=== PATIENT | female | born 1935 | race Caucasian/White ===

== ENCOUNTER 2020-04-06 15:37 | Outpatient (CLI) | payer MEDICARE, SELFPAY ==
[2020-04-06 16:00] LABS: Basophils Absolute Auto 0.04 K/mm3 (0.00-0.10); Basophils Percent Auto 0.6 % (0.0-1.0); Eosinophils Absolute Auto 0.29 K/mm3 (0.02-0.50); Eosinophils Percent Auto 4.4 % (1.0-6.0); Hematocrit 38.1 % (35.0-42.0); Hemoglobin 12.7 g/dL (11.7-13.8); Immature Granulocyte Absolute 0.01 K/mm3 (0.00-0.00); Immature Granulocyte Percent A 0.2 % (0.0-0.0); Lymphocytes Absolute Auto 1.73 K/mm3 (1.10-4.50); Lymphocytes Percent Auto 26.5 % (18.0-42.0); Mean Corpuscular HGB Conc 33.3 g/dL (32.0-36.0); Mean Corpuscular Hemoglobin 31.4 pg (27.0-31.0); Mean Corpuscular Volume 94.3 fL (78.0-102.0); Mean Platelet Volume 9.9 fl (9.2-11.8); Monocytes Percent Auto 7.6 % (2.0-11.0); Neutrophils Percent Auto 60.7 % (50.0-70.0); Platelet Count Result 184 K/mm3 (150-420); Red Blood Count 4.04 M/mm3 (4.20-5.40); Red Cell Distribution Width 13.6 % (11.6-14.4); White Blood Count 6.5 K/mm3 (4.8-10.8)
[2020-04-06 16:14] LABS: Hemoglobin A1C 5.5 % (<5.7)
[2020-04-06 17:02] LABS: Alanine Aminotransferase 25 U/L (14-59); Alkaline Phosphatase 100 U/L (46-116); Anion Gap 8 mmol/L (8-16); Aspartate Amino Transferase 23 U/L (15-37); Bilirubin,Total 0.6 mg/dL (0.00-1.00); Blood Urea Nitrogen 22 mg/dL (7-18); Calcium 9.1 mg/dL (8.5-10.1); Carbon Dioxide 27 mmol/L (21-32); Chloride 103 mmol/L (98-108); Estimated Glomerular Filt Rate > 60; Glucose 119 mg/dL (70-99); HDL Direct 82 mg/dL (40-60); LDL Cholesterol Calculated 115 mg/dL (<130); Osmolality Calculated 290 mOsm/kg (285-295); Potassium 4.1 mmol/L (3.5-5.1); Sodium 138 mmol/L (136-145); Total Protein 7.1 g/dL (6.4-8.2); Triglycerides 75 mg/dL (0-150)
[2020-04-06 17:04] LABS: Cholesterol 212 mg/dL (0-200)
== END 2020-04-06 15:38 | disposition home or self-care (01) ==
LOC: CHSLAB 15:44
PROVIDERS: PCP Internal Medicine; Visit Provider Internal Medicine
DX: E11.9 Type 2 diabetes mellitus without complications (principal); I10 Essential (primary) hypertension; E78.5 Hyperlipidemia, unspecified
CPT/HCPCS: 36415; 80053; 80061; 83036; 85025

== ENCOUNTER 2020-04-25 08:55 | Outpatient (RCR) | payer MEDICARE, OTHER, SELFPAY ==
--- NOTE | 2020-04-25 10:02 | PTOPEVAL ---
Thank you for referring Yamilex Dial to [facility].? The patient is scheduled to be seen for therapy? __3__x/week for 12 visits. Please review, sign, date and return this plan of care JOSE R. I agree with and certify that the following plan of care is medically necessary. Referring Physician Date Admitting Provider: Attending Provider: Stephany Elkins, HAND BOX FOLDER-BC Referring Provider: *PT Outpatient Evaluation Start: 04/25/20 09:27 Freq: Status: Active Protocol: Document 04/25/20 09:27 MICHELLE (Rec: 04/25/20 09:59 MICHELLE [id number]) Therapy Assessment Status Assessment Status Assessment Status Evaluation Evaluation Information Problem Diagnosis unsteady gait Onset 04/19/20 Subjective Information Pt. reports that she underwent Query Text:As Reported By Patient/ left hip replacment in Family December 2018. she reports that the hip popped out 5 times following surgery. She reports that she did do brief bout of HH therapy. She reports that she underwent second surgery in July of 2019 to address the dislocation. She reports that every since undergoing hip surgery she has noticed her balance decreasing. She reports that she fell 2 weeks ago at her daughters after getting her foot caught while going over a threshold. She reports that she is currently using a cane. She reports that her goal is to be able to walk long distances without her cane safely. Prior Level of Function Activity Level (Last 3 Months) Occupation retired Hand Dominance Right Activity of Daily Living Ability Independent Indoor/Home Mobility Independent Community Mobility Independent Stairs Ability Independent Functional Cognition (Planning, Shopping Independent , Taking Medications) Cooking Yes Cleaning Yes Laundry Yes Shopping Yes Driving Yes Pain Assessment Timing of Pain Assessment Timing of Pain Assessment Pre-Treatment Pain Scale Pain Scale Used Numeric (1 - 10) Self Report Pain Assessment
--- NOTE | 2020-05-25 07:09 | PTOPEVAL ---
Thank you for referring Yamilex Dial to [facility].? The patient is scheduled to be seen for therapy? __2__x/week for 8 visits. Please review, sign, date and return this plan of care JOSE R. I agree with and certify that the following plan of care is medically necessary. Referring Physician Date Admitting Provider: Attending Provider: Stephany Elkins, SOFTWARE SOLUTIONS ARCHITECT-BC Referring Provider: *PT Outpatient Evaluation Start: 04/25/20 09:27 Freq: Status: Active Protocol: Document 05/23/20 13:05 MICHELLE (Rec: 05/23/20 13:31 MICHELLE [id number]) Therapy Assessment Status Assessment Status Assessment Status Re-evaluation Evaluation Information Problem Diagnosis unsteady gait, bilateral l.e. pain Pain Assessment Pain Scale Pain Scale Used Numeric (1 - 10) Self Report Pain Assessment Generalized Reported Pain Level 6 Greatest Pain Intensity 10 Pain Score Pain Score 6: Self Report Interventions Used Interventions Used By Clinicians Electrical Stimulation, Exercise,Heat Cervical and Lumbar ROM Lumbar ROM Lumbar Flexion Active Knee Query Text:Hands to: Lumbar Extension (0-40) 5 Query Text:Active in Degrees Lumbar Lateral Flexion Right (0-40) 30 Query Text:Active in Degrees Lumbar Lateral Flexion Left (0-40) 30 Query Text:Active in Degrees Lateral Rotation Right (0-45) 25 Query Text:Active in Degrees Lateral Rotation Left (0-45) 25 Query Text:Active in Degrees Lower Extremity Muscle Strength Testing General Lower Extremity Strength Gross Lower Extremity Strength right hip flexion 4+/5 left hip flexion 4/5 right hip abduction 4/5 left hip abduction 4-/5 bilateral knee flexion 5/5 bilateral knee extension 5/5 right ankle dorsiflexion 5/5 left ankle dorsiflexion 4+/5 Posture Posture Standing Position Additional Posture Comments Pt. presents with reduced lumbar lordosis with slight trunk flexion noted in standing. Palpation Assessment Palpation Palpation TTP noted at the area of the lumbar paraspinals and into the gluteal ridge. Balance Assessment Tinetti Balance Assessment Sitting Balance Steady, safe Ability to Arise Able, w/o using arms Attempts to Arise Arises on 1st attempt Immediate Standing Balance Steady w/o support Standing Ba
== END 2020-06-26 10:45 | disposition home or self-care (01) ==
LOC: CHSPT 08:55
PROVIDERS: Visit Provider Nurse Practitioner Family
DX: R26.81 Unsteadiness on feet (principal)
CPT/HCPCS: 97014; 97110; 97112; 97140; 97161; G0283

== ENCOUNTER 2020-05-06 09:27 | Outpatient (CLI) | payer MEDICARE, SELFPAY ==
--- NOTE | ~2020-05-06 | MR_ITS ---
EXAMINATION: MR lumbar spine wo/w con EXAM DATE: 05/06/2020 11:25 INDICATION: Low back pain, lumbar radiculopathy. TECHNIQUE: Multi-sequential, multiplanar MR images of the lumbar spine were obtained without contrast . Sagittal T1, T2, T2 fat saturation images. Axial T2 weighted images. Axial T1 weighted sequence. Patient was then injected with 12 mL Multihance intravenous contrast and reimaged. Postcontrast axi al and sagittal T1-weighted fat saturation sequences were obtained. Comparison is made to prior exami nation from 07/18/2007. FINDINGS: There are laminotomies laminectomies L2-L5. There is 6 mm retrolisthesis L1 on L2 and 7 mm retrolisthesis L2 on L3. There is 10 mm anterolisthesis L4 on L5 and 4 mm retrolisthesis L5 on S1. Th ere is severe disc disease at all lumbar levels and moderate disc disease at lower thoracic levels. T he conus medullaris terminates at the L1 level and has normal signal intensity and morphology. There is moderate lumbar levoscoliosis. Mild to moderate loss of all lumbar vertebral body heights, chronic compressions. No bone marrow savana a to suggest acute compression fracture. There is possible subacute component to the L5 compression. Paraspinal soft tissue is unremarkable. There are no areas of abnormal enhancement on the post contra st images. Level by level evaluation: T11-12: There is a mild diffuse disc bulge. Facet arthropathy: Mild to moderate. Neural foraminal stenosis: Mild bilateral. Central canal stenosis: Mild. T12-L1: There is a mild diffuse disc bulge. Facet arthropathy: Mild. Neural foraminal stenosis: No stenosis. Central canal stenosis: No stenosis. L1-L2: There is a moderate diffuse disc bulge. Facet arthropathy: Moderate. Neural foraminal stenosis: Moderate to severe right, moderate left. Central canal stenosis: Mild to moderate. L2-L3: There is a moderate diffuse disc bulge. Facet arthropathy: Moderate. Neural foraminal stenosis: Moderate to severe bilateral. Central canal stenosis: Mild to moderate, posterior decompression. L3-L4: There is a mild to moderate diffuse disc bulge. Facet arthropathy: Moderate to severe. Neural foraminal stenosis: Moderate to severe bilateral. Central canal stenosis: Moderate. L4-L5: There is a large diffuse disc bulge. Facet arthropathy: Severe. Neural foraminal stenosis: Severe bilateral. Central canal stenosis: Severe. L5-S1: There is a moderate diffuse disc bulge. Facet arthropathy: Moderate. Neural foraminal stenosis: Moderate to severe left, moderate right. Central canal stenosis: Mild to moderate. There is been significant interval progression in disc disease, other degenerative changes compared t o 2007. IMPRESSION: 1. L4-5 grade 2 anterolisthesis, severe central canal and bilateral neural foraminal stenosis. 2. Advanced lumbar spondylosis as detailed above. 3. Moderate levoscoliosis. Reviewed, dictated and finalized at location B. TRIMMER IMPRESSION: 1. L4-5 grade 2 anterolisthesis, severe central canal and bilateral neural for aminal stenosis. 2. Advanced lumbar spondylosis as detailed above. 3. Moderate levoscoliosis.
== END 2020-05-06 09:28 | disposition home or self-care (01) ==
LOC: CHSIMG 09:32
PROVIDERS: PCP Internal Medicine; Visit Provider Nurse Practitioner Family
DX: M54.5 Low back pain (principal); M54.16 Radiculopathy, lumbar region
CPT/HCPCS: 72158; A9577

== ENCOUNTER → 2021-06-30 11:22 | Outpatient (CLI) | payer MEDICARE, SELFPAY ==
--- NOTE | ~2021-06-30 | MR_ITS ---
EXAMINATION: MR lumbar spine wo [facility] EXAM DATE: 06/30/2021 12:19 INDICATION: chronic lbp w/ ana cristina buttock to ankle cramping since 01/2019. TECHNIQUE: Multi-sequential, multiplanar MR images of the lumbar spine were obtained without contrast . Sagittal T1, T2, T2 fat saturation images. Axial T2 weighted images. Comparison is made to prior examination from 05/06/2020. FINDINGS: There are surgical changes from laminotomies and laminectomies L2-L5. There is 7 mm retrol isthesis L1 on L2 and L2 on L3. There is 11 mm anterolisthesis L4 on L5 and 3 mm retrolisthesis L5 on S1. There is severe disc disease at all lumbar levels and moderate disc disease at lower thoracic le vels. The conus medullaris terminates at the L1 level and has normal signal intensity and morphology. There is moderate lumbar levoscoliosis. Mild to moderate loss of all lumbar vertebral body heights, chronic compressions. No bone marrow savana a to suggest acute compression fracture. There is possible subacute component to the L5 compression. Paraspinal soft tissue is unremarkable. There are no areas of abnormal enhancement on the post contra st images. Level by level evaluation: T11-12: There is a mild diffuse disc bulge. Facet arthropathy: Mild to moderate. Neural foraminal stenosis: Mild bilateral. Central canal stenosis: Mild. T12-L1: There is a mild diffuse disc bulge. Facet arthropathy: Mild. Neural foraminal stenosis: No stenosis. Central canal stenosis: No stenosis. L1-L2: There is a moderate diffuse disc bulge. Facet arthropathy: Moderate. Neural foraminal stenosis: Moderate to severe right, moderate left. Central canal stenosis: Mild to moderate. L2-L3: There is a moderate diffuse disc bulge. Facet arthropathy: Moderate. Neural foraminal stenosis: Moderate to severe bilateral. Central canal stenosis: Mild to moderate, posterior decompression. L3-L4: There is a mild to moderate diffuse disc bulge. Facet arthropathy: Moderate to severe. Neural foraminal stenosis: Moderate to severe bilateral. Central canal stenosis: Moderate. L4-L5: There is a large diffuse disc bulge. Facet arthropathy: Severe. Neural foraminal stenosis: Moderate to severe bilateral. Central canal stenosis: Moderate to severe. L5-S1: There is a moderate diffuse disc bulge. Facet arthropathy: Moderate. Neural foraminal stenosis: Moderate to severe left, moderate right. Central canal stenosis: Mild to moderate. Difficult to appreciate substantial interval change in these findings compared to prior study. IMPRESSION: 1. L4-5 grade 2 anterolisthesis, severe central canal and bilateral neural foraminal stenosis. 2. Moderate to severe multilevel neural foraminal stenosis. 3. Moderate levoscoliosis. Reviewed, dictated and finalized at location B. IMPRESSION: 1. L4-5 grade 2 anterolisthesis, severe central canal and bilateral neural for aminal stenosis. 2. Moderate to severe multilevel neural foraminal stenosis. 3. Moderate levoscoliosis.
== END ==
PROVIDERS: PCP Internal Medicine; Visit Provider Nurse Practitioner Adult Health
DX: M54.16 Radiculopathy, lumbar region (principal)
CPT/HCPCS: 72148

== ENCOUNTER → 2021-09-26 16:17 | Outpatient (CLI) | payer MEDICARE, SELFPAY ==
--- NOTE | ~2021-09-26 | XR_ITS ---
EXAM: XR shoulder RT min 2V DATE: 09/26/2021 16:40 HISTORY: Right shoulder pain . COMPARISON: X-ray chest 12/27/2015. FINDINGS: Decreased mineralization. Humeral head remodeling, severe glenohumeral narrowing at superi or humeral head displacement, and surrounding osteophytosis at the glenohumeral joint. Severe AC join t hypertrophy. Multiple loose bodies are likely present within the right shoulder joint. Partially vi sualized stent over the lower mediastinum/GE junction. 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 Reviewed, dictated and finalized at location K.
== END ==
PROVIDERS: PCP Internal Medicine; Visit Provider Nurse Practitioner Family
DX: M25.511 Pain in right shoulder (principal); M19.011 Primary osteoarthritis, right shoulder
CPT/HCPCS: 73030

== ENCOUNTER 2022-01-06 05:52 | Emergency (ER) | payer MEDICARE, SELFPAY ==
[2022-01-06 06:09] VITALS: BP 178/69; PULSE 77; RESP 18; TEMP 36.6; O2SAT 98
--- NOTE | 2022-01-06 06:21 | ED.SKABFB ---
HPI - Skin/Abscess/Foreign Bdy General Chief complaint: Skin/Abscess/Foreign Body Stated complaint: PAIN Source: patient Mode of arrival: ambulatory Limitations: no limitations History of Present Illness HPI narrative: This is an 86-year-old female that presents with some rash on her bilateral arms mid arms that are itchy have urticaria patient is unsure of which she came in contact with but she is not short of breath no fever chills no abdominal pain no nausea or vomiting. MD complaint: rash Onset (ago): hour(s) Location: LUE and RUE Severity: mild Quality: pruritic Related Data Home Medications Medication Instructions Recorded Confirmed meloxicam 15 mg tablet 15 mg PO DAILY 01/06/22 01/06/22 omeprazole 20 mg capsule,delayed 20 mg PO DAILY 01/06/22 01/06/22 release oxybutynin chloride 5 mg tablet 5 mg PO DAILY 01/06/22 01/06/22 pravastatin 10 mg tablet 10 mg PO DAILY 01/06/22 01/06/22 sertraline 50 mg tablet 50 mg PO DAILY 01/06/22 01/06/22 Allergies Allergy/AdvReac Type Severity Reaction Status Date / Time vancomycin Allergy Severe RASH Verified 01/06/22 06:04 doxycycline Allergy Unknown RASH Verified 01/06/22 06:04 hydromorphone Allergy Unknown HALLUCINATI Verified 01/06/22 06:04 ONS acetaminophen [From [place]] Allergy Rash Verified 01/06/22 06:04 atorvastatin Allergy Unknown Verified 01/06/22 06:04 azithromycin Allergy Hives Verified 01/06/22 06:04 duloxetine Allergy Unknown Verified 01/06/22 06:04 hydrocodone [From [place]] Allergy Rash Verified 01/06/22 06:04 Review of Systems Review of Systems: All systems reviewed & are unremarkable except as noted in HPI and below PMFSH Past Medical History Medical History HLD (hyperlipidemia) HLD (hyperlipidemia) Exam Const: General: healthy appearing and no acute distress HENMT: Head: normal to inspection General nose exam: Normal external nose present Face and sinus: normal facial exam Mouth: Yes Normal oral and palatal mucosa present Eyes: Conjunctivae: conjunctivae normal EOM: EOMs intact bilaterally Neck: Neck: normal visual inspection Chest: Chest palpation & inspection: normal inspection of the chest Resp: Effort & Inspection: normal respiratory effort Auscultation: clear to auscultation bilaterally Cardio: Rate: regular rate Rhythm: regular rhythm GI: GI Palp: Yes Soft to palpation Auscultation: normal bowel sounds Back/Spine/Pelvis: Back: no CVA tenderness Skin: General skin exam: normal color Rashes: no rashes Wounds: no wounds Neuro: General: patient oriented x3 and moves all extremities Cranial nerves: Yes Nystagmus not present Extrem: General: normal to inspection Psych: Mental Status: mental status grossly normal Affect: normal affect Course Course Emergency Course: patient received IM 80mg shot patient with some no shortness of breath no nausea vomiting no abdominal pain Vital Signs Vital signs: Vital Signs Temperature 36.6 C 01/06/22 06:09 Pulse Rate 77 01/06/22 06:09 Respiratory Rate 18 01/06/22 06:09 Blood Pressure 178/69 H 01/06/22 06:09 Pulse Oximetry 98 01/06/22 06:09 Oxygen Delivery Room Air 01/06/22 06:09 Temperature 36.6 C 01/06/22 06:09 Pulse Rate 77 01/06/22 06:09 Respiratory Rate 18 01/06/22 06:09 Blood Pressure 178/69 H 01/06/22 06:09 Pulse Oximetry 98 01/06/22 06:09 Oxygen Delivery Room Air 01/06/22 06:09 Critical Care Time Critical Care Time Critical Care Time: No Discharge Plan Discharge Clinical Impression: Contact dermatitis Qualifiers: Contact dermatitis type: unspecified Contact dermatitis trigger: unspecified trigger Qualified Code(s): L25.9 - Unspecified contact dermatitis, unspecified cause Patient Disposition: Home, Self-Care Condition: Stable Instructions: Antibiotic Form, Contact Dermatitis (ED) Additional Instructions: take medicine as prescribed and fol
[2022-01-06] MEDS: methylPREDNISolone ACETATE 40 MG/ML VIAL 80 MG IM (06:29)
== END 2022-01-06 06:33 | disposition home or self-care (01) ==
PROVIDERS: Emergency Provider Emergency Medicine; PCP Internal Medicine
DX: L25.9 Unspecified contact dermatitis, unspecified cause (principal)
CPT/HCPCS: 96372; 99283; J1030

== ENCOUNTER 2022-05-07 09:55 | Outpatient (CLI) | payer MEDICARE, SELFPAY ==
[2022-05-07 10:16] LABS: Basophils Absolute Auto 0.06 K/mm3 (0.00-0.10); Basophils Percent Auto 1.1 % (0.0-1.0); Eosinophils Absolute Auto 0.31 K/mm3 (0.02-0.50); Eosinophils Percent Auto 5.8 % (1.0-6.0); Hematocrit 41.8 % (35.0-42.0); Hemoglobin 13.7 g/dL (11.7-13.8); Immature Granulocyte Absolute 0.02 K/mm3 (0.00-0.00); Immature Granulocyte Percent A 0.4 % (0.0-0.0); Lymphocytes Absolute Auto 1.32 K/mm3 (1.10-4.50); Lymphocytes Percent Auto 24.5 % (18.0-42.0); Mean Corpuscular HGB Conc 32.8 g/dL (32.0-36.0); Mean Corpuscular Hemoglobin 31.5 pg (27.0-31.0); Mean Corpuscular Volume 96.1 fL (78.0-102.0); Monocytes Absolute Auto 0.42 K/mm3 (0.10-0.90); Monocytes Percent Auto 7.8 % (2.0-11.0); Neutrophils Absolute Auto 3.3 K/mm3 (1.7-7.2); Neutrophils Percent Auto 60.4 % (50.0-70.0); Platelet Count Result 170 K/mm3 (150-420); Red Blood Count 4.35 M/mm3 (4.20-5.40); Red Cell Distribution Width 13.3 % (11.6-14.4); White Blood Count 5.4 K/mm3 (4.8-10.8)
[2022-05-07 10:24] LABS: Hemoglobin A1C 5.7 % (<5.7)
[2022-05-07 10:57] LABS: Alanine Aminotransferase 26 U/L (14-59); Albumin Level 3.8 g/dL (3.4-5.0); Alkaline Phosphatase 110 U/L (46-116); Anion Gap 8 mmol/L (8-16); Aspartate Amino Transferase 23 U/L (15-37); Bilirubin,Total 0.8 mg/dL (0.00-1.00); Blood Urea Nitrogen 19 mg/dL (7-18); Calcium 9.1 mg/dL (8.5-10.1); Carbon Dioxide 29 mmol/L (21-32); Chloride 105 mmol/L (98-108); Cholesterol 204 mg/dL (0-200); Estimated Glomerular Filt Rate > 60; Glucose 95 mg/dL (70-99); HDL Direct 73 mg/dL (40-60); LDL Cholesterol Calculated 120 mg/dL (<130); Osmolality Calculated 296 mOsm/kg (285-295); Potassium 4.7 mmol/L (3.5-5.1); Sodium 142 mmol/L (136-145); Total Protein 6.9 g/dL (6.4-8.2); Triglycerides 57 mg/dL (0-150)
[2022-05-07 11:01] LABS: CRP < 0.5 mg/dL (0.0-0.9)
== END 2022-05-07 09:56 | disposition home or self-care (01) ==
PROVIDERS: PCP Internal Medicine; Visit Provider Internal Medicine
DX: I10 Essential (primary) hypertension (principal); E11.9 Type 2 diabetes mellitus without complications; E78.5 Hyperlipidemia, unspecified
CPT/HCPCS: 36415; 80053; 80061; 83036; 85025; 86140

== ENCOUNTER 2022-05-29 02:01 | Day surgery (SDC) | payer MEDICARE, SELFPAY ==
[2022-05-13 14:50] VITALS: BMI 33.3
[2022-05-29 12:00] VITALS: BP 193/77; PULSE 69; RESP 16; TEMP 36.2; O2SAT 99; BMI 33.6
--- NOTE | 2022-05-29 12:33 | P.PNAN_ITS ---
Anes - Initial Pre Proc Eval Procedure: Operation Date: 05/29/22 13:30 Proposed Procedures p Esophagogastroduodenoscopy - Reinaldo Beasley MD Date/Time: 05/29/22 12:33 Surgeon: Reinaldo Beasley MD Pre Op Diagnosis: dysphagia Patient Data Age: 87 Gender: F Height: 1.47 m Weight: 73 kg Last Vital Signs Temp 97.1 F L 05/29/22 12:00 Pulse 69 05/29/22 12:00 Resp 16 05/29/22 12:00 BP 193/77 H 05/29/22 12:00 Pulse Ox 99 05/29/22 12:00 O2 Del Method Room Air 05/29/22 12:00 Allergies Allergy/AdvReac Type Severity Reaction Status Date / Time vancomycin Allergy Severe RASH Verified 05/29/22 12:17 doxycycline Allergy Unknown RASH Verified 05/29/22 12:17 hydromorphone Allergy Unknown HALLUCINATI Verified 05/29/22 12:17 ONS acetaminophen [From [place]] Allergy Rash Verified 05/29/22 12:17 atorvastatin Allergy Unknown Verified 05/29/22 12:17 azithromycin Allergy Hives Verified 05/29/22 12:17 duloxetine Allergy Unknown Verified 05/29/22 12:17 hydrocodone [From [place]] Allergy Rash Verified 05/29/22 12:17 Home Medications Medication Instructions Recorded Confirmed Type meloxicam 15 mg tablet 15 mg PO DAILY 01/06/22 05/29/22 History omeprazole 20 mg capsule,delayed 20 mg PO DAILY 01/06/22 05/29/22 History release oxybutynin chloride 5 mg tablet 5 mg PO DAILY 01/06/22 05/29/22 History pravastatin 10 mg tablet 10 mg PO DAILY 01/06/22 05/29/22 History sertraline 50 mg tablet (Zoloft) 50 mg PO DAILY 01/06/22 05/29/22 History Patient hx anesthesia problems: none Family hx anesthesia problems: none Results Review: All pre-operative results and documents have been reviewed as part of the pre- operative evaluation. [facility] Past Medical History Medical History HLD (hyperlipidemia) HLD (hyperlipidemia) Social History Social History Substance use type: does not use Anes - Eval Final PreProcedure Day of Procedure 05/29/22 12:33 Patient weight: normal Heart: regular rate and rhythm Lungs: clear to auscultation Airway: Mallampati scale class II Neurological: alert and oriented Last oral intake: >/= 8 hours ASA classification: III Emergent: no Anesthetic plan: proceed Anesthesia type and monitoring: general GIVS and standard monitoring Results Review: All pre-operative results and documents have been reviewed as part of the pre- operative evaluation. Informed Consent: The patient's anesthetic plan and its attendant risks and benefits were discussed with the patient/family/POA. Questions were solicited and answers provided to the satisfaction of the patient/family/POA.
[2022-05-29] MEDS: LACTATED RINGERS 1,000 ML 150 ML IV CONT (12:37)
[2022-05-29] MEDS: GENTAMICIN 80MG/SOD CHL 50 ML 80 MG/50 ML BAG 100 MG IVPB (12:39)
[2022-05-29] MEDS: AMPICILLIN 2 GM/NS 100 ML 2 GM/100 ML BAG IVPB (12:58)
--- NOTE | 2022-05-29 13:01 | PM.HPGS ---
History of Present Illness History of Present Illness Consent: Risks, benefits, and alternatives have been discussed and questions answered. Patient agrees to proceed with procedure. Chief complaint: dysphagia Narrative: Yamilex Dial is a 87 year old female with gerd on ppi and dysphagia, she says that had egd in the past and thinks that esophagus stretched out. Review of Systems Constitutional: Constitutional: Denies headache(s) and Denies weakness Eyes: Eyes: Denies blurry vision ENT: Reports Normal hearing present, Denies headache(s) and Denies neck pain Cardiovascular: Cardiovascular: Denies chest pain and Denies dyspnea Respiratory: Respiratory: Denies dyspnea Gastrointestinal: Gastrointestinal: Reports no additional gastrointestinal complaints Genitourinary: Genitourinary: Denies dysuria Musculoskeletal: Musculoskeletal: Denies neck pain Integumentary/Breasts: Skin/Breast: Denies dry skin Neurologic: Reports Normal hearing present, Denies headache(s) and Denies weakness Psychiatric: Psychiatric: Denies anxiety Endocrine: Endocrine: Denies change in body appearance Hematologic/Lymphatic: Hematologic/Lymphatic: Denies easy bleeding Allergic/Immunologic: Allergic/Immunologic: Denies urticaria PMF Past Medical History Medical History (Updated 05/29/22 @ 13:02 by Reinaldo Beasley MD) Dysphagia GERD (gastroesophageal reflux disease) HLD (hyperlipidemia) HLD (hyperlipidemia) Social History Social History Substance use type: does not use Meds Home Medications and Allergies Home Medications Medication Instructions Recorded Confirmed Type meloxicam 15 mg tablet 15 mg PO DAILY 01/06/22 05/29/22 History omeprazole 20 mg capsule,delayed 20 mg PO DAILY 01/06/22 05/29/22 History release oxybutynin chloride 5 mg tablet 5 mg PO DAILY 01/06/22 05/29/22 History pravastatin 10 mg tablet 10 mg PO DAILY 01/06/22 05/29/22 History sertraline 50 mg tablet (Zoloft) 50 mg PO DAILY 01/06/22 05/29/22 History Allergies Allergy/AdvReac Type Severity Reaction Status Date / Time vancomycin Allergy Severe RASH Verified 05/29/22 12:17 doxycycline Allergy Unknown RASH Verified 05/29/22 12:17 hydromorphone Allergy Unknown HALLUCINATI Verified 05/29/22 12:17 ONS acetaminophen [From [place]] Allergy Rash Verified 05/29/22 12:17 atorvastatin Allergy Unknown Verified 05/29/22 12:17 azithromycin Allergy Hives Verified 05/29/22 12:17 duloxetine Allergy Unknown Verified 05/29/22 12:17 hydrocodone [From [place]] Allergy Rash Verified 05/29/22 12:17 Vital Signs Vital Signs - 24 hr 05/29/22 12:00 Temperature 97.1 F L Pulse Rate 69 Respiratory Rate 16 Blood Pressure 193/77 H Pulse Oximetry 99 Oxygen Delivery Room Air Exam Const: General: comfortable and no acute distress HENMT: Face/Nose/Sinus: Normal nares present Eyes: General: appearance normal, both eyes and all related structures Neck: Neck: no JVD Resp: Auscultation: clear to auscultation bilaterally Cardio: Rate: regular rate Rhythm: regular rhythm GI: Inspection: non-distended GI Palp: Yes Soft to palpation Skin: General skin exam: normal color Neuro: General: gait normal Speech: normal speech Extrem: General: normal to inspection Psych: Mental Status: mental status grossly normal Assessment and Plan Assessment and plan (1) GERD (gastroesophageal reflux disease): Code(s): K21.9 - Gastro-esophageal reflux disease without esophagitis Status: Acute Assessment and Plan: egd with bx (2) Dysphagia: Code(s): R13.10 - Dysphagia, unspecified Status: Acute Assessment and Plan: will assess if needs dilatation
[2022-05-29 13:17] VITALS: BP 115/45; PULSE 66; RESP 21; O2SAT 98
[2022-05-29 13:27] VITALS: BP 116/54; PULSE 66; RESP 22; O2SAT 98
[2022-05-29 13:37] VITALS: BP 137/61; PULSE 61; RESP 18; O2SAT 98
== END 2022-05-29 13:41 | disposition home or self-care (01) ==
PROVIDERS: PCP Internal Medicine; Visit Provider Internal Medicine Gastroenterology
PROC: 0DJ08ZZ Inspection of Upper Intestinal Tract, Via Natural or Artificial Opening Endoscopic (ICD-10-PCS; CPT 43235; principal; 2022-05-29 13:30)
DX: K21.9 Gastro-esophageal reflux disease without esophagitis (principal); R13.10 Dysphagia, unspecified; K44.9 Diaphragmatic hernia without obstruction or gangrene; K29.70 Gastritis, unspecified, without bleeding; E78.5 Hyperlipidemia, unspecified
CPT/HCPCS: 43239; 43248; 88305; J0290; J1580; J2704; J7120

== ENCOUNTER 2022-06-21 06:24 | Emergency (ER) | payer MEDICARE, SELFPAY ==
--- NOTE | ~2022-06-21 | XR_ITS ---
Clinical Indication: Dizziness, hypertension PA and lateral views of the chest: Comparison: 12/27/2015 Findings: The lungs are clear, without evidence of focal consolidation or pleural effusion. Cardiome diastinal silhouette is stable, now with aortic valve replacement. Left shoulder arthroplasty noted. Multiple retrolistheses in the lumbar spine are noted. Impression: Clear lungs. Status post interval aortic valve replacement. Reviewed, dictated and finalized at location . Impression: Clear lungs. Status post interval aortic valve replacement.
--- NOTE | ~2022-06-21 | CT_ITS ---
Non-contrast Head CT History: Hypertension, dizziness Technique: Axial non-contrast imaging of the brain was performed. Dose reduction technique was used on this scan by utilizing automated exposure control and iterative reconstruction technique. The dose -length product (DLP) was 605.33 mGy-cm. Findings: There is no evidence of intracranial hemorrhage, mass lesion, or acute infarct. Brain par enchyma appears normal. The ventricles and subarachnoid spaces are normal in size. The calvarium ap pears normal. The visualized paranasal sinuses and mastoid air cells are clear. Impression: No significant abnormality seen. Reviewed, dictated and finalized at location . Impression: No significant abnormality seen.
[2022-06-21 06:25] VITALS: BP 208/72; PULSE 66; PULSE 67; RESP 20; TEMP 36.6; O2SAT 99
--- NOTE | 2022-06-21 06:32 | ECG_ITS ---
Measurements Intervals [place] Rate: 64 P: 43 VA: 176 QRS: 35 QRSD: 90 T: 27 QT: 437 QTc: 454 Interpretive Statements SINUS RHYTHM NORMAL ECG NO PREVIOUS ECG AVAILABLE FOR COMPARISON Electronically Signed On 06-21-2022 6:52:19 CDT by Thomas Casanova D.O.
--- NOTE | 2022-06-21 06:44 | ED.DIZZY ---
HPI - Dizziness General Chief Complaint: Dizziness Stated Complaint: dizziness/vomitng Time Seen by Provider: 06/21/22 06:32 Source: patient and EMS Mode of arrival: ambulatory Limitations: no limitations History of Present Illness HPI Narrative: this is an 87 year female presents with from with a 1 week history of dizziness / vertigo started gradually had improved over the course of a week but this morning had intensified and had noticed that her blood pressure has been elevated she, does not have a history of hypertension and currently in the ER blood pressure was 208/77 with a right-sided headache, with some some nausea no vomiting denies chest pain or shortness of breath no abdominal pain no diarrhea or constipation no flank pain no dysuria no hematuria. Patient has a past medical history of osteoarthritis, depression, GERD and hyperlipidemia. MD elicited complaint: dizziness and lightheadedness Onset (ago): day(s) Timing: gradual onset Severity: severe Description: room spinning Related Data Home Medications Medication Instructions Recorded Confirmed meloxicam 15 mg tablet 15 mg PO DAILY 01/06/22 06/21/22 omeprazole 20 mg capsule,delayed 20 mg PO DAILY 01/06/22 06/21/22 release oxybutynin chloride 5 mg tablet 5 mg PO DAILY 01/06/22 06/21/22 pravastatin 10 mg tablet 10 mg PO DAILY 01/06/22 06/21/22 sertraline 50 mg tablet (Zoloft) 50 mg PO DAILY 01/06/22 06/21/22 Adults Multivitamin See Rx Instructions .Route .COMPLEX 06/21/22 06/21/22 Ocuvite See Rx Instructions .Route .COMPLEX 06/21/22 06/21/22 acetaminophen 500 mg PO Q6-8H PRN Pain 06/21/22 06/21/22 aspirin 81 mg PO DAILY 06/21/22 06/21/22 Allergies Allergy/AdvReac Type Severity Reaction Status Date / Time vancomycin Allergy Severe RASH Verified 06/21/22 06:48 doxycycline Allergy Unknown RASH Verified 06/21/22 06:48 hydromorphone Allergy Unknown HALLUCINATI Verified 06/21/22 06:48 ONS acetaminophen [From [place]] Allergy Rash Verified 06/21/22 06:48 atorvastatin Allergy Unknown Verified 06/21/22 06:48 azithromycin Allergy Hives Verified 06/21/22 06:48 duloxetine Allergy Unknown Verified 06/21/22 06:48 hydrocodone [From [place]] Allergy Rash Verified 06/21/22 06:48 Review of Systems Review of Systems: All systems reviewed & are unremarkable except as noted in HPI and below PMFSH Past Medical History Medical History Dysphagia GERD (gastroesophageal reflux disease) HLD (hyperlipidemia) HLD (hyperlipidemia) Social History Social History Substance use type: does not use Exam Const: General: healthy appearing and no acute distress Nutritional Appearance: well nourished Limitations: no limitations HENMT: Head: normal to inspection Ears: TM's normal bilaterally Face/Nose/Sinus: Normal external nose present Face and sinus: normal facial exam Mouth: Yes Normal oral and palatal mucosa present Eyes: Conjunctivae: conjunctivae normal Pupils: Equal, round and reactive pupils present EOM: EOMs intact bilaterally Direct Ophthalmoscopy: no photophobia Neck: Neck: normal visual inspection Chest: Chest palpation & inspection: normal inspection of the chest Resp: Effort & Inspection: normal respiratory effort Auscultation: clear to auscultation bilaterally Cardio: Rate: regular rate Rhythm: regular rhythm GI: Inspection: distended Auscultation: normal bowel sounds : General: Yes bladder normal to palpation Urinary Catheter: Urinary Catheter: patent and draining Back/Spine/Pelvis: Back: no CVA tenderness Skin: General skin exam: normal color Rashes: no rashes Neuro: General: patient oriented x3, moves all extremities, no meningeal signs, no focal motor deficits and CN's II-XI intact bilaterally Cranial nerves: Yes Nystagmus not present Speech: normal speech Extrem: General: normal to inspection, no clubbing, cyanosis or karen
[2022-06-21] MEDS: ONDANSETRON INJ 4 MG/2 ML VIAL IV PUSH (06:53)
[2022-06-21 06:54] VITALS: PULSE 60
[2022-06-21] MEDS: ENALAPRILAT 2.5 MG/2 ML VIAL 1.25 MG IV PUSH (06:56)
[2022-06-21 06:57] LABS: Basophils Absolute Auto 0.05 K/mm3 (0.00-0.10); Basophils Percent Auto 0.5 % (0.0-1.0); Eosinophils Absolute Auto 0.15 K/mm3 (0.02-0.50); Eosinophils Percent Auto 1.6 % (1.0-6.0); Hematocrit 41.7 % (35.0-42.0); Hemoglobin 13.8 g/dL (11.7-13.8); Immature Granulocyte Absolute 0.05 K/mm3 (0.00-0.00); Immature Granulocyte Percent A 0.5 % (0.0-0.0); Lymphocytes Absolute Auto 0.84 K/mm3 (1.10-4.50); Mean Corpuscular HGB Conc 33.1 g/dL (32.0-36.0); Mean Corpuscular Hemoglobin 31.7 pg (27.0-31.0); Mean Corpuscular Volume 95.6 fL (78.0-102.0); Monocytes Absolute Auto 0.62 K/mm3 (0.10-0.90); Monocytes Percent Auto 6.6 % (2.0-11.0); Neutrophils Absolute Auto 7.7 K/mm3 (1.7-7.2); Neutrophils Percent Auto 81.8 % (50.0-70.0); Platelet Count Result 159 K/mm3 (150-420); Red Blood Count 4.36 M/mm3 (4.20-5.40); Red Cell Distribution Width 13.5 % (11.6-14.4); White Blood Count 9.4 K/mm3 (4.8-10.8)
--- NOTE | 2022-06-21 07:06 | PC.NURSE ---
Pt resting c daughter at bedside, report given to KEYLA Young
[2022-06-21 07:12] LABS: Partial Thromboplastin Time 32.3 SEC (23.90-30.70); Prothrombin Time 11.2 Seconds (9.50-12.10)
[2022-06-21 07:21] LABS: NT Pro B Type Natriuretic Pept 96 pg/mL (0-450)
[2022-06-21 07:21] LABS: Alanine Aminotransferase 29 U/L (14-59); Albumin Level 3.8 g/dL (3.4-5.0); Alkaline Phosphatase 127 U/L (46-116); Anion Gap 8 mmol/L (8-16); Aspartate Amino Transferase 30 U/L (15-37); Bilirubin,Total 0.7 mg/dL (0.00-1.00); Blood Urea Nitrogen 22 mg/dL (7-18); Calcium 9.4 mg/dL (8.5-10.1); Carbon Dioxide 28 mmol/L (21-32); Chloride 103 mmol/L (98-108); Estimated CRCL calculation 47 ml/min; Estimated Glomerular Filt Rate > 60; Glucose 124 mg/dL (70-99); Osmolality Calculated 292 mOsm/kg (285-295); Potassium 3.8 mmol/L (3.5-5.1); Sodium 139 mmol/L (136-145); Total Protein 7.6 g/dL (6.4-8.2)
[2022-06-21 07:22] LABS: Troponin I 36.6 ng/L (0.00-60.4)
[2022-06-21 07:22] LABS: CRP < 0.5 mg/dL (0.0-0.9)
--- NOTE | 2022-06-21 07:23 | ED.GENADULT ---
HPI - General Adult General Chief complaint: Dizziness Stated complaint: dizziness/vomitng Time Seen by Provider: 06/21/22 06:32 Source: patient and EMS Mode of arrival: ambulatory Limitations: no limitations History of Present Illness HPI narrative: I TOOK OVER THE MANAGEMENT OF THIS PATIENT FROM THE PREVIOUS PROVIDER. PLEASE REFER TO THEIR NOTE FOR FURTHER DETAILS. In brief, the patient is an 87-year-old woman with history of GERD, hyperlipidemia, spinal stenosis. She does not take antihypertensive medications. For the past week, the patient has had worsening nausea dizziness and no vertigo associated with a headache tonight amish region of her head, initially the symptoms decreased but have increased again this morning. She still complains of dizziness and vertigo. No vomiting but nausea was present initially which has improved significantly now. Does complain of left buttocks pain from spinal stenosis. No paresthesias except tingling in the left hand from spinal stenosis, chronic, not acute today. No chest pain or discomfort. No dyspnea. No fevers or chills. No URI symptoms. No UTI symptoms. On arrival, the blood pressure was quite elevated, 208/70 with a pulse of 67. She received enalapril IV 1.25 mg. The blood pressure now is 150/55 with a pulse of 67. Workup is in progress. Related Data Home Medications Medication Instructions Recorded Confirmed meloxicam 15 mg tablet 15 mg PO DAILY 01/06/22 06/21/22 omeprazole 20 mg capsule,delayed 20 mg PO DAILY 01/06/22 06/21/22 release oxybutynin chloride 5 mg tablet 5 mg PO DAILY 01/06/22 06/21/22 pravastatin 10 mg tablet 10 mg PO DAILY 01/06/22 06/21/22 sertraline 50 mg tablet (Zoloft) 50 mg PO DAILY 01/06/22 06/21/22 Adults Multivitamin See Rx Instructions .Route .COMPLEX 06/21/22 06/21/22 Ocuvite See Rx Instructions .Route .COMPLEX 06/21/22 06/21/22 acetaminophen 500 mg PO Q6-8H PRN Pain 06/21/22 06/21/22 aspirin 81 mg PO DAILY 06/21/22 06/21/22 Allergies Allergy/AdvReac Type Severity Reaction Status Date / Time vancomycin Allergy Severe RASH Verified 06/21/22 06:48 doxycycline Allergy Unknown RASH Verified 06/21/22 06:48 hydromorphone Allergy Unknown HALLUCINATI Verified 06/21/22 06:48 ONS acetaminophen [From [place]] Allergy Rash Verified 06/21/22 06:48 atorvastatin Allergy Unknown Verified 06/21/22 06:48 azithromycin Allergy Hives Verified 06/21/22 06:48 duloxetine Allergy Unknown Verified 06/21/22 06:48 hydrocodone [From [place]] Allergy Rash Verified 06/21/22 06:48 Review of Systems Review of Systems: All systems reviewed & are unremarkable except as noted in HPI and below Constitutional: Constitutional: Reports as per HPI, Reports no additional constitutional complaints, Denies chills, Denies excessive sweating, Denies fatigue, Denies fever(s), Reports headache(s) and Denies weakness Eyes: Eyes: Reports as per HPI, Reports no additional eye complaints, Denies change in vision and Denies photophobia ENT: Reports system reviewed and no additional complaints, except as documented, Reports as per HPI, Denies dysphagia, Reports vertigo, Reports dizziness, Reports headache(s), Denies lip swelling, Denies nasal congestion, Denies sore throat, Denies throat swelling and Denies tongue swelling Cardiovascular: Cardiovascular: Reports as per HPI, Reports no additional cardiovascular complaints, Denies chest pain, Denies syncope, Denies rapid heart rate and Denies dyspnea Respiratory: Respiratory: Reports as per HPI, Reports no additional respiratory complaints, Denies chest congestion, Denies cough, Denies dyspnea and Denies wheezing Gastrointestinal: Gastrointestinal: Reports as per HPI, Reports no additional gastrointestinal complaints, Denies abdominal pain, Denies constipation, Denies dysphagia, Denies diarrhea, Reports nausea ( Earlier, on arrival, now resolved) and Denies vomiting Genitourinary: Genitourinary: Reports as per HPI, Denies hematuria, Denies
[2022-06-21] MEDS: MECLIZINE HCL 25 MG TABLET 50 MG PO (07:35)
[2022-06-21] MEDS: SODIUM CHLORIDE 0.9% IV 1,000 ML 999 ML IV CONT (07:36)
[2022-06-21] MEDS: ACETAMINOPHEN 325 MG TABLET 975 MG PO (07:39)
[2022-06-21] MEDS: KETOROLAC 30 MG/ML VIAL (*BKC) 15 MG IV PUSH (07:40)
[2022-06-21 09:01] LABS: Appearance Urine Clear (Clear); Bilirubin Urine Negative (Negative); Blood Urine Negative (Negative); Color Urine Light Yellow (Yellow); Glucose Urine UA Negative (Negative); Ketones Urine Negative (Negative); Leukocyte Esterase Ur Trace LEU/UL (Negative); Nitrate Urine Negative (Negative); Protein Urine Negative (Negative); Urobilinogen Urine 0.2 mg/dL (0.2-1.0)
[2022-06-21 09:06] LABS: Add Urine Microscopic? YES; RBC Urine 0-2 /hpf (0-2); Squamous Epithelial Cell Urine Few /hpf (Few); WBC Urine 0-3 /hpf (0-3)
[2022-06-21 09:07] LABS: Bacteria Urine Trace /hpf
[2022-06-21 09:14] VITALS: BP 128/59; BP 136/60; PULSE 68; PULSE 76
[2022-06-21 09:15] VITALS: BP 139/89; PULSE 82
[2022-06-21 09:53] VITALS: PULSE 82; RESP 20; TEMP 36.7; O2SAT 98
== END 2022-06-21 09:45 | disposition home or self-care (01) ==
PROVIDERS: Emergency Medicine; Emergency Provider Emergency Medicine; PCP Internal Medicine
DX: R03.0 Elevated blood-pressure reading, without diagnosis of hypertension (principal); R42 Dizziness and giddiness; E78.5 Hyperlipidemia, unspecified; Z79.1 Long term (current) use of non-steroidal anti-inflammatories (NSAID); Z79.82 Long term (current) use of aspirin; Z79.899 Other long term (current) drug therapy
CPT/HCPCS: 36415; 70450; 71046; 80053; 81001; 83605; 83880; 84484; 85025; 85610; 85730; 86140; 93005; 96361; 96374; 96375; 99284; A9270; J1885; J2405; J7030

== ENCOUNTER 2022-07-13 13:33 | Emergency (ER) | payer MEDICARE, SELFPAY ==
[2022-07-13] VITALS (36 sets, daily range): BP systolic 123–216; BP diastolic 52–91; PULSE 60–79; RESP 12–23; TEMP 36.4–36.8; O2SAT 94–100
--- NOTE | ~2022-07-13 | CT_ITS ---
EXAMINATION: CT brain wo con DATE: 07/13/2022 14:40 INDICATION: Patient fell and struck head today. Dizziness. Increased weakness. TECHNIQUE: Computed tomography (CT) of the head was performed without intravenous contrast. The mA wa s adjusted according to patient size. Iterative reconstruction technique was employed. Exam dose: 60 5.33 mGy-cm total exam DLP. COMPARISON: None FINDINGS: Bilateral vertebral artery calcifications and carotid siphon internal carotid artery calcif ications. There is nonspecific diminished attenuation of cerebral white matter, likely due to chronic small ves kristine ischemic changes of the cerebral white matter. No intracranial mass lesion or hemorrhage or cerebrovascular accident is detected. No midline shift o r mass effect effect. No subdural or epidural hematoma. There is modest posterior mucoperiosteal thickening or fluid of the sphenoid sinuses. The paranasal s inuses and mastoid air cells are otherwise unremarkable. There is evidence of bilateral ocular lens replacements. No fracture or bone destruction of the cranial vault. IMPRESSION: Cerebral atherosclerosis and chronic small vessel ischemic changes of the cerebral white matter No skull fracture or acute intracranial abnormality Reviewed, dictated and finalized at Location [facility]. Reviewed, dictated and finalized at location A.
--- NOTE | 2022-07-13 13:56 | ECG_ITS ---
Measurements Intervals [place] Rate: 66 P: 30 TN: 164 QRS: 10 QRSD: 93 T: 14 QT: 422 QTc: 444 Interpretive Statements SINUS RHYTHM NORMAL ECG COMPARED TO ECG 06/21/2022 06:47:23 NO SIGNIFICANT CHANGES Electronically Signed On 07-13-2022 14:46:24 CDT by Garrison Radford M.D.
[2022-07-13 14:30] LABS: Basophils Absolute Auto 0.05 K/mm3 (0.00-0.10); Basophils Percent Auto 0.8 % (0.0-1.0); Eosinophils Percent Auto 4.9 % (1.0-6.0); Hemoglobin 13.8 g/dL (11.7-13.8); Immature Granulocyte Absolute 0.02 K/mm3 (0.00-0.00); Immature Granulocyte Percent A 0.3 % (0.0-0.0); Lymphocytes Absolute Auto 1.24 K/mm3 (1.10-4.50); Lymphocytes Percent Auto 20.2 % (18.0-42.0); Mean Corpuscular HGB Conc 32.9 g/dL (32.0-36.0); Mean Corpuscular Hemoglobin 31.4 pg (27.0-31.0); Mean Corpuscular Volume 95.7 fL (78.0-102.0); Mean Platelet Volume 9.6 fl (9.2-11.8); Monocytes Absolute Auto 0.38 K/mm3 (0.10-0.90); Monocytes Percent Auto 6.2 % (2.0-11.0); Neutrophils Absolute Auto 4.1 K/mm3 (1.7-7.2); Neutrophils Percent Auto 67.6 % (50.0-70.0); Platelet Count Result 187 K/mm3 (150-420); Red Blood Count 4.39 M/mm3 (4.20-5.40); Red Cell Distribution Width 13.5 % (11.6-14.4); White Blood Count 6.1 K/mm3 (4.8-10.8)
[2022-07-13 14:31] LABS: Appearance Urine Clear (Clear); Bilirubin Urine Negative (Negative); Blood Urine Negative (Negative); Color Urine Light Yellow (Yellow); Glucose Urine UA Negative (Negative); Ketones Urine Negative (Negative); Leukocyte Esterase Ur Negative LEU/UL (Negative); Nitrate Urine Negative (Negative); Protein Urine Negative (Negative); Urobilinogen Urine 0.2 mg/dL (0.2-1.0)
[2022-07-13 14:36] LABS: Add Urine Microscopic? NO
[2022-07-13 14:48] LABS: Alanine Aminotransferase 19 U/L (14-59); Albumin Level 3.7 g/dL (3.4-5.0); Alkaline Phosphatase 118 U/L (46-116); Anion Gap 8 mmol/L (8-16); Aspartate Amino Transferase 29 U/L (15-37); Bilirubin,Total 0.7 mg/dL (0.00-1.00); Blood Urea Nitrogen 20 mg/dL (7-18); Calcium 9.5 mg/dL (8.5-10.1); Carbon Dioxide 29 mmol/L (21-32); Chloride 104 mmol/L (98-108); Estimated Glomerular Filt Rate > 60; Glucose 151 mg/dL (70-99); Lactic Acid Reflex 0.6 mmol/L (0.4-2.0); Osmolality Calculated 297 mOsm/kg (285-295); Sodium 141 mmol/L (136-145); Total Protein 7.5 g/dL (6.4-8.2); Troponin I 40.6 ng/L (0.00-60.4)
[2022-07-13 14:56] LABS: CRP < 0.5 mg/dL (0.0-0.9); Thyroid Stimulating Hormone 3.48 uIU/mL (0.36-3.74)
--- NOTE | 2022-07-13 15:02 | ED.WEAKNESS ---
HPI - Weakness General Chief complaint: Weakness Stated complaint: fall/head injury/weakness Time Seen by Provider: 07/13/22 13:37 Source: patient and family Mode of arrival: ambulatory Limitations: no limitations History of Present Illness HPI Narrative: patient presents after she had a fall earlier today at home, states that she has ongoing weakness and chronic pain and has dizziness and lost her balance fell backwards and hit her head did not lose any consciousness currently there is no blurry vision no nausea vomiting no headache denies any chest pain or shortness of breath no fever chills no diarrhea constipation no abdominal pain no flank pain no dysuria or hematuria. Patient has elevated blood pressure but states that her blood pressure when she visited her primary care doctor's office was within normal range but currently she presents with a blood pressure of 216 systolic. MD Complaint: generalized weakness Onset (ago): hour(s) Duration: intermittent Location: generalized Severity: mild Related Data Home Medications Medication Instructions Recorded Confirmed meloxicam 15 mg tablet 15 mg PO DAILY 01/06/22 07/13/22 omeprazole 20 mg capsule,delayed 20 mg PO DAILY 01/06/22 07/13/22 release oxybutynin chloride 5 mg tablet 5 mg PO DAILY 01/06/22 07/13/22 pravastatin 10 mg tablet 10 mg PO DAILY 01/06/22 07/13/22 sertraline 50 mg tablet (Zoloft) 50 mg PO DAILY 01/06/22 07/13/22 Adults Multivitamin See Rx Instructions .Route .COMPLEX 06/21/22 07/13/22 Ocuvite See Rx Instructions .Route .COMPLEX 06/21/22 07/13/22 acetaminophen 500 mg PO Q6-8H PRN Pain 06/21/22 07/13/22 aspirin 81 mg PO DAILY 06/21/22 07/13/22 Allergies Allergy/AdvReac Type Severity Reaction Status Date / Time vancomycin Allergy Severe RASH Verified 07/13/22 13:47 doxycycline Allergy Unknown RASH Verified 07/13/22 13:47 hydromorphone Allergy Unknown HALLUCINATI Verified 07/13/22 13:47 ONS acetaminophen [From [place]] Allergy Rash Verified 07/13/22 13:47 atorvastatin Allergy Unknown Verified 07/13/22 13:47 azithromycin Allergy Hives Verified 07/13/22 13:47 duloxetine Allergy Unknown Verified 07/13/22 13:47 hydrocodone [From [place]] Allergy Rash Verified 07/13/22 13:47 Review of Systems Review of Systems: All systems reviewed & are unremarkable except as noted in HPI and below PMFSH Past Medical History Medical History Dysphagia GERD (gastroesophageal reflux disease) HLD (hyperlipidemia) HLD (hyperlipidemia) Social History Social History Substance use type: does not use Exam Const: General: healthy appearing, no acute distress and alert Nutritional Appearance: well nourished Orientation/consciousness: patient oriented x3 Limitations: no limitations HENMT: Head: normal to inspection Ears: external ears normal Face and sinus: normal facial exam Mouth: Yes Normal oral and palatal mucosa present Eyes: Conjunctivae: conjunctivae normal Pupils: Equal, round and reactive pupils present EOM: EOMs intact bilaterally Direct Ophthalmoscopy: no photophobia Neck: Neck: normal visual inspection and no lymphadenopathy Chest: Chest palpation & inspection: normal inspection of the chest Resp: Effort & Inspection: normal respiratory effort Auscultation: clear to auscultation bilaterally Cardio: Rate: regular rate Rhythm: regular rhythm GI: GI Palp: Yes Soft to palpation : General: Yes bladder normal to palpation Urinary Catheter: Urinary Catheter: patent and draining Back/Spine/Pelvis: Back: no CVA tenderness Skin: General skin exam: normal color Rashes: no rashes Wounds: no wounds Neuro: General: patient oriented x3 Extrem: General: normal to inspection Psych: Mental Status: mental status grossly normal Affect: normal affect Attitude: cooperative Course Course Emergency Course: Patient had CT scan was re
[2022-07-13] MEDS: ENALAPRILAT 2.5 MG/2 ML VIAL 1.25 MG IV PUSH (15:14)
== END 2022-07-13 17:50 | disposition short-term general hospital (02) ==
PROVIDERS: Emergency Provider Emergency Medicine; PCP Internal Medicine
DX: I10 Essential (primary) hypertension (principal); R42 Dizziness and giddiness; E78.5 Hyperlipidemia, unspecified
CPT/HCPCS: 36415; 70450; 80053; 81003; 83605; 84443; 84484; 85025; 86140; 93005; 96374; 99285

== ENCOUNTER 2022-07-13 19:23 | Inpatient (IN) | payer MEDICARE, SELFPAY ==
--- NOTE | ~2022-07-13 | CT_ITS ---
EXAMINATION: CTA brain carotid DATE: 07/13/2022 21:01 INDICATION: Dizziness. TECHNIQUE: Computed tomographic angiography (CTA) of the head was performed with 100 mL Omnipaque-350 intravenous contrast. CTA of the neck was performed with intravenous contrast. Automated exposure co ntrol and iterative reconstruction technique were employed. The dose-length product was 967.19 mGy-cm . Maximum intensity projection and volume rendered 3D-reconstructions were created by the [employer] t on a separate workstation. COMPARISON: Head CT 07/13/2022, brain MRI 07/14/2022 FINDINGS: HEAD CTA: There is a small old infarct in the left cerebellum. There are scattered areas of low atten uation in the cerebral white matter. There is no intracranial hemorrhage, acute infarction, or abnorm al intracranial mass lesion. The ventricles are normal in size. There are likely changes of ocular le ns replacement surgeries. There is mild mucosal thickening in the paranasal sinuses. The mastoid air cells are normal. Left vertebral artery is dominant. There is no significant stenosis of basilar tressa ry or the posterior cerebral arteries. Left posterior communicating artery is normal. A right posteri or communicating artery is not identified. There is no significant stenosis of the intracranial inter nal carotid arteries or anterior or middle cerebral arteries. Right A1 anterior cerebral artery segme nt is small, a normal variant. There is no aneurysm. NECK CTA: There are no pathologically enlarged lymph nodes. There is no significant stenosis of the v ertebral arteries. There is plaque in the proximal territories. There is 0% stenosis of the proximal right internal carotid artery relative to normal distal artery lumen diameter (NASCET criteria). The re is 29% stenosis of the proximal left internal carotid artery relative to normal distal artery lume n diameter. There is severe cervical spondylosis. IMPRESSION: 1. Small old infarct in left cerebellum. 2. Mild nonspecific cerebral white matter disease, which likely represents chronic small vessel ische ellis disease. 3. No aneurysm or significant intracranial arterial stenosis. 4. 0% stenosis of the proximal right internal carotid artery relative to normal distal artery lumen d iameter (NASCET criteria). 5. 29% stenosis of the proximal left internal carotid artery relative to normal distal artery lumen d iameter. Reviewed, dictated and finalized at location E. IMPRESSION: 1. Small old infarct in left cerebellum. 2. 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 3. No aneurysm or significant intracranial arterial stenosis. 4. 0% stenosis of the proximal right internal carotid artery relative to normal distal artery lumen diameter (NASCET criteria). 5. 29% stenosis of the proximal left internal carotid artery relative to normal distal artery lumen diameter.
--- NOTE | ~2022-07-13 | MR_ITS ---
EXAMINATION: MR brain/brain stem wo con DATE: 07/14/2022 09:05 INDICATION: Dizziness. Left hand tingling. TECHNIQUE: Magnetic resonance imaging (MRI) of the brain and brainstem was performed without intraven ous contrast. COMPARISON: Head CT 07/13/2022 FINDINGS: There are scattered areas of nonspecific increased T2-weighted signal intensity in the cere bral white matter and chyna. There is a small old infarct in left cerebellum. There is no intracranial hemorrhage, acute infarction, or abnormal intracranial mass lesion. The ventricles are normal in siz e. There is mild mucosal thickening in the sphenoid sinus. There are likely changes of ocular lens re placement surgeries. The mastoid air cells are normal. IMPRESSION: 1. Small old infarct in left cerebellum. 2. Moderate nonspecific cerebral white matter disease and pontine disease, which likely represents ch ronic small vessel ischemic disease. Reviewed, dictated and finalized at location E. IMPRESSION: 1. Small old infarct in left cerebellum. 2. Moderate nonspecific cerebral white matter disease and pontine disease, whic h likely represents chronic small vessel ischemic disease.
--- NOTE | ~2022-07-13 | MR_ITS ---
EXAMINATION: MR cervical spine wo con DATE: 07/14/2022 09:05 INDICATION: Left hand tingling. TECHNIQUE: Magnetic resonance imaging (MRI) of the cervical spine was performed without intravenous c ontrast. COMPARISON: None FINDINGS: There is 9 degrees dextrocurvature of cervicothoracic spine. There is 3 mm anterolisthesis of C3 on C4 and C4 on C5 and C7 on T1. There is mild chronic anterior wedging of C6, C7, and T1 verte bral bodies. There is mildly decreased disc height at C3-C4, moderately decreased disc height at C4-C 5, and severely decreased disc height from C5-C6 through T1-T2 with endplate remodeling. There is inc reased T2-weighted signal intensity in the spinal cord at C6-C7 and C7-T1. The following disc levels are specifically discussed: C2-C3: There is a central extrusion. There is mild left uncovertebral joint osteoarthritis. There is severe bilateral facet joint osteoarthritis. There is mild left neural foraminal stenosis. There is n o central canal stenosis. C3-C4: The disc is bulging. There is moderate right and severe left uncovertebral joint osteoarthriti s. There is severe bilateral facet joint osteoarthritis. There is moderate bilateral neural foraminal stenosis. There is mild central canal stenosis. C4-C5: There is a central extrusion. There is severe bilateral uncovertebral joint osteoarthritis. Th ere is severe bilateral facet joint osteoarthritis. There is severe right and moderate left neural fo raminal stenosis. There is mild central canal stenosis. C5-C6: The disc is bulging. There is severe bilateral uncovertebral joint osteoarthritis. There is se melani right and moderate left facet joint osteoarthritis. There is mild right and moderate left neural foraminal stenosis. There is moderate central canal stenosis with ventral and dorsal indentation of the spinal cord. C6-C7: The disc is bulging. There is severe bilateral uncovertebral joint osteoarthritis. There is se melani bilateral facet joint osteoarthritis. There is mild right and moderate left neural foraminal rafita nosis. There is severe central canal stenosis with ventral and dorsal indentation of the spinal cord and increased signal in the cord. C7-T1: The disc is bulging. There is severe bilateral uncovertebral joint osteoarthritis. There is se melani bilateral facet joint osteoarthritis. There is moderate bilateral neural foraminal stenosis. The re is severe central canal stenosis with ventral and dorsal indentation of the spinal cord. There is increased signal in the cord. IMPRESSION: 1. 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 2. Severe cervical spondylosis. Reviewed, dictated and finalized at location E.
[2022-07-13 18:38] VITALS: BMI 33.3
[2022-07-13 18:57] VITALS: BP 190/80; PULSE 76; RESP 16; TEMP 36.3; O2SAT 100
--- NOTE | 2022-07-13 19:06 | ADMGEN ---
This patient, Yamilex Dial, was admitted to [facility] Surg Room 307-01. Patient/family oriented to hospital policies and general routines including ID bracelet, bed and alarms, visiting hours, pain management, procedures, bathroom and other care routines, personal items, smoking policy, room service/diet, and visiting hours. Information on how to activate the Rapid Response Team has been discussed. Patient/Family are encouraged to report perceived risks to care and to ask questions if they do not understand what they are told or what they should do.
--- NOTE | 2022-07-13 19:06 | PC.NURSE ---
Pt arrived as a direct admit from [facility]. Upon initial vitals, pt's BP was 207/70 and 190/80 all other vitals were wnl. Multiple attempts were made to speak with the admitting hospitalist for orders to address pt's blood pressure. The hospitalist did not answer or respond.
--- NOTE | 2022-07-13 19:30 | PM.IMHP ---
H&P: HPI History of Present Illness Date/Time: 07/13/22 19:30 Chief Complaint: Dizziness and elevated blood pressures. Narrative: This is a very pleasant 87-year-old female with hypertension, dyslipidemia, GERD, overactive bladder, and osteoporosis who is being directly admitted to the telemetry floor from the emergency department at [facility] for further evaluation of dizziness and elevated blood pressures. Several weeks ago the patient developed dizziness and was seen in the ED at that time. She was started on meclizine 1 time per day which seemed to help her symptoms. She has not had any issues with dizziness for couple of weeks until this morning. Not long after getting up and going about her day she developed sudden onset of dizziness that she explains as lightheadedness associated with some darkening of the vision but she goes on to say that she was also feeling off balance and like she was staggering. The symptoms are worse with head position changes, specifically when looking down and looking upwards. Occasionally she has paresthesias of the left hand and she is wondering if she has some pinched nerves in her neck. She went back to the emergency department today where her blood pressure was 216/84. It is noted that her blood pressures were elevated last month when she was in the ER with dizziness. She monitors her blood pressures at home and they are always reportedly well within normal limits and she was diagnosed with white coat syndrome. Labs at the outside facility were relatively unremarkable. Brain CT showed cerebral atherosclerosis and chronic small-vessel ischemic changes of the cerebral white matter but no acute findings. Bilateral vertebral artery calcifications and carotid siphon internal carotid artery calcifications were noted. She has been transferred to [place] in this setting for further evaluation, monitoring, and neurology consultation. At the time my evaluation she has no specific complaints and is in good spirits. Review of Systems Review of Systems: Twelve systems were reviewed. No vertigo, auditory visual changes, focal weakness, facial droop, or difficulty speaking or swallowing. No fever, chills, or sweats. No headache or neck ache. No recent cold or flu symptoms. She denies chest pain pleuritic pain. No cough or shortness of breath. No sensations of racing heart or palpitations. No nausea, vomiting, or diarrhea. No history of venous thromboembolism. Except as documented, all other systems were reviewed and are negative. [facility] Past Medical History Medical History (Updated 07/14/22 @ 22:00 by Clarice Dumont APRN) Arthritis Chronic back pain Gastroesophageal reflux disease Hyperlipidemia Osteoporosis Spinal stenosis Surgical History Surgical History (Updated 07/14/22 @ 00:26 by Lori Esquivel PA-C) History of ankle surgery Left ankle reconstruction. History of appendectomy History of bilateral carpal tunnel release History of bilateral hip replacements History of hysterectomy History of lumbar surgery History of prophylactic mastectomy of both breasts History of right knee joint replacement History of transcatheter aortic valve replacement (TAVR) Family History Family History Mother Cervical cancer Social History Social History (Updated 07/14/22 @ 00:18 by Lori Esquivel PA-C) Social History: Surrogate medical decision maker: Analy Fossjose jlraa, daughter. Code status: Full code. Smoking status: Never smoker Alcohol intake: never Substance use: never Substance use type: does not use Lack of Transportation: No Lack of Food: Never True Current Housing: I Have Housing Concerned About Future Housing: No Difficulty Paying Gas/Electric Bills: No Difficulty Paying for Meds: No Currently Unemployed: No Education: High School Diploma/GED Difficulty w/ Childcare or Family Care: No [place]
[2022-07-13 20:30] VITALS: PULSE 66
[2022-07-13] MEDS: amLODIPine BESYLATE 5 MG TABLET PO (20:33)
[2022-07-13 21:56] VITALS: BP 196/53; PULSE 66; RESP 16; TEMP 36.5; O2SAT 99
[2022-07-13 22:44] VITALS: BP 143/56
[2022-07-14] VITALS (10 sets, daily range): BP systolic 120–150; BP diastolic 36–63; PULSE 60–72; RESP 16–20; TEMP 36.2–36.9; O2SAT 95–98
[2022-07-14 01:39] LABS: Anion Gap 3 mmol/L (8-16); Blood Urea Nitrogen 17 mg/dL (7-17); Calcium 8.8 mg/dL (8.4-10.2); Carbon Dioxide 27 mmol/L (22-30); Chloride 106 mmol/L (98-107); Estimated Glomerular Filt Rate > 60; Glucose 108 mg/dL (65-110); Potassium 3.8 mmol/L (3.4-5.0); Sodium 136 mmol/L (137-145)
[2022-07-14 05:16] LABS: Cholesterol 184 mg/dL (0-200); HDL Direct 55 mg/dL; Triglycerides 93 mg/dL (<150)
[2022-07-14 05:26] LABS: LDL Cholesterol Direct 97 mg/dL
--- NOTE | 2022-07-14 07:31 | PM.IMPN ---
Progress Note: A&P Assessment and Plan (1) Dizziness: Code(s): R42 - Dizziness and giddiness Status: Acute Assessment and Plan: Dizziness with position changes, especially with ambulation. CTA head and neck pending. Echo with bubble study pending. Brain MRI with small, old left cerebellar infarct. Neuro consulted and appreciate recommendations. Lipid panel shows LDL 97 and pravastatin increased from 10mg to 40mgs. She does endorse prior myalgias and this should be monitored or consider changing medication. Continue aspirin 81 mg BID. I will defer to Neurology regarding the need to add plavix given old stroke. (2) Elevated blood pressure reading: Code(s): R03.0 - Elevated blood-pressure reading, without diagnosis of hypertension Status: Acute Assessment and Plan: Patient reports having white coat syndrome and states her blood pressures are normal at home. They have been consistently elevated and she likely has underlying hypertension. She was given a dose of amlodipine 5 mg x 1 overnight 07/13 and SBP dropped 170s to 120s after one dose. Avoid precipitous drop in BP (3) Right carotid bruit: Code(s): R09.89 - Other specified symptoms and signs involving the circulatory and respiratory systems Status: Acute Assessment and Plan: CTA of the head and neck is pending. (4) Hyperlipidemia: Code(s): E78.5 - Hyperlipidemia, unspecified Status: Chronic Assessment and Plan: Pravastatin increased. (5) Numbness and tingling in left hand: Code(s): R20.0 - Anesthesia of skin; R20.2 - Paresthesia of skin Status: Acute Assessment and Plan: An intermittent problem for the patient. She believes it may be related to her neck. Cervical spine MRI shows myelomalacia C6-7 and C7-T1 with severe cervical spondylosis that is likely contributing. This is less likely related to infarct noted on MRI. Consider outpatient neurosurgery evaluation. Time Spent With Patient Time: More than 30 minutes assessing patient and answering questions. Time with patient: 25 - 35 minutes Subjective Date/time seen: 07/14/22 07:31 She had an episode of dizziness when ambulating to the bathroom and then again when getting up from the toilet. She has some dizziness when she turns her head to the left while at rest. She also reports some hand numbness to her left hand that is intermittent and worsens with range of motion. This has been ongoing for more than a month and longer than her dizziness. No nausea, emesis, slurred speech, vision changes, or extremity weakness. Review of Systems Review of Systems: All systems reviewed & are unremarkable except as noted in HPI and below Exam Narrative: General: Well-developed female, lying in bed, mildly anxious, no respiratory distress. HEENT: PERRL, EOMI. Sclera anicteric. Oral mucosa moist. Oropharynx clear. No nystagmus. Neck: Supple. Right carotid bruit. Respiratory: Lungs are clear to auscultation bilaterally. Cardiovascular: Regular rate and rhythm with S1-S2. Soft murmur at the upper sternal border. Gastrointestinal: Abdomen is soft, nontender, and nondistended with positive bowel sounds. Skin: Warm and dry. No rash or lesions on limited exam. Extremities: No cyanosis, clubbing, or edema. Radial and pedal pulses intact. Neurological: Alert and oriented x4. Cranial nerves 2-12 are intact. Speech is clear. No facial asymmetry. 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 No pronator drift. Normal [id number] bilaterally. Gait not assessed. left hand paresthesia with shoulder extension. Psychiatric: Pleasant and cooperative with normal mood and affect. Judgment and insight intact. Objective Data Vital Signs Vital Signs: Vital Signs - 24 hr 07/13/22 18:57 07/13/22 20:30 07/13/22 20:30 Temperature 97.4 F L Pulse Rate 76 66 Respiratory Rate 16 Blood Pressure 190/80 H Pulse Oxim
[2022-07-14 07:50] LABS: Free T4 Free Thyroxine Reflex 0.92 ng/dL (0.78-2.19)
[2022-07-14 08:58] LABS: Total Triiodothyronine (T3) 1.24 NG/ML (0.97-1.69)
[2022-07-14] MEDS: OPTI-GEN TAB 1 TABLET PO (09:18)
[2022-07-14] MEDS: PRAVASTATIN SODIUM 20 MG TABLET 40 MG PO (09:18)
[2022-07-14] MEDS: ACETAMINOPHEN 500 MG TABLET PO (09:18)
[2022-07-14] MEDS: SERTRALINE HCL 50 MG TABLET PO (09:18)
[2022-07-14] MEDS: oxyBUTYnin CHLORIDE XL 5 MG TAB.ER.24 PO (09:18)
[2022-07-14] MEDS: MULTIVITAMINS THERAPEUTIC TAB (*BKC) 1 TABLET PO (09:19)
[2022-07-14] MEDS: PANTOPRAZOLE 40 MG TABLET PO (09:19)
[2022-07-14] MEDS: MELOXICAM 7.5 MG TABLET 15 MG PO (09:19)
[2022-07-14] MEDS: ASPIRIN 81 MG CHEWABLE TABLET 324 MG PO (09:22)
[2022-07-15] VITALS (9 sets, daily range): BP systolic 124–174; BP diastolic 39–53; PULSE 59–72; RESP 14–18; TEMP 36.4–37.4; O2SAT 96–99
--- NOTE | 2022-07-15 | ECHO_ITS ---
Patient Info Name: Yamilex Dial Age: 87 years : 1935 Gender: Female Ht: 58 in Wt: 159 lbs BSA: 1.75 m2 HR: 64 bpm BP: 174 / 53 mmHg Technical Quality: Good Exam Date: 07/15/2022 1:07 PM Exam Location: [facility] Patient Status: Inpatient Admit Date: 07/15/2022 Staff Ordering Physician: Clarice Dumont APRN [employer] Marshal: Hue Price RDCS Attending Provider: Nestor Arvizu MD Referring Physician: Julia CASE; Exam Type: CA echo doppler w bubble study Study Info Indications - POSSIBLE STROKE Complete two-dimensional, color flow and Doppler transthoracic echocardiogram is performed with agitated saline. Contrast/Agitated Saline Contrast/Ag. Saline: Agitated Saline Amount: 20.00 ml Administered By: Fitz Craft RDCS Existing IV Access: Yes IV Access Condition: patent with no signs of infiltration Summary 1. Left ventricular chamber dimension is normal. 2. Left ventricular systolic function is normal, estimated at 60-65%. 3. There is mild concentric increased left ventricular wall thickness. 4. The left ventricular diastolic function is grade I diastolic dysfunction. 5. E/e' 14 is mildly elevated. 6. Global longitudinal strain is normal at -18.4%. 7. Left atrial chamber dimension is moderately enlarged. 8. The bioprosthetic aortic valve is not well visualized. 9. There is no bioprosthetic aortic valve stenosis based on valve area and gradients. 10. The mitral valve has mildly calcified annulus. 11. There is trace mitral valve regurgitation. 12. No pulmonary hypertension, estimated pulmonary arterial systolic pressure is 26 mmHg. Left Ventricle E/e' 14 is mildly elevated. Global longitudinal strain is normal at -18.4%. Left ventricular chamber dimension is normal. Left ventricular systolic function is normal, estimated at 60-65%. There is mild concentric increased left ventricular wall thickness. The left ventricular diastolic function is grade I diastolic dysfunction. Right Ventricle Right ventricular systolic function is normal and with normal TAPSE 2.0 cm. Right ventricular chamber dimension is normal. Left Atria Left atrial chamber dimension is moderately enlarged. Right Atria Right atrial chamber dimension is normal. Atrial Septum Agitated saline injection with and without valsalva maneuver opacified right side cardiac chambers without shunt to left side cardiac chambers. Intact interatrial septum visualized by 2D and agitated saline imaging. Aortic Valve There is no bioprosthetic aortic valve stenosis based on valve area and gradients. The bioprosthetic aortic valve is not well visualized. There is no regurgitation of the bioprosthetic aortic valve. Aortic valve is not well seen. Pulmonic Valve There is no pulmonic regurgitation. Mitral Valve The mitral valve has mildly calcified annulus. There is no mitral valve stenosis. There is trace mitral valve regurgitation. Tricuspid Valve There is no tricuspid valve regurgitation. No pulmonary hypertension, estimated pulmonary arterial systolic pressure is 26 mmHg. Pericardium/Pleural There is no pericardial effusion. Inferior Vena Cava Normal inferior vena cava with >50% collapse upon inspiration consistent with normal right atrial pressure, 5 mmHg. Aorta The aortic root size at the sinus of Valsalva is normal. Left Ventricular Outflow Tract
[2022-07-15] MEDS: MELOXICAM 7.5 MG TABLET 15 MG PO (07:58)
[2022-07-15] MEDS: PANTOPRAZOLE 40 MG TABLET PO (07:59)
[2022-07-15] MEDS: MULTIVITAMINS THERAPEUTIC TAB (*BKC) 1 TABLET PO (07:59)
[2022-07-15] MEDS: oxyBUTYnin CHLORIDE XL 5 MG TAB.ER.24 PO (07:59)
[2022-07-15] MEDS: SERTRALINE HCL 50 MG TABLET PO (07:59)
[2022-07-15] MEDS: ASPIRIN 81 MG ENTERIC TABLET PO (07:59)
[2022-07-15] MEDS: OPTI-GEN TAB 1 TABLET PO (07:59)
[2022-07-15] MEDS: PRAVASTATIN SODIUM 20 MG TABLET 40 MG PO (08:00)
--- NOTE | 2022-07-15 11:12 | PM.IMPN ---
Progress Note: A&P Assessment and Plan (1) Dizziness: Code(s): R42 - Dizziness and giddiness Status: Acute Assessment and Plan: Dizziness with position changes, especially with ambulation. CTA head and neck pending. Echo with bubble study pending. Brain MRI with small, old left cerebellar infarct. Neuro consulted and appreciate recommendations. CTA of the head and neck revealing small old infarct in the left cerebellum. This could be contributing to patient's dizziness with location of infarct. Lipid panel shows LDL 97 and pravastatin increased from 10mg to 40mgs. Continue aspirin 81 mg BID. I will defer to Neurology regarding the need to add plavix given old stroke. (2) Elevated blood pressure reading: Code(s): R03.0 - Elevated blood-pressure reading, without diagnosis of hypertension Status: Acute Assessment and Plan: Patient reports having white coat syndrome and states her blood pressures are normal at home. They have been consistently elevated and she likely has underlying hypertension. She was given a dose of amlodipine 5 mg x 1 overnight 07/13 and SBP dropped 170s to 120s after one dose. Avoid precipitous drop in BP (3) Right carotid bruit: Code(s): R09.89 - Other specified symptoms and signs involving the circulatory and respiratory systems Status: Acute Assessment and Plan: CTA of the head and neck revealing small old infarct in the left cerebellum, 0% stenosis of the right ICA and 29% stenosis of the left ICA, no aneurysm or significant intracranial arterial stenosis present. (4) Hyperlipidemia: Code(s): E78.5 - Hyperlipidemia, unspecified Status: Chronic Assessment and Plan: Continue pravastatin. (5) Numbness and tingling in left hand: Code(s): R20.0 - Anesthesia of skin; R20.2 - Paresthesia of skin Status: Acute Assessment and Plan: An intermittent problem for the patient. She believes it may be related to her neck. ? Cervical spine MRI shows myelomalacia C6-7 and C7-T1 with severe cervical spondylosis that is likely contributing. This is less likely related to infarct noted on MRI. Consider outpatient neurosurgery evaluation. Subjective Date/time seen: 07/15/22 11:12 Interval history: Patient reports dizziness with ambulation although this is not constant only sporadic. Patient is unable to detect when the dizziness will begin and states that sometimes it happens even when she is not changing positions. Patient continuing to have some left hand numbness. Patient states that her dizziness/lightheadedness and hand numbness is not new. Patient believes that her hand numbness and a dizziness are contributed to her cervical spine problems. Review of Systems Review of Systems: All systems reviewed & are unremarkable except as noted in HPI and below Exam Narrative: GENERAL: Comfortable, no acute distress HENMT: moist mucous membranes EYES: EOM intact b/l NECK: no lymphadenopathy RESPIRATORY: clear to auscultation CARDIO: RRR GI: soft, nontender, bowel sounds present SKIN: no rashes EXTREMITIES: no edema, redness or tenderness NEURO: upper extremity strength 5/5, no facial droop present Objective Data Vital Signs Vital Signs: Vital Signs - 24 hr 07/14/22 14:00 07/14/22 12:00 07/14/22 16:00 Temperature 97.1 F L Pulse Rate 62 66 72 Respiratory Rate 16 Blood Pressure 143/59 H Pulse Oximetry 98 Oxygen Delivery 07/14/22 20:00 07/14/22 20:00 07/14/22 22:00 Temperature 97.7 F Pulse Rate 63 72 71 Respiratory Rate 16 20 Blood Pressure 150/63 H Pulse Oximetry 98 95 Oxygen Delivery Room Air 07/15/22 00:00 07/15/22 04:00 07/15/22 05:40 Temperature 99.4 F Pulse Rate 65 59 L 64 Respiratory Rate 16 Blood Pressure 174/53 H Pulse Oximetry 96 Oxygen Delivery 07/15/22 08:00 Temperature Pulse Rate 67 Re
[2022-07-16] VITALS (10 sets, daily range): BP systolic 131–177; BP diastolic 43–79; PULSE 64–74; RESP 13–18; TEMP 36.2–36.6; O2SAT 98
[2022-07-16 06:52] LABS: Hematocrit 40.6 % (37.0-47.0); Hemoglobin 13.4 g/dL (12.0-15.0); Mean Corpuscular Hemoglobin 32.1 pg (26-34); Mean Corpuscular Volume 97.1 fl (80-100); Platelet Count Result 160 k/mm3 (150-375); Red Blood Count 4.18 M/mm3 (4.2-5.4); White Blood Count 7.5 K/mm3 (4.5-10.0)
[2022-07-16 07:04] LABS: Anion Gap 3 mmol/L (8-16); Blood Urea Nitrogen 19 mg/dL (7-17); Calcium 8.8 mg/dL (8.4-10.2); Carbon Dioxide 30 mmol/L (22-30); Chloride 106 mmol/L (98-107); Estimated Glomerular Filt Rate > 60; Glucose 103 mg/dL (65-110); Potassium 4.2 mmol/L (3.4-5.0); Sodium 139 mmol/L (137-145)
--- NOTE | 2022-07-16 09:33 | WPDNEURCNPN ---
Assessment and Plan Assessment and plan (1) Dizziness: Code(s): R42 - Dizziness and giddiness Status: Acute (2) History of stroke: Code(s): Z86.73 - Personal history of transient ischemic attack (TIA), and cerebral infarction without residual deficits Status: Acute (3) Hypertension: Code(s): I10 - Essential (primary) hypertension Status: Acute Plan Yamilex Dial is a 87 year old female with a history of hypertension, hyperlipidemia, GERD, osteoporosis who presented due to dizziness in the setting of elevated blood pressures. Likely multifactorial -- due to elevated BP, cerebellar stroke, also maybe component of peripheral vertigo given exacerbation with position change. - Recommend outpatient ENT evaluation Consult date: 07/16/22 Reason for consult: Dizziness HPI: Yamilex Dial is a 87 year old female with a history of hypertension, hyperlipidemia, GERD, osteoporosis who presented due to dizziness in the setting of elevated blood pressures. Patient developed dizziness several weeks ago. She was started on meclizine at that time which seemed to help. However, a few days ago, the dizziness came back. Patient describes symptoms as lightheadedness and darkening of vision, but also feeling overall off balanced. Symptoms are worse with head position changes, especially when looking down and up. She occasionally also has paraesthesias of the left hand. When she presented to [facility] ED her blood pressure was elevated to 216/84. Labs were reportedly unrevealing. Brain CT showed cerebral atherosclerosis and chronic small-vessel ischemic changes of the cerebral white matter but no acute findings. CTA showed 0% stenosis of the proximal R ICA and 29% stenosis of the proximal left ICA. MRI brain showed small old infarct in the left cerebellum. MRI cervical spine showed myelomalacia at C6-C7 and C7-T1. Neurosurgery has been consulted for cervical spine findings. Patient reports very brief episodes of dizziness, described as head spinning. These episodes last 10-15 seconds. She did have some left sided hearing loss the first time she developed dizziness several weeks ago, but now feels that her hearing is normal. She denies any tinnitus. Patient lives at home and is very independent. Review of Systems Constitutional: Constitutional: Reports no additional constitutional complaints Eyes: Eyes: Reports no additional eye complaints ENT: Reports system reviewed and no additional complaints, except as documented Cardiovascular: Cardiovascular: Reports no additional cardiovascular complaints Respiratory: Respiratory: Reports no additional respiratory complaints Gastrointestinal: Gastrointestinal: Reports no additional gastrointestinal complaints Genitourinary: Genitourinary: Reports nocturia Musculoskeletal: Musculoskeletal: Reports arthralgias Integumentary/Breasts: Skin/Breast: Reports dry skin Neurologic: Reports as per HPI Psychiatric: Psychiatric: Reports anxiety PMFSH Past Medical History Medical History Arthritis Chronic back pain Gastroesophageal reflux disease Hyperlipidemia Osteoporosis Spinal stenosis Surgical History Surgical History History of ankle surgery Left ankle reconstruction. History of appendectomy History of bilateral carpal tunnel release History of bilateral hip replacements History of hysterectomy History of lumbar surgery History of prophylactic mastectomy of both breasts History of right knee joint replacement History of transcatheter aortic valve replacement (TAVR) Family History Family History Mother Cervical cancer Social History Social History Social History: Surrogate medical decision maker: Analy Cage, daughter. Code status: Fu
[2022-07-16] MEDS: MELOXICAM 7.5 MG TABLET 15 MG PO (10:06)
[2022-07-16] MEDS: OPTI-GEN TAB 1 TABLET PO (10:06)
[2022-07-16] MEDS: MULTIVITAMINS THERAPEUTIC TAB (*BKC) 1 TABLET PO (10:06)
[2022-07-16] MEDS: PRAVASTATIN SODIUM 20 MG TABLET 40 MG PO (10:06)
[2022-07-16] MEDS: ASPIRIN 81 MG ENTERIC TABLET PO (10:06)
[2022-07-16] MEDS: PANTOPRAZOLE 40 MG TABLET PO (10:06)
[2022-07-16] MEDS: SERTRALINE HCL 50 MG TABLET PO (10:06)
[2022-07-16] MEDS: oxyBUTYnin CHLORIDE XL 5 MG TAB.ER.24 PO (10:07)
--- NOTE | 2022-07-16 15:33 | PM.IMPN ---
Progress Note: A&P Assessment and Plan (1) Dizziness: Code(s): R42 - Dizziness and giddiness Status: Acute Assessment and Plan: Dizziness with position changes, especially with ambulation. CTA head and neck pending. Echo with bubble study pending. Brain MRI with small, old left cerebellar infarct. Neuro consulted and appreciate recommendations. May be a component of BPPV and ENT evaluation outpatient recommended. PRN Meclizine PO. MRI Brain and CTA of the head and neck revealing small old infarct in the left cerebellum. This could be contributing to patient's dizziness with location of infarct. She reports dizziness has been ongoing for 1 month. Right ICA 0% stenosis and Left ICA 29% stenosis. Lipid panel shows LDL 97 and pravastatin increased from 10mg to 40mgs. Continue aspirin 81 mg daily. SBP 130-170s. Low dose norvasc 2.5 mg PO daily added. (2) Hypertension: Code(s): I10 - Essential (primary) hypertension Status: Acute Assessment and Plan: Patient reports having white coat syndrome and states her blood pressures are normal at home. They have been consistently elevated and she likely has underlying hypertension. She was given a dose of amlodipine 5 mg x 1 overnight 07/13 and SBP dropped 170s to 120s after one dose.? Avoid hypotension.? SBP 130-170 and norvasc 2.5 mg PO added.? (3) Cervical spondylosis with myelopathy: Code(s): M47.12 - Other spondylosis with myelopathy, cervical region Status: Acute Assessment and Plan: An intermittent problem for the patient. She believes it may be related to her neck.?? Cervical spine MRI shows myelomalacia C6-7 and C7-T1 with severe cervical spondylosis. Moderate central canal stenosis C5-6, severe central canal stenosis C6-7 and C7-T1 Consult neurosurgery for evaluation given MRI results, hand paresthesia and neck pain.?Appreciate recommendations. (4) Numbness and tingling in left hand: Code(s): R20.0 - Anesthesia of skin; R20.2 - Paresthesia of skin Status: Acute Assessment and Plan: As above. (5) Right carotid bruit: Code(s): R09.89 - Other specified symptoms and signs involving the circulatory and respiratory systems Status: Acute Assessment and Plan: CTA of the head and neck revealing small old infarct in the left cerebellum, 0% stenosis of the right ICA and 29% stenosis of the left ICA, no aneurysm or significant intracranial arterial stenosis present. Continue aspirin and statin therapy. (6) Hyperlipidemia: Code(s): E78.5 - Hyperlipidemia, unspecified Status: Chronic Assessment and Plan: Continue pravastatin, increased to moderate dose as patient reports previous myalgias with statins. Monitor medication tolerance. (7) History of stroke: Code(s): Z86.73 - Personal history of transient ischemic attack (TIA), and cerebral infarction without residual deficits Status: Acute Assessment and Plan: MRI Brain and CTA of the head and neck revealing small old infarct in the left cerebellum. Continue management with aspirin, statin and BP control as above.?PT/OT evaluation completed and outpatient therapy recommended.? Time Spent With Patient Time with patient: 25 - 35 minutes Subjective Date/time seen: 07/16/22 15:33 Patient found sitting up in the chair. She reports a sensation of feeling lightheaded and then dizzy with position changes and occasionally with head turning. She also endorses that she feels like she is spinning/unsteady. She has intermittent neck pain and left hand tingling that is unchanged. She reports lightly hitting the top of her head with a fall prior to admission, but no neck injury or loss of consciousness. Review of Systems Review of Systems: All systems reviewed & are unremarkable except as noted in HPI and below Exam Narrative: General:?Well-developed fem
[2022-07-16] MEDS: MECLIZINE HCL 25 MG TABLET PO (18:11)
[2022-07-16] MEDS: amLODIPine BESYLATE 2.5 MG TABLET PO (18:19)
[2022-07-17] VITALS (7 sets, daily range): BP systolic 143–154; BP diastolic 48–73; PULSE 63–112; RESP 18–20; TEMP 36.2–36.7; O2SAT 96–97
--- NOTE | 2022-07-17 00:45 | ECG_ITS ---
Measurements Intervals [place] Rate: 64 P: 45 NH: 163 QRS: 38 QRSD: 89 T: 29 QT: 422 QTc: 439 Interpretive Statements SINUS RHYTHM NONSPECIFIC T-WAVE ABNORMALITY COMPARED TO ECG 07/13/2022 14:16:48 NO SIGNIFICANT CHANGES Electronically Signed On 07-17-2022 18:01:04 CDT by Colt Larkin M.D.
[2022-07-17] MEDS: OPTI-GEN TAB 1 TABLET PO (08:29)
[2022-07-17] MEDS: amLODIPine BESYLATE 2.5 MG TABLET PO (08:29)
[2022-07-17] MEDS: SERTRALINE HCL 50 MG TABLET PO (08:29)
[2022-07-17] MEDS: MULTIVITAMINS THERAPEUTIC TAB (*BKC) 1 TABLET PO (08:29)
[2022-07-17] MEDS: MELOXICAM 7.5 MG TABLET 15 MG PO (08:29)
[2022-07-17] MEDS: PRAVASTATIN SODIUM 20 MG TABLET 40 MG PO (08:29)
[2022-07-17] MEDS: ASPIRIN 81 MG ENTERIC TABLET PO (08:30)
[2022-07-17] MEDS: oxyBUTYnin CHLORIDE XL 5 MG TAB.ER.24 PO (08:30)
[2022-07-17] MEDS: MECLIZINE HCL 12.5 MG TABLET PO ×2 (08:30→17:09)
[2022-07-17] MEDS: PANTOPRAZOLE 40 MG TABLET PO (08:30)
[2022-07-17] MEDS: polyethylene glycoL 3350 17 GM POWD.PACK PO (11:07)
--- NOTE | 2022-07-17 15:12 | PM.IMPN ---
Progress Note: A&P Assessment and Plan (1) Dizziness: Code(s): R42 - Dizziness and giddiness Status: Acute Assessment and Plan: Dizziness with position changes, especially with ambulation. CTA head and neck pending. Echo with bubble study revealing EF of 60 65%, grade 1 diastolic dysfunction, valvular disease present, no pulmonary htn Brain MRI with small, old left cerebellar infarct. Neuro consulted and appreciate recommendations. May be a component of BPPV and ENT evaluation outpatient recommended. PRN Meclizine PO. MRI Brain and CTA of the head and neck revealing small old infarct in the left cerebellum. This could be contributing to patient's dizziness with location of infarct. She reports dizziness has been ongoing for 1 month. Right ICA 0% stenosis and Left ICA 29% stenosis. Lipid panel shows LDL 97 and pravastatin increased from 10mg to 40mgs. Continue aspirin 81 mg daily. SBP 130-170s. Low dose norvasc 2.5 mg PO daily added. (2) Hypertension: Code(s): I10 - Essential (primary) hypertension Status: Acute Assessment and Plan: Patient reports having white coat syndrome and states her blood pressures are normal at home. They have been consistently elevated and she likely has underlying hypertension. She was given a dose of amlodipine 5 mg x 1 overnight 07/13 and SBP dropped 170s to 120s after one dose.? Avoid hypotension.? SBP 130-170 and norvasc 2.5 mg PO added.? (3) Cervical spondylosis with myelopathy: Code(s): M47.12 - Other spondylosis with myelopathy, cervical region Status: Acute Assessment and Plan: An intermittent problem for the patient. She believes it may be related to her neck.?? Cervical spine MRI shows myelomalacia C6-7 and C7-T1 with severe cervical spondylosis. Moderate central canal stenosis C5-6, severe central canal stenosis C6-7 and C7-T1 Consult neurosurgery for evaluation given MRI results, hand paresthesia and neck pain.?Appreciate recommendations. 07/17/22 awaiting Neurosurgery evaluation (4) Numbness and tingling in left hand: Code(s): R20.0 - Anesthesia of skin; R20.2 - Paresthesia of skin Status: Acute Assessment and Plan: As above. (5) Right carotid bruit: Code(s): R09.89 - Other specified symptoms and signs involving the circulatory and respiratory systems Status: Acute Assessment and Plan: CTA of the head and neck revealing small old infarct in the left cerebellum, 0% stenosis of the right ICA and 29% stenosis of the left ICA, no aneurysm or significant intracranial arterial stenosis present. Continue aspirin and statin therapy. (6) Hyperlipidemia: Code(s): E78.5 - Hyperlipidemia, unspecified Status: Chronic Assessment and Plan: Continue pravastatin, increased to moderate dose as patient reports previous myalgias with statins. Monitor medication tolerance. (7) History of stroke: Code(s): Z86.73 - Personal history of transient ischemic attack (TIA), and cerebral infarction without residual deficits Status: Acute Assessment and Plan: MRI Brain and CTA of the head and neck revealing small old infarct in the left cerebellum. Continue management with aspirin, statin and BP control as above.?PT/OT evaluation completed and outpatient therapy recommended.? Subjective Date/time seen: 07/17/22 15:12 Interval history: Patient doing well today with no new complaints. Patient still having dizziness and using her meclizine for this. patient with intermittent numbness and tingling in the left hand. Patient denies lower extremities, headache, nausea, vomiting, confusion or Dysphasia. patient awaiting Neurosurgery evaluation for myelomalacia. Review of Systems Review of Systems: All systems reviewed & are unremarkable except as noted in HPI and below Exam Narrative: GENERAL: Comfortable, no acute
--- NOTE | 2022-07-17 15:47 | WPDNEUROSGCN ---
Assessment and Plan Assessment and plan (1) Cervical spondylosis with myelopathy: Code(s): M47.12 - Other spondylosis with myelopathy, cervical region Status: Acute Plan Ms. Dial is an 87-year-old female who was found to have multilevel cervical degenerative changes with severe central stenosis at C6-7 and C7-T1. She does describe some symptoms that may be consistent with this including numbness in the left hand, dropping objects, a long history of urinary incontinence, and some worsening balance issues; however, she does not have any objective signs of myelopathy on her exam. I do not think that the cervical stenosis is related to her vertigo. I would not recommend any immediate surgical intervention, but I would like to follow her as an outpatient. I will arrange for follow up in the next few months. In the interim, I would recommend physical therapy and Pain Management for her neck pain. Plan: -No immediate surgical intervention planned -I will arrange for follow up in [facility] Review of Systems Review of Systems: All systems reviewed & are unremarkable except as noted in HPI and below PMFSH Past Medical History Medical History Arthritis Chronic back pain Gastroesophageal reflux disease Hyperlipidemia Osteoporosis Spinal stenosis Surgical History Surgical History History of ankle surgery Left ankle reconstruction. History of appendectomy History of bilateral carpal tunnel release History of bilateral hip replacements History of hysterectomy History of lumbar surgery History of prophylactic mastectomy of both breasts History of right knee joint replacement History of transcatheter aortic valve replacement (TAVR) Family History Family History Mother Cervical cancer Social History Social History Social History: Surrogate medical decision maker: Analy Cage, daughter. Code status: Full code. Smoking status: Never smoker Alcohol intake: never Substance use: never Substance use type: does not use Lack of Transportation: No Lack of Food: Never True Current Housing: I Have Housing Concerned About Future Housing: No Difficulty Paying Gas/Electric Bills: No Difficulty Paying for Meds: No Currently Unemployed: No Education: High School Diploma/GED Difficulty w/ Childcare or Family Care: No Additional living arrangements comments: . Has 2 children. Independent of activities of daily living. Spiritual care concerns: No Meds Home Medications and Allergies Home Medications Medication Instructions Recorded Confirmed Type meloxicam 15 mg tablet 15 mg PO DAILY 01/06/22 07/13/22 History omeprazole 20 mg capsule,delayed 20 mg PO DAILY 01/06/22 07/13/22 History release oxybutynin chloride 5 mg tablet 5 mg PO DAILY 01/06/22 07/13/22 History pravastatin 10 mg tablet 10 mg PO DAILY 01/06/22 07/13/22 History sertraline 50 mg tablet (Zoloft) 50 mg PO DAILY 01/06/22 07/13/22 History Adults Multivitamin 1 tablet PO DAILY 06/21/22 07/13/22 History Ocuvite 1 tablet PO DAILY 06/21/22 07/13/22 History acetaminophen 500 mg PO Q6-8H PRN Pain 06/21/22 07/13/22 History aspirin 81 mg PO DAILY 06/21/22 07/13/22 History Allergies Allergy/AdvReac Type Severity Reaction Status Date / Time vancomycin Allergy Severe RASH Verified 07/13/22 21:14 doxycycline Allergy Unknown RASH Verified 07/13/22 21:14 hydromorphone Allergy Unknown HALLUCINATI Verified 07/13/22 21:14 ONS acetaminophen [From [place]] Allergy Rash Verified 07/13/22 21:14 atorvastatin Allergy Unknown Verified 07/13/22 21:14 azithromycin Allergy Hives Verified 07/13/22 21:14 duloxetine Allergy Unknown Verified 07/13/22 21:14 hydrocodone [From [place]] Allergy Rash Verified 07/13/22 21:14 Vital Signs Vital
--- NOTE | 2022-07-17 16:41 | PM.DS ---
DS: Admitting Diagnosis Discharge Date 07/17/22 Admitting Diagnosis dizziness DS: Discharge Diagnosis Discharge Diagnosis (1) Dizziness: Code(s): R42 - Dizziness and giddiness Status: Acute Assessment and Plan: Dizziness with position changes, especially with ambulation. CTA head and neck pending. Echo with bubble study revealing EF of 60 65%, grade 1 diastolic dysfunction, valvular disease present, no pulmonary htn Brain MRI with small, old left cerebellar infarct. Neuro consulted and appreciate recommendations. May be a component of BPPV and ENT evaluation outpatient recommended. PRN Meclizine PO. MRI Brain and CTA of the head and neck revealing small old infarct in the left cerebellum. This could be contributing to patient's dizziness with location of infarct. She reports dizziness has been ongoing for 1 month. Right ICA 0% stenosis and Left ICA 29% stenosis. Lipid panel shows LDL 97 and pravastatin increased from 10mg to 40mgs. Continue aspirin 81 mg daily. SBP 130-170s. Low dose norvasc 2.5 mg PO daily added. (2) Hypertension: Code(s): I10 - Essential (primary) hypertension Status: Acute Assessment and Plan: Patient reports having white coat syndrome and states her blood pressures are normal at home. They have been consistently elevated and she likely has underlying hypertension. She was given a dose of amlodipine 5 mg x 1 overnight 07/13 and SBP dropped 170s to 120s after one dose.? Avoid hypotension.? SBP 130-170 and norvasc 2.5 mg PO added.? (3) Cervical spondylosis with myelopathy: Code(s): M47.12 - Other spondylosis with myelopathy, cervical region Status: Acute Assessment and Plan: An intermittent problem for the patient. She believes it may be related to her neck.?? Cervical spine MRI shows myelomalacia C6-7 and C7-T1 with severe cervical spondylosis. Moderate central canal stenosis C5-6, severe central canal stenosis C6-7 and C7-T1 Consult neurosurgery for evaluation given MRI results, hand paresthesia and neck pain.?Appreciate recommendations. Neurosurgery evaluated patient and believes that patient has condition is non emergent and can follow-up in the office. (4) Numbness and tingling in left hand: Code(s): R20.0 - Anesthesia of skin; R20.2 - Paresthesia of skin Status: Acute Assessment and Plan: As above. (5) Right carotid bruit: Code(s): R09.89 - Other specified symptoms and signs involving the circulatory and respiratory systems Status: Acute Assessment and Plan: CTA of the head and neck revealing small old infarct in the left cerebellum, 0% stenosis of the right ICA and 29% stenosis of the left ICA, no aneurysm or significant intracranial arterial stenosis present. Continue aspirin and statin therapy. (6) Hyperlipidemia: Code(s): E78.5 - Hyperlipidemia, unspecified Status: Chronic Assessment and Plan: Continue pravastatin, increased to moderate dose as patient reports previous myalgias with statins. Monitor medication tolerance. (7) History of stroke: Code(s): Z86.73 - Personal history of transient ischemic attack (TIA), and cerebral infarction without residual deficits Status: Acute Assessment and Plan: MRI Brain and CTA of the head and neck revealing small old infarct in the left cerebellum. Continue management with aspirin, statin and BP control as above.?PT/OT evaluation completed and outpatient therapy recommended.? DS: Summary Hospital Course Reason for hospitalization: dizziness Hospital Course: This is an 87-year-old female with a past medical history significant for hypertension, hyperlipidemia, GERD, overactive bladder and osteoporosis the presented on 07/13/2022 as a direct admit from [facility] for further evaluation of dizziness. Patient seen in the ED about 1 month ago mounika
== END 2022-07-17 17:35 | disposition home or self-care (01) | DRG 149 ==
PROVIDERS: Physician Assistant; Admitting Provider Internal Medicine; PCP Internal Medicine; Visit Provider Internal Medicine Critical Care Medicine
DX: R42 Dizziness and giddiness (principal); M47.12 Other spondylosis with myelopathy, cervical region; I10 Essential (primary) hypertension; E78.5 Hyperlipidemia, unspecified; K21.9 Gastro-esophageal reflux disease without esophagitis; N32.81 Overactive bladder; M81.0 Age-related osteoporosis without current pathological fracture; M48.00 Spinal stenosis, site unspecified; G89.29 Other chronic pain; R20.0 Anesthesia of skin; R09.89 Other specified symptoms and signs involving the circulatory and respiratory systems; Z96.643 Presence of artificial hip joint, bilateral; Z96.651 Presence of right artificial knee joint; Z95.2 Presence of prosthetic heart valve; Z79.82 Long term (current) use of aspirin; Z90.13 Acquired absence of bilateral breasts and nipples; Z86.73 Personal history of transient ischemic attack (TIA), and cerebral infarction without residual deficits
CPT/HCPCS: 36415; 70496; 70498; 70551; 72141; 80048; 80061; 82607; 83735; 84439; 84443; 84480; 85027; 93005; 93306; 96375; 97161; 97165; A9270; G0378; G0379; Q9967

== ENCOUNTER 2022-07-31 11:16 | Outpatient (RCR) | payer MEDICARE, SELFPAY ==
--- NOTE | 2022-07-31 13:11 | PTOPEVAL1 ---
Assessment and note entered by JT File, PT Evaluation Information Assessment Status Evaluation Diagnosis BPPV Onset 07/26/22 Subjective Information patient reports she fell a couple weeks ago. she reports she has been having dizziness for several months. she reports originally she felt more light headed and dizzy. today, she reports she has eaten and taken her pills, but still feels light headed. she reports her head feels full and she has pressure. she reports she is not dizzy at any specific times. she reports some days she can bend over and turn her head without symptoms, but then other days she is not able to. she reports yesterday she was fine and was able to work in her garden. she reports she has been taking meclizine daily for about a few weeks. she reports in general she has felt better for about 3-4 days. she reports she is complicated by spinal stenosis and severe OA. she reports she also had a minor stroke at the base of her head. Reported Pain Level Pain Score 6: Self Report Assessment PT Clinical Summary mrs. engel is an 87 yo woman who presents skilled PT services for possible BPPV and other lightheadedness/balance deficits. upon examination this date, no symptoms/signs indicating BPPV were noted today. however, she has been getting better lateraly, and has been on meclizine for nearly 2 weeks. she does present with orthostatic hypotension when going from supine to sitting, and displays high fall risk per the tinetti balance assessment and gait assessment. she would benefit from skilled PT intervention to improve her balance, safety, decrease rall risk, and return to her prior level functional activities without limitations. Plan of Care Interventions Gait Training,Neuro Re-education,Patient/Caregiver Educati,Therapeutic Activities,Therapeutic Exercise PT Services Indicated Yes Treatment Frequency and 2x weekly for 8 visits Duration These treatments will address the objective and functional deficits as defined above. The patient will be advanced safely and appropriately in order for the patient to progress towards his/her prior level of function. Additional exercises will be introduced and as well as a comprehensive home exercise program upon discharge, if needed, ?to ensure carryover of functional gains achieved in the clinic. This treatment plan has been reviewed and agreement upon by the patient.
--- NOTE | 2022-08-09 14:46 | PTOPDC ---
Assessment and note entered by JT File, PT Evaluation Information Assessment Status Discharge Diagnosis BPPV Onset 07/26/22 Subjective Information patient arrives to therapy today and reports she is doing great, and would like to be done with therapy. sdhe reports no dizziness and no falls. Reported Pain Level Pain Score 6: Self Report Assessment PT Clinical Summary mrs. engel presents to skilled PT for her 4th skilled PT visit. she presnts with no dizziness, and no falls since therapy began. she is now safer with a cane during ambulation, and displays decreased fall risk per the tinetti. she has met all goals for skilled PT and is ready for DC. Plan of Care PT Services Indicated Yes
== END 2022-08-09 15:23 | disposition home or self-care (01) ==
LOC: CHSPT 11:16
PROVIDERS: Visit Provider Otolaryngology
DX: H81.10 Benign paroxysmal vertigo, unspecified ear (principal)
CPT/HCPCS: 97110; 97112; 97161; 97530

== ENCOUNTER 2024-03-26 11:26 | Outpatient (CLI) | payer MEDICARE, SELFPAY ==
--- NOTE | ~2024-03-26 | XR_ITS ---
Thoracic spine: Clinical Indication: Back pain AP and lateral views were performed. No fracture is seen. There is normal alignment of the vertebrae. There is moderate to advanced degen erative disc change throughout the thoracic spine.. Paravertebral soft tissues appear normal. 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 Reviewed, dictated and finalized at location . 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
== END 2024-03-26 11:27 | disposition home or self-care (01) ==
PROVIDERS: PCP Internal Medicine; Visit Provider Internal Medicine
DX: M51.34 Other intervertebral disc degeneration, thoracic region (principal); K82.8 Other specified diseases of gallbladder
CPT/HCPCS: 72072

== ENCOUNTER 2024-03-29 07:31 | Outpatient (CLI) | payer MEDICARE, SELFPAY ==
--- NOTE | ~2024-03-29 | US_ITS ---
RIGHT UPPER QUADRANT ABDOMINAL ULTRASOUND (Doppler ultrasound interrogation techniques used as needed for this exam.) Ordering provider: Tra Farnsworth MD History: . ABDOMINAL PAIN . Comparison: None. FINDINGS: PANCREAS: Not demonstrated. PORTAL VEIN: Hepatopedal flow demonstrated. LIVER: Normal size and echotexture. No focal hepatic lesions or perihepatic fluid collections are praveena ntified. BILIARY DUCTS: No intra or extrahepatic biliary dilation. Common bile duct measures 7.8 mm in diamete r which is normal for patient's age. GALLBLADDER: Normal. No stones, sludge, or pericholecystic fluid. Wall thickness is 4.5 mm. Positive sonographic Craft's sign. The gallbladder measures 8 x 3.6 cm. FREE FLUID: None visualized within the upper abdomen. IMPRESSION: Slightly thickened wall with positive Craft's sign. Clinical correlation for cholecystitis advised. Otherwise, normal right upper quadrant ultrasound. Reviewed, dictated and finalized at location A. [employer]IS[employer] P[employer] SHEETS IMPRESSION: Slightly thickened wall with positive Craft's sign. Clinical correlation for c holecystitis advised. Otherwise, normal right upper quadrant ultrasound.
== END 2024-03-29 07:32 | disposition home or self-care (01) ==
LOC: CHSIMG 07:34
PROVIDERS: PCP Internal Medicine; Visit Provider Internal Medicine
DX: M51.34 Other intervertebral disc degeneration, thoracic region (principal); K82.8 Other specified diseases of gallbladder; N39.0 Urinary tract infection, site not specified
CPT/HCPCS: 76705

== ENCOUNTER 2024-04-05 07:48 | Outpatient (CLI) | payer MEDICARE, MEDICAID, SELFPAY ==
--- NOTE | ~2024-04-05 | NM_ITS ---
EXAMINATION: NM hepatobiliary w pharm DATE: 04/05/2024 09:18 INDICATION: Abdominal pain and nausea COMPARISON: Right upper quadrant ultrasound dated 03/29/24 TECHNIQUE: 6 mCi Tc-99m mebrofenin (Choletec) was administered intravenously. Scintigraphic images o f the abdomen were obtained for one hour. 1.4 mcg sincalide (Kinevac) was administered by slow intrav enous infusion, and imaging was continued for 30 minutes. Gallbladder ejection fraction was calculate d by the technologist. FINDINGS: There is normal clearance of radiotracer from the blood pool. There is homogeneous tracer uptake by t he liver. Activity progresses to the gallbladder and bowel. There is heterogeneous distribution of t he activity within the gallbladder which suggests the possible presence of gallbladder sludge or ston es although neither were identified on the prior ultrasound. The gallbladder ejection fraction (GBEF) is 8% (normal 10-90%, but most patient with gallbladder dysfunction have GBEF < 35% which does overl ap with the normal range). IMPRESSION: 1. Gallbladder ejection fraction of 8% which is below normal limits and consistent with gallbladder dysfunction or chronic cholecystitis in the appropriate clinical setting. Reviewed, dictated and finalized at location B. HOUSE PERSON IMPRESSION: 1. Gallbladder ejection fraction of 8% which is below normal limits and consis tent with gallbladder dysfunction or chronic cholecystitis in the appropriate c linical setting.
== END 2024-04-05 07:49 | disposition home or self-care (01) ==
PROVIDERS: PCP Internal Medicine; Visit Provider Internal Medicine
DX: R10.9 Unspecified abdominal pain (principal); R93.5 Abnormal findings on diagnostic imaging of other abdominal regions, including retroperitoneum
CPT/HCPCS: 78227; A9537; J2805

== ENCOUNTER 2024-07-30 11:03 | Outpatient (CLI) | payer MEDICARE, SELFPAY ==
--- OUTSIDE RECORDS SUMMARY | 2024-07-30 11:26 | XMS_ITS | Clinical Summary ---
Author Organization [facility] Address [address] [place] [address] Care Team Providers Care Regulatory Internship Name Role Phone Tra Farnsworth MD Primary Care Provider [phone] Allergies Active Allergy Reactions Criticality Noted Date Comments Atorvastatin Muscle pain Medium 01/07/2018 Azithromycin Hives Medium 01/29/2012 Doxycycline Hives,Swelling Medium 07/24/2017 Eyes shut Duloxetine Hcl Rash Medium 01/07/2018 Confusion; constipation Hydrocodone-Acetaminoph en Rash Medium 01/27/2019 Hydromorphone Hallucinations,Federico h Medium 07/24/2017 Mental changes Oyster Shell Diarrhea Low 05/27/2019 Abdominal pain, cramping Vancomycin Hives,Swelling Medium 07/24/2017 Eyes shut, respiratory Medications omeprazole (PriLOSEC) 40 mg capsuleIndicatio ns:Treatment of Non-Bleeding Gastric Disorder Take 40 mg by mouth every morning 8 Active oxybutynin (DITROPAN) 5 mg tabletIndication s:Increased Urinary Frequency Take 5 mg by mouth nightly 7 Active pravastatin (PRAVACHOL) 10 mg tabletIndication s:hyperlipidemia Take 10 mg by mouth nightly 8 Active sertraline (ZOLOFT) 50 mg tabletIndication s:Anxiety with Depression Take 50 mg by mouth every morning 6 Active magnesium oxide (MAG-OX) 400 mg (241.3 mg elemental magnesium) tablet Take by mouth nightly 7 Active aspirin 81 mg enteric coated tabletIndication s:heart health Take 81 mg by mouth nightly Active traMADoL (ULTRAM) 50 mg tablet Take 1 tablet (50 mg total) by mouth every 4 (four) hours as needed for pain 42 tablet 0 Active senna-docusate (PERICOLACE) 8.6-50 mgIndications:co nstipation Take 2 tablets by mouth 2 (two) times a day May increase to 4 tablets twice daily if needed. HOLD medication for diarrhea. 80 tablet 1 0 Active acetaminophen 500 mg capsule Take 2 capsules (1,000 mg total) by mouth every 8 (eight) hours as needed (pain) 0 Active apixaban (ELIQUIS) 2.5 mg tabletIndication s:VTE Prophylaxis Following Ortho Surgery Take 1 tablet (2.5 mg total) by mouth every 12 (twelve) hours 60 tablet 0 Active meloxicam (MOBIC) 15 mg tablet 0 Active Active Problems Problem Noted Date Diagnosed Date Hip dislocation, left 05/11/2019 Overview (05/11/2019): Added automatically from request for surgery [id number] AR (aortic regurgitation) 01/18/2019 MR (mitral regurgitation) 01/18/2019 (aortic stenosis) 01/18/2019 History of deep vein thrombosis (DVT) of lower e xtremity 01/18/2019 GERD (gastroesophageal reflux disease) 9 Hiatal hernia 01/18/2019 DM2 (diabetes mellitus, type 2) 01/18/2019 Pre-operative cardiovascular examination 019 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 Overview (12/02/2018): Added automatically from request for surgery [id number] AVD (aortic valve disease) 05/10/2018 Pain from implanted hardware 03/18/2018 Systolic murmur 01/14/2018 Hypertension 01/14/2018 Hyperlipidemia 01/14/2018 Chronic depression 01/14/2018 Carotid artery stenosis 09/06/2015 Overview (03/09/2019): 40-69% LICA 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, unspecified laterality 01/20/2012 Ankle joint pain 01/20/2012 Immunizations Immunization Administration Dates Next Due Pneumococcal Conjugate PCV 13 10/04/2015 Surgical History Surgery Date Site/Laterality Comments HYSTERECTOMY APPENDECTOMY 04/07/1950 - 04/06/1951 BREAST RECONSTRUCTION 04/07/1978 - 04/06/1979 Bilateral SPINE SURGERY 1979, 2006 JOINT REPLACEMENT HIP ARTHROPLASTY 04/07/2001 - 04/06/2002 Left KNEE SURGERY 04/07/2003 - 04/06/2004 Right HIP ARTHROPLASTY 04/07/2005 - 04/06/2006 Right REVISION TOTAL HIP ARTHROPLASTY 04/07/2007 - 04/06/2008 Right SHOULDER ARTHROPLASTY 04/07/2007 - 04/06/2008 Left ANKLE SURGERY Medical History Medical History Date Comments Arthritis Depression GERD (gastroesophageal reflux disease) Hyperlipidemia Urinary incontinence Palpitations DVT of lower limb, acute (HCC) 1970 Wilkins's esophagus Family History Medical History Relation Name Comments Diabetes Father Heart disease Father Diabetes Mother No Known Problems Other Anesthesia problems Neg Hx Relation Name Status Comments Father Mother Other Social History Tobacco Use Types Packs/Day Years Used Date Smoking Tobacco: Never Smokeless Tobacco: Never Alcohol Use Standard Drinks/Week Comments Never 0 (1 standard drink = 0.6 oz pur e alcohol) AUDIT-C Answer Date Recorded Frequency of Alcohol Consumption Never 01/04/2019 Average Number of Drinks Not on file 019 Frequency of Binge Drinking Not on file 12/08 Comments No Sex and Gender Information Value Date Recorded Sex Assigned at Not on file Legal Sex Female 7:20 AM 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 CASE MANAGER Gender Identity Not on file Sexual Orientation Not on file Obstetrics History Para Term AB IAB SAB Ectopic Multiple Livin g Live Births 2 2 Date Outcome GA Total Labor Labor/2nd/3rd Weight Sex Type Anes PTL Sonia A1 A5 Name Clin Para Para Last Filed Vital Signs Vital Sign Reading Time Taken Comments Blood Pressure 130/41 06/08/2019 4:20 PM VOCATIONAL CASE MANAGER Pulse 68 06/08/2019 4:20 PM VOCATIONAL CASE MANAGER Temperature 37.8 C (100 F) 06/08/2019 4:20 PM VOCATIONAL CASE MANAGER Respiratory Rate 16 06/08/2019 4:20 PM VOCATIONAL CASE MANAGER Oxygen Saturation 97% 06/08/2019 4:20 PM VOCATIONAL CASE MANAGER Inhaled Oxygen Concentration - - Weight 69.1 kg (152 lb 4 oz) 06/07/2019 11:20 AM VOCATIONAL CASE MANAGER Height 147.3 cm (4' 10 ) 06/08/2019 11:58 AM VOCATIONAL CASE MANAGER Body Mass Index 31.82 06/07/2019 11:20 AM VOCATIONAL CASE MANAGER Plan of Treatment Not on file Medical Devices Implanted Type Area Environmental Analyst Device Identifier Shelf Expiration Date Model / Serial / Lot [employer] 3122-040 Smartset Medium Viscosity Cement 40gm Bone Sterile - [id number] Implanted:Qty: 1 on 01/26/2019 by Roman Taveras MD at [facility] Left: Hip [employer] [id number] 05/07/2020 3122-040 / / [id number] [employer] [id number] [place] 48mm 32mm Hip Neutral Liner Acetabular Altrx Sterile Latex Free - [id number] Implanted:Qty: 1 on 01/26/2019 by Roman Taveras MD at [facility] Left: Hip [employer] [id number] 12/05/2022 [id number] / / [id number] Sleeve Fem Delta Option Medium Hip Ti - [id number] Implanted:Qty: 1 on 01/26/2019 by Roman Taveras MD at [facility] Left: Hip [employer] 11/21/2025 [id number] / / [id number] Head Fem 32mm Hip Biolox Delta Option Strl - [id number] Implanted:Qty: 1 on 01/26/2019 by Roman Taveras MD at [facility] Left: Hip [employer] 11/05/2025 [id number] / / [id number] [employer] 3122-040 Smartset Medium Viscosity Cement 40gm Bone Sterile - [id number] Implanted:Qty: 1 on 06/07/2019 by Roman Taveras MD at [facility] Left: Hip [employer] 05/07/2020 3122-040 / / [id number] [employer] [id number] [place] Esc 48mm 28mm Constrain Lock Ring Antirotational Flex Latex Free - [id number] Implanted:Qty: 1 on 06/07/2019 by Roman Taveras MD at [facility] Left: Hip [employer] 11/04/2021 [id number] / / [id number] Head Fem 28mm Hip Biolox Delta Option Strl - [id number] Implanted:Qty: 1 on 06/07/2019 by Roman Taveras MD at [facility] Left: Hip [employer] [id number] 11/05/2025 [id number] / / [id number] Sleeve Fem Delta Option Short Hip Ti - [id number] Implanted:Qty: 1 on 06/07/2019 by Roman Taveras MD at [facility] Left: Hip [employer] [id number] 11/05/2025 [id number] / / [id number] Insurance MEDICARE [facility] MEDICARE [employer] [place] [employer]NA SENIOR SUPPLEMENT Advance Directives For more information, please contact: [phone] Documents on File Type Date Recorded Patient Rn Lactation Consultant Expl anation ADVANCE DIRECTIVE 01/26/2019 11:20 AM [facility] er of Publicist-Medical * Full Code (Latest Code Status on File) Date Activated Date Inactivated Comments 06/07/2019 5:43 PM 06/08/2019 9:12 PM * Full Code Date Activated Date Inactivated Comments 01/26/2019 7:20 PM 01/27/2019 6:03 PM Care Teams Regulatory Internship Relationship Specialty Start Date End Date Tra Farnsworth MD PCP - General Internal Medicine 10/16/18
--- OUTSIDE RECORDS SUMMARY | 2024-07-30 11:26 | XMS_ITS | Encounter Summary ---
Author Organization [facility] Address [address] [place] [address] Care Team Providers Care Senior Inspector Name Role Phone Tra Farnsworth MD Primary Care Provider [phone] Anders Martínez MD Unavailable [phone] Justine Wright MD Unavailable [facility] Deng Musa MD Unavailable Unavailable Gautam Fritz APRN Unavailable [phone] Manfred Morales MD Unavailable [phone] Melba Posadas ANP-BC Unavailable [phone] Magali Guerrero MD Unavailable [phone] Encounter Details Date Type Department Care Team (Late st Contact Info) Description 10/06/2020 Hospital Follow-up Call [facility] Cardi[facility] Unit [address] [place] [address] Kaitlin Howell, RN Social History Tobacco Use Types Packs/Day Years Used Date Smoking Tobacco: Never Smokeless Tobacco: Never Alcohol Use Standard Drinks/Week Comments No 0 (1 standard drink = 0.6 oz pur e alcohol) AUDIT-C Answer Date Recorded Frequency of Alcohol Consumption Never 01/07/2018 Average Number of Drinks Not on file 018 Frequency of Binge Drinking Not on file 06/2017 Comments Unknown Sex and Gender Information Value Date Recorded Sex Assigned at Not on file Legal Sex Female 8:30 PM CDT Gender Identity Not on file Sexual Orientation Not on file 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 No / Unsure 10/04/2020 9:18 AM CDT documented as of this encounter Functional Status * RETIRED Are you deaf or do you have serious difficulty hearing Answer Date of Assessment Author Status No 10/04/2020 5:00 PM CDT Activ e * RETIRED Are you blind or do you have serious difficulty seeing, even when wearing glasses? Answer Date of Assessment Author Status No 10/04/2020 5:00 PM CDT Activ e * Do you have serious difficulty walking or climbing stairs? Answer Date of Assessment Author Status No 10/04/2020 5:00 PM CDT Martha Townsend RN Active * Do you have difficulty dressing or bathing? Answer Date of Assessment Author Status No 10/04/2020 5:00 PM Martha Ambrosio RN Active * Because of a physical, mental, or emotional condition, do you have difficulty doing errands alone such as visiting a doctor's office or shopping? Answer Date of Assessment Author Status No 10/04/2020 5:00 PM Martha Ambrosio RN Active documented as of this encounter Mental Status * Because of a physical, mental, or emotional condition, do you have serious difficulty concentrating, remembering, or making decisions? 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 Urine (SB) 10/13/2020 10/13/2020 documented as of this encounter Care Teams Senior Inspector Relationship Specialty Start Date End Date Tra Farnsworth MD [address] [place] [address] PCP - General INTERNAL MEDICINE 01/09/18 Anders Martínez MD [address] [place] [phone] [place] Short Order Cook CARDIOVASCULAR DISEASE 01/09/18 07/15/23 Justine Wright MD [address] [place] [address] Consulting Physician CARDIOVASCULAR DISEASE 08/21/20 Deng Mckeon MD [address] [place] [address] Consulting Physician CARDIOVASCULAR DISEASE 10/11/2002/13 Gautam Fritz APRN [address] [place] [phone] Nurse Practitioner NURSE PRACTITIONER 10/05/21 Manfred Morales MD [address] [place] [address] ORTHOPAEDIC SURGERY 02/14/23 Melba Posadas, [facility]- [address] [place] [address] Nurse Practitioner NURSE PRACTITIONER ADULT HEALTH 07/16/23 Magali Guerrero MD [address] [place] [address] INTERVENTIONAL CARDIOLOGY 07/16/23 documented as of this encounter
--- OUTSIDE RECORDS SUMMARY | 2024-07-30 11:26 | XMS_ITS ---
Author Organization [facility] Address [address] [place], [place] [address] Care Team Providers Care Dip Tube Assembler Machine Name Role Phone SLIME GAMEZ Unavailable [phone] Tra Farnsworth Unavailable Unavailable GABBIE PEREZ Unavailable [phone] Allergies Allergen (clinical drug ingredient) Drug/Non Drug Allergy documented on EMR Reaction Allergy Type Onset Date Status Shellfish (FN) Shellfish (uncoded) Unknown Allergy 04/16 active acetaminophen Acetaminophen Unknown Drug Allergy 2 active hydrocodone Hydrocodone Unknown Drug Allergy 04/16/2021 ac tive REASON FOR VISIT *General care Medications Medication SIG (Take, Route, Frequency, Duration) Notes Start Date End Date Status Pravastatin Sodium 20 MG Oral for 30 Days Active Meclizine HCl 12.5 MG Oral for 90 Days Active amLODIPine Besylate 2.5 MG Oral for 90 Days Active Meloxicam 15 MG Oral for 90 Days Active Omeprazole 20 MG Oral for 90 Days Active Sertraline HCl 50 MG Oral for 90 Days Active oxyBUTYnin Chloride 5 MG Oral for 90 Days Active Encounters Encounter Location Date Provider Diagnosis [address] [id number] 03/18/2024 GABBIE PEREZ Tinea unguium B35.1 ; Pain in right toe(s) M79.674 ; Pain in left toe(s) M79.675 ; Unspecified atherosclerosis of [place] arteries of extremities, bilateral legs I70.203 ; [...] (ICD-10 - M79.675) 03/18/2024 Unspecified atherosclerosis of [place] arteries of extremities, bilateral legs (ICD-10 - [...] OTC and prescription treatments. Unspecified atherosclerosis of [place] arteries of extremities, bilateral legs Patient educated [...] Up: 3 Months, Reason: Provider Name:YANET ELIZALDE, 08/05/2024 04:20:00 PM, [address] [place] [address], [id number], Progress Notes * DIA PROCTOR MDOB:[birth year] (89 yo F)Acc No.[id number]:03/18/2024 Patient: DIA GIRON Provider: Sandy PEREZ :1935 A ge:88 Y S ex:Female Date:03/18/2024 Address:[address], [facility] Subjective: * Chief Complaints: * 1 . *General care. * HPI: H PI: General care P [...] seen by Dr. Farnsworth was 01/2024., Initials [facility]. * ROS: G eneral / Constitutional: Patient [...] denies d izziness, gait abnormality, headache. * Medical History: * Medications: T aking oxyBUTYnin Chloride 5 MG Tablet Oral , Taking Sertraline HCl 50 MG Tablet Oral , Taking Omeprazole 20 MG Capsule Delayed Release Oral , Taking Meloxicam 15 MG Tablet Oral , Taking amLODIPine Besylate 2.5 MG Tablet Oral , Taking Meclizine HCl 12.5 MG Tablet Oral , Taking Pravastatin Sodium 20 MG Tablet Oral * Allergies: S hellfish: Allergy - Onset Date 04/16/2021, Acetaminophen: Allergy - Onset Date 04/16/2021, Hydrocodone: Allergy - Onset Date 04/16/2021. Objective: * Vitals: * Examination: P hysical Examination: V ascular: [...] M79.675 4 . U nspecified atherosclerosis of [place] arteries of extremities, bilateral legs - I70.203 5 . 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 7. P ain in right foot - M79.671 8 . P ain in left foot - M79.672 Plan: * Treatment: 2. U nspecified atherosclerosis of [place] arteries of extremities, bilateral legs Notes: Patient [...] SKIN LESIONS, 2 TO 4, Modifiers: Q8 , 58324 DEBRIDE NAIL, 6 OR MORE, Modifiers: 59 , Q8 * Follow Up: 3 Months * Billing Information: * Visit Code: * Procedure Codes: 10954 TRIM SKIN LESIONS, 2 TO 4. Modifiers: Q8 34844 DEBRIDE NAIL, 6 OR MORE. Modifiers: 59, Q8 * Electronic signature of KATARZYNA PEREZ DPM on 07/30/2024 at 11:26 AM CDT Sign off status: Pending * Provider: Sandy PEREZ Date: 1 05/19/2023 Generated for Angelita Whyte on: 0 07/30/2024 11:26 AM CDT History and Physical Notes * HPI (History [...]
--- OUTSIDE RECORDS SUMMARY | 2024-07-30 11:26 | XMS_ITS | Patient Health Record ---
Author Organization [facility] Address [address] [place], [place] [id number] Care Team Providers Care Sanitarian Aide Name Role Phone SLIME GAMEZ Unavailable [phone] Tra Farnsworth Unavailable Unavailable GABBIE PEREZ Unavailable [phone] Allergies Allergen (clinical drug ingredient) Drug/Non Drug Allergy documented on EMR Reaction Allergy Type Onset Date Status Shellfish (FN) Shellfish (uncoded) Unknown Allergy 04/16 active acetaminophen Acetaminophen Unknown Drug Allergy 2 active hydrocodone Hydrocodone Unknown Drug Allergy 04/16/2021 ac tive Reason For Referral No Information Medications Medication SIG (Take, Route, Frequency, Duration) Notes Start Date End Date Status Omeprazole 20 MG Oral for 90 Days Active Meloxicam 15 MG Oral for 90 Days Active Sertraline HCl 50 MG Oral for 90 Days Active oxyBUTYnin Chloride 5 MG Oral for 90 Days Active Pravastatin Sodium 20 MG Oral for 30 Days Active amLODIPine Besylate 2.5 MG Oral for 90 Days Active Meclizine HCl 12.5 MG Oral for 90 Days Active Vital Signs Height-cm 144.78 cm 09/11/2023 Weight-kg 72.12 kg 09/11/2023 Height 57 in 09/11/2023 Weight 159 lbs 09/11/2023 BMI 34.4 kg/m2 09/11/2023 Encounters Encounter Location Date Provider Diagnosis [address] [id number] 03/18/2024 GABBIE PEREZ Tinea unguium B35.1 ; Pain in right toe(s) M79.674 ; Pain in left toe(s) M79.675 ; Unspecified atherosclerosis of [place] arteries of extremities, bilateral legs I70.203 ; Xerosis cutis L85.3 ; Acquired keratosis [keratoderma] palmaris et plantaris L85.1 ; Pain in right foot M79.671 and Pain in left foot M79.[address] [id number] 09/11/2023 GABBIE DAVJYOTI Tinea unguium B35.1 ; Pain in right toe(s) M79.674 ; Pain in left toe(s) M79.675 ; Unspecified atherosclerosis of [place] arteries of extremities, bilateral legs I70.203 and Xerosis cutis L85.[address] [id number] 11/13/2023 GABBIE MATSONYDRICHIE Tinea unguium B35.1 ; Pain in right toe(s) M79.674 ; Pain in left toe(s) M79.675 ; Unspecified atherosclerosis of [place] arteries of extremities, bilateral legs I70.203 and Xerosis cutis L85.[address] [id number] 01/15/2024 GABBIE PEREZ Tinea unguium B35.1 ; Pain in right toe(s) M79.674 ; Pain in left toe(s) M79.675 ; Unspecified atherosclerosis of [place] arteries of extremities, bilateral legs I70.203 ; Xerosis cutis L85.3 ; Acquired keratosis [keratoderma] palmaris et plantaris L85.1 ; Pain in right foot M79.671 and Pain in left foot M79.[address] [id number] 05/27/2024 SLIME GAMEZ Tinea unguium B35.1 ; Pain in right foot M79.671 ; Pain in left foot M79.672 ; Atherosclerosis of [place] arteries of extremities with intermittent claudication, bilateral legs I70.213 and Acquired keratosis [keratoderma] palmaris et plantaris L85.1 Assessments Encounter Date Diagnosis (ICD Code) Assessment Notes Treatment Notes Treatment Clinical Notes Section Notes 09/11/2023 Tinea unguium (ICD-10 - B35.1) Aseptic debridement [...] educated regarding both OTC and prescription treatments. 09/11/2023 Pain in right toe(s) (ICD-10 - M79.674) 11/13/2023 Tinea unguium (ICD-10 - B35.1) Aseptic debridement [...] educated regarding both OTC and prescription treatments. 11/13/2023 Pain in right toe(s) (ICD-10 - M79.674) 01/15/2024 Tinea unguium (ICD-10 - B35.1) Aseptic debridement [...] educated regarding both OTC and prescription treatments. 01/15/2024 Pain in right toe(s) (ICD-10 - M79.674) 03/18/2024 Tinea unguium (ICD-10 - B35.1) Aseptic [...] Pain in right toe(s) (ICD-10 - M79.674) 05/27/2024 Tinea unguium (ICD-10 - B35.1) Nails 1-5 Bilateral were debrided extensively with nail nippers and emery board, reducing length and girth to pink healthy tissue with any subungual debris and necrotic tissue removed 05/27/2024 Pain in right foot (ICD-10 - M79.671) 05/27/2024 Pain in left foot (ICD-10 - M79.672) 03/18/2024 Pain in left toe(s) (ICD-10 - M79.675) 01/15/2024 Pain in left toe(s) (ICD-10 - M79.675) 11/13/2023 Pain in left toe(s) (ICD-10 - M79.675) 09/11/2023 Pain in left toe(s) (ICD-10 - M79.675) 09/11/2023 Unspecified atherosclerosis of [place] arteries of extremities, bilateral legs (ICD-10 - I70.203) Patient educated on risks and aggravating factors of PVD, including conservative treatment options such as a diet and exercise regimen to aid in slowing progression of vascular disease 11/13/2023 Unspecified atherosclerosis of [place] arteries of extremities, bilateral legs (ICD-10 - I70.203) Patient educated on risks and aggravating factors of PVD, including conservative treatment options such as a diet and exercise regimen to aid in slowing progression of vascular disease 01/15/2024 Unspecified atherosclerosis of [place] arteries of extremities, bilateral legs (ICD-10 - I70.203) Patient educated on risks and aggravating factors of PVD, including conservative treatment options such as a diet and exercise regimen to aid in slowing progression of vascular disease 05/27/2024 Atherosclerosis of [place] arteries of extremities with intermittent claudication, bilateral legs (ICD-10 - I70.213) 03/18/2024 Unspecified atherosclerosis of [place] arteries of extremities, bilateral legs (ICD-10 - [...] lotion to be applied to feet daily. 05/27/2024 Acquired keratosis [keratoderma] palmaris et plantaris (ICD-10 - L85.1) A total of 1 corns or calluses, as described in the note above, were cut and pared utilizing a #15 blade 01/15/2024 Xerosis cutis (ICD-10 - L85.3) The patient was educated regarding proper hydration of their feet/ankles and the patient was given several recommendations for proper creams to protect/hydrate and keep the area healthy. Continue with use of lotion to be applied to feet daily. 11/13/2023 Xerosis cutis (ICD-10 - L85.3) The patient was educated regarding proper hydration of their feet/ankles and the patient was given several recommendations for proper creams to protect/hydrate and keep the area healthy. Continue with use of lotion to be applied to feet daily. 09/11/2023 Xerosis cutis (ICD-10 - L85.3) The patient was educated regarding proper hydration of their feet/ankles and the patient was given several recommendations for proper creams to protect/hydrate and keep the area healthy. Continue with use of lotion to be applied to feet daily. 01/15/2024 Acquired keratosis [keratoderma] palmaris et plantaris (ICD-10 [...] devices to help offload callus lesions. 03/18/2024 Acquired keratosis [keratoderma] palmaris et plantaris [...] Pain in right foot (ICD-10 - M79.671) 01/15/2024 Pain in right foot (ICD-10 - M79.671) 01/15/2024 Pain in left foot (ICD-10 - M79.672) 03/18/2024 Pain in left foot (ICD-10 - M79.672) Plan Of Treatment Next Appt Details Provider Name:YANET ELIZALDE, 08/05/2024 04:20:00 PM, [address] [place] [address], [phone], Insurance Providers Payer Name Payer Address Payer Phone Subscriber Number Group Number Insured Name Patient Relationship to Insured Coverage Start Date Coverage End Date Medicare Part B [place] [address] [place] [phone] [id number] DIA PROCTOR Self - patient is the insured A[employer]NA SENIOR SUPPLEMENTA L [facility] [address] [address] [place] [address] [phone] [id number] DIA PROCTOR Self - patient is the insured
--- OUTSIDE RECORDS SUMMARY | 2024-07-30 11:26 | XMS_ITS ---
Author Organization [facility] Address [address] [place], [place] [address] Care Team Providers Care Buffet Attendant Name Role Phone SLIME GAMEZ Unavailable [phone] Javad Tra Unavailable Unavailable Allergies Allergen (clinical drug ingredient) Drug/Non Drug Allergy documented on EMR Reaction Allergy Type Onset Date Status Shellfish (FN) Shellfish (uncoded) Unknown Allergy 04/16 active acetaminophen Acetaminophen Unknown Drug Allergy 2 active hydrocodone Hydrocodone Unknown Drug Allergy 04/16/2021 ac tive REASON FOR VISIT Patient presents for at-risk foot care . The patient has painful toenails and calluses that are causing difficulty with ambulation and shoegear. The onset is gradual Medications Medication SIG (Take, Route, Frequency, Duration) [...] 12.5 MG Oral for 90 Days Active Encounters Encounter Location Date Provider Diagnosis [address] [id number] 05/27/2024 SLIME GAMEZ Tinea unguium B35.1 ; Pain in right foot M79.671 ; Pain in left foot M79.672 ; Atherosclerosis of sycuan arteries of extremities with intermittent claudication, bilateral legs I70.213 and Acquired keratosis [keratoderma] palmaris et plantaris L85.1 Assessments Encounter Date Diagnosis (ICD Code) Assessment Notes Treatment Notes Treatment Clinical Notes Section Notes 05/27/2024 Tinea unguium (ICD-10 - B35.1) Nails 1-5 Bilateral were debrided extensively with nail nippers and emery board, reducing length and girth to pink healthy tissue with any subungual debris and necrotic tissue removed 05/27/2024 Pain in right foot (ICD-10 - M79.671) 05/27/2024 Pain in left foot (ICD-10 - M79.672) 05/27/2024 Atherosclerosis of sycuan arteries of extremities with intermittent claudication, bilateral legs (ICD-10 - I70.213) 05/27/2024 Acquired keratosis [keratoderma] palmaris et plantaris (ICD-10 - L85.1) A total of 1 corns or calluses, as described in the note above, were cut and pared utilizing a #15 blade Plan Of Treatment Treatment Notes Assessment Notes Tinea unguium Nails 1-5 Bilateral were debrided extensively with nail nippers and emery board, reducing length and girth to pink healthy tissue with any subungual debris and necrotic tissue removed Acquired keratosis [keratode rma] palmaris et plantaris A total of 1 corns or calluses, as described in the note above, were cut and pared utilizing a #15 blade Next Appt Details Follow Up: 10 - 12 weeks, Re ason: At-Risk Foot care, sooner if problems develop. Provider Name:YANET ELIZALDE, 08/05/2024 04:20:00 PM, [address] [place] [address], [phone], Progress Notes * DIA PROCTOR MDOB:[birth year] (89 yo F)Acc No.[id number]:05/27/2024 Patient: Stephen DIA CRUZ Provider: Zofia Gamez DPM :1935 A ge:89 Y S ex:Female Date:05/27/2024 Address:[address] [place] [address], [address] Subjective: * Chief Complaints: * P atient presents for at-risk foot care . The patient has painful toenails and calluses that are causing difficulty with ambulation and shoegear. The onset is gradual * HPI: H PI: General care P haylee presents to the office for at risk foot care. Patient states that their nails are thickened, elongated and painful. Patient states that it is aggravated by shoe gear. Onset is gradual. Patient denies being diabetic., Patient denies taking prescription blood thinners but does take a daily aspirin., Date last seen by Dr. Farnsworth was 03/2024., Initials [facility]. * Medical History: * Surgical History: * Hospitalization/Major Diagno stic Procedure: * Medications: T akingoxyBUTYnin Chloride 5 MG Tablet Oral Sertraline HCl 50 MG Tablet Oral Omeprazole 20 MG Capsule Delayed Release Oral Meloxicam 15 MG Tablet Oral amLODIPine Besylate 2.5 MG Tablet Oral Meclizine HCl 12.5 MG Tablet Oral Pravastatin Sodium 20 MG Tablet Oral Medication List reviewed and reconciled with the patientTaking oxyBUTYnin Chloride 5 MG Tablet Oral Taking Sertraline HCl 50 MG Tablet Oral Taking Omeprazole 20 MG Capsule Delayed Release Oral Taking Meloxicam 15 MG Tablet Oral Taking amLODIPine Besylate 2.5 MG Tablet Oral Taking Meclizine HCl 12.5 MG Tablet Oral Taking Pravastatin Sodium 20 MG Tablet Oral Medication List reviewed and reconciled with the patient * Allergies: S hellfish: Allergy - Onset Date 04/16/2021cetaminophen: Allergy - Onset Date 04/16/2021Hydrocodone: Allergy - Onset Date 04/16/2021no[Allergies Verified] Objective: * Vitals: * Examination: P hysical Examination: General appearance: A lert, pleasant, well-nourished and in no acute distress. D ermatologic: Skin findings: S kin is thin, atrophic and lacking pedal hair. Hypertrophic / hyperkeratotic lesion: p lantar aspect of the left 1st metatarsal head. Nail pathology: N ails 1, 2, 3, 4, and 5 bilateral are elongated, thick, discolored, and dystrophic with subungual debris. They are painful to palpation. ? V ascular: Dorsalis pedis pulse: 1 /4 b ilateral. Posterior tibial pulse: 0 /4 bilateral. Capillary refill: g reater than 3 seconds. Edema: N o edema bilateral. N eurologic: Gross sensation G rossly intact to light touch. There is negative Tinel's sign. M usculoskeletal: Muscle Strength M uscle strength is 5/5 in regards to dorsiflexion, plantarflexion, inversion, and eversion in bilateral lower extremities. ? Assessment: * Assessment: 1. T inea unguium - B35.1 (Primary) 2 . P ain in right foot - M79.671 ? 3 . P ain in left foot - M79.672 4 . A therosclerosis of sycuan arteries of extremities with intermittent claudication, bilateral legs - I70.213 5 . Acquired keratosis [keratoderma] palmaris et plantaris - L85.1 Plan: * Treatment: 2. 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 Modifiers: Q8 94912 TRIM SKIN LESIONS, 2 TO 4. Modifiers: 59, Q8 * Sign off status: Completed true * Provider: Zofia Gamez DPM Date: 0 05/27/2024 Generated for Angelita osman/Dee Dee/Selinaitting on: 0 07/30/2024 11:25 AM CDT History and Physical Notes * [...] Date last seen by Dr. Farnsworth was 03/2024., Initials [facility] Examination Category Sub-Category Detail Notes Category Not es Dermatologic Skin findings: Skin is thin, at rophic and lacking pedal hair Nail pathology: Nails 1, 2, 3, 4, an d 5 bilateral are elongated, thick, discolored, and dystrophic with subungual debris. They are painful to palpation Hypertrophic / hyperkeratotic lesion: pl [place] aspect of the left 1st metatarsal head Neurologic Gross sensation Grossly intact t o light touch. There is negative Tinel's sign Vascular Dorsalis pedis pulse: 1/4 bilateral Edema: No edema bilateral Capillary refill: greater than 3 secon ds Posterior tibial pulse: 0/4 bilateral Physical Examination General appearance: Alert, pleasant, well-nourished and in no acute distress Musculoskeletal Muscle Strength Muscle strength is 5/5 in regards to dorsiflexion, plantarflexion, inversion, and eversion in bilateral lower extremities
--- OUTSIDE RECORDS SUMMARY | 2024-07-30 11:26 | XMS_ITS | Clinical Summary ---
Author Organization [facility] Address [address] [place] [address] Care Team Providers Care Washroom Cleaner Name Role Phone Tra Farnsworth MD Primary Care Provider [phone] Gautam Fritz HIGH SCHOOL TEACHER Unavailable [phone] Manfred Morales MD Unavailable [phone] Melba Posadas ANP-BC Unavailable [phone] Magali Guerrero MD Unavailable [phone] Allergies Active Allergy Reactions Criticality Noted Date Comments Tape Rash Medium 03/18/2023 Rash with PRINEO dressing applied after surgery Atorvastatin Myalgias 01/07/2018 Azithromycin Hives 01/29/2012 Hydromorphone Other (see comment) 01/07/2018 Mental changes Duloxetine Hcl Other (see comment) 01/07/2018 Confusion; constipation Hydrocodone-Acetaminoph en Rash Medium 01/27/2019 Oyster Extract Vomiting 08/24/2020 Vancomycin Hives 01/07/2018 Doxycycline Hives 01/07/2018 Medications oxybutynin 5 MG tablet Take 1 tablet (5 mg total) by mouth 2 (two) times daily. 7 Active pravastatin 10 MG tablet Take 1 tablet (10 mg total) by mouth nightly at bedtime. Active multivitamin tablet Take 1 tablet by mouth daily. Active magnesium oxide 400 MG tablet Take 1 tablet (400 mg total) by mouth daily. 7 Active acetaminophen 500 MG tablet Take 1 tablet (500 mg total) by mouth every 6 (six) hours as needed for Pain. Active amLODIPine (NORVASC) 2.5 MG tablet 3 Active aspirin EC (ECOTRIN) 81 MG tabletIndications :Status post reverse total arthroplasty of right shoulder,Right rotator cuff tear arthropathy Take 1 tablet (81 mg total) by mouth 2 (two) times daily with meals. Once completed with twice a day 81 mg aspirin may resume home dose of once a day 81 mg aspirin 26 tablet 3 Active gabapentin (NEURONTIN) 100 MG capsuleIndication s:Chronic bilateral low back pain, unspecified whether sciatica present Take 1 capsule (100 mg total) by mouth 3 (three) times daily. 90 capsule 2 3 Active diclofenac EC (VOLTAREN) 50 MG tablet Take 1 tablet (50 mg total) by mouth 2 (two) times daily. 4 Active omeprazole (PRILOSEC) 20 MG capsule Take 1 capsule (20 mg total) by mouth daily. 4 Active Active Problems Problem Noted Date Diagnosed Date Aftercare following surgery 04/08/2023 Status post reverse total arthroplasty of right shoulder 03/11/2023 Right rotator cuff tear arthropathy 03/10/2023 Rotator cuff arthropathy, right 11/15/2022 Nonrheumatic mitral valve regurgitation 11/09/19 21 Nonrheumatic tricuspid valve regurgitation 11/08 S/P TAVR (transcatheter aortic valve replacement ) 10/11/2020 Chronic bilateral thoracic back pain 10/11/2020 Urinary tract infection without hematuria, site unspecified 10/11/2020 Dyspnea on exertion 10/11/2020 Chronic bilateral low back p ain, unspecified whether sciatica present 10/11/2020 Severe aortic stenosis 10/04/2020 Nonrheumatic aortic valve insufficiency 05/10/19 19 AVD (aortic valve disease) 05/10/2018 Pain from implanted hardware 03/18/2018 Nonrheumatic aortic valve stenosis 01/14/2018 Chronic depression 01/14/2018 Diabetes ([facility]) 01/14/2018 Overview (01/14/2018): diet controlled GERD (gastroesophageal reflux disease) 8 Essential hypertension 01/14/2018 Dyslipidemia 01/14/2018 Systolic murmur 01/14/2018 Wilkins's esophagus 08/05/2017 Carotid artery stenosis 09/06/2015 Overview (01/14/2018): 40-69% LICA Ankle joint pain 01/20/2012 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, unspecified laterality 01/20/2012 Resolved Problems Problem Noted Date Diagnosed Date Resolved Date Pre-operative cardiovascular examination 01/11/2019 12/17/2019 Encounter for preventive health examination 01/20/2012 12/17/2019 Immunizations Immunization Administration Dates Next Due PFIZER COVID-19 (ORIGINAL FO RMULATION, PURPLE CAP) mRNA, LNP-S, PF, 30 MCG/0.3 ML DOSE 06/16/2020,05/26/2020 Pneumococcal (Prevnar 13) 10/04/2015 Family History Medical History Relation Comments Diabetes Father Hypertension Father Cancer Mother Diabetes Mother Relation Status Comments Father Maternal Grandfather Maternal Grandmother Mother Paternal Grandfather Paternal Grandmother Social History Tobacco Use Types Packs/Day Years Used Date Smoking Tobacco: Never Smokeless Tobacco: Never Tobacco Cessation:Counseling Given: Not Answered Alcohol Use Standard Drinks/Week Comments No 0 (1 standard drink = 0.6 oz pur e alcohol) [facility] Utilities Answer Date Recorded In the past 12 months has th e [employer] gas, oil, or water [place] threatened to shut off services in your home? No 03/10/2023 Humiliation, Afraid, Rape, and Kick questionnair e Answer Date Recorded Within the last year, have y ou been afraid of your partner or ex-partner? No 03/10/2023 Within the last year, have y ou been humiliated or emotionally abused in other ways by your partner or ex-partner? No Within the last year, have y ou been kicked, hit, slapped, or otherwise physically hurt by your partner or ex-partner? No 03/10/2023 Within the last year, have y ou been raped or forced to have any kind of sexual activity by your partner or ex-partner? No 03/10/2023 AUDIT-C Answer Date Recorded Frequency of Alcohol Consumption Never 01/07/2018 Average Number of Drinks Not on file 018 Frequency of Binge Drinking Not on file 06/2017 Overall Financial Resource Strain (CARDIA) Answe r Date Recorded How hard is it for you to pa y for the very basics like food, housing, medical care, and heating? Not hard at all 03/10/2023 Hunger Vital Sign Answer Date Recorded Within the past 12 months, y ou worried that your food would run out before you got the money to buy more. Never true 03/10/20 23 Within the past 12 months, t he food you bought just didn't last and you didn't have money to get more. Never true 03/10/2023 PRAPARE - Transportation Answer Date Re corded In the past 12 months, has l ack of transportation kept you from medical appointments or from getting medications? No 07/2022 In the past 12 months, has l ack of transportation kept you from meetings, work, or from getting things needed for daily living? No 03/10/2023 Housing Stability Vital Sign Answer Kelton e Recorded In the last 12 months, was t here a time when you were not able to pay the mortgage or rent on time? No 03/10/2023 In the last 12 months, how many places have you lived? 1 03/10/2023 In the last 12 months, was t here a time when you did not have a steady place to sleep or slept in a [place] health care facility (including now)? 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 Not on file Not on file Last Filed Vital Signs Vital Sign Reading Time Taken Comments Blood Pressure 159/54 09/26/2023 2:00 PM CDT Pulse 67 09/26/2023 2:00 PM CDT Temperature 35.9 C (96.6 F) 03/11/2023 11:47 AM HOUSEHOLD WORKER Respiratory Rate 16 09/26/2023 2:00 PM CDT Oxygen Saturation 100% 09/26/2023 2:00 PM CDT Inhaled Oxygen Concentration - - Weight 75.6 kg (166 lb 9.6 oz) 09/26/2023 2:00 P M CDT Height 147.3 cm (4' 10 ) 09/26/2023 2:00 PM CDT Body Mass Index 34.82 09/26/2023 2:00 PM CDT Plan of Treatment Health Maintenance Due Date Last Done Comments Lipid Panel 1935 Diabetes: Retinopathy Eye Exam 1953 DTaP, Tdap and Td Vaccines ( 1 - Tdap) 1954 Zoster Vaccines (1 of 2) 1985 Annual Medicare Wellness Visit 2000 RSV Immunization or 60+ Years (1 - 1-dose 75+ series) 2010 Pneumococcal Vaccine: 50+ Years (2 of 2 - PPSV23) 11/29/2015 10/04/2015 Hemoglobin A1C 11/25/2019 05/27/2019, 01/04/2019 COVID-19 Vaccine (2023-2 5 season) 2023 02/12/2023, 06/16/2020, 05/26/2020 Meningococcal B Vaccine Aged Out No l onger eligible based on patient's age to complete this topic Meningococcal Vaccine Aged Out No harman lisa eligible based on patient's age to complete this topic RSV Immunizations Under 20 Months Aged Out No longer eligible b ased on patient's age to complete this topic Medical Devices Implanted Type Area Shuttleless Loom Weaver Device Identifier Shelf Expiration Date Model / Serial / Lot Medtronic Evolut Tavr Ao Valve- Implanted:Qty: 1 on 10/04/2020 by Parish Nguyen MD Valve Implant Heart [employer] 12/28/2021 EVPROPLU S-26US / [id number] / Delta Xtend Modular 155 Degree Epiphysis Implanted:Qty: 1 on 03/10/2023 by Manfred Morales MD at [facility] Right: Shoulder [employer] - [employer] PUSH[employer] 08/04/2032 1307-40- 103 / / [id number] Delta Xtend Locking Metaglene Screw Implanted:Qty: 1 on 03/10/2023 by Manfred Morales MD at [facility] Right: Shoulder [employer] - [employer] 10/04/2026 1307-90- 036 / / [id number] Delta Xtend Locking Metaglene Screw Implanted:Qty: 1 on 03/10/2023 by Manfred Morales MD at [facility] Right: Shoulder [employer] - [employer] 09/05/2027 1307-90- 036 / / [id number] Delta Xtend Reverse Shoulder System Central Screw Metaglene Collet Implanted:Qty: 1 on 03/10/2023 by Manfred Morales MD at [facility] Right: Shoulder [employer] - [employer] [id number] 02/07/2027 1309-60- 111 / / [id number] Delta Xtend Reverse Shoulder System Central Metaglene Screw Implanted:Qty: 1 on 03/10/2023 by Manfred Morales MD at [facility] Right: Shoulder [employer] - [employer] 12/06/2031 1309-60- 320 / / [id number] Delta Xtend Reverse Shoulder System Augmented Central Screw Metaglene Full Wedge Cementless Implanted:Qty: 1 on 03/10/2023 by Manfred Morales MD at [facility] Right: Shoulder [employer] - [employer] [id number] 11/05/2031 1309-70- 850 / / [id number] Delta Xtend Lateralized Glenosphere Implanted:Qty: 1 on 03/10/2023 by Manrfed Morales MD at [facility] Right: Shoulder [employer] - [employer] 08/05/2027 1307-62- 138 / / [id number] Delta Xtend Non-Locking Metaglene Screw Implanted:Qty: 1 on 03/10/2023 by Manfred Morales MD at [facility] Right: Shoulder [employer] - [employer] 12/05/2026 1307-70- 024 / / [id number] Delta Xtend Locking Metaglene Screw Implanted:Qty: 1 on 03/10/2023 by Manfred Morales MD at [facility] Right: Shoulder [employer] - [employer] 07/06/2027 1307-90- 030 / / [id number] Delta Xtend Humeral Pe Cup Standard Implanted:Qty: 1 on 03/10/2023 by Manfred Morales MD at [facility] Right: Shoulder [employer] - [employer] 10/04/2026 1307-38- 203 / / [id number] Global Unite Porocoat Standard Stem Implanted:Qty: 1 on 03/10/2023 by Manfred Morales MD at [facility] Right: Shoulder [employer] - [employer] 07/06/2031 1100-12- 100 / / [id number] Explanted Type Area Shuttleless Loom Weaver Device Identifier Shelf Expiration Date Model / Serial / Lot Drill Bit Depuy 2.5 - [id number] Explanted:Qty: 1 on 03/10/2023 at [facility] Drill Right: Shoulder DEPUY [id number] / / Delta Xtend Central Screw Metaglene Augmented Metaglene Reamer Inner Drive Shaft Tip Explanted:Qty: 1 on 03/10/2023 at [facility] Right: Shoulder [employer] - [employer] PUSH[employer] 02/04/2027 2317-70-824 / / [id number] Delta Xtend Central Screw Metaglene Augmented Metaglene Reamer Head Explanted:Qty: 1 on 03/10/2023 at [facility] Right: Shoulder [employer] - [employer]USH[employer] 11/04/2026 2317-70-424 / / [id number] Guide And Bone Model Shoulder Artheroplasty 2.5mm Center Pin Explanted:Qty: 1 on 03/10/2023 at [facility] Right: Shoulder [employer] - [employer] PUSH[employer] [id number] 08/03/2023 [id number] / / [id number] Additional Health Concerns 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 Urine (SB) 10/13/2020 10/13/2020 Insurance MEDICARE AETNA MEDICARE AETNA MEDICARE Advance Directives Documents on File Type Date Recorded Patient Hair Blender Expl anation Advance Directives and Living Will 02/10/2018 5:05 PM 11/07/2005 - POA - agent Lorie Dalton, successor-Asim Fernandez * Full Code (Latest Code Status on File) Date Activated Date Inactivated Comments 03/10/2023 4:04 PM 03/11/2023 4:59 PM * Full Code Date Activated Date Inactivated Comments 10/04/2020 9:18 AM 10/05/2020 2:18 PM * Full Code Date Activated Date Inactivated Comments 09/13/2020 4:09 PM 09/13/2020 8:23 PM Care Teams Washroom Cleaner Relationship Specialty Start Date End Date Tra Farnsworth MD [address] [place] [address] PCP - General INTERNAL MEDICINE 01/09/18 Gautam Fritz APRN [address] [place] [phone] Nurse Practitioner NURSE PRACTITIONER 10/05/21 Manfred Morales MD [address] [place] [address] ORTHOPAEDIC SURGERY 02/14/23 Melba Posadas ANP- [address] [place] [address] Nurse Practitioner NURSE PRACTITIONER ADULT HEALTH 07/16/23 Magali Guerrero MD [facility] [place] [address] INTERVENTIONAL CARDIOLOGY 07/16/23
--- OUTSIDE RECORDS SUMMARY | 2024-07-30 11:26 | XMS_ITS | Clinical Summary ---
Author Organization [facility] Address [address] [address] Phone Care Team Providers Care Skiver Counter Name Role Phone Tra Farnsworth MD Primary Care Provider [phone] Allergies Active Allergy Reactions Criticality Noted Date Comments Hydromorphone Hallucinations 07/24/2017 Vancomycin Swelling 07/24/2017 Eyes shut, respiratory Doxycycline Calcium Swelling 07/24/2017 Eyes shut Medications Meloxicam 15 MG Tablet 05/26/2017 Active omeprazole (PRILOSEC) 40 MG CAPSULE DELAYED RELEASE 07/15/2017 Active sertraline (ZOLOFT) 50 MG Tablet 06/24/2017 Active pravastatin (PRAVACHOL) 10 MG Tablet 06/24/2017 Active oxybutynin (DITROPAN) 5 MG Tablet 06/24/2017 Active aspirin EC 81 MG Tablet Delayed Response Take 81 mg by mouth daily. Active magnesium oxide (MAG-OX) 400 MG Tablet Take 400 mg by mouth daily. Active Multiple Vitamins-Mineral s (OCUVITE PO) Take by mouth daily. Active Family History Medical History Relation Name Comments Diabetes Father Kidney Cancer Maternal Aunt 1 Stomach Cancer Maternal Aunt 2 Cervical Cancer Maternal Aunt 3 Cervical Cancer Mother Diabetes Mother Relation Name Status Comments Father Maternal Aunt 1 Maternal Aunt 2 Maternal Aunt 3 Mother Social History Tobacco Use Types Packs/Day Years Used Date Smoking Tobacco: Never Smokeless Tobacco: Never Alcohol Use Standard Drinks/Week Comments No 0 (1 standard drink = 0.6 oz pur e alcohol) Comments No Sex and Gender Information Value Date Recorded Sex Assigned at Not on file Legal Sex Female 11:56 PM CDT Gender Identity Not on file Sexual Orientation Not on file Last Filed Vital Signs Vital Sign Reading Time Taken Comments Blood Pressure 132/78 07/24/2017 2:13 PM CDT Pulse 72 07/24/2017 2:13 PM CDT Temperature 36.6 C (97.9 F) 07/24/2017 2:13 PM CDT Respiratory Rate 18 07/24/2017 2:13 PM CDT Oxygen Saturation 96% 07/24/2017 2:13 PM CDT Inhaled Oxygen Concentration - - Weight 70.6 kg (155 lb 9.6 oz) 07/24/2017 2:13 P M CDT Height 150.5 cm (4' 11.25 ) 07/24/2017 2:13 PM C DT Body Mass Index 31.16 07/24/2017 2:13 PM CDT Plan of Treatment Health Maintenance Due Date Last Done Comments Hepatitis C Virus (HCV) Screening 1935 TdaP Immunization 1935 Zoster Immunization (1 of 2) 1985 Respiratory Syncytial Virus (RSV) Immunization (Adult) (1 - 1-dose 75+ series) 2010 Pneumococcal Immunization (50+ years) (2 of 2 - PPSV23) 10/03/2016 10/04/2015 Influenza Immunization (#1) 2023 SARS-COV-2 Immunization ( season) 2023 12/30/2020, 06/16/2020, 05/26/2020 Pneumococcal Immunization Combined Discontinued 10/04/2015 Hepatitis B Immunization Aged Out No longer eligible based on patient's age to complete this topic Meningococcal Immunization (ACWY) Aged Out No longer eligible based on patient's age to complete this topic Rotavirus Immunization Aged Out No lo nger eligible based on patient's age to complete this topic Insurance MEDICARE AETNA SENIOR SUPPLEMENTAL Care Teams Skiver Counter Relationship Specialty Start Date End Date Tra Farnsworth MD [address] [place] [address] PCP - General Internal Medicine 07/24/17
--- OUTSIDE RECORDS SUMMARY | 2024-07-30 11:26 | XMS_ITS | Referral Summary ---
Author Organization [facility] Address [address] [place] [address] Care Team Providers Care Final Finisher Name Role Phone Tra Farnsworth MD Primary Care Provider [phone] Allergies Active Allergy Reactions Criticality Noted Date [...] (05/11/2019): Added automatically from request for surgery [id number] AR (aortic regurgitation) 01/18/2019 MR (mitral regurgitation) 01/18/2019 (aortic stenosis) 01/18/2019 History of deep vein thrombosis (DVT) of lower e xtremity 01/18/2019 GERD (gastroesophageal reflux disease) 9 Hiatal hernia 01/18/2019 DM2 (diabetes mellitus, type 2) 01/18/2019 Pre-operative cardiovascular examination 019 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 Overview (12/02/2018): Added automatically from request for surgery [id number] AVD (aortic valve disease) 05/10/2018 Pain from implanted hardware 03/18/2018 Systolic murmur 01/14/2018 Hypertension 01/14/2018 Hyperlipidemia 01/14/2018 Chronic depression 01/14/2018 Carotid artery stenosis 09/06/2015 Overview (03/09/2019): 40-69% LICA 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, unspecified laterality 01/20/2012 Ankle joint pain 01/20/2012 Immunizations Immunization Administration Dates Next Due Pneumococcal Conjugate PCV 13 10/04/2015 Social History Tobacco Use Types Packs/Day Years [...] on file Legal Sex Female 7:20 AM EVENTS DIRECTOR Gender Identity Not on file Sexual Orientation Not on file Last Filed Vital Signs Vital Sign Reading Time Taken Comments Blood Pressure 130/41 06/08/2019 4:20 PM EVENTS DIRECTOR Pulse 68 06/08/2019 4:20 PM EVENTS DIRECTOR Temperature 37.8 C (100 F) 06/08/2019 4:20 PM EVENTS DIRECTOR Respiratory Rate 16 06/08/2019 4:20 PM EVENTS DIRECTOR Oxygen Saturation 97% 06/08/2019 4:20 PM EVENTS DIRECTOR Inhaled Oxygen Concentration - - Weight 69.1 kg (152 lb 4 oz) 06/07/2019 11:20 AM EVENTS DIRECTOR Height 147.3 cm (4' 10 ) 06/08/2019 11:58 AM EVENTS DIRECTOR Body Mass Index 31.82 06/07/2019 11:20 AM EVENTS DIRECTOR Plan of Treatment Not on file Medical Devices Implanted Type Area Golf Stud Riveter Device Identifier Shelf Expiration Date Model / Serial / Lot Depuy Orthopaedics Inc 3122-040 Smartset Medium Viscosity Cement 40gm Bone Sterile - [id number] Implanted:Qty: 1 on 01/26/2019 by Roman Taveras MD at [facility] Left: Hip Depuy Orthopaedics Inc [id number] 05/07/2020 3122-040 / / [id number] Depuy Orthopaedics Inc [id number] [place] 48mm 32mm Hip Neutral Liner Acetabular Altrx Sterile Latex Free - [id number] Implanted:Qty: 1 on 01/26/2019 by Roman Taveras MD at [facility] Left: Hip Depuy Orthopaedics Inc [id number] 12/05/2022 [id number] / / [id number] Sleeve Fem Delta Option Medium Hip Ti - [id number] Implanted:Qty: 1 on 01/26/2019 by Roman Taveras MD at [facility] Left: Hip [employer] 11/21/2025 [id number] / / [id number] Head Fem 32mm Hip Biolox Delta Option Strl - [id number] Implanted:Qty: 1 on 01/26/2019 by Roman Taveras MD at [facility] Left: Hip [employer] 11/05/2025 [id number] / / [id number] Depuy Orthopaedics Inc 3122-040 Smartset Medium Viscosity Cement 40gm Bone Sterile - [id number] Implanted:Qty: 1 on 06/07/2019 by Roman Taveras MD at [facility] Left: Hip Depuy Orthopaedics Inc 05/07/2020 3122-040 / / [id number] Depuy Orthopaedics Inc [id number] [place] Esc 48mm 28mm Constrain Lock Ring Antirotational Flex Latex Free - [id number] Implanted:Qty: 1 on 06/07/2019 by Roman Taveras MD at [facility] Left: Hip Depuy Orthopaedics Inc 11/04/2021 [id number] / / [id number] Head Fem 28mm Hip Biolox Delta Option Strl - [id number] Implanted:Qty: 1 on 06/07/2019 by Roman Taveras MD at [facility] Left: Hip [employer] [id number] 11/05/2025 [id number] / / [id number] Sleeve Fem Delta Option Short Hip Ti - [id number] Implanted:Qty: 1 on 06/07/2019 by Roman Taveras MD at [facility] Left: Hip [employer] [id number] 11/05/2025 [id number] / / [id number] Insurance MEDICARE [facility] MEDICARE [facility] [place] [address] Advance Directives For more information, please contact: [phone] Documents on File Type Date Recorded Patient Optoelectronic Technician Expl anation ADVANCE DIRECTIVE 01/26/2019 11:20 AM Pow er of Typewriter Aligner-Medical * Full Code (Latest Code Status on File) Date Activated Date Inactivated Comments 06/07/2019 5:43 PM 06/08/2019 9:12 PM * Full Code Date Activated Date Inactivated Comments 01/26/2019 7:20 PM 01/27/2019 6:03 PM Care Teams Final Finisher Relationship Specialty Start Date End Date Tra Farnsworth MD PCP - General Internal Medicine 10/16/18
--- OUTSIDE RECORDS SUMMARY | 2024-07-30 11:26 | XMS_ITS ---
Author Organization [facility] Address [address] [place], [place] [id number] Care Team Providers Care Distribution Center Associate Name Role Phone SLIME GAMEZ Unavailable [phone] Tra Farnsworth Unavailable Unavailable GABBIE PEREZ Unavailable [phone] Allergies Allergen (clinical drug ingredient) Drug/Non Drug Allergy documented on EMR Reaction Allergy Type Onset Date Status Shellfish (FN) Shellfish (uncoded) Unknown Allergy 04/16 active acetaminophen Acetaminophen Unknown Drug Allergy 2 active hydrocodone Hydrocodone Unknown Drug Allergy 04/16/2021 ac tive REASON FOR VISIT *General care Medications Medication SIG (Take, Route, Frequency, Duration) Notes Start Date End Date Status Sertraline HCl 50 MG Oral for 90 Days Active Omeprazole 20 MG Oral for 90 Days Active oxyBUTYnin Chloride 5 MG Oral for 90 Days Active Meclizine HCl 12.5 MG Oral for 90 Days Active Pravastatin Sodium 20 MG Oral for 30 Days Active Meloxicam 15 MG Oral for 90 Days Active amLODIPine Besylate 2.5 MG Oral for 90 Days Active Encounters Encounter Location Date Provider Diagnosis [address] [id number] 01/15/2024 GABBIE PEREZ Tinea unguium B35.1 ; Pain in right toe(s) M79.674 ; Pain in left toe(s) M79.675 ; Unspecified atherosclerosis of [place] arteries of extremities, bilateral legs I70.203 ; Xerosis cutis L85.3 ; Acquired keratosis [keratoderma] palmaris et plantaris L85.1 ; Pain in right foot M79.671 and Pain in left foot M79.672 Assessments Encounter Date Diagnosis (ICD Code) Assessment Notes Treatment Notes Treatment Clinical Notes Section Notes 01/15/2024 Tinea unguium (ICD-10 - B35.1) Aseptic [...] in right toe(s) (ICD-10 - M79.674) 01/15/2024 Pain in left toe(s) (ICD-10 - M79.675) 01/15/2024 Unspecified atherosclerosis of [place] arteries of extremities, bilateral legs (ICD-10 - I70.203) Patient educated on risks and aggravating factors of PVD, including conservative treatment options such as a diet and exercise regimen to aid in slowing progression of vascular disease 01/15/2024 Xerosis cutis (ICD-10 - L85.3) The [...] orthotic devices to help offload callus lesions. 01/15/2024 Pain in right foot (ICD-10 - [...] OTC and prescription treatments. Unspecified atherosclerosis of [place] arteries of extremities, bilateral legs Patient educated [...] Reason: Provider Name:YANET ELIZALDE, 08/05/2024 04:20:00 PM, [address] [place] [address], [phone], Progress Notes * DIA PROCTOR MDOB:[birth year] (88 yo F)Acc No.[id number]:01/15/2024 Patient: DIA GIRON Provider: Sandy PEREZ :1935 A ge:88 Y S ex:Female Date:01/15/2024 Address:[address] [place], [place] [id number] Subjective: * Chief Complaints: * 1 . [...] seen by Dr. Farnsworth was 01/2024., Initials [facility]. * ROS: G eneral / Constitutional: Patient [...] M79.675 4 . U nspecified atherosclerosis of [place] arteries of extremities, bilateral legs - I70.203 5 . 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 7. P ain in right foot - M79.671 8 . P ain in left foot - M79.672 Plan: * Treatment: 2. U nspecified atherosclerosis of [place] arteries of extremities, bilateral legs Notes: Patient [...] LESIONS, 2 TO 4, Modifiers: Q8 , 98307 DEBRIDE NAIL, 6 OR MORE, Modifiers: 59 , Q8, 36048 STRAPPING OF ANKLE AND/OR FT, Modifiers: 59 , [place], [address] STRAPPING OF ANKLE AND/OR FT, Modifiers: 59 , LT * Follow Up: 3 Months * Billing Information: * Visit Code: * Procedure Codes: 28355 TRIM SKIN LESIONS, 2 TO 4. Modifiers: Q8 59100 DEBRIDE NAIL, 6 OR MORE. Modifiers: 59, Q8 13340 STRAPPING OF ANKLE AND/OR FT. Modifiers: 59, RT [address] STRAPPING OF ANKLE AND/OR FT. Modifiers: 59, LT * Sign off status: Completed true * Provider: Sandy PEREZ Date: Generated for Angelita osman/Dee Dee/Dominick on: 0 07/30/2024 11:26 AM CDT History [...]
[2024-07-30 11:34] LABS: Hematocrit 40.4 % (35.0-42.0); Hemoglobin 12.8 g/dL (11.7-13.8); Mean Corpuscular HGB Conc 31.7 g/dL (32-36); Mean Corpuscular Hemoglobin 30.8 pg (27.0-31.0); Mean Corpuscular Volume 97.1 fL (78.0-102.0); Mean Platelet Volume 10.5 fl (9.2-11.8); Platelet Count Result 195 K/mm3 (150-420); Red Blood Count 4.16 M/mm3 (4.20-5.40); Red Cell Distribution Width 14.3 % (11.6-14.4); White Blood Count 5.9 K/mm3 (4.8-10.8)
[2024-07-30 12:04] LABS: Alanine Aminotransferase 29 U/L (14-59); Albumin Level 3.8 g/dL (3.4-5.0); Amylase 37 U/L (25-115); Anion Gap 8 mmol/L (4-12); Aspartate Amino Transferase 27 U/L (15-37); Bilirubin,Total 1.1 mg/dL (0.00-1.00); Blood Urea Nitrogen 18 mg/dL (7-18); Calcium 9.2 mg/dL (8.5-10.1); Carbon Dioxide 28 mmol/L (21-32); Chloride 105 mmol/L (98-108); Creatine Kinase 118 U/L (26-192); Estimated Glomerular Filt Rate > 60; Glucose 108 mg/dL (70-99); Lipase 25 U/L (16-77); Osmolality Calculated 294 mOsm/kg (285-295); Potassium 4.4 mmol/L (3.5-5.1); Sodium 141 mmol/L (136-145); Total Protein 7.3 g/dL (6.4-8.2); Troponin I 54.4 ng/L (0.00-60.4)
[2024-07-30 13:14] LABS: Alkaline Phosphatase 88 U/L (46-116)
== END 2024-07-30 11:04 | disposition home or self-care (01) ==
LOC: CHSLAB 11:05
PROVIDERS: PCP Internal Medicine; Visit Provider Internal Medicine
DX: R10.9 Unspecified abdominal pain (principal); R07.9 Chest pain, unspecified
CPT/HCPCS: 36415; 80053; 82150; 82550; 82553; 83690; 84484; 85027

== ENCOUNTER 2024-07-30 12:28 | Outpatient (CLI) | payer MEDICARE, MEDICAID, SELFPAY ==
--- NOTE | ~2024-07-30 | US_ITS ---
Limited Abdominal Sonogram: Real-time sonographic imaging of the right upper quadrant was performed. Clinical History: Acute cholecystitis Findings: The liver appears normal with no evidence of mass lesion or bile duct dilatation. Main por walker vein demonstrates normal direction of flow. The gallbladder is well distended, and appears normal with no evidence of gallstone or wall thickening. The common bile duct measures 4 mm. The visualize d pancreas, aorta, and IVC are unremarkable. Impression: No significant abnormality seen. Reviewed, dictated and finalized at location . Impression: No significant abnormality seen.
--- OUTSIDE RECORDS SUMMARY | 2024-07-30 12:37 | XMS_ITS | Clinical Summary ---
Author Organization [facility] Address [address] [address] Phone Care Team Providers Care Grassland Conservationist Name Role Phone Tra Farnsworth MD Primary Care Provider Allergies Active Allergy Reactions Criticality Noted Date [...] Insurance MEDICARE [employer] SENIOR SUPPLEMENTAL Care Teams Grassland Conservationist Relationship Specialty Start Date End Date Tra Farnsworth MD [address] [place] [address] PCP - General Internal Medicine 07/24/17
--- OUTSIDE RECORDS SUMMARY | 2024-07-30 12:37 | XMS_ITS | Clinical Summary ---
Author Organization [facility] Address [address] [place] [address] Care Team Providers Care Investment Underwriter Name Role Phone Tra Farnsworth MD Primary Care Provider [phone] Gautam Fritz NOC ENGINEER Unavailable [phone] Manfred Morales MD Unavailable [phone] Melba Posadas ANP-BC Unavailable [phone] Magali Guerrero MD Unavailable [phone] Allergies Active Allergy Reactions Criticality Noted [...] valve stenosis 01/14/2018 Chronic depression 01/14/2018 Diabetes ([facility]) 01/14/2018 Overview (01/14/2018): diet controlled GERD (gastroesophageal [...] drink = 0.6 oz pur e alcohol) [facility] Utilities Answer Date Recorded In the past 12 months has th e [employer], gas, oil, or water TRUSTe threatened to shut off services in your [...] place to sleep or slept in a half-way (including now)? No 03/10/2023 Comments No Sex [...] 35.9 C (96.6 F) 03/11/2023 11:47 AM WIND UP WORKER Respiratory Rate 16 09/26/2023 2:00 PM [...] this topic Medical Devices Implanted Type Area Caterpillar Operator Device Identifier Shelf Expiration Date Model / Serial / Lot Medtronic Evolut Tavr Ao Valve- Implanted:Qty: 1 on 10/04/2020 by Parish Nguyen MD Valve Implant Heart [employer] INC 12/28/2021 EVPROPLU S-26US / [id number] / Delta Xtend Modular 155 Degree Epiphysis Implanted:Qty: 1 on 03/10/2023 by Manfred Morales MD at [facility] Right: Shoulder DEPUY ORTHOP[employer] INC - A PUSHPA & PUSHPA 08/04/2032 1307-40- 103 / / [id number] Delta Xtend Locking Metaglene Screw Implanted:Qty: 1 on 03/10/2023 by Manfred Morales MD at [facility] Right: Shoulder [employer] - A PUSHPA & PUSHPA 10/04/2026 1307-90- 036 / / [id number] Delta Xtend Locking Metaglene Screw Implanted:Qty: 1 on 03/10/2023 by Manfred Morales MD at [facility] Right: Shoulder [employer] - A PUSHPA & PUSHPA 09/05/2027 1307-90- 036 / / [id number] Delta Xtend Reverse Shoulder System Central Screw Metaglene Collet Implanted:Qty: 1 on 03/10/2023 by Manfred Morales MD at [facility] Right: Shoulder [employer] - [employer] PUSHPA & PUSHPA [id number] 02/07/2027 1309-60- 111 / / [id number] Delta Xtend Reverse Shoulder System Central Metaglene Screw Implanted:Qty: 1 on 03/10/2023 by Manfred Morales MD at [facility] Right: Shoulder [employer] - A PUSHPA & PUSHPA 12/06/2031 1309-60- 320 / / [id number] Delta Xtend Reverse Shoulder System Augmented Central Screw Metaglene Full Wedge Cementless Implanted:Qty: 1 on 03/10/2023 by Manfred Morales MD at [facility] Right: Shoulder [employer] - [employer] PUSHPA [employer] PUSHPA [id number] 11/05/2031 1309-70- 850 / / [id number] Delta Xtend Lateralized Glenosphere Implanted:Qty: 1 on 03/10/2023 by Manfred Morales MD at [facility] Right: Shoulder [employer] - A PUSHPA [employer] PUSHPA 08/05/2027 1307-62- 138 / / [id number] Delta Xtend Non-Locking Metaglene Screw Implanted:Qty: 1 on 03/10/2023 by Manfred Morales MD at [facility] Right: Shoulder [employer] - [employer] PUSHPA & PUSHPA 12/05/2026 1307-70- 024 / / [id number] Delta Xtend Locking Metaglene Screw Implanted:Qty: 1 on 03/10/2023 by Manfred Morales MD at [facility] Right: Shoulder [employer] - [employer] PUSHPA & PUSHPA 07/06/2027 1307-90- 030 / / [id number] Delta Xtend Humeral Pe Cup Standard Implanted:Qty: 1 on 03/10/2023 by Manfred Morales MD at [facility] Right: Shoulder [employer] - A PUSHPA & PUSHPA 10/04/2026 1307-38- 203 / / [id number] Global Unite [place]ocoat Standard Stem Implanted:Qty: 1 on 03/10/2023 by Manfred Morales MD at [facility] Right: Shoulder [employer] - A PUSHPA & PUSHPA 07/06/2031 1100-12- 100 / / [id number] Explanted Type Area Caterpillar Operator Device Identifier Shelf Expiration Date Model / Serial / Lot Drill Bit Depuy 2.5 - [id number] Explanted:Qty: 1 on 03/10/2023 at [facility] Drill Right: Shoulder DEPUY [id number] / / Delta Xtend Central Screw Metaglene Augmented Metaglene Reamer Inner Drive Shaft Tip Explanted:Qty: 1 on 03/10/2023 at [facility] Right: Shoulder [employer] - A PUSHPA & PUSHPA 02/04/2027 2317-70-824 / / [id number] Delta Xtend Central Screw Metaglene Augmented Metaglene Reamer Head Explanted:Qty: 1 on 03/10/2023 at [facility] Right: Shoulder [employer] - A PUSHPA & PUSHPA 11/04/2026 2317-70-424 / / [id number] Guide And Bone Model Shoulder Artheroplasty 2.5mm Center Pin Explanted:Qty: 1 on 03/10/2023 at [facility] Right: Shoulder [employer] - A PUSHPA & PUSHPA [id number] 08/03/2023 [id number] / / [id number] Additional Health Concerns 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 Urine (SB) 10/13/2020 10/13/2020 Insurance MEDICARE AETNA MEDICARE AETNA MEDICARE Advance Directives Documents on File Type Date Recorded Patient Entrepreneur Expl anation Advance Directives and Living Will [...] 4:09 PM 09/13/2020 8:23 PM Care Teams Investment Underwriter Relationship Specialty Start Date End Date Tra Farnsworth MD [address] [place] [address] PCP - General INTERNAL MEDICINE 01/09/18 Gautam Fritz APRN [address] [place] [phone] Nurse Practitioner NURSE PRACTITIONER 10/05/21 Manfred Morales MD [address] [place] [address] ORTHOPAEDIC SURGERY 02/14/23 Melba Posadas ANP- [address] [place] [address] Nurse Practitioner NURSE PRACTITIONER ADULT HEALTH 07/16/23 Magali Guerrero MD [facility] [place] [address] INTERVENTIONAL CARDIOLOGY 07/16/23
--- OUTSIDE RECORDS SUMMARY | 2024-07-30 12:37 | XMS_ITS | Referral Summary ---
Author Organization [facility] Address [address] [place] [address] Care Team Providers Care Civil Engineering Technician Name Role Phone Tra Farnsworth MD Primary Care Provider [phone] Allergies Active Allergy Reactions Criticality Noted Date [...] (05/11/2019): Added automatically from request for surgery [id number] AR (aortic regurgitation) 01/18/2019 MR (mitral regurgitation) 01/18/2019 (aortic stenosis) 01/18/2019 History of deep vein thrombosis (DVT) of lower e xtremity 01/18/2019 GERD (gastroesophageal reflux disease) 9 Hiatal hernia 01/18/2019 DM2 (diabetes mellitus, type 2) 01/18/2019 Pre-operative cardiovascular examination 019 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 Overview (12/02/2018): Added automatically from request for surgery [id number] AVD (aortic valve disease) 05/10/2018 Pain from [...] on file Legal Sex Female 7:20 AM BALL WARPER TENDER Gender Identity Not on file Sexual Orientation Not on file Last Filed Vital Signs Vital Sign Reading Time Taken Comments Blood Pressure 130/41 06/08/2019 4:20 PM BALL WARPER TENDER Pulse 68 06/08/2019 4:20 PM BALL WARPER TENDER Temperature 37.8 C (100 F) 06/08/2019 4:20 PM BALL WARPER TENDER Respiratory Rate 16 06/08/2019 4:20 PM BALL WARPER TENDER Oxygen Saturation 97% 06/08/2019 4:20 PM BALL WARPER TENDER Inhaled Oxygen Concentration - - Weight 69.1 kg (152 lb 4 oz) 06/07/2019 11:20 AM BALL WARPER TENDER Height 147.3 cm (4' 10 ) 06/08/2019 11:58 AM BALL WARPER TENDER Body Mass Index 31.82 06/07/2019 11:20 AM BALL WARPER TENDER Plan of Treatment Not on file Medical Devices Implanted Type Area Control Inspector Device Identifier Shelf Expiration Date Model / Serial / Lot Depuy Orthopaedics Inc 3122-040 Smartset Medium Viscosity Cement 40gm Bone Sterile - [id number] Implanted:Qty: 1 on 01/26/2019 by Roman Taveras MD at [facility] Left: Hip Depuy Orth[employer]edics Inc [id number] 05/07/2020 3122-040 / / [id number] Depuy Orthopaedics Inc [id number] [place] 48mm 32mm Hip Neutral Liner Acetabular Altrx Sterile Latex Free - [id number] Implanted:Qty: 1 on 01/26/2019 by Roman Taveras MD at [facility] Left: Hip [employer]uy [employer]ed[employer] Inc [id number] 12/05/2022 [id number] / / [id number] Sleeve Fem Delta Option Medium Hip Ti - [id number] Implanted:Qty: 1 on 01/26/2019 by Roman Taveras MD at [facility] Left: Hip [employer] 11/21/2025 [id number] / / [id number] Head Fem 32mm Hip Biolox Delta Option Strl - [id number] Implanted:Qty: 1 on 01/26/2019 by Roman Taveras MD at [facility] Left: Hip [employer] 11/05/2025 [id number] / / [id number] Depuy Orthopaedics Inc 3122-040 Smartset Medium Viscosity Cement 40gm Bone Sterile - [id number] Implanted:Qty: 1 on 06/07/2019 by Roman Taveras MD at [facility] Left: Hip [employer]uy [employer] Inc 05/07/2020 3122-040 / / [id number] Depuy Orthopaedics Inc [id number] [place] Esc 48mm 28mm Constrain Lock Ring Antirotational Flex Latex Free - [id number] Implanted:Qty: 1 on 06/07/2019 by Roman Taveras MD at [facility] Left: Hip [employer] Inc 11/04/2021 [id number] / / [id number] Head Fem 28mm Hip Biolox Delta Option Strl - [id number] Implanted:Qty: 1 on 06/07/2019 by Roman Taveras MD at [facility] Left: Hip [employer] [id number] 11/05/2025 [id number] / / [id number] Sleeve Fem Delta Option Short Hip Ti - [id number] Implanted:Qty: 1 on 06/07/2019 by Roman Taveras MD at [facility] Left: Hip [employer] [id number] 11/05/2025 [id number] / / [id number] Insurance MEDICARE [facility] [place] MEDICARE [facility] [place] AETNA SENIOR SUPPLEMENT Advance Directives For more information, please contact: [phone] Documents on File Type Date Recorded Patient Ring Barker Operator Expl anation ADVANCE DIRECTIVE 01/26/2019 11:20 AM Pow er of Sanitary Landfill Operator-Medical * Full Code (Latest Code Status on File) Date Activated Date Inactivated Comments 06/07/2019 5:43 PM 06/08/2019 9:12 PM * Full Code Date Activated Date Inactivated Comments 01/26/2019 7:20 PM 01/27/2019 6:03 PM Care Teams Civil Engineering Technician Relationship Specialty Start Date End Date Tra Farnsworth MD PCP - General Internal Medicine 10/16/18
--- OUTSIDE RECORDS SUMMARY | 2024-07-30 12:37 | XMS_ITS | Encounter Summary ---
Author Organization [facility] Address [address] [place] [address] Care Team Providers Care Dye Weigher Name Role Phone Tra Farnsworth MD Primary Care Provider [phone] Anders Martínez MD Unavailable [phone] Justine Wright MD Unavailable [facility] Deng Musa MD Unavailable Unavailable Gautam Fritz APRN Unavailable [phone] Manfred Morales MD Unavailable [phone] Melba Posadas ANP-BC Unavailable [phone] Magali Guerrero MD Unavailable [phone] Encounter Details Date Type Department Care Team (Late st Contact Info) Description 10/06/2020 Hospital Follow-up Call [facility] [address] [place] [address] Kaitlin Howell, RN Social History [...] documented as of this encounter Care Teams Dye Weigher Relationship Specialty Start Date End Date Tra Farnsworth MD [address] [place] [address] PCP - General INTERNAL MEDICINE 01/09/18 Anders Martínez MD [address] [place] [phone] [place] [employer] Mother CARDIOVASCULAR DISEASE 01/09/18 07/15/23 Justine Wright MD [address] [place] [address] Consulting Physician CARDIOVASCULAR DISEASE 08/21/20 Deng Mckeon MD [address] [place] [address] Consulting Physician CARDIOVASCULAR DISEASE 10/11/2002/13 Gautam Fritz APRN [address] [place] [address] Nurse Practitioner NURSE PRACTITIONER 10/05/21 Manfred Morales MD [address] [place] [address] ORTHOPAEDIC SURGERY 02/14/23 Melba Posadas, [facility]- [address] [place] [address] Nurse Practitioner NURSE PRACTITIONER ADULT HEALTH 07/16/23 Magali Guerrero MD [address] [place] [address] INTERVENTIONAL CARDIOLOGY 07/16/23 documented as of this encounter
--- OUTSIDE RECORDS SUMMARY | 2024-07-30 12:37 | XMS_ITS | Clinical Summary ---
Author Organization [facility] Address [address] [place] [address] Care Team Providers Care Help Desk Technician Name Role Phone Tra Farnsworth MD Primary Care Provider [phone] Allergies Active Allergy Reactions Criticality Noted Date [...] (05/11/2019): Added automatically from request for surgery [id number] AR (aortic regurgitation) 01/18/2019 MR (mitral regurgitation) 01/18/2019 (aortic stenosis) 01/18/2019 History of deep vein thrombosis (DVT) of lower e xtremity 01/18/2019 GERD (gastroesophageal reflux disease) 9 Hiatal hernia 01/18/2019 DM2 (diabetes mellitus, type 2) 01/18/2019 Pre-operative cardiovascular examination 019 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 Overview (12/02/2018): Added automatically from request for surgery [id number] AVD (aortic valve disease) 05/10/2018 Pain from [...] on file Legal Sex Female 7:20 AM RN INFUSION Gender Identity Not on file Sexual Orientation Not on file Obstetrics History Para Term AB IAB SAB Ectopic Multiple Livin g Live Births 2 2 Date Outcome GA Total Labor Labor/2nd/3rd Weight Sex Type Anes PTL Sonia A1 A5 Name Clin Para Para Last Filed Vital Signs Vital Sign Reading Time Taken Comments Blood Pressure 130/41 06/08/2019 4:20 PM RN INFUSION Pulse 68 06/08/2019 4:20 PM RN INFUSION Temperature 37.8 C (100 F) 06/08/2019 4:20 PM RN INFUSION Respiratory Rate 16 06/08/2019 4:20 PM RN INFUSION Oxygen Saturation 97% 06/08/2019 4:20 PM RN INFUSION Inhaled Oxygen Concentration - - Weight 69.1 kg (152 lb 4 oz) 06/07/2019 11:20 AM RN INFUSION Height 147.3 cm (4' 10 ) 06/08/2019 11:58 AM RN INFUSION Body Mass Index 31.82 06/07/2019 11:20 AM RN INFUSION Plan of Treatment Not on file Medical Devices Implanted Type Area Scrap Preparer Device Identifier Shelf Expiration Date Model / Serial / Lot Depuy Orthopaedics Inc 3122-040 Smartset Medium Viscosity Cement 40gm Bone Sterile - [id number] Implanted:Qty: 1 on 01/26/2019 by Roman Taveras MD at [facility] Left: Hip Depuy [employer] Inc [id number] 05/07/2020 3122-040 / / [id number] Depuy Orthopaedics Inc [id number] [place] 48mm 32mm Hip Neutral Liner Acetabular Altrx Sterile Latex Free - [id number] Implanted:Qty: 1 on 01/26/2019 by Roman Taveras MD at [facility] Left: Hip [employer]uy [employer] Inc [id number] 12/05/2022 [id number] / / [id number] Sleeve Fem Delta Option Medium Hip Ti - [id number] Implanted:Qty: 1 on 01/26/2019 by Roman Taveras MD at [facility] Left: Hip [employer] 11/21/2025 [id number] / / [id number] Head Fem 32mm Hip Biolox Delta Option Strl - [id number] Implanted:Qty: 1 on 01/26/2019 by Roman Taveras MD at [facility] Left: Hip [employer] 11/05/2025 [id number] / / [id number] Depuy Orthopaed[employer] Inc 3122-040 Smartset Medium Viscosity Cement 40gm Bone Sterile - [id number] Implanted:Qty: 1 on 06/07/2019 by Roman Taveras MD at [facility] Left: Hip [employer]uy [employer] Inc 05/07/2020 3122-040 / / [id number] Depuy Orthopa[employer] Inc [id number] [place] Esc 48mm 28mm Constrain Lock Ring Antirotational Flex Latex Free - [id number] Implanted:Qty: 1 on 06/07/2019 by Roman Taveras MD at [facility] Left: Hip [employer] Inc 11/04/2021 [id number] / / [id number] Head Fem 28mm Hip Biolox Delta Option Strl - [id number] Implanted:Qty: 1 on 06/07/2019 by Roman Taveras MD at [facility] Left: Hip [employer] [id number] 11/05/2025 [id number] / / [id number] Sleeve Fem Delta Option Short Hip Ti - [id number] Implanted:Qty: 1 on 06/07/2019 by Roman Taveras MD at [facility] Left: Hip [employer] [id number] 11/05/2025 [id number] / / [id number] 482 Insurance MEDICARE [facility] MEDICARE [place] [employer] [place] AETNA SENIOR SUPPLEMENT Advance Directives For more information, please contact: [phone] Documents on File Type Date Recorded Patient Mechanical Design Engineer Expl anation ADVANCE DIRECTIVE 01/26/2019 11:[address] [facility] er of Fumigator And Sterilizer-Medical * Full Code (Latest Code Status on File) Date Activated Date Inactivated Comments 06/07/2019 5:43 PM 06/08/2019 9:12 PM * Full Code Date Activated Date Inactivated Comments 01/26/2019 7:20 PM 01/27/2019 6:03 PM Care Teams Help Desk Technician Relationship Specialty Start Date End Date Tra Farnsworth MD PCP - General Internal Medicine 10/16/18
== END 2024-07-30 12:29 | disposition home or self-care (01) ==
LOC: CHSIMG 12:34
PROVIDERS: PCP Internal Medicine; Visit Provider Internal Medicine
DX: K80.20 Calculus of gallbladder without cholecystitis without obstruction (principal)
CPT/HCPCS: 76705

== ENCOUNTER 2024-08-01 21:06 | Emergency (ER) | payer MEDICARE, MEDICAID, SELFPAY ==
[2024-08-01] VITALS (23 sets, daily range): BP systolic 158–201; BP diastolic 58–80; PULSE 60–77; RESP 10–21; TEMP 36.2–36.5; O2SAT 91–100
--- NOTE | ~2024-08-01 | XR_ITS ---
XR chest 1V Ordering provider: Roshan Merrill MD History: 89 years Female with . UPPER ABD/LOWER CHEST PAIN . Comparison: June 21, 2022 FINDINGS: MEDIASTINUM: The cardiac silhouette is not enlarged. Valve prosthesis is seen in the heart. LUNGS: No infiltrates, effusions or pneumothorax. OTHER: No free air under the diaphragm. Bilateral shoulder arthroplasty. Degenerative changes of the spine. IMPRESSION: No acute cardiopulmonary pathology. Reviewed, dictated and finalized at location A.
--- NOTE | ~2024-08-01 | CT_ITS ---
CT of the Abdomen and Pelvis: Indication: Abdominal pain Technique: 2.5 mm axial scans were obtained through the abdomen and pelvis following intravenous adm inistration of 100 cc of Omnipaque 350. Dose reduction technique was used on this scan by utilizing a utomated exposure control and iterative reconstruction technique. The dose-length product (DLP) was 6 17.10 mGy-cm. COMPARISON: 08/01/2024 Findings: Scans through the lung bases are unremarkable. The liver, spleen, pancreas, gallbladder, adrenals and kidneys are within normal limits. 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 There are atherosclerotic calcifications of the aorta. No lymphadenopathy. No bowel obstruction or bowel wall thickening. There is no evidence to suggest acute appendicitis. Images through the pelvis are degraded by streak artifact from bilateral hip arthroplasty.. Urinary b ladder grossly unremarkable. No definite pelvic mass seen. No ascites seen. There is advanced degenerative spondylosis throughout the visualized spine. There is 11 mm anterolist hesis of L4 over L5. Impression: No acute abnormalities seen. Chronic findings, as above. Reviewed, dictated and finalized at location . Impression: No acute abnormalities seen. Chronic findings, as above.
--- NOTE | ~2024-08-01 | CT_ITS ---
CT abdomen pelvis wo con Ordering provider: Roshan Merrill MD History: 89 years Female with . UPPER ABDOMINAL PAIN. . Comparison: February 01, 2019 Technique: CT abdomen and pelvis without IV and without oral contrast. Automated exposure control and iterative reconstruction technique were employed. The dose-length product was 621.91 mGy-cm. Findings: VISUALIZED LOWER CHEST: Normal. UPPER ABDOMINAL ORGANS: Liver: Normal. Gallbladder: Normal. Spleen: Normal. Stomach/duodenum: Sliding hiatus hernia. Pancreas: Normal. Adrenals: Normal. Kidneys: Calcified lesion seen in the hilum of the tibia which may be dilated disease. Minimal fullne ss of the left renal pelvis is noted. Calcification is seen in the course of the left upper ureter wh ich may be in the ureter or outside. Follow-up advised. Stone in the right kidney lower pole is noted. PELVIC ORGANS: The bladder is normal demonstrated due to overlapping artifacts. BOWEL AND MESENTERY: Colon: No evidence of diverticulitis seen in the visualized large bowel.. Appendix is not demonstrate d. Small Bowel: Normal. No obstruction. Peritoneum/mesentery: No free air or free fluid. No mesenteric lymphadenopathy. RETROPERITONEUM: Mild atheromatous disease of the abdominal aorta. No retroperitoneal lymphadenopat hy. MUSCULOSKELETAL: Superficial soft tissues: The superficial soft tissues are normal. Bones: Age appropriate degenerative changes of the spine. Bilateral hip arthroplasty. Anterolisthesis seen at the level of L4-L5. Retrolisthesis seen at the level of L1-L2 and L2-3. IMPRESSION: 1. No evidence of appendicitis, diverticulitis or intestinal obstruction. 2. Stone in the right kidney lower pole. 3. Possible stone in the left upper ureter with mild dilatation of the left renal pelvis. 4. Calcified areas in the hilum of the right and left kidney which may be calcified aneurysms. Reviewed, dictated and finalized at location A. IMPRESSION: 1. No evidence of appendicitis, diverticulitis or intestinal obstruction. 2. Stone in the right kidney lower pole. 3. Possible stone in the left upper ureter with mild dilatation of the left re nal pelvis. 4. Calcified areas in the hilum of the right and left kidney which may be calc ified aneurysms.
--- OUTSIDE RECORDS SUMMARY | 2024-08-01 21:08 | XMS_ITS | Referral Summary ---
Author Organization [facility] Address [address] [place] [address] Care Team Providers Care Associate Professor Of Law Name Role Phone Tra Farnsworth MD Primary Care Provider [phone] Allergies Active Allergy Reactions Criticality Noted Date [...] (05/11/2019): Added automatically from request for surgery [id number] AR (aortic regurgitation) 01/18/2019 MR (mitral regurgitation) 01/18/2019 (aortic stenosis) 01/18/2019 History of deep vein thrombosis (DVT) of lower e xtremity 01/18/2019 GERD (gastroesophageal reflux disease) 9 Hiatal hernia 01/18/2019 DM2 (diabetes mellitus, type 2) 01/18/2019 Pre-operative cardiovascular examination 019 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 Overview (12/02/2018): Added automatically from request for surgery [id number] AVD (aortic valve disease) 05/10/2018 Pain from [...] on file Legal Sex Female 7:20 AM EMERGENCY MANAGER Gender Identity Not on file Sexual Orientation Not on file Last Filed Vital Signs Vital Sign Reading Time Taken Comments Blood Pressure 130/41 06/08/2019 4:20 PM EMERGENCY MANAGER Pulse 68 06/08/2019 4:20 PM EMERGENCY MANAGER Temperature 37.8 C (100 F) 06/08/2019 4:20 PM EMERGENCY MANAGER Respiratory Rate 16 06/08/2019 4:20 PM EMERGENCY MANAGER Oxygen Saturation 97% 06/08/2019 4:20 PM EMERGENCY MANAGER Inhaled Oxygen Concentration - - Weight 69.1 kg (152 lb 4 oz) 06/07/2019 11:20 AM EMERGENCY MANAGER Height 147.3 cm (4' 10 ) 06/08/2019 11:58 AM EMERGENCY MANAGER Body Mass Index 31.82 06/07/2019 11:20 AM EMERGENCY MANAGER Plan of Treatment Not on file Medical Devices Implanted Type Area Section Supervisor Device Identifier Shelf Expiration Date Model / Serial / Lot Depuy Orthopaed[employer] Inc 3122-040 Smartset Medium Viscosity Cement 40gm Bone Sterile - [id number] Implanted:Qty: 1 on 01/26/2019 by Roman Taveras MD at [facility] Left: Hip [employer] Inc [id number] 05/07/2020 3122-040 / / [id number] Depuy Orthopa[employer] Inc [id number] [place] 48mm 32mm Hip Neutral Liner Acetabular Altrx Sterile Latex Free - [id number] Implanted:Qty: 1 on 01/26/2019 by Roman Taveras MD at [facility] Left: Hip [employer] Inc [id number] 12/05/2022 [id number] / / [id number] Sleeve Fem Delta Option Medium Hip Ti - [id number] Implanted:Qty: 1 on 01/26/2019 by Roman Taveras MD at [facility] Left: Hip [employer] 11/21/2025 [id number] / / [id number] Head Fem 32mm Hip Biolox Delta Option Strl - [id number] Implanted:Qty: 1 on 01/26/2019 by Roman Taveras MD at [facility] Left: Hip [employer] 11/05/2025 [id number] / / [id number] Depuy Orthopaed[employer] Inc 3122-040 Smartset Medium Viscosity Cement 40gm Bone Sterile - [id number] Implanted:Qty: 1 on 06/07/2019 by Roman Taveras MD at [facility] Left: Hip [employer]uy [employer] Inc 05/07/2020 3122-040 / / [id number] Depuy Orthopaed[employer] Inc [id number] [place] 48mm 28mm Constrain Lock Ring Antirotational Flex Latex Free - [id number] Implanted:Qty: 1 on 06/07/2019 by Roman Taveras MD at [facility] Left: Hip [employer] Inc 11/04/2021 [id number] / / [id number] Head Fem 28mm Hip Biolox Delta Option Strl - [id number] Implanted:Qty: 1 on 06/07/2019 by Roman Taveras MD at [facility] Left: Hip [employer] [id number] 11/05/2025 [id number] / / [id number] Sleeve Fem Delta Option Short Hip Ti - [id number] Implanted:Qty: 1 on 06/07/2019 by Roman Taveras MD at [facility] Left: Hip [employer] [id number] 11/05/2025 [id number] / / [id number] 482 Insurance MEDICARE [facility] MEDICARE [facility] AETNA SENIOR SUPPLEMENT Advance Directives For more information, please contact: [phone] Documents on File Type Date Recorded Patient Account Services Specialist Expl anation ADVANCE DIRECTIVE 01/26/2019 11:20 AM Pow er of Cash Applications Manager-Medical * Full Code (Latest Code Status on File) Date Activated Date Inactivated Comments 06/07/2019 5:43 PM 06/08/2019 9:12 PM * Full Code Date Activated Date Inactivated Comments 01/26/2019 7:20 PM 01/27/2019 6:03 PM Care Teams Associate Professor Of Law Relationship Specialty Start Date End Date Tra Farnsworth MD PCP - General Internal Medicine 10/16/18
--- OUTSIDE RECORDS SUMMARY | 2024-08-01 21:08 | XMS_ITS | Patient Health Record ---
Author Organization [facility] Address [address] [place], [place] [address] Care Team Providers Care Lodging Facilities Manager Name Role Phone SLIME GAMEZ Unavailable [phone] Tra Farnsworth Unavailable Unavailable GABBIE PEREZ Unavailable [phone] Allergies Allergen (clinical drug ingredient) Drug/Non Drug [...] 09/11/2023 Encounters Encounter Location Date Provider Diagnosis [address] [id number] 03/18/2024 GABBIE PEREZ Tinea unguium B35.1 ; Pain in right toe(s) M79.674 ; Pain in left toe(s) M79.675 ; Unspecified atherosclerosis of [place] arteries of extremities, bilateral legs I70.203 ; Xerosis cutis L85.3 ; Acquired keratosis [keratoderma] palmaris et plantaris L85.1 ; Pain in right foot M79.671 and Pain in left foot M79.[address] [id number] 09/11/2023 GABBIE DAVJYOTI Tinea unguium B35.1 ; Pain in right toe(s) M79.674 ; Pain in left toe(s) M79.675 ; Unspecified atherosclerosis of [place] arteries of extremities, bilateral legs I70.203 and Xerosis cutis L85.[address] [id number] 11/13/2023 GABBIE MATSONYDRICHIE Tinea unguium B35.1 ; Pain in right toe(s) M79.674 ; Pain in left toe(s) M79.675 ; Unspecified atherosclerosis of [place] arteries of extremities, bilateral legs I70.203 and Xerosis cutis L85.[address] [id number] 01/15/2024 GABBIE PEREZ Tinea unguium B35.1 ; Pain in right toe(s) M79.674 ; Pain in left toe(s) M79.675 ; Unspecified atherosclerosis of [place] arteries of extremities, bilateral legs I70.203 ; Xerosis cutis L85.3 ; Acquired keratosis [keratoderma] palmaris et plantaris L85.1 ; Pain in right foot M79.671 and Pain in left foot M79.[address] [id number] 05/27/2024 SLIME GAMEZ Tinea unguium B35.1 ; Pain in right foot M79.671 ; Pain in left foot M79.672 ; Atherosclerosis of [place] arteries of extremities with intermittent claudication, bilateral [...] (ICD-10 - M79.675) 09/11/2023 Unspecified atherosclerosis of [place] arteries of extremities, bilateral legs (ICD-10 - I70.203) Patient educated on risks and aggravating factors of PVD, including conservative treatment options such as a diet and exercise regimen to aid in slowing progression of vascular disease 11/13/2023 Unspecified atherosclerosis of [place] arteries of extremities, bilateral legs (ICD-10 - I70.203) Patient educated on risks and aggravating factors of PVD, including conservative treatment options such as a diet and exercise regimen to aid in slowing progression of vascular disease 01/15/2024 Unspecified atherosclerosis of [place] arteries of extremities, bilateral legs (ICD-10 - I70.203) Patient educated on risks and aggravating factors of PVD, including conservative treatment options such as a diet and exercise regimen to aid in slowing progression of vascular disease 05/27/2024 Atherosclerosis of [place] arteries of extremities with intermittent claudication, bilateral legs (ICD-10 - I70.213) 03/18/2024 Unspecified atherosclerosis of [place] arteries of extremities, bilateral legs (ICD-10 - [...] Details Provider Name:YANET ELIZALDE, 08/05/2024 04:20:00 PM, [address] [place] [address], [id number], Insurance Providers Payer Name Payer Address Payer Phone Subscriber Number Group Number Insured Name Patient Relationship to Insured Coverage Start Date Coverage End Date Medicare Part B [place] [address] [place] [id number] DIA PROCTOR Self - patient is the insured AETNA SENIOR SUPPLEMENTA L [facility] [address] [address] [facility] [address] [id number] DIA PROCTOR Self - patient is the insured
--- OUTSIDE RECORDS SUMMARY | 2024-08-01 21:08 | XMS_ITS | Encounter Summary ---
Author Organization [facility] Address [address] [place] [address] Care Team Providers Care Medicaid Nurse Name Role Phone Tra Farnsworth MD Primary Care Provider [phone] Anders Martínez MD Unavailable [phone] Justine Wright MD Unavailable [facility] Deng Musa MD Unavailable Unavailable Gautam Fritz APRN Unavailable [phone] Manfred Morales MD Unavailable [phone] Melba Posadas ANP-BC Unavailable [phone] Magali Guerrero MD Unavailable [phone] Encounter Details Date Type Department Care Team (Late st Contact Info) Description 10/06/2020 Hospital Follow-up Call [facility] Cardiovascular Care Unit [address] [place] [address] Kaitlin Howell, RN Social History [...] documented as of this encounter Care Teams Medicaid Nurse Relationship Specialty Start Date End Date Tra Farnsworth MD [address] [place] [address] PCP - General INTERNAL MEDICINE 01/09/18 nAders Martínez MD [address] [place] [phone] [place] Licensed Midwife CARDIOVASCULAR DISEASE 01/09/18 07/15/23 Justine Wright MD [address] [place] [address] Consulting Physician CARDIOVASCULAR DISEASE 08/21/20 Deng Mckeon MD [address] [place] [address] Consulting Physician CARDIOVASCULAR DISEASE 10/11/2002/13 Gautam Fritz APRN [address] [place] [phone] Nurse Practitioner NURSE PRACTITIONER 10/05/21 Manfred Morales MD [address] [place] [address] ORTHOPAEDIC SURGERY 02/14/23 Melba Posadas, [facility]- [address] [place] [address] Nurse Practitioner NURSE PRACTITIONER ADULT HEALTH 07/16/23 Magali Guerrero MD [address] [place] [address] INTERVENTIONAL CARDIOLOGY 07/16/23 documented as of this encounter
--- OUTSIDE RECORDS SUMMARY | 2024-08-01 21:08 | XMS_ITS ---
Author Organization [facility] Address [address] [place], [place] [address] Care Team Providers Care Screen Making Technician Name Role Phone SLIME GAMEZ Unavailable [phone] Javad Tra Unavailable Unavailable Allergies Allergen (clinical [...] Active Encounters Encounter Location Date Provider Diagnosis [address] [id number] 05/27/2024 SLIME GAMEZ Tinea unguium B35.1 ; Pain in right foot M79.671 ; Pain in left foot M79.672 ; Atherosclerosis of [place] arteries of extremities with intermittent claudication, bilateral [...] foot (ICD-10 - M79.672) 05/27/2024 Atherosclerosis of [place] arteries of extremities with intermittent claudication, bilateral [...] develop. Provider Name:YANET ELIZALDE, 08/05/2024 04:20:00 PM, [address] [place] [address], [id number], Progress Notes * DIA PROCTOR MDOB:[birth year] (89 yo F)Acc No.[id number]:05/27/2024 Patient: Stephen DIA CRUZ Provider: Zofia Gamez DPM :1935 A ge:89 Y S ex:Female Date:05/27/2024 Address:[address] [place] [address], [address] Subjective: * Chief Complaints: * P [...] - M79.672 4 . A therosclerosis of [place] arteries of extremities with intermittent claudication, bilateral legs - I70.213 5 . Acquired keratosis [keratoderma] palmaris et plantaris - L85.1 Plan: * Treatment: 2. A cquired keratosis [keratoderma] palmaris et plantaris Notes: A total of 1 corns or calluses, as described in the note above, were cut and pared utilizing a #15 blade * Procedure Codes: 1 1055 TRIM SKIN LESION, Modifiers: Q8 52139 TRIM SKIN LESIONS, 2 TO 4, Modifiers: 59 , Q8 * Follow Up: 1 0 - 12 weeks (Reason: At-Risk Foot care, sooner if problems develop.) * Billing Information: * Visit Code: * Procedure Codes: 03468 TRIM SKIN LESION. Modifiers: Q8 21562 TRIM SKIN LESIONS, 2 TO 4. Modifiers: 59, Q8 * Sign off status: Completed true * Provider: Zofia Gamez DPM Date: 0 05/27/2024 Generated for Angelita osman/Dee Dee/Dominick on: 0 08/01/2024 09:08 PM CDT History and Physical Notes * HPI [...] seen by Dr. Farnsworth was 03/2024., Initials [facility] Examination Category Sub-Category Detail Notes Category [...]
--- OUTSIDE RECORDS SUMMARY | 2024-08-01 21:08 | XMS_ITS | Clinical Summary ---
Author Organization [facility] Address [address] [place] [address] Care Team Providers Care Licensed Optical Dispenser Name Role Phone Tra Farnsworth MD Primary [...] (05/11/2019): Added automatically from request for surgery [id number] AR (aortic regurgitation) 01/18/2019 MR (mitral regurgitation) 01/18/2019 (aortic stenosis) 01/18/2019 History of deep vein thrombosis (DVT) of lower e xtremity 01/18/2019 GERD (gastroesophageal reflux disease) 9 Hiatal hernia 01/18/2019 DM2 (diabetes mellitus, type 2) 01/18/2019 Pre-operative cardiovascular examination 019 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 Overview (12/02/2018): Added automatically from request for surgery [id number] AVD (aortic valve disease) 05/10/2018 Pain from [...] on file Legal Sex Female 7:20 AM LENS ASSORTER Gender Identity Not on file Sexual Orientation Not on file Obstetrics History Para Term AB IAB SAB Ectopic Multiple Livin g Live Births 2 2 Date Outcome GA Total Labor Labor/2nd/3rd Weight Sex Type Anes PTL [place] A1 A5 Name Clin Para Para Last Filed Vital Signs Vital Sign Reading Time Taken Comments Blood Pressure 130/41 06/08/2019 4:20 PM LENS ASSORTER Pulse 68 06/08/2019 4:20 PM LENS ASSORTER Temperature 37.8 C (100 F) 06/08/2019 4:20 PM LENS ASSORTER Respiratory Rate 16 06/08/2019 4:20 PM LENS ASSORTER Oxygen Saturation 97% 06/08/2019 4:20 PM LENS ASSORTER Inhaled Oxygen Concentration - - Weight 69.1 kg (152 lb 4 oz) 06/07/2019 11:20 AM LENS ASSORTER Height 147.3 cm (4' 10 ) 06/08/2019 11:58 AM LENS ASSORTER Body Mass Index 31.82 06/07/2019 11:20 AM LENS ASSORTER Plan of Treatment Not on file Medical Devices Implanted Type Area Cable Braider Device Identifier Shelf Expiration Date Model / Serial / Lot Depuy Orthopaed[employer] Inc 3122-040 Smartset Medium Viscosity Cement 40gm Bone Sterile - [id number] Implanted:Qty: 1 on 01/26/2019 by Roman Taveras MD at [facility] Left: Hip [employer] Inc [id number] 05/07/2020 3122-040 / / [id number] Depuy [employer] Inc [id number] [place] 48mm 32mm Hip Neutral Liner Acetabular Altrx Sterile Latex Free - [id number] Implanted:Qty: 1 on 01/26/2019 by Roman Taveras MD at [facility] Left: Hip [employer] Inc [id number] 12/05/2022 [id number] / / [id number] Sleeve Fem Delta Option Medium Hip Ti - [id number] Implanted:Qty: 1 on 01/26/2019 by Roman Taveras MD at [facility] Left: Hip [employer] 11/21/2025 [id number] / / [id number] Head Fem 32mm Hip Biolox Delta Option Strl - [id number] Implanted:Qty: 1 on 01/26/2019 by Roman Taveras MD at [facility] Left: Hip [employer] 11/05/2025 [id number] / / [id number] Depuy [employer] Inc 3122-040 Smartset Medium Viscosity Cement 40gm Bone Sterile - [id number] Implanted:Qty: 1 on 06/07/2019 by Roman Taveras MD at [facility] Left: Hip [employer] Inc 05/07/2020 3122-040 / / [id number] Depuy [employer] Inc [id number] [place] 48mm 28mm Constrain Lock Ring Antirotational Flex Latex Free - [id number] Implanted:Qty: 1 on 06/07/2019 by Roman Taveras MD at [facility] Left: Hip [employer] 11/04/2021 [id number] / / [id number] Head Fem 28mm Hip Biolox Delta Option Strl - [id number] Implanted:Qty: 1 on 06/07/2019 by Roman Taveras MD at [facility] Left: Hip [employer] [id number] 11/05/2025 [id number] / / [id number] Sleeve Fem Delta Option Short Hip Ti - [id number] Implanted:Qty: 1 on 06/07/2019 by Roman Taveras MD at [facility] Left: Hip [employer] [id number] 11/05/2025 [id number] / / [id number] 482 Insurance MEDICARE [facility] [place] MEDICARE [employer] [employer] [place] AETNA SENIOR SUPPLEMENT Advance Directives For more information, please contact: [phone] Documents on File Type Date Recorded Patient Wirer Street Light Expl anation ADVANCE DIRECTIVE 01/26/2019 11:20 AM [facility] er of Delicatessen Goods Stock Clerk-Medical * Full Code (Latest Code Status on File) Date Activated Date Inactivated Comments 06/07/2019 5:43 PM 06/08/2019 9:12 PM * Full Code Date Activated Date Inactivated Comments 01/26/2019 7:20 PM 01/27/2019 6:03 PM Care Teams Licensed Optical Dispenser Relationship Specialty Start Date End Date Tra Farnsworth MD PCP - General Internal Medicine 10/16/18
--- OUTSIDE RECORDS SUMMARY | 2024-08-01 21:09 | XMS_ITS | Clinical Summary ---
Author Organization [facility] Address [address] [address] Phone Care Team Providers Care Executive Assistant To President Name Role Phone Tra Farnsworth MD Primary Care Provider [phone] Allergies Active Allergy Reactions Criticality Noted Date [...] Insurance MEDICARE A[employer] SENIOR SUPPLEMENTAL Care Teams Executive Assistant To President Relationship Specialty Start Date End Date Tra Farnsworth MD [address] [place] [address] PCP - General Internal Medicine 07/24/17
--- OUTSIDE RECORDS SUMMARY | 2024-08-01 21:09 | XMS_ITS ---
Author Organization [facility] Address [address] [place], [place] [id number] Care Team Providers Care Implementation Technician Name Role Phone SLIME GAMEZ Unavailable [phone] Tra Farnsworth Unavailable Unavailable GABBIE PEREZ Unavailable [phone] Allergies Allergen (clinical drug ingredient) Drug/Non Drug [...] Active Encounters Encounter Location Date Provider Diagnosis [address] [id number] 01/15/2024 GABBIE PEREZ Tinea unguium B35.1 ; Pain in right toe(s) M79.674 ; Pain in left toe(s) M79.675 ; Unspecified atherosclerosis of [place] arteries of extremities, bilateral legs I70.203 ; [...] (ICD-10 - M79.675) 01/15/2024 Unspecified atherosclerosis of [place] arteries of extremities, bilateral legs (ICD-10 - [...] OTC and prescription treatments. Unspecified atherosclerosis of [place] arteries of extremities, bilateral legs Patient educated [...] Reason: Provider Name:YANET ELIZALDE, 08/05/2024 04:20:00 PM, [address] [place] [address], [id number], Progress Notes * DIA PROCTOR MDOB:[birth year] (88 yo F)Acc No.[id number]:01/15/2024 Patient: DIA GIRON Provider: Sandy PEREZ :1935 A ge:88 Y S ex:Female Date:01/15/2024 Address:[address] [place], [place] [id number] Subjective: * Chief Complaints: * 1 . [...] seen by Dr. Farnsworth was 01/2024., Initials [facility]. * ROS: G eneral / Constitutional: Patient [...] M79.675 4 . U nspecified atherosclerosis of [place] arteries of extremities, bilateral legs - I70.203 5 . 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 7. P ain in right foot - M79.671 8 . P ain in left foot - M79.672 Plan: * Treatment: 2. U nspecified atherosclerosis of [place] arteries of extremities, bilateral legs Notes: Patient [...] LESIONS, 2 TO 4, Modifiers: Q8 , 35648 DEBRIDE NAIL, 6 OR MORE, Modifiers: 59 , Q8, 58406 STRAPPING OF ANKLE AND/OR FT, Modifiers: 59 , RT, 66299 STRAPPING OF ANKLE AND/OR FT, Modifiers: 59 , LT * Follow Up: 3 Months * Billing Information: * Visit Code: * Procedure Codes: 29420 TRIM SKIN LESIONS, 2 TO 4. Modifiers: Q8 00282 DEBRIDE NAIL, 6 OR MORE. Modifiers: 59, Q8 47254 STRAPPING OF ANKLE AND/OR FT. Modifiers: 59, RT 37747 STRAPPING OF ANKLE AND/OR FT. Modifiers: 59, [...]
--- OUTSIDE RECORDS SUMMARY | 2024-08-01 21:09 | XMS_ITS ---
Author Organization [facility] Address [address] [place], [place] [id number] Care Team Providers Care Wax Pumper Name Role Phone SLIME GAMEZ Unavailable [phone] Tra Farnsworth Unavailable Unavailable GABBIE PEREZ Unavailable [phone] Allergies Allergen (clinical drug ingredient) Drug/Non Drug [...] Active Encounters Encounter Location Date Provider Diagnosis [address] [id number] 03/18/2024 GABBIE PERZE Tinea unguium B35.1 ; Pain in right toe(s) M79.674 ; Pain in left toe(s) M79.675 ; Unspecified atherosclerosis of [place] arteries of extremities, bilateral legs I70.203 ; [...] (ICD-10 - M79.675) 03/18/2024 Unspecified atherosclerosis of [place] arteries of extremities, bilateral legs (ICD-10 - [...] OTC and prescription treatments. Unspecified atherosclerosis of [place] arteries of extremities, bilateral legs Patient educated [...] Reason: Provider Name:YANET ELIZALDE, 08/05/2024 04:20:00 PM, [address] [place] [address], [id number], Progress Notes * DIA PROCTOR MDOB:[birth year] (89 yo F)Acc No.[id number]:03/18/2024 Patient: DIA GIRON Provider: Sandy PEREZ :1935 A ge:88 Y S ex:Female Date:03/18/2024 Address:[address], [facility] Subjective: * Chief Complaints: * 1 . [...] seen by Dr. Farnsworth was 01/2024., Initials [facility]. * ROS: G eneral / Constitutional: Patient [...] M79.675 4 . U nspecified atherosclerosis of [place] arteries of extremities, bilateral legs - I70.203 5 . 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 7. P ain in right foot - M79.671 8 . P ain in left foot - M79.672 Plan: * Treatment: 2. U nspecified atherosclerosis of [place] arteries of extremities, bilateral legs Notes: Patient [...] LESIONS, 2 TO 4, Modifiers: Q8 , 03564 DEBRIDE NAIL, 6 OR MORE, Modifiers: 59 , Q8 * Follow Up: 3 Months * Billing Information: * Visit Code: * Procedure Codes: 23051 TRIM SKIN LESIONS, 2 TO 4. Modifiers: Q8 13878 DEBRIDE NAIL, 6 OR MORE. Modifiers: 59, Q8 * Electronic signature of KATARZYNA PEREZ DPM on 08/01/2024 at 09:08 PM CDT Sign off status: Pending * Provider: Sandy PEREZ Date: 1 05/19/2023 Generated for Angelita Whyte on: 0 08/01/2024 09:08 PM CDT History [...]
--- OUTSIDE RECORDS SUMMARY | 2024-08-01 21:09 | XMS_ITS | Clinical Summary ---
Author Organization [facility] Address [address] [place] [address] Care Team Providers Care Linux Server Administrator Name Role Phone Tra Farnsworth MD Primary Care Provider [phone] Gautam Fritz BICYCLE SERVICE TECHNICIAN Unavailable [phone] Manfred Morales MD Unavailable [phone] Melba Posadas ANP-BC Unavailable [phone] Magali Guerrero MD Unavailable [phone] Allergies Active Allergy Reactions Criticality Noted [...] valve stenosis 01/14/2018 Chronic depression 01/14/2018 Diabetes ([facility]) 01/14/2018 Overview (01/14/2018): diet controlled GERD [...] the past 12 months has th e [employer], gas, oil, or water [employer] threatened to shut off services in your [...] place to sleep or slept in a residential (including now)? No 03/10/2023 Comments No Sex [...] 35.9 C (96.6 F) 03/11/2023 11:47 AM BALLOON TESTER Respiratory Rate 16 09/26/2023 2:00 PM CDT [...] this topic Medical Devices Implanted Type Area Clinical Cytogenetics Director Device Identifier Shelf Expiration Date Model / Serial / Lot Medtronic Evolut Tavr Ao Valve- Implanted:Qty: 1 on 10/04/2020 by Parish Nguyen MD Valve Implant Heart [employer] 12/28/2021 EVPROPLU S-26US / [id number] / Delta Xtend Modular 155 Degree Epiphysis Implanted:Qty: 1 on 03/10/2023 by Manfred Morales MD at [facility] Right: Shoulder [employer] - A PUSHPA [employer] PUSHPA 08/04/2032 1307-40- 103 / / [id number] Delta Xtend Locking Metaglene Screw Implanted:Qty: 1 on 03/10/2023 by Manfred Morales MD at [facility] Right: Shoulder [employer] - [employer] PUSHPA [employer] PUSH[employer] 10/04/2026 1307-90- 036 / / [id number] Delta Xtend Locking Metaglene Screw Implanted:Qty: 1 on 03/10/2023 by Manfred Morales MD at [facility] Right: Shoulder [employer] - A PUSHPA [employer] PUSH[employer] 09/05/2027 1307-90- 036 / / [id number] Delta Xtend Reverse Shoulder System Central Screw Metaglene Collet Implanted:Qty: 1 on 03/10/2023 by Manfred Morales MD at [facility] Right: Shoulder [employer] - [employer] PUSHPA [employer] PUSHPA [id number] 02/07/2027 1309-60- 111 / / [id number] Delta Xtend Reverse Shoulder System Central Metaglene Screw Implanted:Qty: 1 on 03/10/2023 by Manfred Morales MD at [facility] Right: Shoulder [employer] - [employer] PUSHPA [employer] PUSH[employer] 12/06/2031 1309-60- 320 / / [id number] Delta Xtend Reverse Shoulder System Augmented Central Screw Metaglene Full Wedge Cementless Implanted:Qty: 1 on 03/10/2023 by Manfred Morales MD at [facility] Right: Shoulder [employer] - [employer] PUSHPA [employer] PUSH[employer] [id number] 11/05/2031 1309-70- 850 / / [id number] Delta Xtend Lateralized Glenosphere Implanted:Qty: 1 on 03/10/2023 by Manfred Morales MD at [facility] Right: Shoulder [employer] - [employer] PUSHPA [employer] PUSHPA 08/05/2027 1307-62- 138 / / [id number] Delta Xtend Non-Locking Metaglene Screw Implanted:Qty: 1 on 03/10/2023 by Manfred Morales MD at [facility] Right: Shoulder [employer] - A PUSHPA [employer] PUSHPA 12/05/2026 1307-70- 024 / / [id number] Delta Xtend Locking Metaglene Screw Implanted:Qty: 1 on 03/10/2023 by Manfred Morales MD at [facility] Right: Shoulder [employer] - A PUSHPA & PUSHPA 07/06/2027 1307-90- 030 / / [id number] Delta Xtend Humeral Pe Cup Standard Implanted:Qty: 1 on 03/10/2023 by Manfred Morales MD at [facility] Right: Shoulder [employer] - A PUSHPA & PUSHPA 10/04/2026 1307-38- 203 / / [id number] Global Unite Porocoat Standard Stem Implanted:Qty: 1 on 03/10/2023 by Manfred Morales MD at [facility] Right: Shoulder [employer] - A PUSHPA & PUSHPA 07/06/2031 1100-12- 100 / / [id number] Explanted Type Area Clinical Cytogenetics Director Device Identifier Shelf Expiration Date Model / Serial / Lot Drill Bit Depuy 2.5 - [id number] Explanted:Qty: 1 on 03/10/2023 at [facility] Drill Right: Shoulder DEPUY [id number] / / Delta Xtend Central Screw Metaglene Augmented Metaglene Reamer Inner Drive Shaft Tip Explanted:Qty: 1 on 03/10/2023 at [facility] Right: Shoulder [employer] - [employer] PUSHPA [employer] PUSHPA 02/04/2027 2317-70-824 / / [id number] Delta Xtend Central Screw Metaglene Augmented Metaglene Reamer Head Explanted:Qty: 1 on 03/10/2023 at [facility] Right: Shoulder [employer] - A PUSHPA [employer] PUSHPA 11/04/2026 2317-70-424 / / [id number] Guide And Bone Model Shoulder Artheroplasty 2.5mm Center Pin Explanted:Qty: 1 on 03/10/2023 at [facility] Right: Shoulder [employer] - [employer] PUSHPA [employer] PUSHPA [id number] 08/03/2023 [id number] / / [id number] Additional Health Concerns 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 Urine (SB) 10/13/2020 10/13/2020 Insurance MEDICARE AETNA MEDICARE AETNA MEDICARE Advance Directives Documents on File Type Date Recorded Patient Sales Executive Insurance Expl anation Advance Directives and Living Will [...] 4:09 PM 09/13/2020 8:23 PM Care Teams Linux Server Administrator Relationship Specialty Start Date End Date Tra Farnsworth MD [address] [place] [address] PCP - General INTERNAL MEDICINE 01/09/18 Gautam Fritz APRN [address] [place] [id number] Nurse Practitioner NURSE PRACTITIONER 10/05/21 Manfred Morales MD [address] [place] [address] ORTHOPAEDIC SURGERY 02/14/23 Melba Posadas ANP- [address] [place] [address] Nurse Practitioner NURSE PRACTITIONER ADULT HEALTH 07/16/23 Magali Guerrero MD [facility] [place] [address] INTERVENTIONAL CARDIOLOGY 07/16/23
--- NOTE | 2024-08-01 21:13 | ED_ITS ---
HPI - Abdominal Pain General Chief Complaint: Abdominal Pain Stated Complaint: abdominal pain Time Seen by Provider: 08/01/24 21:08 Source: patient and family Mode of arrival: ambulatory Limitations: no limitations History of Present Illness HPI narrative: patient is an 89-year-old female with abdominal pain. She has been having abdominal pain for the past couple weeks. She has been having abdominal pain in actuality for the past year or 2. She feels this is the likely scenario over gallbladder acting up and causing pain. Her primary doctor has been following her for gallbladder disease. Associated nausea. MD elicited complaint: abdominal pain Pertinent past history: other ( Gallbladder disease) Onset (ago): week(s) ( 2) Pain Consistency: intermittent Location: epigastric, LUQ and RUQ Severity: moderate Pain scale (0-10): 5 Quality: sharp Radiation: none Migration to: no migration Exacerbating factors: nothing Relieving factors: nothing Context: confirms history of similar episodes Associated symptoms: nausea Treatments prior to arrival: other ( none) Related Data Home Medications ?Medication ?Instructions ?Recorded ?Confirmed ?Last Taken ?Type meloxicam 15 mg tablet 15 mg PO DAILY 01/06/22 07/26/22 07/13/22 09:00 History omeprazole 20 mg capsule,delayed 20 mg PO DAILY 01/06/22 07/26/22 07/13/22 09:00 History release oxybutynin chloride 5 mg tablet 5 mg PO DAILY 01/06/22 07/26/22 07/13/22 09:00 History sertraline 50 mg tablet (Zoloft) 50 mg PO DAILY 01/06/22 07/26/22 07/13/22 09:00 History Adults Multivitamin 1 tablet PO DAILY 06/21/22 07/26/22 07/13/22 09:00 History Ocuvite 1 tablet PO DAILY 06/21/22 07/26/22 07/13/22 09:00 History acetaminophen 500 mg PO Q6-8H PRN Pain 06/21/22 07/26/22 Unknown History aspirin 81 mg PO DAILY 06/21/22 07/26/22 07/13/22 09:00 History Allergies Allergy/AdvReac Type Severity Reaction Status Date / Time vancomycin Allergy Severe RASH Verified 07/26/22 10:59 doxycycline Allergy Unknown RASH Verified 07/26/22 10:59 hydromorphone Allergy Unknown HALLUCINATI Verified 07/26/22 10:59 ONS acetaminophen (From [place]) Allergy Rash Verified 07/26/22 10:59 atorvastatin Allergy Unknown Verified 07/26/22 10:59 azithromycin Allergy Hives Verified 07/26/22 10:59 duloxetine Allergy Unknown Verified 07/26/22 10:59 hydrocodone (From [place]) Allergy Rash Verified 07/26/22 10:59 Review of Systems 2 Review of Systems: All systems reviewed & are unremarkable except as noted in HPI and below Constitutional: Constitutional: Reports no additional constitutional complaints Eyes: Eyes: Reports no additional eye complaints ENT: Reports system reviewed and no additional complaints, except as documented Cardiovascular: Cardiovascular: Reports no additional cardiovascular complaints Respiratory: Respiratory: Reports no additional respiratory complaints Gastrointestinal: Gastrointestinal: Reports no additional gastrointestinal complaints Genitourinary: Genitourinary: Reports no additional female genitourinary complaints Musculoskeletal: Musculoskeletal: Reports no additional musculoskeletal complaints Integumentary/Breasts: Skin/Breast: Reports system reviewed and no additional complaints, except as docu Neurologic: Reports system reviewed and no additional complaints, except as documented Psychiatric: Psychiatric: Reports no additional psychiatric complaints Endocrine: Endocrine: Reports no additional endocrine complaints Hematologic/Lymphatic: Hematologic/Lymphatic: Reports no additional hematologic/lymphatic complaints Allergic/Immunologic: Allergic/Immunologic: Reports no additional allergic/immunologic complaints PMFSH Past Medical History Medical History Allergies Chronic back pain Osteoporosis Spinal stenosis Arthritis Hyperlipidemia Gastroesophageal reflux disease Surgical History Surgical History History of prophylactic mastectomy of both breasts History of appendectomy History of hysterectomy History of transcatheter aortic valve replacement (TAVR) History of ankle surgery Left ankle reconstruction. History of right knee joint replacement History of lumbar surgery History of bilateral carpal tunnel release History of bilateral hip replacements Family History Family History Mother Cervical cancer Asthma Diabetes mellitus Hypertension Depression Mother Alcoholism Diabetes mellitus Hypertension Social History Social History Social History: Surrogate medical decision maker: Analy Fossjose jlara, daughter. Code status: Full code. Smoking status: Never smoker Alcohol intake: never Substance use: never Substance use type: does not use Lack of Transportation: No Lack of Food: Never True Current Housing: I Have Housing Concerned About Future Housing: No Difficulty Paying Gas/Electric Bills: No Difficulty Paying for Meds: No Currently Unemployed: No Education: High School Diploma/GED Difficulty w/ Childcare or Family Care: No Additional living arrangements comments: . Has 2 children. Independent of activities of daily living. Spiritual care concerns: No Exam 2 Const: General: healthy appearing Nutritional Appearance: well nourished Orientation/consciousness: patient oriented x3 Limitations: no limitations HENMT: Head: normal to inspection Ears: external ears normal F karin/Nose/Sinus: Normal external nose present Eyes: Conjunctivae: conjunctivae normal Pupils: Equal, round and reactive pupils present EOM: EOMs intact bilaterally Neck: Neck: normal visual inspection Chest: Chest palpation & inspection: normal inspection of the chest Resp: Effort & Inspection: normal respiratory effort and not labored A uscultation: clear to auscultation bilaterally and no crackles Cardio: Rate: regular rate Rhythm: regular rhythm Heart sounds: no murmurs GI: Inspection: non-distended GI Palp: Yes Soft to palpation, Yes Tenderness to palpation present (GI) ( diffuse), No Guarding due to palpation present (GI), No Rigid due to palpation, No Hernia present, No Palpable mass present and No Rebound tenderness present Auscultation: normal bowel sounds : General: Yes bladder normal to palpation Back/Spine/Pelvis: Back: no CVA tenderness Skin: General skin exam: normal color Rashes: no rashes Wounds: no wounds Neuro: General: patient oriented x3 Cranial nerves: Yes Nystagmus not present Speech: normal speech Gait exam (Neuro): Normal gait present Extrem: General: normal to inspection Psych: Mental Status: mental status grossly normal Affect: normal affect Attitude: cooperative Course Vital Signs Vital signs: Vital Signs Temperature 36.5 C 08/01/24 21:06 Pulse Rate 77 08/01/24 21:06 Respiratory Rate 18 08/01/24 21:06 Blood Pressure 201/80 H 08/01/24 21:06 Pulse Oximetry 95 08/01/24 21:06 Oxygen Delivery Room Air 08/01/24 21:06 Temperature 36.2 C L 08/02/24 01:00 Pulse Rate 59 L 08/02/24 01:01 Respiratory Rate 19 08/02/24 00:16 Blood Pressure 149/59 H 08/02/24 01:00 Pulse Oximetry 96 08/02/24 01:01 Oxygen Delivery Room Air 08/01/24 23:45 MDM - Abdominal Pain MDM Narrative Medical decision making narrative: patient is an 89-year-old female with abdominal pain. We will do abdominal pain workup at this time. Initially we do CT scan without contrast but further everything was negative so we did CT scan with contrast for reassurance. Lab Data Attestation: I reviewed the patient's lab results. 08/01/24 22:34 08/01/24 22:34 Labs: Lab Results 08/01/24 08/01/24 Range/Units 22:25 22:34 WBC 6.0 (4.8-10.8) K/mm3 RBC 3.84 L (4.20-5.40) M/mm3 Hgb 12.1 (11.7-13.8) g/dL Hct 37.1 (35.0-42.0) % MCV 96.6 (78.0-102.0) fL MCH 31.5 H (27.0-31.0) pg MCHC 32.6 (32-36) g/dL RDW 14.0 (11.6-14.4) % Plt Count 168 (150-420) K/mm3 MPV 9.7 (9.2-11.8) fl Immature Gran % (Auto) 0.3 H (0.0-0.0) % Neut % (Auto) 56.5 (50.0-70.0) % Lymph % (Auto) 28.1 (18.0-42.0) % [place] % (Auto) 8.8 (2.0-11.0) % Eos % (Auto) 5.3 (1.0-6.0) % Baso % (Auto) 1.0 (0.0-1.0) % Lymph # (Auto) 1.70 (1.10-4.50) K/mm3 [place] # (Auto) 0.53 (0.10-0.90) K/mm3 Eos # (Auto) 0.32 (0.02-0.50) K/mm3 Baso # (Auto) 0.06 (0.00-0.10) K/mm3 Abs Immat Gran (auto) 0.02 H (0.00-0.00) K/mm3 Absolute Neuts (auto) 3.41 (1.70-7.20) K/mm3 Absolute Nucleated RBC 0.00 (0.00-0.00) K/mm3 Nucleated RBC % 0.0 (0-0.0) % Sodium 140 (136-145) mmol/L Potassium 4.0 (3.5-5.1) mmol/L Chloride 104 (98-108) mmol/L Carbon Dioxide 29 (21-32) mmol/L Anion Gap 7 (4-12) mmol/L BUN 17 (7-18) mg/dL Creatinine 0.84 (0.55-1.02) mg/dL Estim Creat Clear Calc Not Reportable Estimated GFR > 60 (59 - ) Glucose 90 (70-99) mg/dL Calculated Osmolality 291 (285-295) mOsm/kg Lactic Acid 0.7 (0.4-2.0) mmol/L Calcium 9.2 (8.5-10.1) mg/dL Total Bilirubin 1.0 (0.00-1.00) mg/dL AST 20 (15-37) U/L ALT 24 (14-59) U/L Alkaline Phosphatase 95 (46-116) U/L Troponin I 54.7 (0.00-60.4) ng/L Total Protein 7.0 (6.4-8.2) g/dL Albumin 3.7 (3.4-5.0) g/dL Lipase 30 (16-77) U/L Urine Color Light yellow (Yellow) Urine Appearance Clear (Clear) Urine pH 7.0 (5.0-8.0) Ur Specific [place] <= 1.005 L (1.010-1.020) Urine Protein Negative (Negative) Urine Glucose (UA) Negative (Negative) Urine Ketones Negative (Negative) Ur Blood (Man) Negative (Negative) Urine Nitrate Negative (Negative) Urine Bilirubin Negative (Negative) Urine Urobilinogen 0.2 (0.2-1.0) mg/dL Leukocyte Esterase Rfl Negative (Negative) CARLOS ENRIQUE/UL Imaging Data Attestation: I personally reviewed and interpreted this imaging study as follows: Radiologist's impression: ITS Impressions Chest X-Ray 08/01/24 21:50 IMPRESSION: No acute cardiopulmonary pathology. CT scan of the abdomen and pelvis without contrast shows IMPRESSION: 1. No evidence of appendicitis, diverticulitis or intestinal obstruction. 2. Stone in the right kidney lower pole. 3. Possible stone in the left upper ureter with mild dilatation of the left renal pelvis. 4. Calcified areas in the hilum of the right and left kidney which may be calcified aneurysms. CT scan of the abdomen and pelvis with contrast shows no acute process and completely negative ECG Data EKG #1: Attestation: I personally reviewed and interpreted this ECG as follows: ECG completion date: 08/02/24 ECG completion time: 00:05 normal rate, sinus rhythm, no ectopy, no ST changes, normal QRS, normal QT and NL axis Discharge Plan Discharge Clinical Impression: Nausea Abdominal pain Qualifiers: Abdominal location: generalized Qualified Code(s): R10.84 - Generalized abdominal pain Patient Disposition: Home Condition: Stable Instructions: Abdominal Pain (ED) Patient Language: Kenyan Prescriptions: New ondansetron 4 mg tablet,disintegrating 4 mg PO Q8H PRN (Reason: nausea and vomiting) Qty: 20 0RF No Action meloxicam 15 mg tablet 15 mg PO DAILY omeprazole 20 mg capsule,delayed release(DR/EC) 20 mg PO DAILY oxybutynin chloride 5 mg tablet 5 mg PO DAILY sertraline [Zoloft] 50 mg tablet 50 mg PO DAILY Adults Multivitamin 1 tablet PO DAILY Ocuvite 1 tablet PO DAILY Rx Instructions: 1 tablet daily acetaminophen 500 mg PO Q6-8H PRN (Reason: Pain) aspirin 81 mg PO DAILY meclizine 12.5 mg Tablet 12.5 mg PO QID PRN (Reason: dizziness) Qty: 60 0RF amlodipine 2.5 mg Tablet 2.5 mg PO QAM Qty: 30 0RF pravastatin 20 mg Tablet 40 mg PO DAILY Qty: 30 0RF Follow-up/Referrals: Tra Farnsworth MD [Primary Care Provider] - Time of Disposition: 01:12
--- NOTE | 2024-08-01 21:16 | ECG_ITS ---
Test Date: 2024-08-01 21:22:41 Measurements Intervals [place] Rate: 66 P: 39 [place]: 170 QRS: 26 QRSD: 90 T: 31 QT: 409 QTc: 431 Interpretive Statements SINUS RHYTHM BASELINE ARTIFACT- I, III, AVR, AVL, AVF, V1 NORMAL ECG No previous ECG available for comparison Electronically Signed On 08-02-2024 06:20:05 CDT by Thomas Casanova D.O.
--- NOTE | 2024-08-01 21:45 | PC.NURSE ---
patient returned from imaging at this time. reconnected to monitors. call light within reach.
--- OUTSIDE RECORDS SUMMARY | 2024-08-01 21:52 | XMS_ITS | Clinical Summary ---
Author Organization [facility] Address [address] [place] [address] Care Team Providers Care Supportability Engineer Name Role Phone Tra Farnsworth MD Primary Care Provider [phone] Gautam Fritz TRANSMISSION ASSEMBLER Unavailable [phone] Manfred Morales MD Unavailable [phone] Melba Posadas ANP-BC Unavailable [phone] Magali Guerrero MD Unavailable [phone] Allergies Active Allergy Reactions Criticality Noted [...] valve stenosis 01/14/2018 Chronic depression 01/14/2018 Diabetes ([facility]) 01/14/2018 Overview (01/14/2018): diet controlled GERD [...] drink = 0.6 oz pur e alcohol) [facility] Utilities Answer Date Recorded In the past 12 months has th e [employer], gas, oil, or water [employer] threatened to shut off services in your [...] place to sleep or slept in a long term (including now)? No 03/10/2023 Comments No Sex [...] 35.9 C (96.6 F) 03/11/2023 11:47 AM INTERNSHIP Respiratory Rate 16 09/26/2023 2:00 PM CDT [...] this topic Medical Devices Implanted Type Area Job Forwarder Device Identifier Shelf Expiration Date Model / Serial / Lot Medtronic Evolut Tavr Ao Valve- Implanted:Qty: 1 on 10/04/2020 by Parish Nguyen MD Valve Implant Heart [employer] 12/28/2021 EVPROPLU S-26US / [id number] / Delta Xtend Modular 155 Degree Epiphysis Implanted:Qty: 1 on 03/10/2023 by Manfred Morales MD at [facility] Right: Shoulder [employer] - A PUSHPA & PUSHPA 08/04/2032 1307-40- 103 / / [id number] Delta Xtend Locking Metaglene Screw Implanted:Qty: 1 on 03/10/2023 by Manfred Morales MD at [facility] Right: Shoulder [employer] - A PUSHPA & PUSHPA 10/04/2026 1307-90- 036 / / [id number] Delta Xtend Locking Metaglene Screw Implanted:Qty: 1 on 03/10/2023 by Manfred Morales MD at [facility] Right: Shoulder [employer] - A PUSHPA & PUSHPA 09/05/2027 1307-90- 036 / / [id number] Delta Xtend Reverse Shoulder System Central Screw Metaglene Collet Implanted:Qty: 1 on 03/10/2023 by Manfred Morales MD at [facility] Right: Shoulder [employer] - [employer] PUSHPA [employer] PUSHPA [id number] 02/07/2027 1309-60- 111 / / [id number] Delta Xtend Reverse Shoulder System Central Metaglene Screw Implanted:Qty: 1 on 03/10/2023 by Manfred Morales MD at [facility] Right: Shoulder [employer] - A PUSHPA & PUSHPA 12/06/2031 1309-60- 320 / / [id number] Delta Xtend Reverse Shoulder System Augmented Central Screw Metaglene Full Wedge Cementless Implanted:Qty: 1 on 03/10/2023 by Manfred Morales MD at [facility] Right: Shoulder [employer] - [employer] PUSHPA [employer] PUSHPA [id number] 11/05/2031 1309-70- 850 / / [id number] Delta Xtend Lateralized Glenosphere Implanted:Qty: 1 on 03/10/2023 by Manfred Morales MD at [facility] Right: Shoulder [employer] - A PUSHPA [employer] PUSHPA 08/05/2027 1307-62- 138 / / [id number] Delta Xtend Non-Locking Metaglene Screw Implanted:Qty: 1 on 03/10/2023 by Manfred Morales MD at [facility] Right: Shoulder [employer] - A PUSHPA & PUSHPA 12/05/2026 1307-70- 024 / / [id number] Delta Xtend Locking Metaglene Screw Implanted:Qty: 1 on 03/10/2023 by Manfred Morales MD at [facility] Right: Shoulder [employer] - A PUSHPA & PUSHPA 07/06/2027 1307-90- 030 / / [id number] Delta Xtend Humeral Pe Cup Standard Implanted:Qty: 1 on 03/10/2023 by Manfred Morales MD at [facility] Right: Shoulder [employer] - A PUSHPA & PUSHPA 10/04/2026 1307-38- 203 / / [id number] Global Unite Porocoat Standard Stem Implanted:Qty: 1 on 03/10/2023 by Manfred Morales MD at [facility] Right: Shoulder [employer] - A PUSHPA & PUSHPA 07/06/2031 1100-12- 100 / / [id number] Explanted Type Area Job Forwarder Device Identifier Shelf Expiration Date Model / Serial / Lot Drill Bit Depuy 2.5 - [id number] Explanted:Qty: 1 on 03/10/2023 at [facility] Drill Right: Shoulder DEPUY [id number] / / Delta Xtend Central Screw Metaglene Augmented Metaglene Reamer Inner Drive Shaft Tip Explanted:Qty: 1 on 03/10/2023 at [facility] Right: Shoulder [employer] - A PUSHPA & PUSHPA 02/04/2027 2317-70-824 / / [id number] Delta Xtend Central Screw Metaglene Augmented Metaglene Reamer Head Explanted:Qty: 1 on 03/10/2023 at [facility] Right: Shoulder [employer] - A PUSHPA & PUSHPA 11/04/2026 2317-70-424 / / [id number] Guide And Bone Model Shoulder Artheroplasty 2.5mm Center Pin Explanted:Qty: 1 on 03/10/2023 at [facility] Right: Shoulder [employer] - A PUSHPA & PUSHPA [id number] 08/03/2023 [id number] / / [id number] Additional Health Concerns 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 Urine (SB) 10/13/2020 10/13/2020 Insurance MEDICARE AETNA MEDICARE AETNA MEDICARE Advance Directives Documents on File Type Date Recorded Patient Morning Show Newscast Producer Expl anation Advance Directives and Living Will [...] 4:09 PM 09/13/2020 8:23 PM Care Teams Supportability Engineer Relationship Specialty Start Date End Date Tra Farnsworth MD [address] [place] [address] PCP - General INTERNAL MEDICINE 01/09/18 Gautam Fritz APRN [address] [place] [phone] Nurse Practitioner NURSE PRACTITIONER 10/05/21 Manfred Morales MD [address] [place] [address] ORTHOPAEDIC SURGERY 02/14/23 Melba Posadas ANP- [address] [place] [address] Nurse Practitioner NURSE PRACTITIONER ADULT HEALTH 07/16/23 Magali Guerrero MD [facility] [place] [address] INTERVENTIONAL CARDIOLOGY 07/16/23
--- OUTSIDE RECORDS SUMMARY | 2024-08-01 21:52 | XMS_ITS | Referral Summary ---
Author Organization [facility] Address [address] [place] [address] Care Team Providers Care General Superintendent Name Role Phone Tra Farnsworth MD Primary Care Provider [phone] Allergies Active Allergy Reactions Criticality Noted Date [...] (05/11/2019): Added automatically from request for surgery [id number] AR (aortic regurgitation) 01/18/2019 MR (mitral regurgitation) 01/18/2019 (aortic stenosis) 01/18/2019 History of deep vein thrombosis (DVT) of lower e xtremity 01/18/2019 GERD (gastroesophageal reflux disease) 9 Hiatal hernia 01/18/2019 DM2 (diabetes mellitus, type 2) 01/18/2019 Pre-operative cardiovascular examination 019 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 Overview (12/02/2018): Added automatically from request for surgery [id number] AVD (aortic valve disease) 05/10/2018 Pain from [...] on file Legal Sex Female 7:20 AM AUTO PARTS COUNTER PERSON Gender Identity Not on file Sexual Orientation Not on file Last Filed Vital Signs Vital Sign Reading Time Taken Comments Blood Pressure 130/41 06/08/2019 4:20 PM AUTO PARTS COUNTER PERSON Pulse 68 06/08/2019 4:20 PM AUTO PARTS COUNTER PERSON Temperature 37.8 C (100 F) 06/08/2019 4:20 PM AUTO PARTS COUNTER PERSON Respiratory Rate 16 06/08/2019 4:20 PM AUTO PARTS COUNTER PERSON Oxygen Saturation 97% 06/08/2019 4:20 PM AUTO PARTS COUNTER PERSON Inhaled Oxygen Concentration - - Weight 69.1 kg (152 lb 4 oz) 06/07/2019 11:20 AM AUTO PARTS COUNTER PERSON Height 147.3 cm (4' 10 ) 06/08/2019 11:58 AM AUTO PARTS COUNTER PERSON Body Mass Index 31.82 06/07/2019 11:20 AM AUTO PARTS COUNTER PERSON Plan of Treatment Not on file Medical Devices Implanted Type Area Diamond Finishing Supervisor Device Identifier Shelf Expiration Date Model / Serial / Lot Depuy Orthopaed[employer] Inc 3122-040 Smartset Medium Viscosity Cement 40gm Bone Sterile - [id number] Implanted:Qty: 1 on 01/26/2019 by Roman Taveras MD at [facility] Left: Hip [employer]ed[employer] Inc [id number] 05/07/2020 3122-040 / / [id number] Depuy Orthopaedics Inc [id number] [place] 48mm 32mm Hip Neutral Liner Acetabular Altrx Sterile Latex Free - [id number] Implanted:Qty: 1 on 01/26/2019 by Roman Taveras MD at [facility] Left: Hip [employer] Orth[employer] Inc [id number] 12/05/2022 [id number] / / [id number] Sleeve Fem Delta Option Medium Hip Ti - [id number] Implanted:Qty: 1 on 01/26/2019 by Roman Taveras MD at [facility] Left: Hip [employer] 11/21/2025 [id number] / / [id number] Head Fem 32mm Hip Biolox Delta Option Strl - [id number] Implanted:Qty: 1 on 01/26/2019 by Roman Taveras MD at [facility] Left: Hip [employer] 11/05/2025 [id number] / / [id number] Depuy Orthopaedics Inc 3122-040 Smartset Medium Viscosity Cement 40gm Bone Sterile - [id number] Implanted:Qty: 1 on 06/07/2019 by Roman Taveras MD at [facility] Left: Hip [employer] Inc 05/07/2020 3122-040 / / [id number] Depuy Orthopaedics Inc [id number] [place] Esc 48mm 28mm Constrain Lock Ring Antirotational Flex Latex Free - [id number] Implanted:Qty: 1 on 06/07/2019 by Roman Taveras MD at [facility] Left: Hip [employer] Inc 11/04/2021 [id number] / / [id number] Head Fem 28mm Hip Biolox Delta Option Strl - [id number] Implanted:Qty: 1 on 06/07/2019 by Roman Taveras MD at [facility] Left: Hip [employer] [id number] 11/05/2025 [id number] / / [id number] Sleeve Fem Delta Option Short Hip Ti - [id number] Implanted:Qty: 1 on 06/07/2019 by Roman Taveras MD at [facility] Left: Hip [employer] [id number] 11/05/2025 [id number] / / [id number] Insurance MEDICARE [facility] MEDICARE [facility] AETNA SENIOR SUPPLEMENT Advance Directives For more information, please contact: [phone] Documents on File Type Date Recorded Patient Emergency Medical Services Coordinator Expl anation ADVANCE DIRECTIVE 01/26/2019 11:20 AM Pow er of Electrical Equipment Assembler-Medical * Full Code (Latest Code Status on File) Date Activated Date Inactivated Comments 06/07/2019 5:43 PM 06/08/2019 9:12 PM * Full Code Date Activated Date Inactivated Comments 01/26/2019 7:20 PM 01/27/2019 6:03 PM Care Teams General Superintendent Relationship Specialty Start Date End Date Tra Farnsworth MD PCP - General Internal Medicine 10/16/18
--- OUTSIDE RECORDS SUMMARY | 2024-08-01 21:52 | XMS_ITS | Clinical Summary ---
Author Organization [facility] Address [address] [place] [address] Care Team Providers Care Area Field Worker Name Role Phone Tra Farnsworth MD Primary Care Provider [phone] Allergies Active Allergy Reactions Criticality Noted Date [...] (05/11/2019): Added automatically from request for surgery [id number] AR (aortic regurgitation) 01/18/2019 MR (mitral regurgitation) 01/18/2019 (aortic stenosis) 01/18/2019 History of deep vein thrombosis (DVT) of lower e xtremity 01/18/2019 GERD (gastroesophageal reflux disease) 9 Hiatal hernia 01/18/2019 DM2 (diabetes mellitus, type 2) 01/18/2019 Pre-operative cardiovascular examination 019 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 Overview (12/02/2018): Added automatically from request for surgery [id number] AVD (aortic valve disease) 05/10/2018 Pain from [...] on file Legal Sex Female 7:20 AM ALPACA FARMER Gender Identity Not on file Sexual Orientation Not on file Obstetrics History Para Term AB IAB SAB Ectopic Multiple Livin g Live Births 2 2 Date Outcome GA Total Labor Labor/2nd/3rd Weight Sex Type Anes PTL Sonia A1 A5 Name Clin Para Para Last Filed Vital Signs Vital Sign Reading Time Taken Comments Blood Pressure 130/41 06/08/2019 4:20 PM ALPACA FARMER Pulse 68 06/08/2019 4:20 PM ALPACA FARMER Temperature 37.8 C (100 F) 06/08/2019 4:20 PM ALPACA FARMER Respiratory Rate 16 06/08/2019 4:20 PM ALPACA FARMER Oxygen Saturation 97% 06/08/2019 4:20 PM ALPACA FARMER Inhaled Oxygen Concentration - - Weight 69.1 kg (152 lb 4 oz) 06/07/2019 11:20 AM ALPACA FARMER Height 147.3 cm (4' 10 ) 06/08/2019 11:58 AM ALPACA FARMER Body Mass Index 31.82 06/07/2019 11:20 AM ALPACA FARMER Plan of Treatment Not on file Medical Devices Implanted Type Area Global Expansion Sales Director Device Identifier Shelf Expiration Date Model / Serial / Lot Depuy Orthopaedics Inc 3122-040 Smartset Medium Viscosity Cement 40gm Bone Sterile - [id number] Implanted:Qty: 1 on 01/26/2019 by Roman Taveras MD at [facility] Left: Hip Depuy Orthopaed[employer] Inc [id number] 05/07/2020 3122-040 / / [id number] Depuy Orthopaedics Inc [id number] [place] 48mm 32mm Hip Neutral Liner Acetabular Altrx Sterile Latex Free - [id number] Implanted:Qty: 1 on 01/26/2019 by Roman Taveras MD at [facility] Left: Hip [employer]uy Orth[employer]ed[employer] Inc [id number] 12/05/2022 [id number] / / [id number] Sleeve Fem Delta Option Medium Hip Ti - [id number] Implanted:Qty: 1 on 01/26/2019 by Roman Taveras MD at [facility] Left: Hip [employer] 11/21/2025 [id number] / / [id number] Head Fem 32mm Hip Biolox Delta Option Strl - [id number] Implanted:Qty: 1 on 01/26/2019 by Roman Taveras MD at [facility] Left: Hip [employer] 11/05/2025 [id number] / / [id number] Depuy Orthopaedics Inc 3122-040 Smartset Medium Viscosity Cement 40gm Bone Sterile - [id number] Implanted:Qty: 1 on 06/07/2019 by Roman Taveras MD at [facility] Left: Hip [employer]uy [employer]ed[employer] Inc 05/07/2020 3122-040 / / [id number] Depuy Orthopaedics Inc [id number] [place] Esc 48mm 28mm Constrain Lock Ring Antirotational Flex Latex Free - [id number] Implanted:Qty: 1 on 06/07/2019 by Roman Taveras MD at [facility] Left: Hip [employer]uy [employer]opaed[employer] Inc 11/04/2021 [id number] / / [id number] Head Fem 28mm Hip Biolox Delta Option Strl - [id number] Implanted:Qty: 1 on 06/07/2019 by Roman Taveras MD at [facility] Left: Hip [employer] [id number] 11/05/2025 [id number] / / [id number] Sleeve Fem Delta Option Short Hip Ti - [id number] Implanted:Qty: 1 on 06/07/2019 by Roman Taveras MD at [facility] Left: Hip [employer] [id number] 11/05/2025 [id number] / / [id number] Insurance MEDICARE [facility] [place] MEDICARE [employer] [facility] [place] AETNA SENIOR SUPPLEMENT Advance Directives For more information, please contact: [phone] Documents on File Type Date Recorded Patient Clinical Program Coordinator Expl anation ADVANCE DIRECTIVE 01/26/2019 11:20 AM [facility] er of Wood Car Builder-Medical * Full Code (Latest Code Status on File) Date Activated Date Inactivated Comments 06/07/2019 5:43 PM 06/08/2019 9:12 PM * Full Code Date Activated Date Inactivated Comments 01/26/2019 7:20 PM 01/27/2019 6:03 PM Care Teams Area Field Worker Relationship Specialty Start Date End Date Tra Farnsworth MD PCP - General Internal Medicine 10/16/18
--- OUTSIDE RECORDS SUMMARY | 2024-08-01 21:52 | XMS_ITS | Encounter Summary ---
Author Organization [facility] Address [address] [place] [address] Care Team Providers Care Nanofabrication Specialist Name Role Phone Tra Farnsworth MD Primary Care Provider [phone] Anders Martínez MD Unavailable [phone] Justine Wright MD [facility]available [facility] Deng Musa MD Unavailable Unavailable Gautam Fritz APRN Unavailable [phone] Manfred Morales MD Unavailable [phone] Melba Posadas ANP-BC Unavailable [phone] Magali Guerrero MD Unavailable [phone] Encounter Details Date Type Department Care Team (Late st Contact Info) Description 10/06/2020 Hospital Follow-up Call [facility] Cardiovascular Care Unit [address] [place] [address] Kaitlin Howell, RN Social History [...] documented as of this encounter Care Teams Nanofabrication Specialist Relationship Specialty Start Date End Date Tra Farnsworth MD [address] [place] [address] PCP - General INTERNAL MEDICINE 01/09/18 Anders Martínez MD [address] [place] [phone] Carlin Wheel Worker CARDIOVASCULAR DISEASE 01/09/18 07/15/23 Justine Wright MD [address] [place] [address] Consulting Physician CARDIOVASCULAR DISEASE 08/21/20 Deng Mckeon MD [address] [place] [address] Consulting Physician CARDIOVASCULAR DISEASE 10/11/2002/13 Gautam Fritz APRN [address] [place] [phone] Nurse Practitioner NURSE PRACTITIONER 10/05/21 Manfred Morales MD [address] [place] [address] ORTHOPAEDIC SURGERY 02/14/23 Melba Posadas, [facility]- [address] [place] [address] Nurse Practitioner NURSE PRACTITIONER ADULT HEALTH 07/16/23 Magali Guerrero MD [address] [place] [address] INTERVENTIONAL CARDIOLOGY 07/16/23 documented as of this encounter
--- OUTSIDE RECORDS SUMMARY | 2024-08-01 21:52 | XMS_ITS | Clinical Summary ---
Author Organization [facility] Address [address] [address] Phone Care Team Providers Care Community Service Officer Name Role Phone Tra Farnsworth MD Primary Care Provider [phone] Allergies Active Allergy Reactions Criticality Noted Date [...] Insurance MEDICARE AETNA SENIOR SUPPLEMENTAL Care Teams Community Service Officer Relationship Specialty Start Date End Date Tra Farnsworth MD [address] [place] [address] PCP - General Internal Medicine 07/24/17
--- NOTE | 2024-08-01 22:00 | PC.NURSE ---
patient daughter, Analy at bedside at this time. call light within reach. update provided.
[2024-08-01 22:37] LABS: Basophils Absolute Auto 0.06 K/mm3 (0.00-0.10); Eosinophils Absolute Auto 0.32 K/mm3 (0.02-0.50); Eosinophils Percent Auto 5.3 % (1.0-6.0); Hematocrit 37.1 % (35.0-42.0); Hemoglobin 12.1 g/dL (11.7-13.8); Immature Granulocyte Absolute 0.02 K/mm3 (0.00-0.00); Immature Granulocyte Percent A 0.3 % (0.0-0.0); Lymphocytes Percent Auto 28.1 % (18.0-42.0); Mean Corpuscular HGB Conc 32.6 g/dL (32-36); Mean Corpuscular Hemoglobin 31.5 pg (27.0-31.0); Mean Corpuscular Volume 96.6 fL (78.0-102.0); Mean Platelet Volume 9.7 fl (9.2-11.8); Monocytes Absolute Auto 0.53 K/mm3 (0.10-0.90); Monocytes Percent Auto 8.8 % (2.0-11.0); Neutrophils Absolute Auto 3.41 K/mm3 (1.70-7.20); Neutrophils Percent Auto 56.5 % (50.0-70.0); Platelet Count Result 168 K/mm3 (150-420); Red Blood Count 3.84 M/mm3 (4.20-5.40)
--- NOTE | 2024-08-01 22:37 | PC.NURSE ---
pt ambulated to bathroom for urine specimen
--- NOTE | 2024-08-01 22:47 | PC.NURSE ---
patient ambulatory to bathroom, specimen sent to lab. patient awaiting CT with contrast. daughter at bedside. vss.
[2024-08-01 22:52] LABS: Add Urine Microscopic? NO; Appearance Urine Clear (Clear); Bilirubin Urine Negative (Negative); Blood Urine Negative (Negative); Color Urine Light Yellow (Yellow); Glucose Urine UA Negative (Negative); Ketones Urine Negative (Negative); Leukocyte Esterase Ur Negative LEU/UL (Negative); Nitrate Urine Negative (Negative); Protein Urine Negative (Negative); Specific Grav Ur <= 1.005 (1.010-1.020); Urobilinogen Urine 0.2 mg/dL (0.2-1.0)
[2024-08-01 22:54] LABS: Alanine Aminotransferase 24 U/L (14-59); Albumin Level 3.7 g/dL (3.4-5.0); Alkaline Phosphatase 95 U/L (46-116); Anion Gap 7 mmol/L (4-12); Aspartate Amino Transferase 20 U/L (15-37); Blood Urea Nitrogen 17 mg/dL (7-18); Calcium 9.2 mg/dL (8.5-10.1); Carbon Dioxide 29 mmol/L (21-32); Chloride 104 mmol/L (98-108); Estimated Glomerular Filt Rate > 60; Glucose 90 mg/dL (70-99); Lipase 30 U/L (16-77); Osmolality Calculated 291 mOsm/kg (285-295); Sodium 140 mmol/L (136-145); Troponin I 54.7 ng/L (0.00-60.4)
[2024-08-01 22:57] LABS: Lactic Acid Reflex 0.7 mmol/L (0.4-2.0)
--- NOTE | 2024-08-01 23:03 | PC.NURSE ---
IV started and patient update provided. international trade specialist with patient to CT scan. daughter at bedside.
--- NOTE | 2024-08-01 23:19 | PC.NURSE ---
patient returned from imaging with contrast. awaiting results. daughter at bedside, given warm blanket per request. call light within reach.
[2024-08-02] VITALS (9 sets, daily range): BP systolic 146–173; BP diastolic 54–80; PULSE 58–80; RESP 17–26; TEMP 36.2; O2SAT 81–97
--- NOTE | 2024-08-02 00:03 | PC.NURSE ---
Dariana, PCT at bedside. stretcher adjusted for patient comfort. daughter at bedside. call light within reach. awaiting results of second CT scan.
--- NOTE | 2024-08-02 00:45 | PC.NURSE ---
patient ambulatory to bathroom.
--- NOTE | 2024-08-02 01:03 | PC.NURSE ---
Dr. Merrill at patient bedside at this time, updating patient and her daughter on results and plan of care.
[2024-08-02] MEDS: ONDANSETRON INJ 4 MG/2 ML VIAL IV PUSH (01:09)
== END 2024-08-02 01:20 | disposition home or self-care (01) ==
PROVIDERS: Emergency Provider Emergency Medicine; PCP Internal Medicine
DX: R11.0 Nausea (principal); R10.84 Generalized abdominal pain
CPT/HCPCS: 36415; 71045; 74176; 74177; 80053; 81003; 83605; 83690; 84484; 85025; 93005; 96374; 99284; J2405; Q9967

== ENCOUNTER 2024-09-24 07:55 | Outpatient (CLI) | payer MEDICARE, MEDICAID, SELFPAY ==
--- NOTE | ~2024-09-24 | NM_ITS ---
EXAM: NM gastric emptying study DATE: 09/24/2024 13:11 INDICATION: Esophageal reflux disease TECHNIQUE: A gastric emptying study was performed using the methodology of Tatiana JULES, et al. J Nucl Med 2007; 48:568-572. The patient was given a meal consisting of 2 scrambled eggs labeled with 1.0 m Ci Tc-99m sulfur colloid, 2 slices of toast, two packages of jam, and approximately 120 mL of water. Simultaneous anterior and posterior 1-min images of the abdomen were obtained with the patient supine at multiple time points over a total period of 4 hours. The geometric mean of anterior and posterior views was determined, and the percentage retention was calculated for each time point. COMPARISON: None. FINDINGS: Gastric retention of the radiotracer-labeled meal was 73%, 50%, and 18% at the 1-hour, 2-hour, and 4- hour time points, respectively. With this technique, apparent rapid gastric emptying is suggested by <30% gastric retention at 1 hour. Delayed gastric emptying is defined by gastric retention of >90% at 1 hour, >60% retention at 2 hours, or >10% retention at 4 hours. IMPRESSION: 1. Delayed gastric emptying. Reviewed, dictated and finalized at location B.
--- OUTSIDE RECORDS SUMMARY | 2024-09-24 07:58 | XMS_ITS ---
Author Organization [facility] Address [address] [place], [place] [id number] Care Team Providers Care School Administrator Name Role Phone SLIME GAMEZ Unavailable [phone] Tra Farnsworth Unavailable Unavailable GABBIE PEREZ Unavailable [phone] Allergies Allergen (clinical drug ingredient) Drug/Non Drug [...] Active Encounters Encounter Location Date Provider Diagnosis [address] [id number] 03/18/2024 GABBIE PEREZ Tinea unguium B35.1 ; Pain in right toe(s) M79.674 ; Pain in left toe(s) M79.675 ; Unspecified atherosclerosis of [place] arteries of extremities, bilateral legs I70.203 ; [...] (ICD-10 - M79.675) 03/18/2024 Unspecified atherosclerosis of [place] arteries of extremities, bilateral legs (ICD-10 - [...] OTC and prescription treatments. Unspecified atherosclerosis of [place] arteries of extremities, bilateral legs Patient educated [...] Up: 3 Months, Reason: Provider Name:YANET ELIZALDE, 10/21/2024 02:50:00 PM, [address] [place] [address], [id number], Progress Notes * DIA PROCTOR MDOB:[birth year] (89 yo F)Acc No.[id number]:03/18/2024 Patient: DIA GIRON Provider: Sandy PEREZ :1935 A ge:88 Y S ex:Female Date:03/18/2024 Address:[address], [address], [facility] Subjective: * Chief Complaints: * 1 [...] seen by Dr. Farnsworth was 01/2024., Initials [facility]. * ROS: G eneral / Constitutional: Patient [...] M79.675 4 . U nspecified atherosclerosis of [place] arteries of extremities, bilateral legs - I70.203 5 . 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 7. P ain in right foot - M79.671 8 . P ain in left foot - M79.672 Plan: * Treatment: 2. U nspecified atherosclerosis of [place] arteries of extremities, bilateral legs Notes: Patient [...] LESIONS, 2 TO 4, Modifiers: Q8 , 33956 DEBRIDE NAIL, 6 OR MORE, Modifiers: 59 , Q8 * Follow Up: 3 Months * Billing Information: * Visit Code: * Procedure Codes: 66781 TRIM SKIN LESIONS, 2 TO 4. Modifiers: Q8 82036 DEBRIDE NAIL, 6 OR MORE. Modifiers: 59, Q8 * Electronic signature of KATARZYNA PEREZ DPM on 09/24/2024 at 07:57 AM CDT Sign off status: Pending * Provider: Sandy PEREZ Date: 1 05/19/2023 Generated for Angelita Whyte on: 0 09/24/2024 07:57 AM CDT History and Physical Notes * [...]
--- OUTSIDE RECORDS SUMMARY | 2024-09-24 07:58 | XMS_ITS | Referral Summary ---
Author Organization [facility] Address [address] [place] [address] Care Team Providers Care Combat Engineer Name Role Phone Tra Farnsworth MD Primary Care Provider [phone] Allergies Active Allergy Reactions Criticality Noted Date [...] (05/11/2019): Added automatically from request for surgery [id number] AR (aortic regurgitation) 01/18/2019 MR (mitral regurgitation) 01/18/2019 (aortic stenosis) 01/18/2019 History of deep vein thrombosis (DVT) of lower e xtremity 01/18/2019 GERD (gastroesophageal reflux disease) 9 Hiatal hernia 01/18/2019 DM2 (diabetes mellitus, type 2) 01/18/2019 Pre-operative cardiovascular examination 019 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 Overview (12/02/2018): Added automatically from request for surgery [id number] AVD (aortic valve disease) 05/10/2018 Pain from [...] on file Legal Sex Female 7:20 AM COMMERCIAL SEWING INSTRUCTOR Gender Identity Not on file Sexual Orientation Not on file Last Filed Vital Signs Vital Sign Reading Time Taken Comments Blood Pressure 130/41 06/08/2019 4:20 PM COMMERCIAL SEWING INSTRUCTOR Pulse 68 06/08/2019 4:20 PM COMMERCIAL SEWING INSTRUCTOR Temperature 37.8 C (100 F) 06/08/2019 4:20 PM COMMERCIAL SEWING INSTRUCTOR Respiratory Rate 16 06/08/2019 4:20 PM COMMERCIAL SEWING INSTRUCTOR Oxygen Saturation 97% 06/08/2019 4:20 PM COMMERCIAL SEWING INSTRUCTOR Inhaled Oxygen Concentration - - Weight 69.1 kg (152 lb 4 oz) 06/07/2019 11:20 AM COMMERCIAL SEWING INSTRUCTOR Height 147.3 cm (4' 10) 06/08/2019 11:58 AM COMMERCIAL SEWING INSTRUCTOR Body Mass Index 31.82 06/07/2019 11:20 AM COMMERCIAL SEWING INSTRUCTOR Plan of Treatment Not on file Medical Devices Implanted Type Area Real Estate Account Executive Device Identifier Shelf Expiration Date Model / Serial / Lot Depuy [employer] 3122-040 Smartset Medium Viscosity Cement 40gm Bone Sterile - [id number] Implanted:Qty: 1 on 01/26/2019 by Roman Taveras MD at [facility] Left: Hip [employer] [id number] 05/07/2020 3122-040 / / [id number] [employer] [id number] Dailey 48mm 32mm Hip Neutral Liner Acetabular Altrx Sterile Latex Free - [id number] Implanted:Qty: 1 on 01/26/2019 by Roman Taveras MD at [facility] Left: Hip [employer] [id number] 12/05/2022 [id number] / / [id number] Sleeve Fem Delta Option Medium Hip Ti - [id number] Implanted:Qty: 1 on 01/26/2019 by Roman Taveras MD at [facility] Left: Hip [employer] 11/21/2025 [id number] / / [id number] Head Fem 32mm Hip Biolox Delta Option Strl - [id number] Implanted:Qty: 1 on 01/26/2019 by Roman Taveras MD at [facility] Left: Hip [employer] 11/05/2025 [id number] / / [id number] [employer] 3122-040 Smartset Medium Viscosity Cement 40gm Bone Sterile - [id number] Implanted:Qty: 1 on 06/07/2019 by Roman Taveras MD at [facility] Left: Hip [employer] 05/07/2020 3122-040 / / [id number] [employer] [id number] Dailey Esc 48mm 28mm Constrain Lock Ring Antirotational Flex Latex Free - [id number] Implanted:Qty: 1 on 06/07/2019 by Roman Taveras MD at [facility] Left: Hip [employer] 11/04/2021 [id number] / / [id number] Head Fem 28mm Hip Biolox Delta Option Strl - [id number] Implanted:Qty: 1 on 06/07/2019 by Roman Taveras MD at [facility] Left: Hip [employer] [id number] 11/05/2025 [id number] / / [id number] Sleeve Fem Delta Option Short Hip Ti - [id number] Implanted:Qty: 1 on 06/07/2019 by Roman Taveras MD at [facility] Left: Hip [employer] [id number] 11/05/2025 [id number] / / [id number] Insurance MEDICARE [facility] [place]ARE [facility] [place] AETNA SENIOR SUPPLEMENT Advance Directives For more information, please contact: [phone] Documents on File Type Date Recorded Patient Recruiting Specialist Expl anation ADVANCE DIRECTIVE 01/26/2019 11:20 AM [facility] Licensed Prosthetist-Medical * Full Code (Latest Code Status on File) Date Activated Date Inactivated Comments 06/07/2019 5:43 PM 06/08/2019 9:12 PM * Full Code Date Activated Date Inactivated Comments 01/26/2019 7:20 PM 01/27/2019 6:03 PM Care Teams Combat Engineer Relationship Specialty Start Date End Date Tra Farnsworth MD PCP - General Internal Medicine 10/16/18
--- OUTSIDE RECORDS SUMMARY | 2024-09-24 07:58 | XMS_ITS | Clinical Summary ---
Author Organization [facility] Address [address] [place] [address] Care Team Providers Care Grinder And Honer Operator Automatic Name Role Phone Tra Farnsworth MD Primary Care Provider [phone] Allergies Active Allergy Reactions Criticality Noted Date [...] (05/11/2019): Added automatically from request for surgery [id number] AR (aortic regurgitation) 01/18/2019 MR (mitral regurgitation) 01/18/2019 (aortic stenosis) 01/18/2019 History of deep vein thrombosis (DVT) of lower e xtremity 01/18/2019 GERD (gastroesophageal reflux disease) 9 Hiatal hernia 01/18/2019 DM2 (diabetes mellitus, type 2) 01/18/2019 Pre-operative cardiovascular examination 019 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 Overview (12/02/2018): Added automatically from request for surgery [id number] AVD (aortic valve disease) 05/10/2018 Pain from [...] on file Legal Sex Female 7:20 AM MEAT BONER Gender Identity Not on file Sexual Orientation Not on file Obstetrics History Para Term AB IAB SAB Ectopic Multiple Livin g Live Births 2 2 Date Outcome GA Total Labor Labor/2nd/3rd Weight Sex Type Anes PTL Sonia A1 A5 Name Clin Para Para Last Filed Vital Signs Vital Sign Reading Time Taken Comments Blood Pressure 130/41 06/08/2019 4:20 PM MEAT BONER Pulse 68 06/08/2019 4:20 PM MEAT BONER Temperature 37.8 C (100 F) 06/08/2019 4:20 PM MEAT BONER Respiratory Rate 16 06/08/2019 4:20 PM MEAT BONER Oxygen Saturation 97% 06/08/2019 4:20 PM MEAT BONER Inhaled Oxygen Concentration - - Weight 69.1 kg (152 lb 4 oz) 06/07/2019 11:20 AM MEAT BONER Height 147.3 cm (4' 10) 06/08/2019 11:58 AM MEAT BONER Body Mass Index 31.82 06/07/2019 11:20 AM MEAT BONER Plan of Treatment Not on file Medical Devices Implanted Type Area Hospital Carrier Device Identifier Shelf Expiration Date Model / Serial / Lot [employer] 3122-040 Smartset Medium Viscosity Cement 40gm Bone Sterile - [id number] Implanted:Qty: 1 on 01/26/2019 by Roman Taveras MD at [facility] Left: Hip [employer] [id number] 05/07/2020 3122-040 / / [id number] [employer] [id number] [place] 48mm 32mm Hip Neutral Liner Acetabular Altrx Sterile Latex Free - [id number] Implanted:Qty: 1 on 01/26/2019 by Roman Taveras MD at [facility] Left: Hip [employer] [id number] 12/05/2022 [id number] / / [id number] Sleeve Fem Delta Option Medium Hip Ti - [id number] Implanted:Qty: 1 on 01/26/2019 by Roman Taveras MD at [facility] Left: Hip [employer] 11/21/2025 [id number] / / [id number] Head Fem 32mm Hip Biolox Delta Option Strl - [id number] Implanted:Qty: 1 on 01/26/2019 by Roman Taveras MD at [facility] Left: Hip [employer] 11/05/2025 [id number] / / [id number] [employer] 3122-040 Smartset Medium Viscosity Cement 40gm Bone Sterile - [id number] Implanted:Qty: 1 on 06/07/2019 by Roman Taveras MD at [facility] Left: Hip [employer] 05/07/2020 3122-040 / / [id number] Dep[employer] [id number] [place] Esc 48mm 28mm Constrain Lock Ring Antirotational Flex Latex Free - [id number] Implanted:Qty: 1 on 06/07/2019 by Roman Taveras MD at [facility] Left: Hip [employer] 11/04/2021 [id number] / / [id number] Head Fem 28mm Hip Biolox Delta Option Strl - [id number] Implanted:Qty: 1 on 06/07/2019 by Roman Taveras MD at [facility] Left: Hip [employer] [id number] 11/05/2025 [id number] / / [id number] Sleeve Fem Delta Option Short Hip Ti - [id number] Implanted:Qty: 1 on 06/07/2019 by Roman Taveras MD at [facility] Left: Hip [employer] [id number] 11/05/2025 [id number] / / [id number] Insurance MEDICARE [facility] [place] MED[place]ARE [facility] [place] AETNA SENIOR SUPPLEMENT Advance Directives For more information, please contact: [phone] Documents on File Type Date Recorded Patient Cartography/Mapping Technician Expl anation ADVANCE DIRECTIVE 01/26/2019 11:[address] [facility] Freight Forwarder-Medical * Full Code (Latest Code Status on File) Date Activated Date Inactivated Comments 06/07/2019 5:43 PM 06/08/2019 9:12 PM * Full Code Date Activated Date Inactivated Comments 01/26/2019 7:20 PM 01/27/2019 6:03 PM Care Teams Grinder And Honer Operator Automatic Relationship Specialty Start Date End Date Tra Farnsworth MD PCP - General Internal Medicine 10/16/18
--- OUTSIDE RECORDS SUMMARY | 2024-09-24 07:58 | XMS_ITS | Clinical Summary ---
Author Organization [facility] Address [address] [address] Phone Care Team Providers Care School Operations Manager Name Role Phone Tra Farnsworth MD Primary Care Provider [phone] Allergies Active Allergy Reactions Criticality Noted Date [...] P M CDT Height 150.5 cm (4' 11.25) 07/24/2017 2:13 PM C DT Body Mass Index 31.16 07/24/2017 2:13 PM CDT Plan of Treatment Health Maintenance Due Date Last Done Comments Hepatitis C Virus (HCV) Screening 1935 TdaP Immunization 1935 Zoster Immunization (1 of 2) 1985 Respiratory Syncytial Virus (RSV) Immunization (Adult) (1 - 1-dose 75+ series) 2010 Pneumococcal Immunization (5 0+ years) (2 of 2 - PPSV23) 10/03/2016 10/04/2015 SARS-COV-2 Immunization (4 - season) 2023 12/30/2020, 06/16/2020, 05/26/2020 Influenza Immunization (Seas on Ended) 2024 Pneumococcal Immunization Combined Discontinued 10/04/2015 Hepatitis B Immunization Aged Out No longer eligible based on patient's age to complete this topic Human Papillomavirus (HPV) Immunization Aged Out No longer eligible based on patient's age to complete this topic Meningococcal Immunization (ACWY) Aged Out No longer eligible based on patient's age to complete this topic Rotavirus Immunization Aged Out No lo nger eligible based on patient's age to complete this topic Insurance MEDICARE AETNA SENIOR SUPPLEMENTAL Care Teams School Operations Manager Relationship Specialty Start Date End Date Tra Farnsworth MD [address], [place] [id number] PCP - General Internal Medicine 07/24/17
--- OUTSIDE RECORDS SUMMARY | 2024-09-24 07:58 | XMS_ITS | Patient Health Record ---
Author Organization [facility] Address [address] [place], [place] [id number] Care Team Providers Care Public Speaking Teacher Name Role Phone SLIME GAMEZ Unavailable [phone] Tra Farnsworth Unavailable Unavailable GABBIE PEREZ Unavailable [phone] Allergies Allergen (clinical drug ingredient) Drug/Non Drug Allergy documented on EMR Reaction Allergy Type Onset Date Status Shellfish (FN) Shellfish (uncoded) Unknown Allergy 04/16 active acetaminophen Acetaminophen Unknown Drug Allergy 2 active hydrocodone Hydrocodone Unknown Drug Allergy 04/16/2021 ac tive Reason For Referral No Information Medications Medication SIG (Take, Route, Frequency, Duration) Notes Start Date End Date Status Meloxicam 15 MG Oral for 90 Days Active amLODIPine Besylate 2.5 MG Oral for 90 Days Active Sertraline HCl 50 MG Oral for 90 Days Active Omeprazole 20 MG Oral for 90 Days Active Meclizine HCl 12.5 MG Oral for 90 Days Active Pravastatin Sodium 20 MG Oral for 30 Days Active oxyBUTYnin Chloride 5 MG Oral for 90 Days Active Vital Signs Height-cm 144.78 cm 08/05/2024 Weight-kg 72.12 kg 08/05/2024 Height 57 in 08/05/2024 Weight 159 lbs 08/05/2024 BMI 34.4 kg/m2 08/05/2024 Encounters Encounter Location Date Provider Diagnosis [address] [id number] 03/18/2024 GABBIE PEREZ Tinea unguium B35.1 ; Pain in right toe(s) M79.674 ; Pain in left toe(s) M79.675 ; Unspecified atherosclerosis of [place] arteries of extremities, bilateral legs I70.203 ; Xerosis cutis L85.3 ; Acquired keratosis [keratoderma] palmaris et plantaris L85.1 ; Pain in right foot M79.671 and Pain in left foot M79.[address] [id number] 11/13/2023 GABBIEARMIN PEREZ Tinea unguium B35.1 ; Pain in right toe(s) M79.674 ; Pain in left toe(s) M79.675 ; Unspecified atherosclerosis of [place] arteries of extremities, bilateral legs I70.203 and Xerosis cutis L85.[address] [id number] 01/15/2024 GABBIE MARIERICHIE Tinea unguium B35.1 ; Pain in right toe(s) M79.674 ; Pain in left toe(s) M79.675 ; Unspecified atherosclerosis of [place] arteries of extremities, bilateral legs I70.203 ; Xerosis cutis L85.3 ; Acquired keratosis [keratoderma] palmaris et plantaris L85.1 ; Pain in right foot M79.671 and Pain in left foot M79.[address] [id number] 05/27/2024 SLIME SNOOK Tinea unguium B35.1 ; Pain in right foot M79.671 ; Pain in left foot M79.672 ; Atherosclerosis of [place] arteries of extremities with intermittent claudication, bilateral legs I70.213 and Acquired keratosis [keratoderma] palmaris et plantaris L85.[address] [id number] 08/05/2024 SLIME SNOOK Tinea unguium B35.1 ; Pain in right foot M79.671 ; Pain in left foot M79.672 ; Atherosclerosis of [place] arteries of extremities with intermittent claudication, bilateral legs I70.213 and Acquired keratosis [keratoderma] palmaris et plantaris L85.1 Assessments Encounter Date Diagnosis (ICD Code) Assessment Notes Treatment Notes Treatment Clinical Notes Section Notes 11/13/2023 Tinea unguium (ICD-10 - B35.1) Aseptic [...] Pain in right foot (ICD-10 - M79.671) 08/05/2024 Tinea unguium (ICD-10 - B35.1) Nails 1-5 Bilateral were debrided extensively with nail nippers and emery board, reducing length and girth to pink healthy tissue with any subungual debris and necrotic tissue removed 08/05/2024 Pain in right foot (ICD-10 - M79.671) 08/05/2024 Pain in left foot (ICD-10 - M79.672) 05/27/2024 Pain in left foot (ICD-10 - M79.672) 03/18/2024 Pain in left toe(s) (ICD-10 - M79.675) 01/15/2024 Pain in left toe(s) (ICD-10 - M79.675) 11/13/2023 Pain in left toe(s) (ICD-10 - M79.675) 11/13/2023 Unspecified atherosclerosis of [place] arteries of extremities, bilateral legs (ICD-10 - I70.203) Patient educated on risks and aggravating factors of PVD, including conservative treatment options such as a diet and exercise regimen to aid in slowing progression of vascular disease 01/15/2024 Unspecified atherosclerosis of [place] arteries of extremities, bilateral legs (ICD-10 - I70.203) Patient educated on risks and aggravating factors of PVD, including conservative treatment options such as a diet and exercise regimen to aid in slowing progression of vascular disease 05/27/2024 Atherosclerosis of [place] arteries of extremities with intermittent claudication, bilateral legs (ICD-10 - I70.213) 03/18/2024 Unspecified atherosclerosis of [place] arteries of extremities, bilateral legs (ICD-10 - I70.203) Patient educated on risks and aggravating factors of PVD, including conservative treatment options such as a diet and exercise regimen to aid in slowing progression of vascular disease 08/05/2024 Atherosclerosis of [place] arteries of extremities with intermittent claudication, bilateral legs (ICD-10 - I70.213) 08/05/2024 Acquired keratosis [keratoderma] palmaris et plantaris (ICD-10 - L85.1) A total of 2 corns or calluses, as described in the note above, were cut and pared utilizing a #15 blade 03/18/2024 Xerosis cutis (ICD-10 - L85.3) The [...] Treatment Next Appt Details Provider Name:YANET ELIZALDE, 10/21/2024 02:50:00 PM, [address] [place] [address], [phone], Insurance Providers Payer Name Payer Address Payer Phone Subscriber Number Group Number Insured Name Patient Relationship to Insured Coverage Start Date Coverage End Date Medicare Part B [place] [address] [place] [phone] [id number] DIA PROCTOR Self - patient is the insured AETNA SENIOR SUPPLEMENTA L [facility] [address] [address] [place] [address] [id number] DIA PROCTOR Self - patient is the insured
== END 2024-09-24 07:56 | disposition home or self-care (01) ==
PROVIDERS: PCP Internal Medicine; Visit Provider Internal Medicine Gastroenterology
DX: K30 Functional dyspepsia (principal); K21.9 Gastro-esophageal reflux disease without esophagitis
CPT/HCPCS: 78264; A9541

== ENCOUNTER 2024-10-15 10:56 | Outpatient (CLI) | payer MEDICARE, MEDICAID, SELFPAY ==
--- NOTE | ~2024-10-15 | XR_ITS ---
3 VIEWS LUMBAR SPINE Ordering provider: Tra Farnsworth MD History: . chronic back pain and right sciatica . Comparison: August 19, 2012 FINDINGS: VERTEBRAL BODIES:Levoscoliosis. Retrolisthesis at the level of L1-L2. Spondylolisthesis at the level of L4-L5. Old compression fracture of T11 is noted. Otherwise, No visible fracture. Postoperative romeo nges seen at the levels of L2, L3, L4 and L5. Disc spaces: Narrowing of all the disc spaces. Multilevel facet joint disease. SOFT TISSUES: Atherosclerotic changes of the aorta. IMPRESSION: Old compression fracture of T11. Retrolisthesis at the level of L1 and L2 with anterolisthesis at the level of L4-L5. Multilevel degenerative disc disease. Changes slightly progressed compared to the previous Reviewed, dictated and finalized at location A. IMPRESSION: Old compression fracture of T11. Retrolisthesis at the level of L1 and L2 with anterolisthesis at the level of L 4-L5. Multilevel degenerative disc disease. Changes slightly progressed compared to the previous
--- OUTSIDE RECORDS SUMMARY | 2024-10-15 11:05 | XMS_ITS | Clinical Summary ---
Author Organization [facility] System Address [address] [place] [address] Care Team Providers Care Training Development Director Name Role Phone Tra Farnsworth MD Primary Care Provider [phone] Gautam Fritz MACHINE SET UP TECHNICIAN Unavailable [phone] Manfred Morales MD Unavailable [phone] Melba Posadas ANP-BC Unavailable [phone] Magali Guerrero MD Unavailable [phone] Allergies Active Allergy Reactions Criticality Noted [...] valve stenosis 01/14/2018 Chronic depression 01/14/2018 Diabetes ([facility]) 01/14/2018 Overview (01/14/2018): diet controlled GERD [...] Encounter for preventive health examination 01/20/2012 12/17/2019 Encounters Date Type Department Care Team Description 10/12/2024 [place] [facility] [address] [place] [address] John Hoyt MD PERC Study 09/02/2024 Scan [employer] [facility] [address] [place] [address] Scanned, Doc Pccl 09/02/2024 [facility] [employer] [facility] [address] [place] [address] Scanned, Doc Pccl from Last 3 Months Immunizations Immunization Administration Dates Next Due PFIZER [...] drink = 0.6 oz pur e alcohol) [facility] Utilities Answer Date Recorded In the past 12 months has e electric, gas, oil, or water [email or web address] threatened to shut off services in your [...] place to sleep or slept in a alf (including now)? No 03/10/2023 Comments No Sex [...] 35.9 C (96.6 F) 03/11/2023 11:47 AM FINE ARTS INSTRUCTOR Respiratory Rate 16 09/26/2023 2:00 PM CDT Oxygen Saturation 100% 09/26/2023 2:00 PM CDT Inhaled Oxygen Concentration - - Weight 75.6 kg (166 lb 9.6 oz) 09/26/2023 2:00 P M CDT Height 147.3 cm (4' 10) 09/26/2023 2:00 PM CDT Body Mass Index [...] Hemoglobin A1C 11/25/2019 05/27/2019, 01/04/2019 COVID-19 Vaccine ( - 2023-2 5 season) 2023 02/12/2023, 06/16/2020, 05/26/2020 Meningococcal B Vaccine Aged Out No l onger eligible based on patient's age to complete this topic Meningococcal Vaccine Aged Out No harman lisa eligible based on patient's age to complete this topic RSV Immunizations Under 20 Months Aged Out No longer eligible b ased on patient's age to complete this topic Medical Devices Implanted Type Area Emergency Veterinary Assistant Device Identifier Shelf Expiration Date Model / Serial / Lot Medtronic Evolut Tavr Ao Valve- Implanted:Qty: 1 on 10/04/2020 by Parish Nguyen MD Valve Implant Heart [employer] 12/28/2021 EVPROPLU S-26US / [id number] / Delta Xtend Modular 155 Degree Epiphysis Implanted:Qty: 1 on 03/10/2023 by Manfred Morales MD at [facility] Right: Shoulder [employer] - A PUSHPA & PUSHPA 08/04/2032 1307-40- 103 / / [id number] Delta Xtend Locking Metaglene Screw Implanted:Qty: 1 on 03/10/2023 by Manfred Morales MD at [facility] Right: Shoulder [employer] - A PUSHPA [employer] PUSHPA 10/04/2026 1307-90- 036 / / [id number] Delta Xtend Locking Metaglene Screw Implanted:Qty: 1 on 03/10/2023 by Manfred Morales MD at [facility] Right: Shoulder [employer] - [employer] PUSHPA [employer] PUSHPA 09/05/2027 1307-90- 036 / / [id number] Delta Xtend Reverse Shoulder System Central Screw Metaglene Collet Implanted:Qty: 1 on 03/10/2023 by Manfred Morales MD at [facility] Right: Shoulder [employer] - [employer] PUSHPA [employer] PUSHPA [id number] 02/07/2027 1309-60- 111 / / [id number] Delta Xtend Reverse Shoulder System Central Metaglene Screw Implanted:Qty: 1 on 03/10/2023 by Manfred Morales MD at [facility] Right: Shoulder [employer] - [employer]USHPA [employer] PUSH[employer] 12/06/2031 1309-60- 320 / / [id number] Delta Xtend Reverse Shoulder System Augmented Central Screw Metaglene Full Wedge Cementless Implanted:Qty: 1 on 03/10/2023 by Manfred Morales MD at [facility] Right: Shoulder [employer] - [employer] PUSHPA [employer] PUSHPA [id number] 11/05/2031 1309-70- 850 / / [id number] Delta Xtend Lateralized Glenosphere Implanted:Qty: 1 on 03/10/2023 by Manfred Morales MD at [facility] Right: Shoulder [employer] - A PUSHPA [employer] PUSHPA 08/05/2027 1307-62- 138 / / [id number] Delta Xtend Non-Locking Metaglene Screw Implanted:Qty: 1 on 03/10/2023 by Manfred Morales MD at [facility] Right: Shoulder [employer] - A PUSHPA & PUSHPA 12/05/2026 1307-70- 024 / / [id number] Delta Xtend Locking Metaglene Screw Implanted:Qty: 1 on 03/10/2023 by Manfred Morales MD at [facility] Right: Shoulder [employer] - A PUSHPA & PUSHPA 07/06/2027 1307-90- 030 / / [id number] Delta Xtend Humeral Pe Cup Standard Implanted:Qty: 1 on 03/10/2023 by Manfred Morales MD at [facility] Right: Shoulder [employer] - [employer] PUSHPA [employer] PUSHPA 10/04/2026 1307-38- 203 / / [id number] Global Unite Porocoat Standard Stem Implanted:Qty: 1 on 03/10/2023 by Manfred Morales MD at [facility] Right: Shoulder [employer] - [employer] PUSHPA [employer] PUSHPA 07/06/2031 1100-12- 100 / / [id number] Explanted Type Area Emergency Veterinary Assistant Device Identifier Shelf Expiration Date Model / Serial / Lot Drill Bit Depuy 2.5 - [id number] Explanted:Qty: 1 on 03/10/2023 at [facility] Drill Right: Shoulder DEPUY [id number] / / Delta Xtend Central Screw Metaglene Augmented Metaglene Reamer Inner Drive Shaft Tip Explanted:Qty: 1 on 03/10/2023 at [facility] Right: Shoulder [employer] - [employer] PUSHPA & PUSHPA 02/04/2027 2317-70-824 / / [id number] Delta Xtend Central Screw Metaglene Augmented Metaglene Reamer Head Explanted:Qty: 1 on 03/10/2023 at [facility] Right: Shoulder [employer] - A PUSHPA & PUSHPA 11/04/2026 2317-70-424 / / [id number] Guide And Bone Model Shoulder Artheroplasty 2.5mm Center Pin Explanted:Qty: 1 on 03/10/2023 at [facility] Right: Shoulder [employer] - [employer] PUSHPA [employer] PUSHPA [id number] 08/03/2023 [id number] / / [id number] Additional Health Concerns 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 Urine (SB) 10/13/2020 10/13/2020 Insurance MEDICARE [facility] MEDICARE AETNA MEDICARE Advance Directives Documents on File Type Date Recorded Patient Fur Tailor Expl anation Advance Directives and Living Will [...] 4:09 PM 09/13/2020 8:23 PM Care Teams Training Development Director Relationship Specialty Start Date End Date Tra Farnsworth MD [address] [place] [phone] PCP - General INTERNAL MEDICINE 01/09/18 Gautam Fritz APRN [address] [place] [phone] Nurse Practitioner NURSE PRACTITIONER 10/05/21 Manfred Morales MD [address] [place] [address] ORTHOPAEDIC SURGERY 02/14/23 Melba Posadas, [facility] [address] [place] [address] Nurse Practitioner NURSE PRACTITIONER ADULT HEALTH 07/16/23 Magali Guerrero MD [address] [place] [address] INTERVENTIONAL CARDIOLOGY 07/16/23
--- OUTSIDE RECORDS SUMMARY | 2024-10-15 11:05 | XMS_ITS | Clinical Summary ---
Author Organization [facility] Address [address] [address] Phone Care Team Providers Care Ms Sql Dba Name Role Phone Tra Farnsworth MD Primary Care Provider [phone] Allergies Active Allergy Reactions Criticality Noted Date [...] 2 - PPSV23) 10/03/2016 10/04/2015 SARS-COV-2 Immunization ( - season) 2023 12/30/2020, 06/16/2020, 05/26/2020 Influenza Immunization (#1) 2024 Pneumococcal Immunization Combined Discontinued 10/04/2015 Hepatitis [...] Insurance MEDICARE AETNA SENIOR SUPPLEMENTAL Care Teams Ms Sql Dba Relationship Specialty Start Date End Date Tra Farnsworth MD [address], [place] [address] PCP - General Internal Medicine 07/24/17
--- OUTSIDE RECORDS SUMMARY | 2024-10-15 11:05 | XMS_ITS | Encounter Summary ---
Author Organization [facility] System Address [address] [place] [address] Care Team Providers Care Content Editor Name Role Phone Tra Farnsworth MD Primary Care Provider [phone] Anders Mratínez MD Unavailable [phone] Justine Wright MD [facility] Deng Musa MD Unavailable Unavailable Gautam Fritz APRN Unavailable [phone] Manfred Morales MD Unavailable [phone] Melba Posadas ANP-BC Unavailable [phone] Magali Guerrero MD Unavailable [phone] Encounter Details Date Type Department Care Team (Late st Contact Info) Description 10/06/2020 Hospital Follow-up Call [facility] [address] [place] [address] Kaitlin Howell, RN Social History [...] documented as of this encounter Care Teams Content Editor Relationship Specialty Start Date End Date Tra Farnsworth MD [address] [place] [address] PCP - General INTERNAL MEDICINE 01/09/18 Anders Martínez MD [address] [place] [phone] [employer] Stylist CARDIOVASCULAR DISEASE 01/09/18 07/15/23 Justine Wright MD [address] [place] [address] Consulting Physician CARDIOVASCULAR DISEASE 08/21/20 Deng Mckeon MD [address] [place] [address] Consulting Physician CARDIOVASCULAR DISEASE 10/11/2002/13 Gautam Fritz APRN [address] [place] [phone] Nurse Practitioner NURSE PRACTITIONER 10/05/21 Manfred Morales MD [address] [place] [address] ORTHOPAEDIC SURGERY 02/14/23 Melba Posadas, [facility]- [address] [place] [address] Nurse Practitioner NURSE PRACTITIONER ADULT HEALTH 07/16/23 Magali Guerrero MD [address] [place] [address] INTERVENTIONAL CARDIOLOGY 07/16/23 documented as of this encounter
--- OUTSIDE RECORDS SUMMARY | 2024-10-15 11:05 | XMS_ITS | Patient Health Record ---
Author Organization [facility] Address [address] [place], [place] [id number] Care Team Providers Care Race Engine Builder Name Role Phone SLIME GAMEZ Unavailable [phone] Tra Farnsworth Unavailable Unavailable GABBIE PEREZ Unavailable [phone] Allergies Allergen (clinical drug ingredient) Drug/Non Drug Allergy documented on EMR Reaction Allergy Type Onset Date Status Shellfish (FN) Shellfish (uncoded) Unknown Allergy 04/16 active acetaminophen Acetaminophen Unknown Drug Allergy 2 active hydrocodone Hydrocodone Unknown Drug Allergy 04/16/2021 ac tive Reason For Referral No Information Medications Medication SIG (Take, Route, Frequency, Duration) Notes Start Date End Date Status Meloxicam 15 MG Oral; Duration: 90 Days Active amLODIPine Besylate 2.5 MG Oral; Duration: 90 Days Active Sertraline HCl 50 MG Oral; Duration: 90 Days Active Omeprazole 20 MG Oral; Duration: 90 Days Active Meclizine HCl 12.5 MG Oral; Duration: 90 Days Active Pravastatin Sodium 20 MG Oral; Duration: 30 Days Active oxyBUTYnin Chloride 5 MG Oral; Duration: 90 Days Active Vital Signs Height-cm 144.78 cm 08/05/2024 Weight-kg 72.12 kg 08/05/2024 Height 57 in 08/05/2024 Weight 159 lbs 08/05/2024 BMI 34.4 kg/m2 08/05/2024 Encounters Encounter Location Date Provider Diagnosis [address] [id number] 03/18/2024 GABBIE PEREZ Tinea unguium B35.1 ; Pain in right toe(s) M79.674 ; Pain in left toe(s) M79.675 ; Unspecified atherosclerosis of morongo arteries of extremities, bilateral legs I70.203 ; Xerosis cutis L85.3 ; Acquired keratosis [keratoderma] palmaris et plantaris L85.1 ; Pain in right foot M79.671 and Pain in left foot M79.[address] [id number] 11/13/2023 GABBEI DAVYDOV Tinea unguium B35.1 ; Pain in right toe(s) M79.674 ; Pain in left toe(s) M79.675 ; Unspecified atherosclerosis of morongo arteries of extremities, bilateral legs I70.203 and Xerosis cutis L85.[address] [id number] 01/15/2024 GABBIE DAVYDRICHIE Tinea unguium B35.1 ; Pain in right toe(s) M79.674 ; Pain in left toe(s) M79.675 ; Unspecified atherosclerosis of morongo arteries of extremities, bilateral legs I70.203 ; Xerosis cutis L85.3 ; Acquired keratosis [keratoderma] palmaris et plantaris L85.1 ; Pain in right foot M79.671 and Pain in left foot M79.[address] [id number] 05/27/2024 SLIME SNOOK Tinea unguium B35.1 ; Pain in right foot M79.671 ; Pain in left foot M79.672 ; Atherosclerosis of morongo arteries of extremities with intermittent claudication, bilateral legs I70.213 and Acquired keratosis [keratoderma] palmaris et plantaris L85.[address] [id number] 08/05/2024 SLIME SNOOK Tinea unguium B35.1 ; Pain in right foot M79.671 ; Pain in left foot M79.672 ; Atherosclerosis of morongo arteries of extremities with intermittent claudication, bilateral [...] (ICD-10 - M79.675) 11/13/2023 Unspecified atherosclerosis of morongo arteries of extremities, bilateral legs (ICD-10 - I70.203) Patient educated on risks and aggravating factors of PVD, including conservative treatment options such as a diet and exercise regimen to aid in slowing progression of vascular disease 01/15/2024 Unspecified atherosclerosis of morongo arteries of extremities, bilateral legs (ICD-10 - I70.203) Patient educated on risks and aggravating factors of PVD, including conservative treatment options such as a diet and exercise regimen to aid in slowing progression of vascular disease 05/27/2024 Atherosclerosis of morongo arteries of extremities with intermittent claudication, bilateral legs (ICD-10 - I70.213) 03/18/2024 Unspecified atherosclerosis of morongo arteries of extremities, bilateral legs (ICD-10 - I70.203) Patient educated on risks and aggravating factors of PVD, including conservative treatment options such as a diet and exercise regimen to aid in slowing progression of vascular disease 08/05/2024 Atherosclerosis of morongo arteries of extremities with intermittent claudication, bilateral [...] Details Provider Name:YANET ELIZALDE, 10/21/2024 02:50:00 PM, [address] [place] [address], [id number], Insurance Providers Payer Name Payer Address Payer Phone Subscriber Number Group Number Insured Name Patient Relationship to Insured Coverage Start Date Coverage End Date Medicare Part B [place] [address] [place] [phone] [id number] DIA PROCTOR Self - patient is the insured AETNA SENIOR SUPPLEMENTA L [facility] [address] [address] [place] [address] [phone] [id number] DIA PROCTOR Self - patient is the insured
--- OUTSIDE RECORDS SUMMARY | 2024-10-15 11:05 | XMS_ITS ---
Author Organization [facility] Address [address] [place], [place] [id number] Care Team Providers Care Rail Operator Name Role Phone SLIME GAMEZ Unavailable [phone] Tra Farnsworth Unavailable Unavailable GABBIE PEREZ Unavailable [phone] Allergies Allergen (clinical drug ingredient) Drug/Non Drug Allergy documented on EMR Reaction Allergy Type Onset Date Status Shellfish (FN) Shellfish (uncoded) Unknown Allergy 04/16 active acetaminophen Acetaminophen Unknown Drug Allergy 2 active hydrocodone Hydrocodone Unknown Drug Allergy 04/16/2021 ac tive REASON FOR VISIT *General care Medications Medication SIG (Take, Route, Frequency, Duration) Notes Start Date End Date Status Pravastatin Sodium 20 MG Oral; Duration: 30 Days Active Meclizine HCl 12.5 MG Oral; Duration: 90 Days Active amLODIPine Besylate 2.5 MG Oral; Duration: 90 Days Active Meloxicam 15 MG Oral; Duration: 90 Days Active Omeprazole 20 MG Oral; Duration: 90 Days Active Sertraline HCl 50 MG Oral; Duration: 90 Days Active oxyBUTYnin Chloride 5 MG Oral; Duration: 90 Days Active Encounters Encounter Location Date Provider Diagnosis [address] [id number] 03/18/2024 GABBIE PEREZ Tinea unguium B35.1 ; Pain in right toe(s) M79.674 ; Pain in left toe(s) M79.675 ; 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 U nspecified atherosclerosis of duckwater arteries of extremities, bilateral legs - I70.203 5 . 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 7. P ain in right foot - M79.671 8 . P ain in left foot - M79.672 Plan: * Treatment: 2. U nspecified atherosclerosis of duckwater arteries of extremities, bilateral legs Notes: Patient [...] LESIONS, 2 TO 4, Modifiers: Q8 , 49208 DEBRIDE NAIL, 6 OR MORE, Modifiers: 59 , Q8 * Follow Up: 3 Months * Billing Information: * Visit Code: * Procedure Codes: 65178 TRIM SKIN LESIONS, 2 TO 4. Modifiers: Q8 71279 DEBRIDE NAIL, 6 OR MORE. Modifiers: 59, Q8 * Electronic signature of KATARZYNA PEREZ DPM on 10/15/2024 at 11:05 AM CDT Sign off status: Pending * Provider: Sandy PEREZ Date: 1 05/19/2023 Generated for Angelita Whyte on: 0 10/15/2024 11:05 AM CDT History and Physical Notes * [...]
--- OUTSIDE RECORDS SUMMARY | 2024-10-15 11:05 | XMS_ITS | Referral Summary ---
Author Organization [facility] Address [address] [place] [address] Care Team Providers Care Casino Controller Name Role Phone Tra Farnsworth MD Primary [...] (05/11/2019): Added automatically from request for surgery [id number] AR (aortic regurgitation) 01/18/2019 MR (mitral regurgitation) 01/18/2019 (aortic stenosis) 01/18/2019 History of deep vein thrombosis (DVT) of lower e xtremity 01/18/2019 GERD (gastroesophageal reflux disease) 9 Hiatal hernia 01/18/2019 DM2 (diabetes mellitus, type 2) 01/18/2019 Pre-operative cardiovascular examination 019 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 Overview (12/02/2018): Added automatically from request for surgery [id number] AVD (aortic valve disease) 05/10/2018 Pain from [...] on file Legal Sex Female 7:20 AM AUTOMOTIVE DESIGN LAYOUT DRAFTER Gender Identity Not on file Sexual Orientation Not on file Last Filed Vital Signs Vital Sign Reading Time Taken Comments Blood Pressure 130/41 06/08/2019 4:20 PM AUTOMOTIVE DESIGN LAYOUT DRAFTER Pulse 68 06/08/2019 4:20 PM AUTOMOTIVE DESIGN LAYOUT DRAFTER Temperature 37.8 C (100 F) 06/08/2019 4:20 PM AUTOMOTIVE DESIGN LAYOUT DRAFTER Respiratory Rate 16 06/08/2019 4:20 PM AUTOMOTIVE DESIGN LAYOUT DRAFTER Oxygen Saturation 97% 06/08/2019 4:20 PM AUTOMOTIVE DESIGN LAYOUT DRAFTER Inhaled Oxygen Concentration - - Weight 69.1 kg (152 lb 4 oz) 06/07/2019 11:20 AM AUTOMOTIVE DESIGN LAYOUT DRAFTER Height 147.3 cm (4' 10) 06/08/2019 11:58 AM AUTOMOTIVE DESIGN LAYOUT DRAFTER Body Mass Index 31.82 06/07/2019 11:20 AM AUTOMOTIVE DESIGN LAYOUT DRAFTER Plan of Treatment Not on file Medical Devices Implanted Type Area Parachute/Combatant Diver Officer Device Identifier Shelf Expiration Date Model / Serial / Lot Depuy Orthopaedics Inc 3122-040 Smartset Medium Viscosity Cement 40gm Bone Sterile - [id number] Implanted:Qty: 1 on 01/26/2019 by Roman Taveras MD at [facility] Left: Hip [employer]uy [employer] Inc [id number] 05/07/2020 3122-040 / / [id number] Depuy Orthopaed[employer] Inc [id number] Scurry 48mm 32mm Hip Neutral Liner Acetabular Altrx Sterile Latex Free - [id number] Implanted:Qty: 1 on 01/26/2019 by Roman Taveras MD at [facility] Left: Hip Depuy [employer] Inc [id number] 12/05/2022 [id number] / / [id number] Sleeve Fem Delta Option Medium Hip Ti - [id number] Implanted:Qty: 1 on 01/26/2019 by Roman Taveras MD at [facility] Left: Hip [employer] 11/21/2025 [id number] / / [id number] Head Fem 32mm Hip Biolox Delta Option Strl - [id number] Implanted:Qty: 1 on 01/26/2019 by Roman Taveras MD at [facility] Left: Hip [employer] 11/05/2025 [id number] / / [id number] Depuy Orthopaedics Inc 3122-040 Smartset Medium Viscosity Cement 40gm Bone Sterile - [id number] Implanted:Qty: 1 on 06/07/2019 by Roman Taveras MD at [facility] Left: Hip [employer]uy [employer] 05/07/2020 3122-040 / / [id number] Depuy Orthopaed[employer] Inc [id number] Scurry Esc 48mm 28mm Constrain Lock Ring Antirotational Flex Latex Free - [id number] Implanted:Qty: 1 on 06/07/2019 by Roman Taveras MD at [facility] Left: Hip [employer]uy [employer] 11/04/2021 [id number] / / [id number] Head Fem 28mm Hip Biolox Delta Option Strl - [id number] Implanted:Qty: 1 on 06/07/2019 by Roman Taveras MD at [facility] Left: Hip [employer] [id number] 11/05/2025 [id number] / / [id number] Sleeve Fem Delta Option Short Hip Ti - [id number] Implanted:Qty: 1 on 06/07/2019 by Roman Taveras MD at [facility] Left: Hip [employer] [id number] 11/05/2025 [id number] / / [id number] Insurance MEDICARE [facility] MEDICARE [facility] AETNA SENIOR SUPPLEMENT Advance Directives For more information, please contact: [phone] Documents on File Type Date Recorded Patient Deliverer Outside Expl anation ADVANCE DIRECTIVE 01/26/2019 11:20 AM Pow er of Construction Project Mgr-Medical * Full Code (Latest Code Status on File) Date Activated Date Inactivated Comments 06/07/2019 5:43 PM 06/08/2019 9:12 PM * Full Code Date Activated Date Inactivated Comments 01/26/2019 7:20 PM 01/27/2019 6:03 PM Care Teams Casino Controller Relationship Specialty Start Date End Date Tra Farnsworth MD PCP - General Internal Medicine 10/16/18
--- OUTSIDE RECORDS SUMMARY | 2024-10-15 11:05 | XMS_ITS | Clinical Summary ---
Author Organization [facility] Address [address] [place] [address] Care Team Providers Care Hris Developer Name Role Phone Tra Farnsworth MD Primary Care Provider [phone] Allergies Active Allergy Reactions Criticality Noted Date [...] (05/11/2019): Added automatically from request for surgery [id number] AR (aortic regurgitation) 01/18/2019 MR (mitral regurgitation) 01/18/2019 (aortic stenosis) 01/18/2019 History of deep vein thrombosis (DVT) of lower e xtremity 01/18/2019 GERD (gastroesophageal reflux disease) 9 Hiatal hernia 01/18/2019 DM2 (diabetes mellitus, type 2) 01/18/2019 Pre-operative cardiovascular examination 019 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 Overview (12/02/2018): Added automatically from request for surgery [id number] AVD (aortic valve disease) 05/10/2018 Pain from [...] on file Legal Sex Female 7:20 AM SECURITY DISPATCHER Gender Identity Not on file Sexual Orientation Not on file Obstetrics History Para Term AB IAB SAB Ectopic Multiple Livin g Live Births 2 2 Date Outcome GA Total Labor Labor/2nd/3rd Weight Sex Type Anes PTL Sonia A1 A5 Name Clin Para Para Last Filed Vital Signs Vital Sign Reading Time Taken Comments Blood Pressure 130/41 06/08/2019 4:20 PM SECURITY DISPATCHER Pulse 68 06/08/2019 4:20 PM SECURITY DISPATCHER Temperature 37.8 C (100 F) 06/08/2019 4:20 PM SECURITY DISPATCHER Respiratory Rate 16 06/08/2019 4:20 PM SECURITY DISPATCHER Oxygen Saturation 97% 06/08/2019 4:20 PM SECURITY DISPATCHER Inhaled Oxygen Concentration - - Weight 69.1 kg (152 lb 4 oz) 06/07/2019 11:20 AM SECURITY DISPATCHER Height 147.3 cm (4' 10) 06/08/2019 11:58 AM SECURITY DISPATCHER Body Mass Index 31.82 06/07/2019 11:20 AM SECURITY DISPATCHER Plan of Treatment Not on file Medical Devices Implanted Type Area Financial Services Auditor Device Identifier Shelf Expiration Date Model / Serial / Lot Depuy Orthopaed[employer] Inc 3122-040 Smartset Medium Viscosity Cement 40gm Bone Sterile - [id number] Implanted:Qty: 1 on 01/26/2019 by Roman Taveras MD at [facility] Left: Hip [employer] [id number] 05/07/2020 3122-040 / / [id number] Depuy Orthopaed[employer] Inc [id number] Hewitt 48mm 32mm Hip Neutral Liner Acetabular Altrx Sterile Latex Free - [id number] Implanted:Qty: 1 on 01/26/2019 by Roman Taveras MD at [facility] Left: Hip [employer] Inc [id number] 12/05/2022 [id number] / / [id number] Sleeve Fem Delta Option Medium Hip Ti - [id number] Implanted:Qty: 1 on 01/26/2019 by Roman Taveras MD at [facility] Left: Hip [employer] 11/21/2025 [id number] / / [id number] Head Fem 32mm Hip Biolox Delta Option Strl - [id number] Implanted:Qty: 1 on 01/26/2019 by Roman Taveras MD at [facility] Left: Hip [employer] 11/05/2025 [id number] / / [id number] Depuy Orthopaed[employer] Inc 3122-040 Smartset Medium Viscosity Cement 40gm Bone Sterile - [id number] Implanted:Qty: 1 on 06/07/2019 by Roman Taveras MD at [facility] Left: Hip [employer] Inc 05/07/2020 3122-040 / / [id number] Depuy Orthopaed[employer] Inc [id number] Hewitt Esc 48mm 28mm Constrain Lock Ring Antirotational Flex Latex Free - [id number] Implanted:Qty: 1 on 06/07/2019 by Roman Taveras MD at [facility] Left: Hip [employer] 11/04/2021 [id number] / / [id number] Head Fem 28mm Hip Biolox Delta Option Strl - [id number] Implanted:Qty: 1 on 06/07/2019 by Roman Taveras MD at [facility] Left: Hip [employer] [id number] 11/05/2025 [id number] / / [id number] Sleeve Fem Delta Option Short Hip Ti - [id number] Implanted:Qty: 1 on 06/07/2019 by Roman Taveras MD at [facility] Left: Hip [employer] [id number] 11/05/2025 [id number] / / [id number] Insurance MEDICARE [facility] MEDICARE [employer] [place] AETNA SENIOR SUPPLEMENT Advance Directives For more information, please contact: [phone] Documents on File Type Date Recorded Patient Chronometer Tester Expl anation ADVANCE DIRECTIVE 01/26/2019 11:20 AM [facility] er of Substitute Teacher-Medical * Full Code (Latest Code Status on File) Date Activated Date Inactivated Comments 06/07/2019 5:43 PM 06/08/2019 9:12 PM * Full Code Date Activated Date Inactivated Comments 01/26/2019 7:20 PM 01/27/2019 6:03 PM Care Teams Hris Developer Relationship Specialty Start Date End Date Tra Farnsworth MD PCP - General Internal Medicine 10/16/18
== END 2024-10-15 10:57 | disposition home or self-care (01) ==
PROVIDERS: PCP Internal Medicine; Visit Provider Internal Medicine
DX: M54.50 Low back pain, unspecified (principal); M54.31 Sciatica, right side; M48.54XA Collapsed vertebra, not elsewhere classified, thoracic region, initial encounter for fracture; M43.16 Spondylolisthesis, lumbar region; M51.369 Other intervertebral disc degeneration, lumbar region without mention of lumbar back pain or lower extremity pain
CPT/HCPCS: 72100

== ENCOUNTER 2025-03-12 09:49 | Emergency (ER) | payer MEDICARE, MEDICAID, SELFPAY ==
[2025-03-12] VITALS (19 sets, daily range): BP systolic 140–194; BP diastolic 63–77; PULSE 65–82; RESP 16; TEMP 36.9; O2SAT 94–100
--- NOTE | ~2025-03-12 | CT_ITS ---
CT HEAD NON-CONTRAST Clinical History: Dizziness, weakness, nausea x3 days; worsening Comparison: CT brain 07/13/2022 Technique: Unenhanced axial images skull base to vertex Coronal, sagittal reformats CT images acquired with automatic exposure control for dose reduction DLP: 605 mGy-cm Findings: Age-related atrophy. Mild chronic white matter microvascular ischemic changes Sulci, ventricles: Unremarkable. No intracerebral hemorrhage. No evidence acute territorial infarct. No mass effect, midline shift. Bony calvarium intact. Visualized paranasal sinuses: Sphenoid disease. Mastoid air cells: Clear. IMPRESSION: 1. No acute intracranial findings. Reviewed, dictated and finalized at location R. ANALYST
--- OUTSIDE RECORDS SUMMARY | 2025-03-12 09:52 | XMS_ITS | Clinical Summary ---
Author Organization [facility] Address [address] [place] [address] Care Team Providers Care Hide Puller Name Role Phone Tra Farnsworth MD Primary Care Provider [phone] Allergies Active Allergy Reactions Criticality Noted Date [...] (05/11/2019): Added automatically from request for surgery [id number] AR (aortic regurgitation) 01/18/2019 MR (mitral regurgitation) 01/18/2019 (aortic stenosis) 01/18/2019 History of deep vein thrombosis (DVT) of lower e xtremity 01/18/2019 GERD (gastroesophageal reflux disease) 9 Hiatal hernia 01/18/2019 DM2 (diabetes mellitus, type 2) 01/18/2019 Pre-operative cardiovascular examination 019 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 Overview (12/02/2018): Added automatically from request for surgery [id number] AVD (aortic valve disease) 05/10/2018 Pain from [...] on file Legal Sex Female 7:20 AM PSYCHOLOGICAL ASSISTANT Gender Identity Not on file Sexual Orientation Not on file Obstetrics History Para Term AB IAB SAB Ectopic Multiple Livin g Live Births 2 2 Date Outcome GA Total Labor Labor/2nd/3rd Weight Sex Type Anes PTL Sonia A1 A5 Name Clin Para Para Last Filed Vital Signs Vital Sign Reading Time Taken Comments Blood Pressure 130/41 06/08/2019 4:20 PM PSYCHOLOGICAL ASSISTANT Pulse 68 06/08/2019 4:20 PM PSYCHOLOGICAL ASSISTANT Temperature 37.8 C (100 F) 06/08/2019 4:20 PM PSYCHOLOGICAL ASSISTANT Respiratory Rate 16 06/08/2019 4:20 PM PSYCHOLOGICAL ASSISTANT Oxygen Saturation 97% 06/08/2019 4:20 PM PSYCHOLOGICAL ASSISTANT Inhaled Oxygen Concentration - - Weight 69.1 kg (152 lb 4 oz) 06/07/2019 11:20 AM PSYCHOLOGICAL ASSISTANT Height 147.3 cm (4' 10) 06/08/2019 11:58 AM PSYCHOLOGICAL ASSISTANT Body Mass Index 31.82 06/07/2019 11:20 AM PSYCHOLOGICAL ASSISTANT Plan of Treatment Not on file Medical Devices Implanted Type Area Self Propelled Mining Machine Operator Device Identifier Shelf Expiration Date Model / Serial / Lot Depuy Orth[employer] 3122-040 Smartset Medium Viscosity Cement 40gm Bone Sterile - [id number] Implanted:Qty: 1 on 01/26/2019 by Roman Taveras MD at [facility] Left: Hip [employer] [id number] 05/07/2020 3122-040 / / [id number] Depuy [employer] [id number] Nicholls 48mm 32mm Hip Neutral Liner Acetabular Altrx Sterile Latex Free - [id number] Implanted:Qty: 1 on 01/26/2019 by Roman Taveras MD at [facility] Left: Hip [employer] [id number] 12/05/2022 [id number] / / [id number] Sleeve Fem Delta Option Medium Hip Ti - [id number] Implanted:Qty: 1 on 01/26/2019 by Roman Taveras MD at [facility] Left: Hip [employer] 11/21/2025 [id number] / / [id number] Head Fem 32mm Hip Biolox Delta Option Strl - [id number] Implanted:Qty: 1 on 01/26/2019 by Roman Taveras MD at [facility] Left: Hip [employer] 11/05/2025 [id number] / / [id number] [employer]uy [employer] 3122-040 Smartset Medium Viscosity Cement 40gm Bone Sterile - [id number] Implanted:Qty: 1 on 06/07/2019 by Roman Taveras MD at [facility] Left: Hip [employer] 05/07/2020 3122-040 / / [id number] [employer] [id number] Nicholls Esc 48mm 28mm Constrain Lock Ring Antirotational Flex Latex Free - [id number] Implanted:Qty: 1 on 06/07/2019 by Roman Taveras MD at [facility] Left: Hip [employer] 11/04/2021 [id number] / / [id number] Head Fem 28mm Hip Biolox Delta Option Strl - [id number] Implanted:Qty: 1 on 06/07/2019 by Roman Taveras MD at [facility] Left: Hip [employer] [id number] 11/05/2025 [id number] / / [id number] Sleeve Fem Delta Option Short Hip Ti - [id number] Implanted:Qty: 1 on 06/07/2019 by Roman Taveras MD at [facility] Left: Hip [employer] [id number] 11/05/2025 [id number] / / [id number] Insurance MEDICARE [facility] MEDICARE [employer] [place] AETNA SENIOR SUPPLEMENT Advance Directives For more information, please contact: [phone] Documents on File Type Date Recorded Patient Senior System Operator Expl anation ADVANCE DIRECTIVE 01/26/2019 11:20 AM [facility] er of Emblem Maker-Medical * Full Code (Latest Code Status on File) Date Activated Date Inactivated Comments 06/07/2019 5:43 PM 06/08/2019 9:12 PM * Full Code Date Activated Date Inactivated Comments 01/26/2019 7:20 PM 01/27/2019 6:03 PM Care Teams Hide Puller Relationship Specialty Start Date End Date Tra Farnsworth MD PCP - General Internal Medicine 10/16/18
--- OUTSIDE RECORDS SUMMARY | 2025-03-12 09:52 | XMS_ITS | Clinical Summary ---
Author Organization [facility] Address [address] [place] [address] Care Team Providers Care Cold Roll Catcher Name Role Phone Tra Farnsworth MD Primary Care Provider [phone] Gautam Fritz SKID WRAPPER Unavailable + [phone] Manferd Morales MD Unavailable [phone] Melba Posadas ANP-BC Unavailable [phone] Magali Guerrero MD Unavailable [phone] Allergies Active Allergy Reactions Criticality Noted [...] valve stenosis 01/14/2018 Chronic depression 01/14/2018 Diabetes 01/14/2018 Overview (01/14/2018): diet controlled GERD (gastroesophageal [...] Encounters Date Type Department Care Team Description 01/18/2025 Telephone [facility] [address] [place] [address] John Hoyt MD PERC Study from Last 3 Months Immunizations Immunization Administration [...] drink = 0.6 oz pur e alcohol) [facility] Utilities Answer Date Recorded In the past 12 months has e [employer], gas, oil, or water [employer] threatened to shut off services in your [...] 35.9 C (96.6 F) 03/11/2023 11:47 AM FIRER TUNNEL KILN Respiratory Rate 16 09/26/2023 2:00 PM CDT [...] Vaccine: 50+ Years (2 of 2 - PPSV23, PCV20, or PCV21) 11/29/2015 10/04/2015 Hemoglobin A1C 11/25/2019 05/27/2019, 01/04/2019 COVID-19 Vaccine (4 - 2024-2 6 season) 2024 02/12/2023, 06/16/2020, 05/26/2020 Influenza Adult (#1) 2025 Hepatitis A Vaccines Aged Out No long er eligible based on patient's age to complete this topic Meningococcal B Vaccine Aged Out No l onger eligible based on patient's age to complete this topic Meningococcal Vaccine Aged Out No harman lisa eligible based on patient's age to complete this topic RSV Immunizations Under 20 Months Aged Out No longer eligible b ased on patient's age to complete this topic Medical Devices Implanted Type Area Fiber Optics Technician Device Identifier Shelf Expiration Date Model / Serial / Lot Medtronic Evolut Tavr Ao Valve- Implanted:Qty: 1 on 10/04/2020 by Parish Nguyen MD Valve Implant Heart [employer] 12/28/2021 EVPROPLU S-26US / [id number] / Delta Xtend Modular 155 Degree Epiphysis Implanted:Qty: 1 on 03/10/2023 by Manfred Morales MD at [facility] Right: Shoulder [employer] - A PUSHPA & PUSHPA 08/04/2032 1307-40- 103 / / [id number] Delta Xtend Locking Metaglene Screw Implanted:Qty: 1 on 03/10/2023 by Manfred Morales MD at [facility] Right: Shoulder [employer] - A PUSHPA & PUSHPA 10/04/2026 1307-90- 036 / / [id number] Delta Xtend Locking Metaglene Screw Implanted:Qty: 1 on 03/10/2023 by Manfred Morales MD at [facility] Right: Shoulder [employer] - A PUSHPA & PUSHPA 09/05/2027 1307-90- 036 / / [id number] Delta Xtend Reverse Shoulder System Central Screw Metaglene Collet Implanted:Qty: 1 on 03/10/2023 by Manfred Morales MD at [facility] Right: Shoulder [employer] - A PUSHPA & PUSHPA [id number] 02/07/2027 1309-60- 111 / / [id number] Delta Xtend Reverse Shoulder System Central Metaglene Screw Implanted:Qty: 1 on 03/10/2023 by Manfred Morales MD at [facility] Right: Shoulder [employer] - A PUSHPA & PUSHPA 12/06/2031 1309-60- 320 / / [id number] Delta Xtend Reverse Shoulder System Augmented Central Screw Metaglene Full Wedge Cementless Implanted:Qty: 1 on 03/10/2023 by Manfred Morales MD at [facility] Right: Shoulder [employer] - A PUSHPA & PUSHPA [id number] 11/05/2031 1309-70- 850 / / [id number] Delta Xtend Lateralized Glenosphere Implanted:Qty: 1 on 03/10/2023 by Manfred Morales MD at [facility] Right: Shoulder [employer] - A PUSHPA & PUSHPA 08/05/2027 1307-62- 138 / / [id number] Delta Xtend Non-Locking Metaglene Screw Implanted:Qty: 1 on 03/10/2023 by Manfred Morales MD at [facility] Right: Shoulder [employer] - A PUSHPA & PUSHPA 12/05/2026 1307-70- 024 / / [id number] Delta Xtend Locking Metaglene Screw Implanted:Qty: 1 on 03/10/2023 by Manfred Morales MD at [facility] Right: Shoulder [employer] - A PUSHPA & PUSHPA 07/06/2027 1307-90- 030 / / [id number] Delta Xtend Humeral Pe Cup Standard Implanted:Qty: 1 on 03/10/2023 by Manfred Morales MD at [facility] Right: Shoulder [employer] - A PUSHPA & PUSHPA 10/04/2026 1307-38- 203 / / [id number] Global Unite Porocoat Standard Stem Implanted:Qty: 1 on 03/10/2023 by Manfred Morales MD at [facility] Right: Shoulder [employer] - A PUSHPA & PUSHPA 07/06/2031 1100-12- 100 / / [id number] Explanted Type Area Fiber Optics Technician Device Identifier Shelf Expiration Date Model / Serial / Lot Drill Bit Depuy 2.5 - [id number] Explanted:Qty: 1 on 03/10/2023 at [facility] Drill Right: Shoulder DEPUY [id number] / / Delta Xtend Central Screw Metaglene Augmented Metaglene Reamer Inner Drive Shaft Tip Explanted:Qty: 1 on 03/10/2023 at [facility] Right: Shoulder [employer] - A PUSHPA & PUSHPA 02/04/2027 2317-70-824 / / [id number] Delta Xtend Central Screw Metaglene Augmented Metaglene Reamer Head Explanted:Qty: 1 on 03/10/2023 at [facility] Right: Shoulder [employer] - A PUSHPA & PUSHPA 11/04/2026 2317-70-424 / / [id number] Guide And Bone Model Shoulder Artheroplasty 2.5mm Center Pin Explanted:Qty: 1 on 03/10/2023 at [facility] Right: Shoulder [employer] - A PUSHPA & PUSHPA [id number] 08/03/2023 [id number] / / [id number] Additional Health Concerns 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 Urine (SB) 10/13/2020 10/13/2020 Insurance MEDICARE AETNA MEDICARE AETNA MEDICARE Advance Directives Documents on File Type Date Recorded Patient Tie Maker Expl anation Advance Directives and Living Will [...] 4:09 PM 09/13/2020 8:23 PM Care Teams Cold Roll Catcher Relationship Specialty Start Date End Date Tra Farnsworth MD [address] [place] [address] PCP - General INTERNAL MEDICINE 01/09/18 Gautam Fritz, SKID WRAPPER [address] [place] [address] Nurse Practitioner NURSE PRACTITIONER 10/05/21 Manfred Morales MD [address] [place] [address] ORTHOPAEDIC SURGERY 02/14/23 Melba Posadas [facility]- [address] [place] [address] Nurse Practitioner NURSE PRACTITIONER ADULT HEALTH 07/16/23 Magali Guerrero MD [facility] [place] [address] INTERVENTIONAL CARDIOLOGY 07/16/23
--- OUTSIDE RECORDS SUMMARY | 2025-03-12 09:52 | XMS_ITS | Clinical Summary ---
Author Organization [facility] Address [address] [address] Phone Care Team Providers Care Welcome Hostess Name Role Phone Tra Farnsworth MD Primary Care Provider [phone] Allergies Active Allergy Reactions Criticality Noted Date [...] (5 0+ years) (2 of 2 - PCV20 or PCV21) 10/03/2016 10/04/2015 Influenza Immunization (#1) 2024 SARS-COV-2 Immunization ( - season) 2024 12/30/2020, 06/16/2020, 05/26/2020 Pneumococcal Immunization Combined Discontinued [...] Insurance MEDICARE AETNA SENIOR SUPPLEMENTAL Care Teams Welcome Hostess Relationship Specialty Start Date End Date Tra Farnsworth MD [address] [place] [address] PCP - General Internal Medicine 07/24/17
--- OUTSIDE RECORDS SUMMARY | 2025-03-12 09:52 | XMS_ITS | Encounter Summary ---
Author Organization [facility] Address [address] [place] [address] Care Team Providers Care Operations Management Professionals Name Role Phone Tra Farnsworth MD Primary Care Provider [phone] Anders Martínez MD Unavailable [phone] Justine Wright MD Unavailable [facility] Deng Musa MD Unavailable Unavailable Gautam Fritz APRN Unavailable [phone] Manfred Moarles MD Unavailable [phone] Melba Posadas ANP-BC Unavailable [phone] Magali Guerrero MD Unavailable [phone] Encounter Details Date Type Department Care Team (Late st Contact Info) Description 10/06/2020 Hospital Follow-up Call [facility] [address] [place] [address] Kaitlin Howell, RN Social History [...] documented as of this encounter Care Teams Operations Management Professionals Relationship Specialty Start Date End Date Tra Farnsworth MD [address] [place] [address] PCP - General INTERNAL MEDICINE 01/09/18 Anders Martínez MD [address] [place] [address] [place] Instrument And Control Technician CARDIOVASCULAR DISEASE 01/09/18 07/15/23 Justine Wright MD [address] [place] [address] Consulting Physician CARDIOVASCULAR DISEASE 08/21/20 Deng Mckeon MD [address] [place] [address] Consulting Physician CARDIOVASCULAR DISEASE 10/11/2002/13 Gautam Fritz APRN [address] [place] [address] Nurse Practitioner NURSE PRACTITIONER 10/05/21 Manfred Morales MD [address] [place] [address] ORTHOPAEDIC SURGERY 02/14/23 Melba Posadas, [facility]- [address] [place] [address] Nurse Practitioner NURSE PRACTITIONER ADULT HEALTH 07/16/23 Magali Guerrero MD [address] [place] [address] INTERVENTIONAL CARDIOLOGY 07/16/23 documented as of this encounter
--- NOTE | 2025-03-12 10:05 | ECG_ITS ---
Test Date: 2025-03-12 10:28:24 Measurements Intervals [place] Rate: 64 P: 16 PA: 165 QRS: 6 QRSD: 86 T: 12 QT: 413 QTc: 429 Interpretive Statements SINUS RHYTHM CONSIDER INFERIOR INFARCT, AGE INDETERMINATE ABNORMAL ECG Compared to ECG 08/01/2024 21:22:41 No significant changes Electronically Signed On 03-12-2025 15:58:03 DEPUTY JAILER by Thomas Casanova D.O.
--- NOTE | 2025-03-12 10:11 | PC.NURSE ---
Patient taken down to radiology department
--- NOTE | 2025-03-12 10:20 | PC.NURSE ---
Patient back in room from radiology
--- OUTSIDE RECORDS SUMMARY | 2025-03-12 10:40 | XMS_ITS | Clinical Summary ---
Author Organization [facility] Address [address] [place] [address] Care Team Providers Care Assessment Analyst Name Role Phone Tra Farnsworth MD Primary Care Provider [phone] Gautam Fritz HOG FEEDER Unavailable [phone] Manfred Morales MD Unavailable [phone] Melba Posadas ANP-BC Unavailable [phone] Magali Guerrero MD Unavailable [phone] Allergies Active Allergy Reactions Criticality Noted [...] Type Department Care Team Description 01/18/2025 Telephone [facility] [address] [place] [address] John Hoyt MD PERC Study [...] 0.6 oz pur e alcohol) [facility] Utilities Answer Date Recorded In the past 12 months has e [employer], gas, oil, or water [employer] threatened to shut off services in your [...] place to sleep or slept in a senior living (including now)? No 03/10/2023 Comments No Sex [...] 35.9 C (96.6 F) 03/11/2023 11:47 AM ELECTRONICS DESIGN ENGINEER Respiratory Rate 16 09/26/2023 2:00 PM CDT [...] this topic Medical Devices Implanted Type Area Key Holder Device Identifier Shelf Expiration Date Model / Serial / Lot Medtronic Evolut Tavr Ao Valve- Implanted:Qty: 1 on 10/04/2020 by Parish Nguyen MD Valve Implant Heart [employer] 12/28/2021 EVPROPLU S-26US / [id number] / Delta Xtend Modular 155 Degree Epiphysis Implanted:Qty: 1 on 03/10/2023 by Manfred Morales MD at [facility] Right: Shoulder [employer] - A PUSHPA & PUSHPA 08/04/2032 1307-40- 103 / / [id number] Delta Xtend Locking Metaglene Screw Implanted:Qty: 1 on 03/10/2023 by Manfred Morales MD at [facility] Right: Shoulder [employer] - A PUSHPA & PUSHPA 10/04/2026 1307-90- 036 / / [id number] Delta Xtend Locking Metaglene Screw Implanted:Qty: 1 on 03/10/2023 by Manfred Morales MD at [facility] Right: Shoulder [employer] - A PUSHPA & PUSHPA 09/05/2027 1307-90- 036 / / [id number] Delta Xtend Reverse Shoulder System Central Screw Metaglene Collet Implanted:Qty: 1 on 03/10/2023 by Manfred Morales MD at [facility] Right: Shoulder [employer] - A PUSHPA & PUSHPA [id number] 02/07/2027 1309-60- 111 / / [id number] Delta Xtend Reverse Shoulder System Central Metaglene Screw Implanted:Qty: 1 on 03/10/2023 by Manfred Morales MD at [facility] Right: Shoulder [employer] - A PUSHPA & PUSHPA 12/06/2031 1309-60- 320 / / [id number] Delta Xtend Reverse Shoulder System Augmented Central Screw Metaglene Full Wedge Cementless Implanted:Qty: 1 on 03/10/2023 by Manfred Morales MD at [facility] Right: Shoulder [employer] - A PUSHPA & PUSHPA [id number] 11/05/2031 1309-70- 850 / / [id number] Delta Xtend Lateralized Glenosphere Implanted:Qty: 1 on 03/10/2023 by Manfred Morales MD at [facility] Right: Shoulder [employer] - A PUSHPA & PUSHPA 08/05/2027 1307-62- 138 / / [id number] Delta Xtend Non-Locking Metaglene Screw Implanted:Qty: 1 on 03/10/2023 by Manfred Morales MD at [facility] Right: Shoulder [employer] - A PUSHPA & PUSHPA 12/05/2026 1307-70- 024 / / [id number] Delta Xtend Locking Metaglene Screw Implanted:Qty: 1 on 03/10/2023 by Manfred Morales MD at [facility] Right: Shoulder [employer] - A PUSHPA & PUSHPA 07/06/2027 1307-90- 030 / / [id number] Delta Xtend Humeral Pe Cup Standard Implanted:Qty: 1 on 03/10/2023 by Manfred Morales MD at [facility] Right: Shoulder [employer] - A PUSHPA & PUSHPA 10/04/2026 1307-38- 203 / / [id number] Global Unite Porocoat Standard Stem Implanted:Qty: 1 on 03/10/2023 by Manfred Morales MD at [facility] Right: Shoulder [employer] - A PUSHPA & PUSHPA 07/06/2031 1100-12- 100 / / [id number] Explanted Type Area Key Holder Device Identifier Shelf Expiration Date Model / Serial / Lot Drill Bit Depuy 2.5 - [id number] Explanted:Qty: 1 on 03/10/2023 at [facility] Drill Right: Shoulder DEPUY [id number] / / Delta Xtend Central Screw Metaglene Augmented Metaglene Reamer Inner Drive Shaft Tip Explanted:Qty: 1 on 03/10/2023 at [facility] Right: Shoulder [employer] - A PUSHPA & PUSHPA 02/04/2027 2317-70-824 / / [id number] Delta Xtend Central Screw Metaglene Augmented Metaglene Reamer Head Explanted:Qty: 1 on 03/10/2023 at [facility] Right: Shoulder [employer] - A PUSHPA & PUSHPA 11/04/2026 2317-70-424 / / [id number] Guide And Bone Model Shoulder Artheroplasty 2.5mm Center Pin Explanted:Qty: 1 on 03/10/2023 at [facility] Right: Shoulder [employer] - A PUSHPA & PUSHPA [id number] 08/03/2023 [id number] / / [id number] Additional Health Concerns 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 Urine (SB) 10/13/2020 10/13/2020 Insurance MEDICARE AETNA MEDICARE AETNA MEDICARE Advance Directives Documents on File Type Date Recorded Patient Roving Court Reporter Expl anation Advance Directives and Living Will [...] 4:09 PM 09/13/2020 8:23 PM Care Teams Assessment Analyst Relationship Specialty Start Date End Date Tra Farnsworth MD [address] [place] [address] PCP - General INTERNAL MEDICINE 01/09/18 Gautam Fritz, HOG FEEDER [address] [place] [address] Nurse Practitioner NURSE PRACTITIONER 10/05/21 Manfred Morales MD [address] [place] [address] ORTHOPAEDIC SURGERY 02/14/23 Melba Posadas [facility]- [address] [place] [address] Nurse Practitioner NURSE PRACTITIONER ADULT HEALTH 07/16/23 Magali Guerrero MD [facility] [place] [address] INTERVENTIONAL CARDIOLOGY 07/16/23
--- OUTSIDE RECORDS SUMMARY | 2025-03-12 10:40 | XMS_ITS | Clinical Summary ---
Author Organization [facility] Address [address] [address] Phone Care Team Providers Care Montessori Preschool Teacher Name Role Phone Tra Farnsworth MD Primary Care Provider [phone] Allergies Active Allergy Reactions Criticality Noted Date [...] Insurance MEDICARE AETNA SENIOR SUPPLEMENTAL Care Teams Montessori Preschool Teacher Relationship Specialty Start Date End Date Tra Farnsworth MD [address] [place] [address] PCP - General Internal Medicine 07/24/17
--- OUTSIDE RECORDS SUMMARY | 2025-03-12 10:40 | XMS_ITS | Clinical Summary ---
Author Organization [facility] Address [address] [place] [address] Care Team Providers Care Pork Cutlet Maker Name Role Phone Tra Farnsworth MD Primary Care Provider [phone] Allergies Active Allergy Reactions Criticality Noted Date [...] (05/11/2019): Added automatically from request for surgery [id number] AR (aortic regurgitation) 01/18/2019 MR (mitral regurgitation) 01/18/2019 (aortic stenosis) 01/18/2019 History of deep vein thrombosis (DVT) of lower e xtremity 01/18/2019 GERD (gastroesophageal reflux disease) 9 Hiatal hernia 01/18/2019 DM2 (diabetes mellitus, type 2) 01/18/2019 Pre-operative cardiovascular examination 019 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 Overview (12/02/2018): Added automatically from request for surgery [id number] AVD (aortic valve disease) 05/10/2018 Pain from [...] on file Legal Sex Female 7:20 AM GAS PUMP ATTENDANT Gender Identity Not on file Sexual Orientation Not on file Obstetrics History Para Term AB IAB SAB Ectopic Multiple Livin g Live Births 2 2 Date Outcome GA Total Labor Labor/2nd/3rd Weight Sex Type Anes PTL Sonia A1 A5 Name Clin Para Para Last Filed Vital Signs Vital Sign Reading Time Taken Comments Blood Pressure 130/41 06/08/2019 4:20 PM GAS PUMP ATTENDANT Pulse 68 06/08/2019 4:20 PM GAS PUMP ATTENDANT Temperature 37.8 C (100 F) 06/08/2019 4:20 PM GAS PUMP ATTENDANT Respiratory Rate 16 06/08/2019 4:20 PM GAS PUMP ATTENDANT Oxygen Saturation 97% 06/08/2019 4:20 PM GAS PUMP ATTENDANT Inhaled Oxygen Concentration - - Weight 69.1 kg (152 lb 4 oz) 06/07/2019 11:20 AM GAS PUMP ATTENDANT Height 147.3 cm (4' 10) 06/08/2019 11:58 AM GAS PUMP ATTENDANT Body Mass Index 31.82 06/07/2019 11:20 AM GAS PUMP ATTENDANT Plan of Treatment Not on file Medical Devices Implanted Type Area Pet Sitter Device Identifier Shelf Expiration Date Model / Serial / Lot Depuy Orthopaed[employer] Inc 3122-040 Smartset Medium Viscosity Cement 40gm Bone Sterile - [id number] Implanted:Qty: 1 on 01/26/2019 by Roman Taveras MD at [facility] Left: Hip [employer]uy [employer] Inc [id number] 05/07/2020 3122-040 / / [id number] Depuy Orthopaedics Inc [id number] [place] 48mm 32mm Hip Neutral Liner Acetabular Altrx Sterile Latex Free - [id number] Implanted:Qty: 1 on 01/26/2019 by Roman Taveras MD at [facility] Left: Hip [employer] Inc [id number] 12/05/2022 [id number] / / [id number] Sleeve Fem Delta Option Medium Hip Ti - [id number] Implanted:Qty: 1 on 01/26/2019 by Roman Taveras MD at [facility] Left: Hip [employer] 11/21/2025 [id number] / / [id number] Head Fem 32mm Hip Biolox Delta Option Strl - [id number] Implanted:Qty: 1 on 01/26/2019 by Roman Taveras MD at [facility] Left: Hip [employer] 11/05/2025 [id number] / / [id number] Depuy Orthopaed[employer] Inc 3122-040 Smartset Medium Viscosity Cement 40gm Bone Sterile - [id number] Implanted:Qty: 1 on 06/07/2019 by Roman Taveras MD at [facility] Left: Hip [employer] Inc 05/07/2020 3122-040 / / [id number] Depuy [employer] Inc [id number] [place] Esc 48mm 28mm Constrain Lock Ring Antirotational Flex Latex Free - [id number] Implanted:Qty: 1 on 06/07/2019 by Roman Taveras MD at [facility] Left: Hip [employer] Inc 11/04/2021 [id number] / / [id number] Head Fem 28mm Hip Biolox Delta Option Strl - [id number] Implanted:Qty: 1 on 06/07/2019 by Roman Taveras MD at [facility] Left: Hip [employer] [id number] 11/05/2025 [id number] / / [id number] Sleeve Fem Delta Option Short Hip Ti - [id number] Implanted:Qty: 1 on 06/07/2019 by Roman Taveras MD at [facility] Left: Hip [employer] [id number] 11/05/2025 [id number] / / [id number] Insurance MEDICARE [facility] MEDICARE [employer] AETNA SENIOR SUPPLEMENT Advance Directives For more information, please contact: [phone] Documents on File Type Date Recorded Patient Computer Customer Support Specialist Expl anation ADVANCE DIRECTIVE 01/26/2019 11:20 AM [facility] er of Pharmacy Intake Coordinator-Medical * Full Code (Latest Code Status on File) Date Activated Date Inactivated Comments 06/07/2019 5:43 PM 06/08/2019 9:12 PM * Full Code Date Activated Date Inactivated Comments 01/26/2019 7:20 PM 01/27/2019 6:03 PM Care Teams Pork Cutlet Maker Relationship Specialty Start Date End Date Tra Farnsworth MD PCP - General Internal Medicine 10/16/18
[2025-03-12 10:43] LABS: Hematocrit 41.5 % (35.0-42.0); Hemoglobin 13.5 g/dL (11.7-13.8); Immature Granulocyte Percent A 0.3 % (0.0-0.0); Lymphocytes Absolute Auto 0.99 K/mm3 (1.10-4.50); Mean Corpuscular HGB Conc 32.5 g/dL (32-36); Mean Corpuscular Hemoglobin 31.5 pg (27.0-31.0); Mean Corpuscular Volume 97.0 fL (78.0-102.0); Nucleated Red Blood Cells Absolute Auto 0.00 K/mm3 (0.00-0.00); Nucleated Red Blood Cells Perc 0.0 % (0-0.0); Platelet Count Result 173 K/mm3 (150-420); Red Blood Count 4.28 M/mm3 (4.20-5.40); White Blood Count 6.3 K/mm3 (4.8-10.8)
[2025-03-12 10:55] LABS: Alanine Aminotransferase 20 U/L (6-35); Albumin Level 4.7 g/dL (3.5-5.1); Alkaline Phosphatase 87 U/L (38-126); Anion Gap 9 mmol/L (4-12); Aspartate Amino Transferase 38 U/L (14-36); Bilirubin,Total 1.3 mg/dL (0.2-1.3); Blood Urea Nitrogen 12 mg/dL (7-17); Calcium 9.5 mg/dL (8.4-10.2); Carbon Dioxide 26 mmol/L (22-30); Chloride 106 mmol/L (98-107); Estimated Glomerular Filt Rate > 60; Glucose 117 mg/dL (65-110); Osmolality Calculated 292 mOsm/kg (285-295); Potassium 4.1 mmol/L (3.4-5.0); Sodium 141 mmol/L (137-145); Total Protein 7.7 g/dL (6.3-8.2)
[2025-03-12 10:57] LABS: INR 1.0; Partial Thromboplastin Time 32.3 Sec (23.9-30.70); Prothrombin Time 10.8 Seconds (9.50-12.1)
[2025-03-12 11:07] LABS: Troponin I < 0.012 ng/mL (0.000-0.034)
[2025-03-12 11:39] LABS: Add Urine Microscopic? NO; Appearance Urine Clear (Clear); Glucose Urine UA Negative (Negative); Leukocyte Esterase Ur Negative LEU/UL (Negative); Nitrate Urine Negative (Negative); Specific Grav Ur <= 1.005 (1.010-1.020)
--- NOTE | 2025-03-12 12:13 | ED.DIZZY ---
HPI - Dizziness General Chief Complaint: Dizziness Stated Complaint: dizziness x3 days Time Seen by Provider: 03/12/25 09:52 Source: patient Mode of arrival: ambulatory Limitations: no limitations History of Present Illness HPI Narrative: this is a 89 female presents from independent living with some episode of dizziness and nausea has a history of hypertension and initially presented with a blood pressure of 190 systolic with no headache no blurry vision does have nausea but her nausea is on a chronic basis. No recent falls no chest pain no abdominal pain no shortness of breath no fever chills currently no nausea or vomiting no diarrhea constipation no hematuria no dysuria. MD elicited complaint: dizziness and lightheadedness Onset (ago): week(s) Timing: gradual onset Related Data Home Medications ?Medication ?Instructions ?Recorded ?Confirmed ?Last Taken ?Type omeprazole 20 mg capsule,delayed 20 mg PO DAILY 01/06/22 08/11/24 07/13/22 09:00 History release oxybutynin chloride 5 mg tablet 5 mg PO DAILY 01/06/22 08/11/24 07/13/22 09:00 History sertraline 50 mg tablet (Zoloft) 50 mg PO DAILY 01/06/22 08/11/24 07/13/22 09:00 History Adults Multivitamin 1 tablet PO DAILY 06/21/22 08/11/24 07/13/22 09:00 History Ocuvite 1 tablet PO DAILY 06/21/22 08/11/24 07/13/22 09:00 History acetaminophen 500 mg PO Q6-8H PRN Pain 06/21/22 08/11/24 Unknown History aspirin 81 mg PO DAILY 06/21/22 08/11/24 07/13/22 09:00 History gabapentin 100 mg capsule 100 mg PO BID 08/10/24 08/11/24 Unknown History Allergies Allergy/AdvReac Type Severity Reaction Status Date / Time peanut Allergy Severe Itching Verified 03/12/25 09:51 vancomycin Allergy Severe RASH Verified 03/12/25 09:51 doxycycline Allergy Unknown RASH Verified 03/12/25 09:51 hydromorphone Allergy Unknown HALLUCINATI Verified 03/12/25 09:51 ONS acetaminophen (From [facility]) Allergy Rash Verified 03/12/25 09:51 atorvastatin Allergy Unknown Verified 03/12/25 09:51 azithromycin Allergy Hives Verified 03/12/25 09:51 duloxetine Allergy Unknown Verified 03/12/25 09:51 hydrocodone (From [facility]) Allergy Rash Verified 03/12/25 09:51 Review of Systems Review of Systems: All systems reviewed & are unremarkable except as noted in HPI and below PMFSH Past Medical History Medical History IBS (irritable bowel syndrome) Allergies Chronic back pain Osteoporosis Spinal stenosis Arthritis Hyperlipidemia Gastroesophageal reflux disease Surgical History Surgical History History of prophylactic mastectomy of both breasts History of appendectomy History of hysterectomy History of transcatheter aortic valve replacement (TAVR) History of ankle surgery Left ankle reconstruction. History of right knee joint replacement History of lumbar surgery History of bilateral carpal tunnel release History of bilateral hip replacements Family History Family History Mother Cervical cancer Asthma Diabetes mellitus Hypertension Depression Mother Alcoholism Father Alcoholism Hypertension Heart disease Cerebrovascular accident Social History Social History Social History: Surrogate medical decision maker: Analy Cage, daughter. Code status: Full code. Smoking status: Never smoker Alcohol intake: never Substance use: never Substance use type: does not use Lack of Transportation: No Lack of Food: Never True Current Housing: I Have Housing Concerned About Future Housing: No Difficulty Paying Gas/Electric Bills: No Difficulty Paying for Meds: No Currently Unemployed: No Education: High School Diploma/GED Difficulty w/ Childcare or Family Care: No Additional living arrangements comments: . Has 2 children. Independent of activities of daily living. Spiritual care concerns: No Exam Const: General: healthy appearing and no acute distress Nutritional Appearance: well nourished Orientation/consciousness: patient oriented x3 Limitations: no limitations HENMT: Head: normal to inspection Ears: TM's normal bilaterally Face and sinus: normal facial exam Eyes: Conjunctivae: conjunctivae normal Pupils: Equal, round and reactive pupils present EOM: EOMs intact bilaterally Direct Ophthalmoscopy: no photophobia Neck: Neck: normal visual inspection, no lymphadenopathy and no meningeal signs Chest: Chest palpation & inspection: normal inspection of the chest Resp: Effort & Inspection: normal respiratory effort Auscultation: clear to auscultation bilaterally Cardio: Rate: regular rate Rhythm: regular rhythm GI: GI Palp: Yes Soft to palpation Auscultation: normal bowel sounds : General: Yes bladder normal to palpation Skin: General skin exam: normal color Rashes: no rashes Neuro: General: patient oriented x3, moves all extremities, no meningeal signs and no focal motor deficits Cranial nerves: Yes Nystagmus not present Speech: normal speech Gait exam (Neuro): Normal gait present Extrem: General: normal to inspection, no clubbing, cyanosis or edema and no pedal edema Psych: Mental Status: mental status grossly normal Course Course Emergency Course: Medical decision making narrative: The patient was evaluated by myself in the emergency department. History obtained from the past and patient was an independent historian and physical exam performed of which is by nurse. Patient had a CT scan of the brain performed which showed no acute abnormalities. EKG was normal sinus rhythm and patient did receive Norvasc 5mg and blood pressure initially in the 190 systolic and repeat blood pressure currently 138/68 with a heart rate of 69 and O2 sats of 95% on room air. Patient had blood work that was performed and reviewed and unremarkable UA was negative. Repeat assessment: The patient doing well on repeat exam with no acute distress Symptoms have improved since arrival to the emergency department Repeat vitals have improved Patient agrees with discussion and after shared medical decision-making and agrees with discharge. All questions answered to the patient's satisfaction Advised patient to take medication as prescribed and to follow up with primary within the next 3 to 5 days. Patient provided with strict return precautions and return to the emergency department if any worsening symptoms. Vital Signs Vital signs: Vital Signs Temperature 36.9 C 03/12/25 09:49 Pulse Rate 82 03/12/25 09:49 Respiratory Rate 16 03/12/25 09:49 Blood Pressure 194/67 H 03/12/25 09:49 Pulse Oximetry 98 03/12/25 09:49 Oxygen Delivery Room Air 03/12/25 09:49 Temperature 36.9 C 03/12/25 09:49 Pulse Rate 82 03/12/25 09:49 Respiratory Rate 16 03/12/25 09:49 Blood Pressure 194/67 H 03/12/25 09:49 Pulse Oximetry 98 03/12/25 09:49 Oxygen Delivery Room Air 03/12/25 09:49 MDM Differential Diagnosis Differential Diagnosis: dizziness/benign positional vertigo /hypertension Lab Data 03/12/25 10:38 03/12/25 10:38 Labs: Lab Results 03/12/25 03/12/25 Range/Units 10:38 11:29 WBC 6.3 (4.8-10.8) K/mm3 RBC 4.28 (4.20-5.40) M/mm3 Hgb 13.5 (11.7-13.8) g/dL Hct 41.5 (35.0-42.0) % MCV 97.0 (78.0-102.0) fL MCH 31.5 H (27.0-31.0) pg MCHC 32.5 (32-36) g/dL RDW 13.7 (11.6-14.4) % Plt Count 173 (150-420) K/mm3 MPV 9.7 (9.2-11.8) fl Immature Gran % (Auto) 0.3 H (0.0-0.0) % Neut % (Auto) 75.4 H (50.0-70.0) % Lymph % (Auto) 15.8 L (18.0-42.0) % [place] % (Auto) 6.5 (2.0-11.0) % Eos % (Auto) 1.4 (1.0-6.0) % Baso % (Auto) 0.6 (0.0-1.0) % Lymph # (Auto) 0.99 L (1.10-4.50) K/mm3 [place] # (Auto) 0.41 (0.10-0.90) K/mm3 Eos # (Auto) 0.09 (0.02-0.50) K/mm3 Baso # (Auto) 0.04 (0.00-0.10) K/mm3 Abs Immat Gran (auto) 0.02 H (0.00-0.00) K/mm3 Absolute Neuts (auto) 4.73 (1.70-7.20) K/mm3 Absolute Nucleated RBC 0.00 (0.00-0.00) K/mm3 Nucleated RBC % 0.0 (0-0.0) % PT 10.8 (9.50-12.1) Seconds INR 1.0 APTT 32.3 H (23.9-30.70) Sec Sodium 141 (137-145) mmol/L Potassium 4.1 (3.4-5.0) mmol/L Chloride 106 (98-107) mmol/L Carbon Dioxide 26 (22-30) mmol/L Anion Gap 9 (4-12) mmol/L BUN 12 D (7-17) mg/dL Creatinine 0.78 (0.7-1.0) mg/dL Estim Creat Clear Calc Not Reportable Estimated GFR > 60 (59 - ) Glucose 117 H (65-110) mg/dL Calculated Osmolality 292 (285-295) mOsm/kg Lactic Acid 0.9 (0.7-2.0) mmol/L Calcium 9.5 (8.4-10.2) mg/dL Total Bilirubin 1.3 (0.2-1.3) mg/dL AST 38 H (14-36) U/L ALT 20 (6-35) U/L Alkaline Phosphatase 87 (38-126) U/L Troponin I < 0.012 (0.000-0.034) ng/mL Total Protein 7.7 (6.3-8.2) g/dL Albumin 4.7 (3.5-5.1) g/dL Urine Color Light yellow (Yellow) Urine Appearance Clear (Clear) Urine pH 7.0 (5.0-8.0) Ur Specific [place] <= 1.005 L (1.010-1.020) Urine Protein Negative (Negative) Urine Glucose (UA) Negative (Negative) Urine Ketones Negative (Negative) Ur Blood (Man) Negative (Negative) Urine Nitrate Negative (Negative) Urine Bilirubin Negative (Negative) Urine Urobilinogen 0.2 (0.2-1.0) mg/dL Leukocyte Esterase Rfl Negative (Negative) CARLOS ENRIQUE/UL Imaging Data Radiologist's impression: ITS Impressions Head CT 03/12/25 10:37 IMPRESSION: 1. No acute intracranial findings. Critical Care Time Critical Care Time Critical Care Time: No Discharge Plan Discharge Clinical Impression: Dizziness, BPV (benign positional vertigo), Nausea, Hypertension Patient Disposition: Home Condition: Stable Instructions: Antibiotic Form, Benign Paroxysmal Positional Vertigo (ED), Hypertension (ED), Dizziness (ED) Additional Instructions: advised patient to take medication as prescribed and follow with primary within next 3 to 5 days for further evaluation and treatment. Patient Language: Chilean Prescriptions: New meclizine 25 mg tablet 25 mg PO BID PRN (Reason: dizziness) Qty: 30 0RF No Action omeprazole 20 mg capsule,delayed release(DR/EC) 20 mg PO DAILY oxybutynin chloride 5 mg tablet 5 mg PO DAILY sertraline [Zoloft] 50 mg tablet 50 mg PO DAILY Adults Multivitamin 1 tablet PO DAILY Ocuvite 1 tablet PO DAILY Rx Instructions: 1 tablet daily acetaminophen 500 mg PO Q6-8H PRN (Reason: Pain) aspirin 81 mg PO DAILY ondansetron HCl 4 mg tablet 4 mg PO Q8H PRN (Reason: nausea and vomiting) Qty: 90 4RF gabapentin 100 mg capsule 100 mg PO BID amlodipine 2.5 mg Tablet 2.5 mg PO QAM Qty: 30 0RF pravastatin 20 mg Tablet 40 mg PO DAILY Qty: 30 0RF Follow-up/Referrals: Tra Farnsworth MD [Primary Care Provider, Internal Medicine] Time of Disposition: 12:20
== END 2025-03-12 12:27 | disposition home or self-care (01) ==
PROVIDERS: Emergency Provider Emergency Medicine; PCP Internal Medicine
DX: H81.10 Benign paroxysmal vertigo, unspecified ear (principal); I10 Essential (primary) hypertension; R11.0 Nausea; E78.5 Hyperlipidemia, unspecified
CPT/HCPCS: 36415; 70450; 80053; 81003; 83605; 84484; 85025; 85610; 85730; 93005; 99284; A9270

== ENCOUNTER 2025-03-22 13:18 | Outpatient (CLI) | payer MEDICARE, MEDICAID, SELFPAY ==
--- OUTSIDE RECORDS SUMMARY | 2024-03-18 09:20 | XMS_ITS ---
Author Organization [facility] Address [address] [place], [place] [id number] Care Team Providers Care Duplicator Punch Operator Name Role Phone SLIME GAMEZ Unavailable [phone] JavadWalkerTra Unavailable Unavailable GABBIE PEREZ Unavailable [phone] Allergies Allergen (clinical drug ingredient) Drug/Non Drug Allergy documented on EMR Reaction Allergy Type Onset Date Status Shellfish Shellfish (uncoded) Unknown Allergy 04/16/2021 active acetaminophen Acetaminophen Unknown Drug Allergy 2 active hydrocodone Hydrocodone Unknown Drug Allergy 04/16/2021 ac tive REASON FOR VISIT *General care Medications Medication SIG (Take, Route, Frequency, Duration) Notes Start Date End Date Status Pravastatin Sodium 20 MG Tablet Oral; Duration: 30 Days Acti ve Meclizine HCl 12.5 MG Tablet Oral; Duration: 90 Days Acti ve amLODIPine Besylate 2.5 MG Tablet Oral; Duration: 90 Days Acti ve Meloxicam 15 MG Tablet Oral; Duration: 90 Days Active Omeprazole 20 MG Capsule Delayed Release Oral; Duration: 90 Days A ctive Sertraline HCl 50 MG Tablet Oral; Duration: 90 Days Active oxyBUTYnin Chloride 5 MG Tablet Oral; Duration: 90 Days Acti ve Encounters Encounter Location Date Provider Diagnosis [address] [id number] 03/18/2024 GABBIE PEREZ Tinea unguium B35.1 ; Pain in right toe(s) M79.674 ; Pain in left toe(s) M79.675 ; Unspecified atherosclerosis of rincon arteries of extremities, bilateral legs I70.203 ; Xerosis cutis L85.3 ; Acquired keratosis [keratoderma] palmaris et plantaris L85.1 ; Pain in right foot M79.671 and Pain in left foot M79.672 Assessments Encounter Date Diagnosis (ICD Code) Assessment Notes Treatment Notes Treatment Clinical Notes Section Notes 03/18/2024 Tinea unguium (ICD-10 - B35.1) Aseptic debridement of elongated thickened nails x 10 using sterile nippers, nails were debrided in length and thickness by 30% utilizing a nail nipper without incident. The patient was educated regarding all treatment options that include topical and oral antifungal treatments. I discussed the options of taking a sample of the nail to confirm diagnosis. Nail clippings were not sent for pathology analysis. The patient was educated why and how the fungal infection evolved in their feet and the patient was given information regarding how to prevent further infection. The patient was told to keep feet dry and change socks. The patient was told to be careful with old shoes and excessive sweating. The patient was educated regarding both OTC and prescription treatments. 03/18/2024 Pain in right toe(s) (ICD-10 - M79.674) 03/18/2024 Pain in left toe(s) (ICD-10 - M79.675) 03/18/2024 Unspecified atherosclerosis of rincon arteries of extremities, bilateral legs (ICD-10 - I70.203) Patient educated on risks and aggravating factors of PVD, including conservative treatment options such as a diet and exercise regimen to aid in slowing progression of vascular disease 03/18/2024 Xerosis cutis (ICD-10 - L85.3) The patient was educated regarding proper hydration of their feet/ankles and the patient was given several recommendations for proper creams to protect/hydrate and keep the area healthy. Continue with use of lotion to be applied to feet daily. 03/18/2024 Acquired keratosis [keratoderma] palmaris et plantaris (ICD-10 - L85.1) Pre-ulcerative keratoderma debrided sharply down to the level of healthy tissue using a 15 blade. After removal of overlying extensive hyperkeratosis, healthy tissue was noted and care was taken to assure that no undermining or probing was present. It should be noted that no probing was noted and no infection or drainage was noted. Metatarsal pad made to bilateral foot with use of quarter inch felt material onto orthotic devices to help offload callus lesions. 03/18/2024 Pain in right foot (ICD-10 - M79.671) 03/18/2024 Pain in left foot (ICD-10 - M79.672) Plan Of Treatment Treatment Notes Assessment Notes Tinea unguium Aseptic debridement of elongated thickened nails x 10 using sterile nippers, nails were debrided in length and thickness by 30% utilizing a nail nipper without incident. The patient was educated regarding all treatment options that include topical and oral antifungal treatments. I discussed the options of taking a sample of the nail to confirm diagnosis. Nail clippings were not sent for pathology analysis. The patient was educated why and how the fungal infection evolved in their feet and the patient was given information regarding how to prevent further infection. The patient was told to keep feet dry and change socks. The patient was told to be careful with old shoes and excessive sweating. The patient was educated regarding both OTC and prescription treatments. Unspecified atherosclerosis of rincon arteries of extremities, bilateral legs Patient educated on risks and aggravating factors of PVD, including conservative treatment options such as a diet and exercise regimen to aid in slowing progression of vascular disease Xerosis cutis The patient was educ ated regarding proper hydration of their feet/ankles and the patient was given several recommendations for proper creams to protect/hydrate and keep the area healthy. Continue with use of lotion to be applied to feet daily. Acquired keratosis [keratode rma] palmaris et plantaris Pre-ulcerative keratoderma debrided sharply down to the level of healthy tissue using a 15 blade. After removal of overlying extensive hyperkeratosis, healthy tissue was noted and care was taken to assure that no undermining or probing was present. It should be noted that no probing was noted and no infection or drainage was noted. Metatarsal pad made to bilateral foot with use of quarter inch felt material onto orthotic devices to help offload callus lesions. Next Appt Details Follow Up: 3 Months, Reason: Provider Name:YANET ELIZALDE, 05/05/2025 02:30:00 PM, [address] [place] [address], [phone], History and Physical Notes * HPI (History of Present Illness) Category Sub-Category Detail Notes Category Not es HPI General care Patient presents to the office for at risk foot care. Patient states that their nails are thickened, elongated and painful. Patient states that it is aggravated by shoe gear. Onset is gradual. Patient denies being diabetic., Patient denies taking prescription blood thinners but does take a daily aspirin., Date last seen by Dr. Farnsworth was 01/2024., Initials mca Examination Category Sub-Category Detail Notes Category Not es Physical Examination Vascular: Dorsalis Pedis pulse noted at 1/4 right foot and 1/4 left foot and Posterior Tibial pulse noted at 1/4 right foot and 1/4 left foot, Capillary refill times noted to be less than three seconds x ten, Temperature gradient noted to be warm to cool to bilateral foot, pedal hair present to bilateral foot and no varicosities are noted Dermatologic: there are no open lesions, no signs of active clinical infection, no erythema noted, no ecchymoses, nails are elongated thickened and dystrophic with subungual debris x ten, diffuse plantar xerosis noted to bilateral foot with no signs of annular scaling noted, hyperkeratotic lesion plantar first metatarsal head bilateral foot Musculoskeletal: there is pain to palpation onto nail plate x ten, no calf pain noted bilaterally, arch height noted at 2/5 non-weight bearing bilaterally, first metatarsophalangeal joint range of motion 30 deg non-weight bearing bilaterally, pain to palpation hyperkeratotic lesion sub first metatarsal head bilateral foot Neurology: protective sensation intact to light touch bilateral digits one through five, vibratory sensation intact to first metatarsophalangeal joint bilaterally Progress Notes * DIA PROCTOR MDOB:[birth year] (89 yo F)Acc No.[id number]:03/18/2024 Patient: Stephen DIA CRUZ Provider: Sandy PEREZ :1935 A ge:88 Y S ex:Female Date:03/18/2024 Address:[address], [address] [place], [place] [id number] Subjective: * Chief Complaints: * * General care * HPI: H PI: General care P atient presents to the office for at risk foot care. Patient states that their nails are thickened, elongated and painful. Patient states that it is aggravated by shoe gear. Onset is gradual. Patient denies being diabetic., Patient denies taking prescription blood thinners but does take a daily aspirin., Date last seen by Dr. Farnsworth was 01/2024., Initials mca. * ROS: G eneral / Constitutional: Patient denies w eakness. R espiratory: Patient denies c hronic cough, shortness of breath, sputum production. M usculoskeletal: Patient denies a rthritis, joint stiffness. ? P eripheral Vascular: Patient denies b lanching of skin, cold extremities, decreased sensation in extremities. S kin: Patient complains of f ungal nails, dry skin, nail changes.? N eurologic: Patient denies d izziness, gait abnormality, headache. * Medications: T akingoxyBUTYnin Chloride 5 MG Tablet Oral Sertraline HCl 50 MG Tablet Oral Omeprazole 20 MG Capsule Delayed Release Oral Meloxicam 15 MG Tablet Oral amLODIPine Besylate 2.5 MG Tablet Oral Meclizine HCl 12.5 MG Tablet Oral Pravastatin Sodium 20 MG Tablet Oral Taking oxyBUTYnin Chloride 5 MG Tablet Oral Taking Sertraline HCl 50 MG Tablet Oral Taking Omeprazole 20 MG Capsule Delayed Release Oral Taking Meloxicam 15 MG Tablet Oral Taking amLODIPine Besylate 2.5 MG Tablet Oral Taking Meclizine HCl 12.5 MG Tablet Oral Taking Pravastatin Sodium 20 MG Tablet Oral * Allergies: S hellfish: Allergy - Onset Date 04/16/2021cetaminophen: Allergy - Onset Date 04/16/2021Hydrocodone: Allergy - Onset Date 04/16/2021 Objective: * Examination: P hysical Examination: V ascular: Dorsalis Pedis pulse noted at 1/4 right foot and 1/4 left foot and Posterior Tibial pulse noted at 1/4 right foot and 1/4 left foot, Capillary refill times noted to be less than three seconds x ten, Temperature gradient noted to be warm to cool to bilateral foot, pedal hair present to bilateral foot and no varicosities are noted Dermatologic: there are no open lesions, no signs of active clinical infection, no erythema noted, no ecchymoses, nails are elongated thickened and dystrophic with subungual debris x ten, diffuse plantar xerosis noted to bilateral foot with no signs of annular scaling noted, hyperkeratotic lesion plantar first metatarsal head bilateral foot Musculoskeletal: there is pain to palpation onto nail plate x ten, no calf pain noted bilaterally, arch height noted at 2/5 non-weight bearing bilaterally, first metatarsophalangeal joint range of motion 30 deg non-weight bearing bilaterally, pain to palpation hyperkeratotic lesion sub first metatarsal head bilateral foot Neurology: protective sensation intact to light touch bilateral digits one through five, vibratory sensation intact to first metatarsophalangeal joint bilaterally. Assessment: * Assessment: 1. T inea unguium - B35.1 (Primary) 2 . P ain in right toe(s) - M79.674? 3. P ain in left toe(s) - M79.675 4 . U nspecified atherosclerosis of rincon arteries of extremities, bilateral legs - I70.203 5 . 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 7. P ain in right foot - M79.671 8 . P ain in left foot - M79.672 Plan: * Treatment: 2. U nspecified atherosclerosis of rincon arteries of extremities, bilateral legs Notes: Patient educated on risks and aggravating factors of PVD, including conservative treatment options such as a diet and exercise regimen to aid in slowing progression of vascular disease ? 3. X erosis cutis Notes: The patient was educated regarding proper hydration of their feet/ankles and the patient was given several recommendations for proper creams to protect/hydrate and keep the area healthy. Continue with use of lotion to be applied to feet daily. 4. A cquired keratosis [keratoderma] palmaris et plantaris Notes: Pre-ulcerative keratoderma debrided sharply down to the level of healthy tissue using a 15 blade. After removal of overlying extensive hyperkeratosis, healthy tissue was noted and care was taken to assure that no undermining or probing was present. It should be noted that no probing was noted and no infection or drainage was noted. Metatarsal pad made to bilateral foot with use of quarter inch felt material onto orthotic devices to help offload callus lesions. * Procedure Codes: 1 1056 TRIM SKIN LESIONS, 2 TO 4, Modifiers: Q8 99050 DEBRIDE NAIL, 6 OR MORE, Modifiers: 59 , Q8 * Follow Up: 3 Months Billing Information: * Procedure Codes: 58231 TRIM SKIN LESIONS, 2 TO 4. Modifiers: Q8 28882 DEBRIDE NAIL, 6 OR MORE. Modifiers: 59, Q8 * Electronic signature of KATARZYNA PEREZ DPM on 03/22/2025 at 03:29 PM HEMODIALYSIS PATIENT CARE SPECIALIST Sign off status: Pending * Provider: Sandy PEREZ Date: 1 05/19/2023 Generated for Angelita osman/Dee Dee/Dominick on: 1 05/23/2024 03:29 PM HEMODIALYSIS PATIENT CARE SPECIALIST
--- OUTSIDE RECORDS SUMMARY | 2024-10-21 08:50 | XMS_ITS ---
Author Organization [facility] Address [address] [place], [place] [address] Care Team Providers Care Chaperone Name Role Phone SLIME GAMEZ Unavailable [phone] Tra Farnsworth Unavailable Unavailable YANET BARNETT Unavailable [phone] REASON FOR VISIT *General care Encounters Encounter Location Date Provider Diagnosis [address] [id number] 10/21/2024 YANET BARNETT Tinea unguium B35.1 ; Pain in right foot M79.671 ; Pain in left foot M79.672 ; Atherosclerosis of sycuan arteries of extremities with intermittent claudication, bilateral legs I70.213 and Acquired keratosis [keratoderma] palmaris et plantaris L85.1 Assessments Encounter Date Diagnosis (ICD Code) Assessment Notes Treatment Notes Treatment Clinical Notes Section Notes 10/21/2024 Tinea unguium (ICD-10 - B35.1) Nails 1-5 Bilateral were debrided extensively with nail nippers and emery board, reducing length and girth to pink healthy tissue with any subungual debris and necrotic tissue removed 10/21/2024 Pain in right foot (ICD-10 - M79.671) 10/21/2024 Pain in left foot (ICD-10 - M79.672) 10/21/2024 Atherosclerosis of sycuan arteries of extremities with intermittent claudication, bilateral legs (ICD-10 - I70.213) 10/21/2024 Acquired keratosis [keratoderma] palmaris et plantaris (ICD-10 [...] rma] palmaris et plantaris A total of 2 corns or calluses, as described in the note above, were cut and pared utilizing a #15 blade Next Appt Details Follow Up: 10 - 12 weeks, Re ason: At-Risk Foot care, sooner if problems develop. Provider Name:YANET ELIZALDE, 05/05/2025 02:30:00 PM, [address] [place] [address], [id number], History and Physical Notes * Examination Category Sub-Category Detail Notes Category Not es Dermatologic Skin findings: Skin is thin, at rophic and lacking pedal hair Nail pathology: Nails 1, 2, 3, 4, an d 5 bilateral are elongated, thick, discolored, and dystrophic with subungual debris. They are painful to palpation Hypertrophic / hyperkeratotic lesion: pl [place] aspect of the left 1st metatarsal head, plantar aspect of heel Neurologic Gross sensation Grossly intact t o [...] inversion, and eversion in bilateral lower extremities Progress Notes * DIA PROCTOR MDOB:[birth year] (89 yo F)Acc No.[id number]:10/21/2024 Patient: Stephen DIA CRUZ Provider: Dank BARNETT :1935 A ge:89 Y S ex:Female Date:10/21/2024 Address:[address] [place] [address], [address] [place], [place] [id number] Subjective: * Chief Complaints: * * General care * ROS: G eneral / Constitutional: Patient [...] Patient denies d izziness, gait abnormality, headache. Objective: * Examination: P hysical Examination: General appearance: A lert, pleasant, well-nourished and in no acute distress. D ermatologic: Skin findings: S kin is thin, atrophic and lacking pedal hair. Hypertrophic / hyperkeratotic lesion: p lantar aspect of the left 1st metatarsal head, plantar aspect of heel. Nail pathology: N ails 1, 2, 3, [...] palmaris et plantaris Notes: A total of 2 corns or calluses, as described in the note above, were cut and pared utilizing a #15 blade * Procedure Codes: 1 1056 TRIM SKIN LESIONS, 2 TO 4, Modifiers: Q8 93728 DEBRIDE NAIL, 6 OR MORE, Modifiers: 59 , Q8 * Follow Up: 1 0 - 12 weeks (Reason: At-Risk Foot care, sooner if problems develop.) Billing Information: * Procedure Codes: 01218 TRIM SKIN LESIONS, 2 TO 4. Modifiers: Q8 49866 DEBRIDE NAIL, 6 OR MORE. Modifiers: 59, Q8 * Electronic signature of ALICIA BARNETT DPM on 03/22/2025 at 03:30 PM QUALITY ASSURANCE ASSISTANT Sign off status: Pending * Provider: Dank BARNETT Date: 0 10/21/2024 Generated for Angelita osman/Dee Dee/Dominick on: 1 05/23/2024 03:30 PM QUALITY ASSURANCE ASSISTANT
--- OUTSIDE RECORDS SUMMARY | 2024-12-23 08:50 | XMS_ITS ---
Author Organization [facility] Address [address] [place], [place] [address] Care Team Providers Care Screen Operator Name Role Phone SLIME GAMEZ Unavailable [phone] JavadTra jang Unavailable Unavailable YANET BARNETT Unavailable [phone] Allergies Allergen (clinical drug ingredient) Drug/Non Drug Allergy documented on EMR Reaction Allergy Type Onset Date Status Shellfish Shellfish (uncoded) Unknown Allergy 04/16/2021 active acetaminophen Acetaminophen Unknown Drug Allergy 2 active hydrocodone Hydrocodone Unknown Drug Allergy 04/16/2021 ac tive REASON FOR VISIT *General care Medications Medication SIG (Take, Route, Frequency, Duration) Notes Start Date End Date Status Omeprazole 20 MG Capsule Delayed Release Oral; Duration: 90 Days A ctive Meclizine HCl 12.5 MG Tablet Oral; Duration: 90 Days Acti ve Pravastatin Sodium 20 MG Tablet Oral; Duration: 30 Days Acti ve Meloxicam 15 MG Tablet Oral; Duration: 90 Days Active amLODIPine Besylate 2.5 MG Tablet Oral; Duration: 90 Days Acti ve oxyBUTYnin Chloride 5 MG Tablet Oral; Duration: 90 Days Acti ve Sertraline HCl 50 MG Tablet Oral; Duration: 90 Days Active Social History Social History Additional Details Category Social Info Options Details Migrated Social History Migrated Social History Smoking Status : Never used tobacco , History of tobacco use : Vital Signs Height 57 in 12/23/2024 Weight 159 lbs 12/23/2024 BMI 34.4 kg/m2 12/23/2024 Height-cm 144.78 cm 12/23/2024 Weight-kg 72.12 kg 12/23/2024 Encounters Encounter Location Date Provider Diagnosis [facility] [address] [place], [place] [id number] 12/23/2024 YANET BARNETT Tinea unguium B35.1 ; Pain in right foot M79.671 ; Pain in left foot M79.672 ; Atherosclerosis of redding arteries of extremities with intermittent claudication, bilateral legs I70.213 and Acquired keratosis [keratoderma] palmaris et plantaris L85.1 Assessments Encounter Date Diagnosis (ICD Code) Assessment Notes Treatment Notes Treatment Clinical Notes Section Notes 12/23/2024 Tinea unguium (ICD-10 - B35.1) Nails 1-5 Bilateral were debrided extensively with nail nippers and emery board, reducing length and girth to pink healthy tissue with any subungual debris and necrotic tissue removed 12/23/2024 Pain in right foot (ICD-10 - M79.671) 12/23/2024 Pain in left foot (ICD-10 - M79.672) 12/23/2024 Atherosclerosis of redding arteries of extremities with intermittent claudication, bilateral legs (ICD-10 - I70.213) 12/23/2024 Acquired keratosis [keratoderma] palmaris et plantaris (ICD-10 [...] develop. Provider Name:YANET ELIZALDE, 05/05/2025 02:30:00 PM, [address] [place] [address], [phone], History and Physical Notes * HPI (History [...] Date last seen by Dr. Farnsworth was 12/2024., Initials nd Examination Category Sub-Category Detail Notes Category Not [...] * DIA PROCTOR MDOB:[birth year] (89 yo F)Acc No.[id number]:12/23/2024 Patient: Stephen DIA CRUZ Provider: Dank BARNETT :1935 A ge:89 Y S ex:Female Date:12/23/2024 Address:[address] [place] [address], [address] Subjective: * Chief Complaints: * * General [...] Date last seen by Dr. Farnsworth was 12/2024., Initials nd. * ROS: G eneral / Constitutional: Patient [...] izziness, gait abnormality, headache. * Medical History: Denies Past Medical History No Medical History Documented Medical History Verified * Surgical History: Denies Past Surgical History. Surgical History verified. * Hospitalization/Major Diagno stic Procedure: Denies Past Hospitalization. Hospitalization Verified. * Family History: N o Family History documented.. F amily History Verified.. * Social History: M igrated Social History: M igrated Social History: Smoking Status : Never used tobacco , History of tobacco use :. Social History Verified. * Medications: T akingoxyBUTYnin Chloride 5 MG [...] Onset Date 04/16/2021Hydrocodone: Allergy - Onset Date 04/16/2021yesAllergies Verified. Objective: * Vitals: W t: 159 lbs, Wt-k.12 kg, Ht: 57 in, Ht-cm: 144.78 cm, BMI: 34.4 Index, Body Surface Area: 1.7. * Examination: P hysical Examination: General appearance: [...] - M79.672 4 . A therosclerosis of redding arteries of extremities with intermittent claudication, bilateral [...] SKIN LESIONS, 2 TO 4, Modifiers: Q8 40387 DEBRIDE NAIL, 6 OR MORE, Modifiers: 59 , Q8 * Follow Up: 1 0 - 12 weeks (Reason: At-Risk Foot care, sooner if problems develop.) Billing Information: * Procedure Codes: 57278 TRIM SKIN LESIONS, 2 TO 4. Modifiers: Q8 35198 DEBRIDE NAIL, 6 OR MORE. Modifiers: 59, Q8 * Electronic signature of LAICIA BARNETT DPM on 03/22/2025 at 03:30 PM RESPIRATORY CARE INSTRUCTOR Sign off status: Pending * Provider: Dank BARNETT Date: 0 12/23/2024 Generated for Angelita osman/Dee Dee/Jose Franciscosmitting on: 1 05/23/2024 03:30 PM RESPIRATORY CARE INSTRUCTOR
--- OUTSIDE RECORDS SUMMARY | 2025-02-24 08:30 | XMS_ITS ---
Author Organization [facility] Address [address] [place], [place] [address] Care Team Providers Care Leveling Machine Operator Name Role Phone SLIME GAMEZ Unavailable [phone] JavadTra jang Unavailable Unavailable YANET BARNETT Unavailable [phone] Allergies Allergen (clinical drug ingredient) Drug/Non Drug Allergy documented on EMR Reaction Allergy Type Onset Date Status Shellfish Shellfish (uncoded) Unknown Allergy 04/16/2021 active acetaminophen Acetaminophen Unknown Drug Allergy 2 active hydrocodone Hydrocodone Unknown Drug Allergy 04/16/2021 ac tive REASON FOR VISIT *General care Medications Medication SIG (Take, Route, Frequency, Duration) Notes Start Date End Date Status oxyBUTYnin Chloride 5 MG Tablet Oral; Duration: 90 Days Acti ve Pravastatin Sodium 20 MG Tablet Oral; Duration: 30 Days Acti ve Sertraline HCl 50 MG Tablet Oral; Duration: 90 Days Active Omeprazole 20 MG Capsule Delayed Release Oral; Duration: 90 Days A ctive Meloxicam 15 MG Tablet Oral; Duration: 90 Days Active amLODIPine Besylate 2.5 MG Tablet Oral; Duration: 90 Days Acti ve Meclizine HCl 12.5 MG Tablet Oral; Duration: 90 Days Acti ve Social History Social History Additional Details Category Social Info Options Details Migrated Social History Migrated Social History Smoking Status : Never used tobacco , History of tobacco use : Vital Signs Height 57 in 02/24/2025 Weight 159 lbs 02/24/2025 BMI 34.4 kg/m2 02/24/2025 Height-cm 144.78 cm 02/24/2025 Weight-kg 72.12 kg 02/24/2025 Encounters Encounter Location Date Provider Diagnosis [facility] [address] [place], [place] [phone] 02/24/2025 YANET BARNETT Plan Of Treatment Next Appt Details Provider Name:YANET ELIZALDE, 05/05/2025 02:30:00 PM, [address] [place] [address], [phone], History and Physical Notes * HPI (History [...] Date last seen by Dr. Farnsworth was November 2024., Initials ab Progress Notes * DIA PROCTOR MDOB:[birth year] (89 yo F)Acc No.[id number]:02/24/2025 Patient: Stephen DIA CRUZ Provider: Dank BARNETT :1935 A ge:89 Y S ex:Female Date:02/24/2025 Address:[address] [place] [address], [address] [place], [place] [phone] Subjective: * Chief Complaints: * * General [...] Date last seen by Dr. Farnsworth was November 2024., Initials ab. * Medical History: Denies Past Medical History No Medical History Documented Medical History Verified * Surgical History: Denies Past Surgical History. Surgical History verified. * Hospitalization/Major Diagno stic Procedure: Denies Past Hospitalization. Hospitalization Verified. * Family History: N on-Contributory.. * Social History: M igrated Social History: [...] BMI: 34.4 Index, Body Surface Area: 1.7. Plan: * Preventive Medicine: Screenings: F all risk screening F all Risk Assessment: N o falls in the past year, P colleen of Care: D ocumented. Billing Information: * Procedure Codes: * Electronic signature of ALICIA BARNETT DPM on 03/22/2025 at 03:29 PM SHEET METAL FABRICATOR Sign off status: Pending * Provider: Dank BARNETT Date: 04/26/2024 Generated for Angelita osman/Dee Dee/Dominick on: 05/23/2024 03:29 PM SHEET METAL FABRICATOR
--- NOTE | ~2025-03-22 | US_ITS ---
EXAMINATION: US carotid duplex BI DATE: 03/22/2025 13:57 INDICATION: Left carotid bruit TECHNIQUE: Grayscale, color Doppler, and pulsed Doppler images of the cervical carotid arteries were obtained. The degree of vessel stenosis is placed in one of the following categories: normal, <50%, 50-69%, >=70% but less than near- occlusion, near-occlusion, or total occlusion. Note that percent stenosis relative to normal distal artery lumen diameter is indirectly measured from velocity measurements as described by Manpreet, et al. Radiology 2003; 229:340-346. COMPARISON: None. FINDINGS: RIGHT: The right common carotid artery (CCA) peak systolic velocity (PSV) is 98 cm/s. The right internal carotid artery (ICA) PSV is 95 cm/s. The right ICA end- diastolic velocity (EDV) is 15 cm/s. The right ICA/CCA PSV ratio is 1.0. Grayscale and color Doppler images yield an estimate of <50% diameter reduction from plaque in the ICA. The external carotid artery (ECA) PSV is 167 cm/s. There is antegrade flow in the right vertebral artery. LEFT: The left CCA PSV is 98 cm/s. The left ICA PSV is 103 cm/s. The left ICA EDV is 23 cm/s. The left ICA/CCA PSV ratio is 1.0. Grayscale and color Doppler images yield an estimate of <50% diameter reduction from plaque in the ICA. The ECA PSV is 154 cm/s. There is antegrade flow in the left vertebral artery. IMPRESSION: 1. <50% stenosis in the right internal carotid artery. 2. <50% stenosis in the left internal carotid artery. Reviewed, dictated and finalized at location A. TERIA TABLE ATTENDANT
--- OUTSIDE RECORDS SUMMARY | 2025-03-22 15:30 | XMS_ITS | Clinical Summary ---
Author Organization [facility] Address [address] [address] Phone Care Team Providers Care Printmaker Name Role Phone Tra Farnsworth MD Primary Care Provider [phone] Allergies Active Allergy Reactions Criticality Noted Date [...] complete this topic Human Papillomavirus (HPV) Immunization (No Doses Required) Completed Meningococcal Immunization (ACWY) Aged Out No longer eligible based on patient's age to complete this topic Rotavirus Immunization Aged Out No lo nger eligible based on patient's age to complete this topic Insurance MEDICARE AETNA SENIOR SUPPLEMENTAL Care Teams Printmaker Relationship Specialty Start Date End Date Tra Farnsworth MD [address] [place] [address] PCP - General Internal Medicine 07/24/17
--- OUTSIDE RECORDS SUMMARY | 2025-03-22 15:30 | XMS_ITS | Patient Health Record ---
Author Organization [facility] Address [address] [place], [place] [id number] Care Team Providers Care Rn Lvn Name Role Phone SLIME GAMEZ Unavailable [phone] Tra Farnsworth Unavailable Unavailable YANET BARNETT Unavailable [phone] Allergies Allergen (clinical drug ingredient) Drug/Non Drug [...] History of tobacco use : Vital Signs Height-cm 144.78 cm 02/24/2025 Weight-kg 72.12 kg 02/24/2025 Height 57 in 02/24/2025 Weight 159 lbs 02/24/2025 BMI 34.4 kg/m2 02/24/2025 Encounters Encounter Location Date Provider Diagnosis [address] [id number] 10/21/2024 YANET ANIBAL Tinea unguium B35.1 ; Pain in right foot M79.671 ; Pain in left foot M79.672 ; Atherosclerosis 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 of extremities with intermittent claudication, bilateral legs I70.213 and Acquired keratosis [keratoderma] palmaris et plantaris L85.[address] [id number] 12/23/2024 YANET ANIBAL Tinea unguium B35.1 ; Pain in right foot M79.671 ; Pain in left foot M79.672 ; Atherosclerosis 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 of extremities with intermittent claudication, bilateral legs I70.213 and Acquired keratosis [keratoderma] palmaris et plantaris L85.[address] [id number] 02/24/[address] [id number] 05/27/2024 SLIME SNOOK Tinea unguium B35.1 ; Pain in right foot M79.671 ; Pain in left foot M79.672 ; Atherosclerosis 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 of extremities with intermittent claudication, bilateral legs I70.213 and Acquired keratosis [keratoderma] palmaris et plantaris L85.[address] [id number] 08/05/2024 SLIME SNOOK Tinea unguium B35.1 ; Pain in right foot M79.671 ; Pain in left foot M79.672 ; Atherosclerosis 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 of extremities with intermittent claudication, bilateral [...] in right foot (ICD-10 - M79.671) 10/21/2024 Tinea unguium (ICD-10 - B35.1) Nails 1-5 Bilateral were debrided extensively with nail nippers and emery board, reducing length and girth to pink healthy tissue with any subungual debris and necrotic tissue removed 10/21/2024 Pain in right foot (ICD-10 - M79.671) 12/23/2024 Tinea unguium (ICD-10 - B35.1) Nails 1-5 Bilateral were debrided extensively with nail nippers and emery board, reducing length and girth to pink healthy tissue with any subungual debris and necrotic tissue removed 12/23/2024 Pain in right foot (ICD-10 - M79.671) 12/23/2024 Pain in left foot (ICD-10 - M79.672) 10/21/2024 Pain in left foot (ICD-10 - M79.672) 08/05/2024 Pain in left foot (ICD-10 - M79.672) 05/27/2024 Pain in left foot (ICD-10 - M79.672) 05/27/2024 Atherosclerosis 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 of extremities with intermittent claudication, bilateral legs (ICD-10 - I70.213) 08/05/2024 Atherosclerosis 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 of extremities with intermittent claudication, bilateral legs (ICD-10 - I70.213) 10/21/2024 Atherosclerosis 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 of extremities with intermittent claudication, bilateral legs (ICD-10 - I70.213) 12/23/2024 Atherosclerosis 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 of extremities with intermittent claudication, bilateral legs (ICD-10 - I70.213) 12/23/2024 Acquired keratosis [keratoderma] palmaris et plantaris (ICD-10 - L85.1) A total of 2 corns or calluses, as described in the note above, were cut and pared utilizing a #15 blade 10/21/2024 Acquired keratosis [keratoderma] palmaris et plantaris (ICD-10 - L85.1) A total of 2 corns or calluses, as described in the note above, were cut and pared utilizing a #15 blade 08/05/2024 Acquired keratosis [keratoderma] palmaris et plantaris (ICD-10 - L85.1) A total of 2 corns or calluses, as described in the note above, were cut and pared utilizing a #15 blade 05/27/2024 Acquired keratosis [keratoderma] palmaris et plantaris (ICD-10 - L85.1) A total of 1 corns or calluses, as described in the note above, were cut and pared utilizing a #15 blade Plan Of Treatment Next Appt Details Provider Name:YANET ELIZALDE, 05/05/2025 02:30:00 PM, [address] [place] [address], [phone], Insurance Providers Payer Name Payer Address Payer Phone Subscriber Number Group Number Insured Name Patient Relationship to Insured Coverage Start Date Coverage End Date Medicare Part B [place] [address] [place] [phone] [id number] DIA PROCTOR Self - patient is the insured [employer] [facility] [address] [address] [place] [address] [id number] DIA PROCTOR Self - patient is the insured
--- OUTSIDE RECORDS SUMMARY | 2025-03-22 15:30 | XMS_ITS | Clinical Summary ---
Author Organization [facility] Address [address] [place] [address] Care Team Providers Care Flight Instructor Name Role Phone Tra Farnsworth MD Primary Care Provider [phone] Gautam Fritz NYLON MENDER Unavailable [phone] Manfred Morales MD Unavailable [phone] Melba Posadas ANP-BC Unavailable [phone] Magali Guerrero MD Unavailable [phone] Allergies Active Allergy Reactions Criticality Noted [...] Type Department Care Team Description 01/18/2025 Telephone [facility] [address] [place] [address] John Hoyt MD PERC Study [...] drink = 0.6 oz pur e alcohol) [facility] Utilities Answer Date Recorded In the past 12 months has e [employer], gas, oil, or water [employer] threatened to shut off services in your [...] place to sleep or slept in a nursing home (including now)? No 03/10/2023 Comments No Sex [...] 35.9 C (96.6 F) 03/11/2023 11:47 AM CLASSROOM COORDINATOR Respiratory Rate 16 09/26/2023 2:00 PM CDT [...] this topic Medical Devices Implanted Type Area Parcel Post Carrier Device Identifier Shelf Expiration Date Model / Serial / Lot Medtronic Evolut Tavr Ao Valve- Implanted:Qty: 1 on 10/04/2020 by Parish Nguyen MD Valve Implant Heart [employer] 12/28/2021 EVPROPLU S-26US / [id number] / Delta Xtend Modular 155 Degree Epiphysis Implanted:Qty: 1 on 03/10/2023 by Manfred Morales MD at [facility] Right: Shoulder [employer] - [employer]USH[employer] 08/04/2032 1307-40- 103 / / [id number] Delta Xtend Locking Metaglene Screw Implanted:Qty: 1 on 03/10/2023 by Manfred Morales MD at [facility] Right: Shoulder [employer] - [employer] 10/04/2026 1307-90- 036 / / [id number] Delta Xtend Locking Metaglene Screw Implanted:Qty: 1 on 03/10/2023 by Manfred Morales MD at [facility] Right: Shoulder [employer] - [employer] 09/05/2027 1307-90- 036 / / [id number] Delta Xtend Reverse Shoulder System Central Screw Metaglene Collet Implanted:Qty: 1 on 03/10/2023 by Manfred Morales MD at [facility] Right: Shoulder [employer] - [employer] [id number] 02/07/2027 1309-60- 111 / / [id number] Delta Xtend Reverse Shoulder System Central Metaglene Screw Implanted:Qty: 1 on 03/10/2023 by Manfred Morales MD at [facility] Right: Shoulder [employer] - [employer] PSUHPA [employer] PUSH[employer] 12/06/2031 1309-60- 320 / / [id number] Delta Xtend Reverse Shoulder System Augmented Central Screw Metaglene Full Wedge Cementless Implanted:Qty: 1 on 03/10/2023 by Manfred Morales MD at [facility] Right: Shoulder [employer] - [employer] [id number] 11/05/2031 1309-70- 850 / / [id number] Delta Xtend Lateralized Glenosphere Implanted:Qty: 1 on 03/10/2023 by Manfred Morales MD at [facility] Right: Shoulder [employer] - [employer] 08/05/2027 1307-62- 138 / / [id number] Delta Xtend Non-Locking Metaglene Screw Implanted:Qty: 1 on 03/10/2023 by Manfred Morales MD at [facility] Right: Shoulder [employer] - [employer] 12/05/2026 1307-70- 024 / / [id number] Delta Xtend Locking Metaglene Screw Implanted:Qty: 1 on 03/10/2023 by Manfred Morales MD at [facility] Right: Shoulder [employer] - [employer] 07/06/2027 1307-90- 030 / / [id number] Delta Xtend Humeral Pe Cup Standard Implanted:Qty: 1 on 03/10/2023 by Manfred Morales MD at [facility] Right: Shoulder [employer] - [employer] 10/04/2026 1307-38- 203 / / [id number] Global Unite Porocoat Standard Stem Implanted:Qty: 1 on 03/10/2023 by Manfred Morales MD at [facility] Right: Shoulder [employer] - [employer] PUSH[employer] 07/06/2031 1100-12- 100 / / [id number] Explanted Type Area Parcel Post Carrier Device Identifier Shelf Expiration Date Model / Serial / Lot Drill Bit Depuy 2.5 - [id number] Explanted:Qty: 1 on 03/10/2023 at [facility] Drill Right: Shoulder DEPUY [id number] / / Delta Xtend Central Screw Metaglene Augmented Metaglene Reamer Inner Drive Shaft Tip Explanted:Qty: 1 on 03/10/2023 at [facility] Right: Shoulder [employer] - [employer] PUSH[employer] 02/04/2027 2317-70-824 / / [id number] Delta Xtend Central Screw Metaglene Augmented Metaglene Reamer Head Explanted:Qty: 1 on 03/10/2023 at [facility] Right: Shoulder [employer] - [employer]USH[employer] 11/04/2026 2317-70-424 / / [id number] Guide And Bone Model Shoulder Artheroplasty 2.5mm Center Pin Explanted:Qty: 1 on 03/10/2023 at [facility] Right: Shoulder [employer] - [employer] [id number] 08/03/2023 [id number] / / [id number] Additional Health Concerns 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 Urine (SB) 10/13/2020 10/13/2020 Insurance MEDICARE AETNA MEDICARE AETNA MEDICARE Advance Directives Documents on File Type Date Recorded Patient Assistant Buyer Expl anation Advance Directives and Living Will [...] 4:09 PM 09/13/2020 8:23 PM Care Teams Flight Instructor Relationship Specialty Start Date End Date Tra Farnsworth MD [address] [place] [address] PCP - General INTERNAL MEDICINE 01/09/18 Gautam Fritz, NYLON MENDER [address] [place] [address] Nurse Practitioner NURSE PRACTITIONER 10/05/21 Manfred Morales MD [address] [place] [address] ORTHOPAEDIC SURGERY 02/14/23 Melba Posadas [facility]- [address] [place] [id number] Nurse Practitioner NURSE PRACTITIONER ADULT HEALTH 07/16/23 Magali Guerrero MD [facility] [place] [address] INTERVENTIONAL CARDIOLOGY 07/16/23
--- OUTSIDE RECORDS SUMMARY | 2025-03-22 15:30 | XMS_ITS | Clinical Summary ---
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 01/18/2019 GERD (gastroesophageal reflux disease) 9 Hiatal hernia 01/18/2019 DM2 (diabetes mellitus, type 2) 01/18/2019 Pre-operative cardiovascular examination 019 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 Overview (12/02/2018): Added automatically from request for surgery [id number] AVD (aortic valve disease) 05/10/2018 Pain from [...] on file Legal Sex Female 7:20 AM PATIENT INTAKE COORDINATOR Gender Identity Not on file Sexual Orientation Not on file Obstetrics History Para Term AB IAB SAB Ectopic Multiple Livin g Live Births 2 2 Date Outcome GA Total Labor Labor/2nd/3rd Weight Sex Type Anes PTL Sonia A1 A5 Name Clin Para Para Last Filed Vital Signs Vital Sign Reading Time Taken Comments Blood Pressure 130/41 06/08/2019 4:20 PM PATIENT INTAKE COORDINATOR Pulse 68 06/08/2019 4:20 PM PATIENT INTAKE COORDINATOR Temperature 37.8 C (100 F) 06/08/2019 4:20 PM PATIENT INTAKE COORDINATOR Respiratory Rate 16 06/08/2019 4:20 PM PATIENT INTAKE COORDINATOR Oxygen Saturation 97% 06/08/2019 4:20 PM PATIENT INTAKE COORDINATOR Inhaled Oxygen Concentration - - Weight 69.1 kg (152 lb 4 oz) 06/07/2019 11:20 AM PATIENT INTAKE COORDINATOR Height 147.3 cm (4' 10) 06/08/2019 11:58 AM PATIENT INTAKE COORDINATOR Body Mass Index 31.82 06/07/2019 11:20 AM PATIENT INTAKE COORDINATOR Plan of Treatment Not on file Medical Devices Implanted Type Area Team Assistant Device Identifier Shelf Expiration Date Model / Serial / Lot [employer] 3122-040 Smartset Medium Viscosity Cement 40gm Bone Sterile - [id number] Implanted:Qty: 1 on 01/26/2019 by Roman Taveras MD at [facility] Left: Hip [employer] [id number] 05/07/2020 3122-040 / / [id number] [employer] [id number] Barrett 48mm 32mm Hip Neutral Liner Acetabular Altrx Sterile Latex Free - [id number] Implanted:Qty: 1 on 01/26/2019 by Roman Taveras MD at [facility] Left: Hip [employer] [id number] 12/05/2022 [id number] / / [id number] Sleeve Fem Delta Option Medium Hip Ti - [id number] Implanted:Qty: 1 on 01/26/2019 by Roman Taveras MD at [facility] Left: Hip [employer] 11/21/2025 [id number] / / [id number] Head Fem 32mm Hip Biolox Delta Option Strl - [id number] Implanted:Qty: 1 on 01/26/2019 by Roman Taveras MD at [facility] Left: Hip [employer] 11/05/2025 [id number] / / [id number] [employer] 3122-040 Smartset Medium Viscosity Cement 40gm Bone Sterile - [id number] Implanted:Qty: 1 on 06/07/2019 by Roman Taveras MD at [facility] Left: Hip [employer] 05/07/2020 3122-040 / / [id number] [employer] [id number] Barrett Esc 48mm 28mm Constrain Lock Ring Antirotational Flex Latex Free - [id number] Implanted:Qty: 1 on 06/07/2019 by Roman Taveras MD at [facility] Left: Hip [employer] 11/04/2021 [id number] / / [id number] Head Fem 28mm Hip [employer] Delta Option Strl - [id number] Implanted:Qty: 1 on 06/07/2019 by Roman Taveras MD at [facility] Left: Hip [employer] [id number] 11/05/2025 [id number] / / [id number] Sleeve Fem Delta Option Short Hip Ti - [id number] Implanted:Qty: 1 on 06/07/2019 by Roman Taveras MD at [facility] Left: Hip [employer] [id number] 11/05/2025 [id number] / / [id number] Insurance MEDICARE [facility] MEDICARE [place] [place] [employer] SENIOR SUPPLEMENT Advance Directives For more information, please contact: [phone] Documents on File Type Date Recorded Patient Digital Commentator Expl anation ADVANCE DIRECTIVE 01/26/2019 11:20 AM [facility] er of Loading Machine Adjuster-Medical * Full Code (Latest Code Status on File) Date Activated Date Inactivated Comments 06/07/2019 5:43 PM 06/08/2019 9:12 PM * Full Code Date Activated Date Inactivated Comments 01/26/2019 7:20 PM 01/27/2019 6:03 PM Care Teams Computational Scientist Relationship Specialty Start Date End Date Tra Farnsworth MD PCP - General Internal Medicine 10/16/18
--- OUTSIDE RECORDS SUMMARY | 2025-03-22 15:30 | XMS_ITS | Encounter Summary ---
Author Organization [facility] Address [address] [place] [address] Care Team Providers Care Mc Kay Machine Operator Name Role Phone Tra Farnsworth MD Primary Care Provider [phone] Anders Martínez MD Unavailable [phone] Justine Wright MD Unavailable [facility] Deng Musa MD Unavailable Unavailable Gautam Fritz APRN Unavailable [phone] Manfred Morales MD Unavailable [phone] Melba Posadas ANP-BC Unavailable [phone] Magali Guerrero MD Unavailable [phone] Encounter Details Date Type Department Care Team (Late st Contact Info) Description 10/06/2020 Hospital Follow-up Call [facility] [address] [place] [address] Kaitlin Howell, RN Social History [...] documented as of this encounter Care Teams Mc Kay Machine Operator Relationship Specialty Start Date End Date Tra Farnsworth MD [address] [place] [address] PCP - General INTERNAL MEDICINE 01/09/18 Anders Martínez MD [address] [place] [id number] [place] [employer] Developer CARDIOVASCULAR DISEASE 01/09/18 07/15/23 Justine Wright MD [address] [place] [address] Consulting Physician CARDIOVASCULAR DISEASE 08/21/20 Deng Mckeon MD [address] [place] [address] Consulting Physician CARDIOVASCULAR DISEASE 10/11/2002/13 Gautam Fritz APRN [address] [place] [phone] Nurse Practitioner NURSE PRACTITIONER 10/05/21 Manfred Morales MD [address] [place] [address] ORTHOPAEDIC SURGERY 02/14/23 Melba Posadas, [facility]- [address] [place] [address] Nurse Practitioner NURSE PRACTITIONER ADULT HEALTH 07/16/23 Magali Guerrero MD [address] [place] [id number] INTERVENTIONAL CARDIOLOGY 07/16/23 documented as of this encounter
== END 2025-03-22 13:19 | disposition home or self-care (01) ==
PROVIDERS: PCP Internal Medicine; Visit Provider Internal Medicine
DX: R09.89 Other specified symptoms and signs involving the circulatory and respiratory systems (principal); I65.23 Occlusion and stenosis of bilateral carotid arteries
CPT/HCPCS: 93880